=== PATIENT | male | born 1970 | race Caucasian/White ===

== ENCOUNTER → 2016-12-02 | Outpatient (CLI) | payer MEDICARE, OTHER ==
--- NOTE | 2016-12-02 07:51 | MR ---
EXAMINATION TYPE: MR hip RT wo con DATE OF EXAM: 12/02/2016 COMPARISON: Outside Pelvic x-ray November 03, 2016. MRI left hip May 03, 2015 HISTORY: Right hip pain Standard multiplanar, multisequence MRI departmental protocol Multiplanar, multisequence images of the pelvis focusing on the right hip were acquired. FINDINGS: Since prior MRI there is interval total hip replacement surgery, artifact from metallic paz dware is now present. There is small right hip joint effusion. Bone marrow signal intensity is maintained without suspiciou s edema. There is mild axial joint space loss and right hip. No significant spurring is seen. Femoral head shape is maintained. No suspicious edema at level of greater or lesser trochanters is identified. Labrum appears grossly i ntact given limitation of nonarthrogram study. Pubic symphysis is maintained. Sacroiliac joints are symmetric and felt within normal limits. No peyton l or fat-containing right inguinal hernia is seen. No suspicious groin adenopathy is present. Muscle bulk right thigh is felt within normal limits. There is no suspicious bowel dilatation. Prostate gland is felt within normal limits. Visualized port ion of bladder is unremarkable. No concerning pelvic fluid collection is seen. IMPRESSION: Some mild degenerative changes in right hip, no significant finding is seen to account for patient's symptoms. No significant new findings in right hip versus prior MRI.
== END | disposition home or self-care (01) ==
LOC: RADMRIMAIN 06:45
PROVIDERS: ATTEND Orthopaedic Surgery
DX: M25.851 Other specified joint disorders, right hip (principal); M25.551 Pain in right hip

== ENCOUNTER → 2017-01-08 | Outpatient (CLI) | payer MEDICARE, OTHER ==
--- NOTE | 2017-01-08 10:27 | XR ---
EXAMINATION TYPE: XR chest 2V DATE OF EXAM: 01/08/2017 COMPARISON: NONE HISTORY: Shortness of breath TECHNIQUE: Frontal and lateral views of the chest are obtained. FINDINGS: There is no focal air space opacity, pleural effusion, or pneumothorax seen. The cardiac silhouette size is within normal limits. The osseous structures are intact. Mild degenerative felton es are appreciated of the thoracic spine. Flattening of the diaphragms on the lateral image may relat e to degree of inspiration or pulmonary emphysema. No radiographic sequela of pulmonary emphysema on the frontal image. IMPRESSION: 1. No acute cardiopulmonary process. 2. Pulmonary hyperinflation which may relate to degree of inspiration or underlying emphysematous qian nges.
== END | disposition home or self-care (01) ==
LOC: RADXRMAIN 10:06
PROVIDERS: ATTEND Internal Medicine
DX: R91.8 Other nonspecific abnormal finding of lung field (principal); R06.02 Shortness of breath
CPT/HCPCS: 71020

== ENCOUNTER 2017-04-22 01:06 | Emergency (ER) | payer MEDICARE, OTHER ==
[2017-04-22 01:14] VITALS: RESP 18
[2017-04-22] MEDS ORDERED: KETOROLAC 60 MG/2 ML VIAL IM STA (01:26)
--- NOTE | 2017-04-22 01:29 | ED ---
General Adult HPI - General Chief complaint: Extremity Injury, Lower Stated complaint: R Ankle Pain Time Seen by Provider: 04/22/17 01:19 Source: patient, family, RN notes reviewed Mode of arrival: wheelchair Limitations: physical limitation - History of Present Illness Initial comments: Patient 46-year-old male who presents emergency room today with multiple complaints. Patient does admit that he is had some cough congestion for the last 3 days. Does admit some sputum production at times. Patient also admits to some swelling to the right ankle. He states had this in the past was proximal ureter ago that he last had. States there is no known injury. He states it is swollen is tender. He states worse with ambulation. Patient denies any history of gout. He denies any other complaints or symptoms currently. Patient denies any recent fever, chills, shortness of breath, chest pain, back pain, abdominal pain, nausea or vomiting, numbness or tingling, dysuria or hematuria, constipation or diarrhea, headaches or visual changes, or any other complaints. - Related Data Home Medications Medication Instructions Recorded Confirmed ALPRAZolam [Xanax] 1 mg PO BID 06/14/15 04/22/17 Methylphenidate HCl [Ritalin] 20 mg PO TID 06/14/15 04/22/17 Previous Rx's Medication Instructions Recorded Hydrocodone/Acetaminophen [[place] 1 each PO Q6HR PRN #20 tab 04/22/17 5-325] Allergies Allergy/AdvReac Type Severity Reaction Status Date / Time benztropine mesylate Allergy muscle Verified 04/22/17 01:14 [From Vipul] spasms Review of Systems ROS Statement: Those systems with pertinent positive or pertinent negative responses have been documented in the HPI. ROS Other: All systems not noted in ROS Statement are negative. Past Medical History Past Medical History: GERD/Reflux, Osteoarthritis (OA) Additional Past Medical History / Comment(s): hx. diverticulitis, recent cold sx. now resolved, hyperlipidemia diet controlled, ADHD, anxiety and depression, chronic back pain with known herniated disks History of Any Multi-Drug Resistant Organisms: None Reported Past Surgical History: Bowel Resection, Hernia Repair, Orthopedic Surgery Additional Past Surgical History / Comment(s): temp. colostomy then reversal, knee surg., thumb surg. Past Anesthesia/Blood Transfusion Reactions: No Reported Reaction Past Psychological History: ADD/ADHD, Anxiety Smoking Status: Former smoker Past Alcohol Use History: Rare Past Drug Use History: Marijuana - Past Family History Mother Family Medical History: Cancer General Exam - General Exam Comments Initial Comments: General: The patient is awake and alert, in no distress, and does not appear acutely ill. Neck: The neck is supple, there is no tenderness or JVD. Cardiovascular: There is a regular rate and rhythm. No murmur, rub or gallop is appreciated. Respiratory: Lungs are clear to auscultation, respirations are non-labored, breath sounds are equal. No wheezes, stridor, rales, or rhonchi. Musculoskeletal: patient does have some swelling to the right ankle. He is tender in the ATFL. Mild tenderness over both the medial and lateral malleolus. Sensations are intact pulses equal bilaterally 2+. Strength is 5/5. Neurological: A&O x 3. CN II-XII intact, There are no obvious motor or sensory deficits. Coordination appears grossly intact. Speech is normal. Skin: Skin is warm and dry and no rashes or lesions are noted. Psychiatric: Normal mood and affect. Limitations: physical limitation Course Vital Signs 04/22/17 01:09 Temperature 99.2 F Pulse Rate 90 Respiratory 18 Rate Blood Pressure 142/70 O2 Sat by Pulse 98 Oximetry Medical Decision Making - Medical Decision Making Case discussed in detail with attending physician Dr. Johnson. patient reexamined at this time shows no signs of distress. He is resting comfortably. Patient given pain medication here in the emergency room. His x-rays reviewed of his chest is negative for any sign of pneumonia. Advised that this is most likely a viral illness. Patient's x-ray of the ankle reviewed does show some evidence of osteochondritis. Results were discussed with the patient. He is advised follow-up his orthopedic doctor. He'll be given pain medication to go home with. Advised to return if any symptoms increase worsen or for any other concerns. - Lab Data Lab Results 04/22/17 Range/Units 01:55 Uric Acid 7.4 (3.5-8.5) mg/dL Disposition Clinical Impression: Costochondritis, Upper respiratory infection Disposition: HOME SELF-CARE Condition: Good Instructions: Arthralgia (ED) Additional Instructions: Please use medication as discussed. Please follow-up with orthopedic/family doctor in the next 2 days. Please return to emergency room if the symptoms increase or worsen or for any other concerns. Prescriptions: Hydrocodone/Acetaminophen [[place] 5-325] 1 each PO Q6HR PRN #20 tab PRN Reason: Pain Referrals: None,Stated [Primary Care Provider] - 1-2 days Beka Maynard MD [STAFF PHYSICIAN] - 1-2 days Time of Disposition: 02:58
--- NOTE | 2017-04-22 01:57 | XR ---
EXAMINATION TYPE: XR chest 2V DATE OF EXAM: 04/22/2017 COMPARISON: 01/08/2017 HISTORY: Cough TECHNIQUE: Frontal and lateral views of the chest are obtained. FINDINGS: Heart and mediastinum are normal. Lungs are clear of consolidation. Costophrenic angles ar e clear. Bony thorax is intact. IMPRESSION: No active cardiopulmonary disease. Normal heart. No change.
--- NOTE | 2017-04-22 01:59 | XR ---
EXAMINATION TYPE: XR ankle complete RT DATE OF EXAM: 04/22/2017 COMPARISON: NONE HISTORY: Ankle swelling TECHNIQUE: 3 views FINDINGS: Ankle mortise is anatomic. I see no fracture nor dislocation. There is some sclerosis and l ucency in the medial dome of the talus. IMPRESSION: No fracture seen. 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
[2017-04-22] MEDS ORDERED: HYDROcodone/APAP 5-325MG 1 EACH TAB PO STA (02:35)
[2017-04-22 03:17] VITALS: BP 114/63; PULSE 88; TEMP 99
== END 2017-04-22 03:16 | disposition home or self-care (01) ==
LOC: EC 01:06
DX: J06.9 Acute upper respiratory infection, unspecified (principal); M94.0 Chondrocostal junction syndrome [Tietze]; M93.971 Osteochondropathy, unspecified, right ankle and foot; F41.9 Anxiety disorder, unspecified; F90.9 Attention-deficit hyperactivity disorder, unspecified type; Z87.891 Personal history of nicotine dependence; Z79.899 Other long term (current) drug therapy; Z88.8 Allergy status to other drugs, medicaments and biological substances
CPT/HCPCS: 36415; 71020; 84550; 96372; 99284

== ENCOUNTER 2017-12-02 16:11 | Emergency (ER) | payer MEDICARE, OTHER ==
[2017-12-02 16:33] VITALS: TEMP 98.4
[2017-12-02 16:48] LABS: Glucose,Whole Blood 116 mg/dL (75-99)
--- NOTE | 2017-12-02 17:06 | ED ---
General Adult HPI - General Chief complaint: Neuro Symptoms/Deficit Stated complaint: Slurred Speech Time Seen by Provider: 12/02/17 16:49 Source: patient, RN notes reviewed Mode of arrival: wheelchair Limitations: no limitations - History of Present Illness Initial comments: Patient is a pleasant 47-year-old male presenting to the emergency department with speech problems. Onset of symptoms was 3 days ago. Symptoms were intermittent 3 days ago. Symptoms were persistent more yesterday however somewhat intermittent. Symptoms have been persistent throughout the day. Patient has difficulty speaking words. Patient states he is able to think of them normally. Patient also has some slurred speech. No history of similar symptoms previously. No headache. Patient does not feel confused. No arm or leg weakness. No paresthesias. Patient has noticed some redness and swelling and discomfort of his right first MCP. Patient has had this several times previously however is unclear why. - Related Data Home Medications Medication Instructions Recorded Confirmed Albuterol Inhaler [Ventolin Hfa 2 puff INHALATION RT-Q6H PRN 12/02/17 12/02/17 Inhaler] Naproxen Sodium [Aleve] 220 mg PO BID PRN 12/02/17 12/02/17 Allergies Allergy/AdvReac Type Severity Reaction Status Date / Time benztropine mesylate AdvReac muscle Verified 12/02/17 16:49 [From Vipul] spasms Review of Systems ROS Statement: Those systems with pertinent positive or pertinent negative responses have been documented in the HPI. ROS Other: All systems not noted in ROS Statement are negative. Constitutional: Denies: fever, chills Eyes: Denies: eye pain ENT: Denies: ear pain Respiratory: Denies: cough Cardiovascular: Denies: chest pain Endocrine: Denies: fatigue Gastrointestinal: Denies: abdominal pain Genitourinary: Denies: dysuria Musculoskeletal: Reports: arthralgia. Denies: back pain Skin: Reports: rash (Red swollen painful right first MCP region) Neurological: Denies: headache, weakness, numbness, paresthesias, confusion Past Medical History Past Medical History: GERD/Reflux, Osteoarthritis (OA) Additional Past Medical History / Comment(s): hx. diverticulitis, recent cold sx. now resolved, hyperlipidemia diet controlled, ADHD, anxiety and depression, chronic back pain with known herniated disks History of Any Multi-Drug Resistant Organisms: None Reported Past Surgical History: Bowel Resection, Hernia Repair, Orthopedic Surgery Additional Past Surgical History / Comment(s): temp. colostomy then reversal, knee surg., thumb surg. Past Anesthesia/Blood Transfusion Reactions: No Reported Reaction Past Psychological History: ADD/ADHD, Anxiety Smoking Status: Former smoker Past Alcohol Use History: Rare Past Drug Use History: Marijuana - Past Family History Mother Family Medical History: Cancer General Exam Limitations: no limitations General appearance: alert, in no apparent distress Head exam: Present: atraumatic Eye exam: Present: normal appearance, PERRL, EOMI. Absent: nystagmus ENT exam: Present: normal oropharynx Neck exam: Present: normal inspection Respiratory exam: Present: normal lung sounds bilaterally Cardiovascular Exam: Present: regular rate, normal rhythm GI/Abdominal exam: Present: soft. Absent: tenderness Extremities exam: Present: other (Right first MCP with erythema and mild swelling and mild tenderness. Pain with range of motion. Distally cap refill less than 2 seconds.) Neurological exam: Present: alert, CN II-XII intact. Absent: motor sensory deficit Expanded Neurological exam: Present: protecting the airway, other (And slurred speech) Speech: Present: expressive aphasia Cranial nerves: EOM's Intact: Normal, Facial Sensation: Normal Cerebellar function: Finger to Nose: Normal Sensory exam: Upper Extremity Light Touch: Normal, Lower Extremity Light Touch: Normal Motor strength exam: RUE: 5, LUE: 5, RLE: 5, LLE: 5 Eye Response: (4) open spontaneously Motor Response: (6) obeys commands Verbal Response: (4) confused conversation Psychiatric exam: Present: normal mood Skin exam: Present: erythema (Right first MCP) Course Vital Signs 12/02/17 12/02/17 16:31 18:00 Temperature 98.4 F Pulse Rate 91 74 Respiratory 18 16 Rate Blood Pressure 126/78 153/72 O2 Sat by Pulse 98 100 Oximetry EKG Findings - EKG Comments: EKG Findings:: Normal sinus rhythm 81. MO 146. QRS 76. QT 380. QTC 441. Normal axis. Normal QRS. No acute ST change. Medical Decision Making - Medical Decision Making reevaluated and unchanged. Patient and family updated on results and plan. Case was discussed in detail with Dr. Schilling, who will admit for hospital call. - Lab Data Result diagrams: 12/02/17 16:44 12/02/17 16:44 Lab Results 12/02/17 12/02/17 12/02/17 Range/Units 16:42 16:44 16:44 WBC 9.2 (3.8-10.6) k/uL RBC 5.29 (4.30-5.90) m/uL Hgb 17.6 H (13.0-17.5) gm/dL Hct 52.0 (39.0-53.0) % MCV 98.4 (80.0-100.0) fL MCH 33.3 (25.0-35.0) pg MCHC 33.8 (31.0-37.0) g/dL RDW 13.3 (11.5-15.5) % Plt Count 280 (150-450) k/uL Neutrophils % 64 % Lymphocytes % 21 % Monocytes % 10 % Eosinophils % 3 % Basophils % 0 % Neutrophils # 5.9 (1.3-7.7) k/uL Lymphocytes # 2.0 (1.0-4.8) k/uL Monocytes # 1.0 (0-1.0) k/uL Eosinophils # 0.2 (0-0.7) k/uL Basophils # 0.0 (0-0.2) k/uL PT (9.0-12.0) sec INR (<1.2) APTT (22.0-30.0) sec Sodium (137-145) mmol/L Potassium (3.5-5.1) mmol/L Chloride (98-107) mmol/L Carbon Dioxide (22-30) mmol/L Anion Gap mmol/L BUN (9-20) mg/dL Creatinine (0.66-1.25) mg/dL Est GFR (CKD-EPI)AfAm (>60 ml/min/1.73 sqM) Est GFR (CKD-EPI)NonAf (>60 ml/min/1.73 sqM) Glucose (74-99) mg/dL POC Glucose (mg/dL) 116 H (75-99) mg/dL POC Glu Folding Machine Feeder ID Kirt Mena Calcium (8.4-10.2) mg/dL Total Bilirubin (0.2-1.3) mg/dL AST (17-59) U/L ALT (21-72) U/L Alkaline Phosphatase (38-126) U/L Total Creatine Kinase 46 L (55-170) U/L CK-MB (CK-2) 1.1 (0.0-2.4) ng/mL CK-MB (CK-2) Rel Index 2.4 Troponin I <0.012 (0.000-0.034) ng/mL Total Protein (6.3-8.2) g/dL Albumin (3.5-5.0) g/dL 12/02/17 12/02/17 Range/Units 16:44 16:44 WBC (3.8-10.6) k/uL RBC (4.30-5.90) m/uL Hgb (13.0-17.5) gm/dL Hct (39.0-53.0) % MCV (80.0-100.0) fL MCH (25.0-35.0) pg MCHC (31.0-37.0) g/dL RDW (11.5-15.5) % Plt Count (150-450) k/uL Neutrophils % % Lymphocytes % % Monocytes % % Eosinophils % % Basophils % % Neutrophils # (1.3-7.7) k/uL Lymphocytes # (1.0-4.8) k/uL Monocytes # (0-1.0) k/uL Eosinophils # (0-0.7) k/uL Basophils # (0-0.2) k/uL PT 10.2 (9.0-12.0) sec INR 1.0 (<1.2) APTT 24.9 (22.0-30.0) sec Sodium 139 (137-145) mmol/L Potassium 4.4 (3.5-5.1) mmol/L Chloride 103 (98-107) mmol/L Carbon Dioxide 26 (22-30) mmol/L Anion Gap 10 mmol/L BUN 8 L (9-20) mg/dL Creatinine 0.80 (0.66-1.25) mg/dL Est GFR (CKD-EPI)AfAm >90 (>60 ml/min/1.73 sqM) Est GFR (CKD-EPI)NonAf >90 (>60 ml/min/1.73 sqM) Glucose 121 H (74-99) mg/dL POC Glucose (mg/dL) (75-99) mg/dL POC Glu Folding Machine Feeder ID Calcium 9.5 (8.4-10.2) mg/dL Total Bilirubin 0.7 (0.2-1.3) mg/dL AST 31 (17-59) U/L ALT 49 (21-72) U/L Alkaline Phosphatase 112 (38-126) U/L Total Creatine Kinase (55-170) U/L CK-MB (CK-2) (0.0-2.4) ng/mL CK-MB (CK-2) Rel Index Troponin I (0.000-0.034) ng/mL Total Protein 7.4 (6.3-8.2) g/dL Albumin 4.2 (3.5-5.0) g/dL - Radiology Data Radiology results: report reviewed (Computed tomography scan of the brain reported as no acute process), image reviewed (Chest x-ray shows no acute process) Disposition Clinical Impression: Cerebrovascular accident Disposition: ADMITTED IP TO THIS [facility] Referrals: None,Stated [Primary Care Provider] - 1-2 days Decision Time: 18:30
[2017-12-02 17:08] LABS: Basophils % (A) 0 %; Eosinophils # (A) 0.2 k/uL (0-0.7); Eosinophils % (A) 3 %; HGB 17.6 gm/dL (13.0-17.5); Lymphocytes % (A) 21 %; MCH 33.3 pg (25.0-35.0); MCHC 33.8 g/dL (31.0-37.0); MCV 98.4 fL (80.0-100.0); Mean Platelet Volume 6.6; Monocytes % (A) 10 %; Neutrophils # (A) 5.9 k/uL (1.3-7.7); Neutrophils % (A) 64 %; Platelet Count 280 k/uL (150-450); RBC 5.29 m/uL (4.30-5.90); RDW 13.3 % (11.5-15.5); WBC 9.2 k/uL (3.8-10.6)
[2017-12-02 17:12] LABS: Partial Thromboplastin Time 24.9 sec (22.0-30.0); Prothrombin Time 10.2 sec (9.0-12.0)
[2017-12-02 17:14] LABS: ALT 49 U/L (21-72); AST 31 U/L (17-59); Albumin 4.2 g/dL (3.5-5.0); Alkaline Phosphatase 112 U/L (38-126); Anion Gap 10 mmol/L; Blood Urea Nitrogen 8 mg/dL (9-20); Calcium 9.5 mg/dL (8.4-10.2); Carbon Dioxide 26 mmol/L (22-30); Chloride 103 mmol/L (98-107); Glucose 121 mg/dL (74-99); Potassium 4.4 mmol/L (3.5-5.1); Sodium 139 mmol/L (137-145); Total Bilirubin 0.7 mg/dL (0.2-1.3); Total Protein 7.4 g/dL (6.3-8.2)
[2017-12-02 17:23] LABS: Creatine Kinase 46 U/L (55-170)
[2017-12-02 17:36] LABS: Creatine Kinase MB 1.1 ng/mL (0.0-2.4); Troponin I <0.012 ng/mL (0.000-0.034)
--- NOTE | 2017-12-02 17:38 | XR ---
EXAMINATION: XR chest 2V DATE AND TIME: 12/02/2017 5:23 PM ORDERING PROVIDER: Gomez Morocho DO CLINICAL INDICATION: altered mental status TECHNIQUE: AP and lateral COMPARISON: 04/22/2017 DESCRIPTION: The lungs are clear. The pleural spaces are negative. The cardiac silhouette is not enlarged. The skeletal structures are intact without acute findings. The soft tissues are prominent but unremarkable for acute findings. IMPRESSION: NO ACUTE PROCESS.
--- NOTE | 2017-12-02 17:44 | CT ---
EXAMINATION: CT brain wo con for TPA DATE AND TIME: 12/02/2017 5:21 PM ORDERING PROVIDER: Gomez Morocho DO CLINICAL INDICATION: Neuro Deficits TECHNIQUE: Standard departmental protocol. COMPARISON: None. DESCRIPTION: The calvarium is intact. There is no intracranial hemorrhage. There is no mass or mass e ffect. There is no definite new attenuation defect. Remainder of the intra-axial and extra-axial comp artment examination is unremarkable. The paranasal sinuses, middle ear cavities, and mastoid sinus ai r cells are clear. The orbits are intact. IMPRESSION: NO ACUTE PROCESS.
[2017-12-02 18:01] VITALS: RESP 16
[2017-12-02] MEDS ORDERED: ASPIRIN 325 MG TAB PO STA (18:31)
[2017-12-02] MEDS ORDERED: SODIUM CHLORIDE 0.9% 1,000 ML IV SCH (18:45)
--- NOTE | 2017-12-02 19:10 | P.PN ---
Subjective Progress Note Date: 12/02/17 just notified by ED RN, that patient decided to leave against medical advice from the ED and refusing admission Objective - Vital Signs Vital signs: Vital Signs Temp 98.4 F 12/02/17 16:31 Pulse 74 12/02/17 18:00 Resp 16 12/02/17 18:00 BP 153/72 12/02/17 18:00 Pulse Ox 100 12/02/17 18:00 Intake & Output 12/02/17 12/02/17 12/03/17 06:59 18:59 06:59 Weight 83.915 kg - Labs CBC & Chem 7: 12/02/17 16:44 12/02/17 16:44 Labs: Abnormal Lab Results - Last 24 Hours (Table) 12/02/17 12/02/17 12/02/17 Range/Units 16:42 16:44 16:44 Hgb 17.6 H (13.0-17.5) gm/dL BUN (9-20) mg/dL Glucose (74-99) mg/dL POC Glucose (mg/dL) 116 H (75-99) mg/dL Total Creatine Kinase 46 L (55-170) U/L 12/02/17 Range/Units 16:44 Hgb (13.0-17.5) gm/dL BUN 8 L (9-20) mg/dL Glucose 121 H (74-99) mg/dL POC Glucose (mg/dL) (75-99) mg/dL Total Creatine Kinase (55-170) U/L
[2017-12-02 19:19] VITALS: BP 148/79; PULSE 78
[2017-12-03] MEDS ORDERED: ASPIRIN 325 MG TAB PO SCH (12:00)
== END 2017-12-02 19:16 | disposition left against medical advice (07) ==
LOC: EC 16:11 → 6SEL 18:31 → UNDOADMIN 18:31 → EC 19:16
DX: I63.9 Cerebral infarction, unspecified (principal); R40.2142 Coma scale, eyes open, spontaneous, at arrival to emergency department; R40.2252 Coma scale, best verbal response, oriented, at arrival to emergency department; R40.2362 Coma scale, best motor response, obeys commands, at arrival to emergency department; Z53.20 Procedure and treatment not carried out because of patient's decision for unspecified reasons; Z87.891 Personal history of nicotine dependence; Z88.8 Allergy status to other drugs, medicaments and biological substances
CPT/HCPCS: 36415; 70450; 71046; 80053; 82550; 82553; 84484; 85025; 85610; 85730; 93005; 99285

== ENCOUNTER 2019-01-22 18:48 | Emergency (ER) | payer MEDICARE, OTHER ==
[2019-01-22 19:07] VITALS: BP 143/86; PULSE 98; RESP 18; TEMP 98.2
[2019-01-22] MEDS ORDERED: predniSONE 50 MG TAB PO STA (19:41)
[2019-01-22] MEDS ORDERED: CEPHALEXIN 500 MG CAP PO STA (19:41)
[2019-01-22] MEDS ORDERED: CEPHALEXIN 500MG STARTER PACK 4 CAP BTL PO STA (19:41)
--- NOTE | 2019-01-22 19:42 | ED ---
General Adult HPI - General Chief complaint: Skin/Abscess/Foreign Body Stated complaint: Bug Bites Time Seen by Provider: 01/22/19 19:29 Source: patient, RN notes reviewed, old records reviewed Mode of arrival: ambulatory Limitations: no limitations - History of Present Illness Initial comments: 48-year-old male patient presents ED chief complaint of bug bites on his upper extremities and lower extremities bilaterally. Patient reports has been ongoing for a month. Patient reports that he has mites in his house that has been biting him. Patient states that they're not bedbugs. Patient has been seen at other emergency centimeters, dermatology states that nobody knows they are. Patient chief complaint is back treatment of burning on excoriations upper or lower extremities. Denies any other complaints at this time. Systemic: Pt denies fatigue, fever/chills, rash. Pt denies weakness, night sweats, weight loss. Neuro: Pt denies headache, visual disturbances, syncope or pre-syncope. HEENT: Pt denies ocular discharge or irritation, otalgia, rhinorrhea, pharyngitis or notable lymphadenopathy. Cardiopulmonary: Pt denies chest pain, SOB, heart palpitations, dyspnea on exertion. Abdominal/GI: Pt denies abdominal pain, n/v/d. : Pt denies dysuria, burning w/ urination, frequency/urgency. Denies new onset urinary or bowel incontinence. MSK: Pt denies myalgia, loss of strength or function in extremities. Neuro: Pt denies new onset weakness, paresthesias. - Related Data Home Medications Medication Instructions Recorded Confirmed Albuterol Inhaler [Ventolin Hfa 2 puff INHALATION RT-Q6H PRN 12/02/17 12/02/17 Inhaler] Naproxen Sodium [Aleve] 220 mg PO BID PRN 12/02/17 12/02/17 Previous Rx's Medication Instructions Recorded Cephalexin [Keflex] 500 mg PO Q6HR 7 Days #28 cap 01/22/19 predniSONE 50 mg PO DAILY #4 tab 01/22/19 Allergies Allergy/AdvReac Type Severity Reaction Status Date / Time benztropine mesylate AdvReac muscle Verified 01/22/19 19:07 [From Vipul] spasms Review of Systems ROS Statement: Those systems with pertinent positive or pertinent negative responses have been documented in the HPI. ROS Other: All systems not noted in ROS Statement are negative. Past Medical History Past Medical History: GERD/Reflux, Osteoarthritis (OA) Additional Past Medical History / Comment(s): hx. diverticulitis, recent cold sx. now resolved, hyperlipidemia diet controlled, ADHD, anxiety and depression, chronic back pain with known herniated disks History of Any Multi-Drug Resistant Organisms: None Reported Past Surgical History: Bowel Resection, Hernia Repair, Orthopedic Surgery Additional Past Surgical History / Comment(s): temp. colostomy then reversal, knee surg., thumb surg. Past Anesthesia/Blood Transfusion Reactions: No Reported Reaction Past Psychological History: ADD/ADHD, Anxiety Smoking Status: Current some day smoker Past Alcohol Use History: Rare Past Drug Use History: Marijuana - Past Family History Mother Family Medical History: Cancer General Exam - General Exam Comments Initial Comments: Constitutional: NAD, AOX3, Pt has pleasant affect. HEENT: NC/AT, trachea midline, neck supple, no lymphadenopathy. Posterior pharynx non erythematous, without exudates. External ears appear normal, without discharge. Mucous membranes moist. Eyes PERRLA, EOM intact. There is no scleral icterus. No pallor noted. Cardiopulmonary: RRR, no murmurs, rubs or gallops, no JVD noted. Lungs CTAB in anterior and posterior freire. No peripheral edema. Abdominal exam: Abdomen soft and non-distended. Abdomen non-tender to palpation in all 4 quadrants. Bowel sounds active in LLQ. No hepatosplenomegaly. No ecchymosis Neuro: CN II-XII grossly intact. No nuchal rigidity. No raccon eyes, no rosario sign, no hemotympanum. No cervical spinal tenderness. MSK: No posterior calf tenderness bilaterally, homans sign negative bilaterally. Posterior tibialis and radial pulse +2 bilaterally. Sensation intact in upper an d lower extremities. Full active ROM in upper and lower extremities, 5/5 stregnth. Derm: Skin excoriations noted on upper and lower extremities. Spares abdomen and back. No involvement palms or soles, no mucosal involvement. Spares interwebbing of fingers. No streaking, fluctuance, discharge. Limitations: no limitations Course Vital Signs 01/22/19 19:05 Temperature 98.2 F Pulse Rate 98 Respiratory 18 Rate Blood Pressure 143/86 O2 Sat by Pulse 100 Oximetry Medical Decision Making - Medical Decision Making 48-year-old male patient presents ED chief complaint of bug bites on his upper extremities and lower extremities bilaterally. Patient reports has been ongoing for a month. Patient reports that he has mites in his house that has been biting him. Patient states that they're not bedbugs. Patient has been seen at other emergency centimeters, dermatology states that nobody knows they are. Patient chief complaint is back treatment of burning on excoriations upper or lower extremities. Denies any other complaints at this time. Pt VSS, afebrile. Physical exam displayed: Skin excoriations noted on upper and lower extremities. Spares abdomen and back. No involvement palms or soles, no mucosal inv olvement. Spares interwebbing of fingers. No streaking, fluctuance, discharge. Patient will be placed on first third treatment, prophylactic Keflex. Patient has appointment with dermatology on Wednesday, will keep scheduled appointment. Patient will return to ER if condition worsens. Case discussed with Dr. Lomas. Disposition Clinical Impression: Skin excoriation Disposition: HOME SELF-CARE Condition: Stable Instructions (If sedation given, give patient instructions): Acute Rash (ED), Insect Bite or Sting (ED) Additional Instructions: Patient to adhere to previously discussed treatment plan and will take medication(s) as directed. Patient to follow up with PCP in 1-2 days. Patient to return to ED if symptoms do not improve. Take medication as directed. Follow-up with associate vice president as scheduled. Return to ER if condition worsens. Prescriptions: Cephalexin [Keflex] 500 mg PO Q6HR 7 Days #28 cap predniSONE 50 mg PO DAILY #4 tab Is patient prescribed a controlled substance at d/c from ED?: No Referrals: None,Stated [Primary Care Provider] - 1-2 days
== END 2019-01-22 20:12 | disposition home or self-care (01) ==
LOC: EC 18:48
DX: S40.812A Abrasion of left upper arm, initial encounter (principal); S40.811A Abrasion of right upper arm, initial encounter; S80.812A Abrasion, left lower leg, initial encounter; S80.811A Abrasion, right lower leg, initial encounter; E78.5 Hyperlipidemia, unspecified; F17.200 Nicotine dependence, unspecified, uncomplicated; Z88.8 Allergy status to other drugs, medicaments and biological substances; W57.XXXA Bitten or stung by nonvenomous insect and other nonvenomous arthropods, initial encounter
CPT/HCPCS: 99283; J7512

== ENCOUNTER 2019-11-22 15:24 | Inpatient (IN) | payer MEDICARE, OTHER ==
[2019-11-22] MEDS ORDERED: ASPIRIN 81 MG PO STA (16:04)
[2019-11-22 16:14] LABS: Basophils # (A) 0.1 k/uL (0-0.2); Basophils % (A) 1 %; Eosinophils # (A) 0.2 k/uL (0-0.7); Eosinophils % (A) 2 %; HGB 15.8 gm/dL (13.0-17.5); Lymphocytes # (A) 2.2 k/uL (1.0-4.8); Lymphocytes % (A) 23 %; MCH 31.6 pg (25.0-35.0); MCHC 32.3 g/dL (31.0-37.0); MCV 98.1 fL (80.0-100.0); Mean Platelet Volume 7.2; Monocytes # (A) 0.8 k/uL (0-1.0); Monocytes % (A) 8 %; Neutrophils # (A) 6.1 k/uL (1.3-7.7); Neutrophils % (A) 63 %; Platelet Count 248 k/uL (150-450); WBC 9.6 k/uL (3.8-10.6)
[2019-11-22 16:22] LABS: INR 0.9 (<1.2); Partial Thromboplastin Time 25.5 sec (22.0-30.0); Prothrombin Time 9.6 sec (9.0-12.0)
[2019-11-22 16:24] LABS: ALT 26 U/L (4-49); AST 21 U/L (17-59); African American GFR (CKD) >90 (>60 ml/min/1.73 sqM); Albumin 4.4 g/dL (3.5-5.0); Alkaline Phosphatase 105 U/L (38-126); Anion Gap 11 mmol/L; Blood Urea Nitrogen 11 mg/dL (9-20); Calcium 9.2 mg/dL (8.4-10.2); Carbon Dioxide 24 mmol/L (22-30); Chloride 96 mmol/L (98-107); Glucose 143 mg/dL (74-99); Magnesium 1.6 mg/dL (1.6-2.3); Non-African American GFR(CKD) >90 (>60 ml/min/1.73 sqM); Potassium 3.7 mmol/L (3.5-5.1); Sodium 131 mmol/L (137-145); Total Bilirubin 0.5 mg/dL (0.2-1.3); Total Protein 7.9 g/dL (6.3-8.2)
[2019-11-22] MEDS ORDERED: HEPARIN SODIUM,PORCINE 5,000 UNIT/ML 1 ML VIAL IV ONE (16:31)
[2019-11-22] MEDS ORDERED: HEPARIN SOD,PORK IN 0.45% NACL 25,000 UNIT in 0.45% NACL 1 250ML.BAG IV SCH (16:45)
--- NOTE | 2019-11-22 16:57 | XR ---
EXAMINATION TYPE: XR chest 2V DATE OF EXAM: 11/22/2019 COMPARISON: 12/02/2017 HISTORY: Chest pain TECHNIQUE: FINDINGS: Heart and mediastinum are normal. Lungs are clear. Diaphragm is normal. Bony thorax appears normal. There are chest leads. IMPRESSION: Normal chest. No change.
--- NOTE | 2019-11-22 17:01 | ED ---
General Adult HPI - General Chief complaint: Extremity Problem,Nontraumatic Stated complaint: lightheaded/feet swelling/toe numbness Time Seen by Provider: 11/22/19 15:36 Source: patient, family, RN notes reviewed, old records reviewed Mode of arrival: wheelchair Limitations: no limitations - History of Present Illness Initial comments: 49-year-old male patient received for evaluation of primarily left foot pain and numbness and tingling. Patient reports that he has a history of arterial claudication lower extremity is bilaterally. He reports that for the last 2 days has been having numbness and tingling in the foot and as well as pain in the foot. He also reports that yesterday and today he had a short duration of left parasternal chest pain. He reports that the pain was in the morning lasted a short duration is since resolved. Denies any pain this time. Denies any shortness of breath this time. Denies any other complaints. Systemic: Pt denies fatigue, fever/chills, rash. Pt denies weakness, night sweats, weight loss. Neuro: Pt denies headache, visual disturbances, syncope or pre-syncope. HEENT: Pt denies ocular discharge or irritation, otalgia, rhinorrhea, pharyngitis or notable lymphadenopathy. Cardiopulmonary: Pt denies SOB, heart palpitations, dyspnea on exertion. Abdominal/GI: Pt denies abdominal pain, n/v/d. : Pt denies dysuria, burning w/ urination, frequency/urgency. Denies new onset urinary or bowel incontinence. MSK: Pt denies myalgia, loss of strength or function in extremities. Neuro: Pt denies new onset weakness. - Related Data Home Medications Medication Instructions Recorded Confirmed ALPRAZolam [Xanax] 1 mg PO BID PRN 11/22/19 11/22/19 Aspirin EC [Ecotrin Low Dose] 81 mg PO DAILY 11/22/19 11/22/19 Loratadine 10 mg PO DAILY 11/22/19 11/22/19 Methylphenidate HCl 20 mg PO BID@0900,1300 11/22/19 11/22/19 Simvastatin 40 mg PO DAILY 11/22/19 11/22/19 Allergies Allergy/AdvReac Type Severity Reaction Status Date / Time benztropine mesylate AdvReac muscle Verified 11/22/19 16:07 [From [facility]] spasms Review of Systems ROS Statement: Those systems with pertinent positive or pertinent negative responses have been documented in the HPI. ROS Other: All systems not noted in ROS Statement are negative. Past Medical History Past Medical History: GERD/Reflux, Osteoarthritis (OA) Additional Past Medical History / Comment(s): hx. diverticulitis, recent cold sx. now resolved, hyperlipidemia diet controlled, ADHD, anxiety and depression, chronic back pain with known herniated disks History of Any Multi-Drug Resistant Organisms: None Reported Past Surgical History: Bowel Resection, Hernia Repair, Orthopedic Surgery Additional Past Surgical History / Comment(s): temp. colostomy then reversal, knee surg., thumb surg. Past Anesthesia/Blood Transfusion Reactions: No Reported Reaction Past Psychological History: ADD/ADHD, Anxiety Smoking Status: Former smoker Past Alcohol Use History: None Reported, Rare Past Drug Use History: None Reported, Marijuana - Past Family History Mother Family Medical History: Cancer General Exam - General Exam Comments Initial Comments: Constitutional: NAD, AOX3, Pt has pleasant affect. HEENT: NC/AT, trachea midline, neck supple, no lymphadenopathy. Posterior pharynx non erythematous, without exudates. External ears appear normal, without discharge. Mucous membranes moist. Eyes PERRLA, EOM intact. There is no scleral icterus. No pallor noted. Cardiopulmonary: RRR, no murmurs, rubs or gallops, no JVD noted. Lungs CTAB in anterior and posterior freire. No peripheral edema. Abdominal exam: Abdomen soft and non-distended. Abdomen non-tender to palpation in all 4 quadrants. Bowel sounds active in LLQ. No hepatosplenomegaly. No ecchymosis Neuro: CN II-XII grossly intact. No nuchal rigidity. No raccon eyes, no rosario sign, no hemotympanum. No cervical spinal tenderness. MSK: No posterior calf tenderness bilaterally, homans sign negative bilaterally. Distal pulses are nonpalpable bilaterally. Right posterior tibialis and dorsalis pedis pulse are present with Doppler. Left posterior tibialis dorsalis pedis pulse are not identified with Doppler. Capillary refill is less than 2 s econds bilaterally. Extremities are pink and warm. No posterior calf tenderness. Limitations: no limitations Course Vital Signs 11/22/19 11/22/19 15:29 17:01 Temperature 98.2 F Pulse Rate 95 80 Respiratory 18 18 Rate Blood Pressure 159/87 144/83 O2 Sat by Pulse 98 99 Oximetry Medical Decision Making - Medical Decision Making 49-year-old male patient received for evaluation of primarily left foot pain and numbness and tingling. Patient reports that he has a history of arterial claudication lower extremity is bilaterally. He reports that for the last 2 days has been having numbness and tingling in the foot and as well as pain in the foot. He also reports that yesterday and today he had a short duration of left parasternal chest pain. He reports that the pain was in the morning lasted a short duration is since resolved. Denies any pain this time. Denies any shortness of breath this time. Denies any other complaints. Patient vital signs are stable, afebrile. Physical exam displayed: No posterior calf tenderness bilaterally, homans sign negative bilaterally. Distal pulses are nonpalpable bilaterally. Right posterior tibialis and dorsalis pedis pulse are present with Doppler. Left posterior tibialis dorsalis pedis pulse are not identified with Doppler. Capillary refill is less than 2 seconds bilaterally. Extremities are pink and warm. No posterior calf tenderness. Sensation is intact bilaterally. Lymph investigations are obtained and are non-impressive. EKG is nonischemic. Patient was evaluated by Dr. Dasilva patient's previously established vascular surgeon. This is a long-standing issue and sensory previously recommended. Patient seen not have any chest pain only has a short amount earlier in the day. Patient was heparinized and low intensity heparin. Patient will be admitted [id number] troponins, and further evaluation by vascular surgery. Case discussed with Dr. Nicholson. - Lab Data Result diagrams: 11/22/19 16:08 11/22/19 16:08 Lab Results 11/22/19 11/22/19 11/22/19 Range/Units 16:08 16:08 16:08 WBC 9.6 (3.8-10.6) k/uL RBC 5.00 (4.30-5.90) m/uL Hgb 15.8 (13.0-17.5) gm/dL Hct 49.0 (39.0-53.0) % MCV 98.1 (80.0-100.0) fL MCH 31.6 (25.0-35.0) pg MCHC 32.3 (31.0-37.0) g/dL RDW 13.0 (11.5-15.5) % Plt Count 248 (150-450) k/uL Neutrophils % 63 % Lymphocytes % 23 % Monocytes % 8 % Eosinophils % 2 % Basophils % 1 % Neutrophils # 6.1 (1.3-7.7) k/uL Lymphocytes # 2.2 (1.0-4.8) k/uL Monocytes # 0.8 (0-1.0) k/uL Eosinophils # 0.2 (0-0.7) k/uL Basophils # 0.1 (0-0.2) k/uL PT 9.6 (9.0-12.0) sec INR 0.9 (<1.2) APTT 25.5 (22.0-30.0) sec Sodium 131 L (137-145) mmol/L Potassium 3.7 (3.5-5.1) mmol/L Chloride 96 L (98-107) mmol/L Carbon Dioxide 24 (22-30) mmol/L Anion Gap 11 mmol/L BUN 11 (9-20) mg/dL Creatinine 0.64 L (0.66-1.25) mg/dL Est GFR (CKD-EPI)AfAm >90 (>60 ml/min/1.73 sqM) Est GFR (CKD-EPI)NonAf >90 (>60 ml/min/1.73 sqM) Glucose 143 H (74-99) mg/dL Calcium 9.2 (8.4-10.2) mg/dL Magnesium 1.6 (1.6-2.3) mg/dL Total Bilirubin 0.5 (0.2-1.3) mg/dL AST 21 (17-59) U/L ALT 26 (4-49) U/L Alkaline Phosphatase 105 (38-126) U/L Troponin I (0.000-0.034) ng/mL NT-Pro-B Natriuret Pep pg/mL Total Protein 7.9 (6.3-8.2) g/dL Albumin 4.4 (3.5-5.0) g/dL 11/22/19 11/22/19 Range/Units 16:08 16:08 WBC (3.8-10.6) k/uL RBC (4.30-5.90) m/uL Hgb (13.0-17.5) gm/dL Hct (39.0-53.0) % MCV (80.0-100.0) fL MCH (25.0-35.0) pg MCHC (31.0-37.0) g/dL RDW (11.5-15.5) % Plt Count (150-450) k/uL Neutrophils % % Lymphocytes % % Monocytes % % Eosinophils % % Basophils % % Neutrophils # (1.3-7.7) k/uL Lymphocytes # (1.0-4.8) k/uL Monocytes # (0-1.0) k/uL Eosinophils # (0-0.7) k/uL Basophils # (0-0.2) k/uL PT (9.0-12.0) sec INR (<1.2) APTT (22.0-30.0) sec Sodium (137-145) mmol/L Potassium (3.5-5.1) mmol/L Chloride (98-107) mmol/L Carbon Dioxide (22-30) mmol/L Anion Gap mmol/L BUN (9-20) mg/dL Creatinine (0.66-1.25) mg/dL Est GFR (CKD-EPI)AfAm (>60 ml/min/1.73 sqM) Est GFR (CKD-EPI)NonAf (>60 ml/min/1.73 sqM) Glucose (74-99) mg/dL Calcium (8.4-10.2) mg/dL Magnesium (1.6-2.3) mg/dL Total Bilirubin (0.2-1.3) mg/dL AST (17-59) U/L ALT (4-49) U/L Alkaline Phosphatase (38-126) U/L Troponin I <0.012 (0.000-0.034) ng/mL NT-Pro-B Natriuret Pep 74 pg/mL Total Protein (6.3-8.2) g/dL Albumin (3.5-5.0) g/dL - EKG Data -: EKG Interpreted by Me (and Dr. Nicholson ) EKG Comments: Ventricular rate 92,. Full 146, QRS 80, QT/QTC 366/452. normal sinus rhytm, normal EKG, no concern for acute ischemia at this time. Disposition Clinical Impression: Left leg claudication, Chest pain Disposition: ADMITTED IP TO THIS HOSP Condition: Serious Is patient prescribed a controlled substance at d/c from ED?: No Referrals: [facility] [Primary Care Provider] - 1-2 days
[2019-11-22] MEDS ORDERED: NITROGLYCERIN SL TABS 0.4 MG TAB SUBLINGUAL PRN (18:40)
[2019-11-22] MEDS: HEPARIN SODIUM,PORCINE 5,000 UNIT/ML 1 ML VIAL IV PRN (23:53)
[2019-11-23 07:39] LABS: Basophils # (A) 0.1 k/uL (0-0.2); Basophils % (A) 1 %; Eosinophils # (A) 0.3 k/uL (0-0.7); Eosinophils % (A) 3 %; HCT 50.7 % (39.0-53.0); HGB 17.1 gm/dL (13.0-17.5); Lymphocytes # (A) 2.6 k/uL (1.0-4.8); Lymphocytes % (A) 23 %; MCH 33.4 pg (25.0-35.0); MCHC 33.7 g/dL (31.0-37.0); MCV 99.2 fL (80.0-100.0); Mean Platelet Volume 7.1; Monocytes # (A) 0.9 k/uL (0-1.0); Monocytes % (A) 8 %; Neutrophils # (A) 6.9 k/uL (1.3-7.7); Neutrophils % (A) 63 %; Platelet Count 262 k/uL (150-450); RBC 5.11 m/uL (4.30-5.90); RDW 13.1 % (11.5-15.5)
[2019-11-23] MEDS ORDERED: REGADENOSON 0.4 MG/5 ML SYRINGE IV ONE (07:56)
[2019-11-23] MEDS ORDERED: AMINOPHYLLINE 500 MG/20 ML VIAL IV PRN (07:56)
[2019-11-23] MEDS ORDERED: CAFFEINE CITRATE 60 MG/3 ML VIAL IV PRN (07:56)
[2019-11-23 08:05] LABS: Cholesterol 265 mg/dL (<200); HDL Cholesterol 57 mg/dL (40-60); LDL Cholesterol,Calculated 137 mg/dL (0-99); Triglycerides 357 mg/dL (<150)
[2019-11-23] MEDS: HEPARIN SODIUM,PORCINE 5,000 UNIT/ML 1 ML VIAL IV PRN (08:07)
[2019-11-23] MEDS ORDERED: ASPIRIN 325 MG TAB PO SCH (09:00)
[2019-11-23 09:19] VITALS: RESP 16
--- NOTE | 2019-11-23 10:32 | P.GSCN ---
History of Present Illness Consult date: 11/23/19 History of present illness: The patient is a 49-year-old male who presented the hospital yesterday with substernal chest pain. He has a long-standing history of bilateral lower extremity claudication and left foot pain. He states that with any amount of ambulation he has bilateral lower extremity thigh and calf pain with muscle cramping. It seems to be worse on the left than the right. This has been going on for many months. He has been worked up at another hospital and told he has multiple areas of blockages. He denies any fevers, chills, nausea or vomiting. He denies any chest pains or shortness of breath at this time. He denies any illicit drug use. He quit smoking approximately 1 year ago. He also states he is noncompliant with his recommended medications. That he is supposed to be taking a aspirin a day and a cholesterol pill that he is not taking among other things. He also has a significant history of multiple abdominal surgeries with a perforated diverticulitis and Suazo's procedure as well as multiple abdominal wall hernias with repair Review of Systems 14 point review of systems performed. Pertinent positives and negatives per the HPI All systems: negative Past Medical History Past Medical History: GERD/Reflux, Hyperlipidemia, Osteoarthritis (OA) Additional Past Medical History / Comment(s): hx. diverticulitis, recent cold sx. now resolved, hyperlipidemia diet controlled, ADHD, anxiety and depression, chronic back pain with known herniated disks History of Any Multi-Drug Resistant Organisms: None Reported Past Surgical History: Bowel Resection, Hernia Repair, Orthopedic Surgery Additional Past Surgical History / Comment(s): temp. colostomy then reversal, knee surg., thumb surg. Past Anesthesia/Blood Transfusion Reactions: No Reported Reaction Past Psychological History: ADD/ADHD, Anxiety, Depression Smoking Status: Former smoker Past Alcohol Use History: None Reported, Rare Additional Past Alcohol Use History / Comment(s): has smoked for 20 yrs., down to half a pack ppd, used to be 1-2 ppd Past Drug Use History: None Reported, Marijuana Additional Drug Use History / Comment(s): occasional use - Past Family History Mother Family Medical History: Cancer Father Family Medical History: Osteoarthritis (OA), Respiratory Disorder Medications and Allergies Home Medications Medication Instructions Recorded Confirmed Type ALPRAZolam [Xanax] 1 mg PO BID PRN 11/22/19 11/22/19 History Aspirin EC [Ecotrin Low Dose] 81 mg PO DAILY 11/22/19 11/22/19 History Loratadine 10 mg PO DAILY 11/22/19 11/22/19 History Methylphenidate HCl 20 mg PO BID@0900,1300 11/22/19 11/22/19 History Simvastatin 40 mg PO DAILY 11/22/19 11/22/19 History Allergies Allergy/AdvReac Type Severity Reaction Status Date / Time benztropine mesylate AdvReac muscle Verified 11/22/19 16:07 [From [facility]] spasms Surgical - Exam Vital Signs Temp Pulse Resp BP Pulse Ox 98.2 F 95 18 159/87 98 11/22/19 15:29 11/22/19 15:29 11/22/19 15:29 11/22/19 15:29 11/22/19 15:29 Gen. is a pleasant cooperative male in no acute distress. HEENT is normocephalic atraumatic, extraocular motion intact. Multiple areas of skin scarring likely acne. Poor dentition. Wearing glasses. Neck is supple, trachea is midline. No bruits. Heart is regular at this time. Lungs are clear bilaterally. No respiratory distress. Abdomen soft, nontender nondistended. Multiple surgical scars from appropriate surgical history. Bilateral lower ex tremities are warm and dry. He has palpable radial pulses bilaterally. Nonpalpable femoral pulses. Left foot slightly cooler than the right, delayed capillary refill. Multiple areas of varicosities. No significant edema. Normal mood and affect. Cranial nerves II through XII grossly intact Results - Labs 11/23/19 07:11 11/22/19 16:08 Abnormal Lab Results - Last 24 Hours (Table) 11/22/19 11/22/19 11/23/19 Range/Units 16:08 23:11 07:11 WBC 11.0 H (3.8-10.6) k/uL APTT 31.7 H (22.0-30.0) sec Sodium 131 L (137-145) mmol/L Chloride 96 L (98-107) mmol/L Creatinine 0.64 L (0.66-1.25) mg/dL Glucose 143 H (74-99) mg/dL Triglycerides (<150) mg/dL Cholesterol (<200) mg/dL LDL Cholesterol, Calc (0-99) mg/dL 11/23/19 11/23/19 Range/Units 07:11 07:11 WBC (3.8-10.6) k/uL APTT 35.7 H (22.0-30.0) sec Sodium (137-145) mmol/L Chloride (98-107) mmol/L Creatinine (0.66-1.25) mg/dL Glucose (74-99) mg/dL Triglycerides 357 H (<150) mg/dL Cholesterol 265 H (<200) mg/dL LDL Cholesterol, Calc 137 H (0-99) mg/dL Diabetes panel 11/22/19 11/23/19 Range/Units 16:08 07:11 Sodium 131 L (137-145) mmol/L Potassium 3.7 (3.5-5.1) mmol/L Chloride 96 L (98-107) mmol/L Carbon Dioxide 24 (22-30) mmol/L BUN 11 (9-20) mg/dL Creatinine 0.64 L (0.66-1.25) mg/dL Glucose 143 H (74-99) mg/dL Calcium 9.2 (8.4-10.2) mg/dL AST 21 (17-59) U/L ALT 26 (4-49) U/L Alkaline Phosphatase 105 (38-126) U/L Total Protein 7.9 (6.3-8.2) g/dL Albumin 4.4 (3.5-5.0) g/dL Triglycerides 357 H (<150) mg/dL HDL Cholesterol 57 (40-60) mg/dL Calcium panel 11/22/19 Range/Units 16:08 Calcium 9.2 (8.4-10.2) mg/dL Albumin 4.4 (3.5-5.0) g/dL Pituitary panel 11/22/19 Range/Units 16:08 Sodium 131 L (137-145) mmol/L Potassium 3.7 (3.5-5.1) mmol/L Chloride 96 L (98-107) mmol/L Carbon Dioxide 24 (22-30) mmol/L BUN 11 (9-20) mg/dL Creatinine 0.64 L (0.66-1.25) mg/dL Glucose 143 H (74-99) mg/dL Calcium 9.2 (8.4-10.2) mg/dL Adrenal panel 11/22/19 Range/Units 16:08 Sodium 131 L (137-145) mmol/L Potassium 3.7 (3.5-5.1) mmol/L Chloride 96 L (98-107) mmol/L Carbon Dioxide 24 (22-30) mmol/L BUN 11 (9-20) mg/dL Creatinine 0.64 L (0.66-1.25) mg/dL Glucose 143 H (74-99) mg/dL Calcium 9.2 (8.4-10.2) mg/dL Total Bilirubin 0.5 (0.2-1.3) mg/dL AST 21 (17-59) U/L ALT 26 (4-49) U/L Alkaline Phosphatase 105 (38-126) U/L Total Protein 7.9 (6.3-8.2) g/dL Albumin 4.4 (3.5-5.0) g/dL Assessment and Plan Assessment: #1 Lucho 3 peripheral arterial disease with severe claudication #2 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 Continue cardiac workup, likely patient will need an extensive vascular surgery for revascularization. At this point no further vascular intervention is planned well inpatient, this workup and finalization may be performed as outpatient. If there are no further cardiac issues keeping him in the hospital, from our standpoint he may be discharged for follow-up with Dr. Metz in the office. He needs to maintain his aspirin and statin medications. Would consider peripheral arterial dose of Xarelto, 2.5 mg twice a day if no other contraindications for anticoagulation meds per cardiology Thank you for allowing us to participate in the care of your patient
[2019-11-23] MEDS ORDERED: SODIUM CHLORIDE 0.9% 1,000 ML IV ONE (10:40)
--- NOTE | 2019-11-23 11:59 | NM ---
EXAMINATION TYPE: NM stress lexiscan cardiolite DATE OF EXAM: 11/23/2019 COMPARISON: NONE HISTORY: Chest pain TECHNIQUE: After the intravenous administration of 9.5 mCi Tc 99m Sestamibi - Cardiolite resting SPE CT images acquired 75 minutes post injection. The patient received 0.4mg Lexiscan, 25.5 mCi Tc 99m Sestamibi - Stress images obtained [address] injection FINDINGS: Review of stress and rest SPECT images demonstrates some suitable mild decreased uptake along the lef t lateral wall on stress as compared to rest images. Gated analysis shows normal wall motion with an estimated left ventricular ejection fraction of 58 %. 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
[2019-11-23] MEDS ORDERED: ALPRAZolam 1 MG TAB PO PRN (12:03)
--- NOTE | 2019-11-23 12:13 | P.HPIM ---
History of Present Illness patient is a pleasant 49-year-old male came in with compensative chest pressure like sensation which started yesterday lasted for few hours radiating to the left arm, moderate severity. Patient had on and off for chest pains. Patient is a smoker quit smoking about a year ago, patient chest pain is not associated diaphoresis or lightheadedness chest pain not associated with food nonpleuriticgrade EKG normal sinus rhythm without any acute ST-T wave changes. Troponins were negative.. Patient underwent Lexiscan stress test which came as equivocal may undergo cardiac catheterization patient is on IV heparin which she will remain on. Patient was also company of claudication painalong with tingling numbness in the left foot. Patient was evaluated by vascular surgery the recommending anticoagulation if there is no contraindication on antiplatelet therapy from cardiology perspective and will follow him as an outpatient. P atient although wanted to go home today Review of Systems REVIEW OF SYSTEMS: CONSTITUTIONAL: No fever, no malaise, no fatigue. HEENT: No recent visual problems or hearing problems. Denied any sore throat. CARDIOVASCULAR: No orthopnea, PND, no palpitations, no syncope. PULMONARY: No shortness of breath, no cough, no hemoptysis. GASTROINTESTINAL: No diarrhea, no nausea, no vomiting, no abdominal pain. NEUROLOGICAL: No headaches, no weakness, no numbness. HEMATOLOGICAL: Denies any bleeding or petechiae. GENITOURINARY: Denies any burning micturition, frequency, or urgency. MUSCULOSKELETAL/RHEUMATOLOGICAL: Denies any joint pain, swelling, or any muscle pain. ENDOCRINE: Denies any polyuria or polydipsia. The rest of the 14-point review of systems is negative. Past Medical History Past Medical History: GERD/Reflux, Hyperlipidemia, Osteoarthritis (OA) Additional Past Medical History / Comment(s): hx. diverticulitis, recent cold sx. now resolved, hyperlipidemia diet controlled, ADHD, anxiety and depression, chronic back pain with known herniated disks History of Any Multi-Drug Resistant Organisms: None Reported Past Surgical History: Bowel Resection, Hernia Repair, Orthopedic Surgery Additional Past Surgical History / Comment(s): temp. colostomy then reversal, knee surg., thumb surg. Past Anesthesia/Blood Transfusion Reactions: No Reported Reaction Past Psychological History: ADD/ADHD, Anxiety, Depression Smoking Status: Former smoker Past Alcohol Use History: None Reported, Rare Additional Past Alcohol Use History / Comment(s): has smoked for 20 yrs., down to half a pack ppd, used to be 1-2 ppd Past Drug Use History: None Reported, Marijuana Additional Drug Use History / Comment(s): occasional use - Past Family History Mother Family Medical History: Cancer Father Family Medical History: Osteoarthritis (OA), Respiratory Disorder Medications and Allergies Home Medications Medication Instructions Recorded Confirmed Type ALPRAZolam [Xanax] 1 mg PO BID PRN 11/22/19 11/22/19 History Aspirin EC [Ecotrin Low Dose] 81 mg PO DAILY 11/22/19 11/22/19 History Loratadine 10 mg PO DAILY 11/22/19 11/22/19 History Methylphenidate HCl 20 mg PO BID@0900,1300 11/22/19 11/22/19 History Simvastatin 40 mg PO DAILY 11/22/19 11/22/19 History Allergies Allergy/AdvReac Type Severity Reaction Status Date / Time benztropine mesylate AdvReac muscle Verified 11/22/19 16:07 [From Vipul] spasms Physical Exam Vitals: Vital Signs Temp Pulse Pulse Resp BP BP Pulse Ox 11/23/19 08:00 98.1 F 71 16 136/79 96 11/23/19 04:18 97.8 F 77 18 138/82 95 11/23/19 00:33 98.1 F 81 16 138/75 98 11/22/19 21:43 97.7 F 79 16 133/86 96 11/22/19 17:01 80 18 144/83 99 11/22/19 15:29 98.2 F 95 18 159/87 98 Intake and Output 11/22/19 11/23/19 11/23/19 22:59 06:59 14:59 Intake Total 217.833 105.714 Output Total 0 Balance 0 217.833 105.714 Intake: Intake, IV Titration 67.833 105.714 Amount Heparin Sod,Pork in 0.45% 67.833 105.714 NaCl 25,000 unit In 0.45 % NaCl 1 250ml.bag @ 11. 603 UNITS/KG/HR 10 mls/hr IV .Q24H [place] Rx#: [id number] Oral 150 Output: Urine 0 Other: Voiding Method Toilet Toilet Toilet # Voids 1 Weight 85.9 kg 85.3 kg 85.3 kg PHYSICAL EXAMINATION: GENERAL: The patient is alert and oriented x3, not in any acute distress. Well developed, well nourished. HEENT: Pupils are round and equally reacting to light. EOMI. No scleral icterus. No conjunctival pallor. Normocephalic, atraumatic. No pharyngeal erythema. No thyromegaly. CARDIOVASCULAR: S1 and S2 present. No murmurs, rubs, or gallops. PULMONARY: Chest is clear to auscultation, no wheezing or crackles. ABDOMEN: Soft, nontender, nondistended, normoactive bowel sounds. No palpable organomegaly. MUSCULOSKELETAL: No joint swelling or deformity. EXTREMITIES: No cyanosis, clubbing, or pedal edema. NEUROLOGICAL: Gross neurological examination did not reveal any focal deficits. SKIN: No rashes. Results CBC & Chem 7: 11/23/19 07:11 11/22/19 16:08 Labs: Abnormal Lab Results - Last 24 Hours (Table) 11/22/19 11/22/19 11/23/19 Range/Units 16:08 23:11 07:11 WBC 11.0 H (3.8-10.6) k/uL APTT 31.7 H (22.0-30.0) sec Sodium 131 L (137-145) mmol/L Chloride 96 L (98-107) mmol/L Creatinine 0.64 L (0.66-1.25) mg/dL Glucose 143 H (74-99) mg/dL Triglycerides (<150) mg/dL Cholesterol (<200) mg/dL LDL Cholesterol, Calc (0-99) mg/dL 11/23/19 11/23/19 Range/Units 07:11 07:11 WBC (3.8-10.6) k/uL APTT 35.7 H (22.0-30.0) sec Sodium (137-145) mmol/L Chloride (98-107) mmol/L Creatinine (0.66-1.25) mg/dL Glucose (74-99) mg/dL Triglycerides 357 H (<150) mg/dL Cholesterol 265 H (<200) mg/dL LDL Cholesterol, Calc 137 H (0-99) mg/dL Thrombosis Risk Factor Assmnt - Choose All That Apply Any of the Below Risk Factors Present?: Yes Each Factor Represents 1 point: Age 41-60 years, Obesity (BMI >25), Varicose veins Other Risk Factors: No Other congenital or acquired thrombophilia - If yes, enter type in comment: No Thrombosis Risk Factor Assessment Total Risk Factor Score: 3 Thrombosis Risk Factor Assessment Level: Moderate Risk Assessment and Plan Plan: -chest pain: Ruled out acute coronary syndromes, although unstable angina cannot be completely ruled out stress test as you can vocal patient probably will need cardiac catheterization discussed with cardiology patient will be continued on IV heparin. -Hyperlipidemia: Continue with statin humidity increases statin upon his discharge -Severe peripheral vascular disease with the claudication pain: Patient was evaluated byvascular surgery and they will follow him as an outpatient. Patient quit smoking about any ago -gastroesophageal reflux disease -ADHD, depression and anxiety disorder
--- NOTE | 2019-11-23 12:14 | ECHOF ---
Referral Reason:chest pain MEASUREMENTS -------- HEIGHT: 170.2 cm WEIGHT: 85.3 kg BP: 138/82 IVSd: 1.1 cm (0.6 - 1.1) LVIDd: 3.1 cm (3.9 - 5.3) LVPWd: 1.2 cm (0.6 - 1.1) IVSs: 1.4 cm LVIDs: 1.5 cm LVPWs: 1.5 cm LAESV Index (A-L): 9.53 ml/m Ao Diam: 3.5 cm (2.0 - 3.7) AV Cusp: 1.7 cm (1.5 - 2.6) LA Diam: 3.0 cm (2.7 - 3.8) MV EXCURSION: 21.866 mm (> 18.000) MV EF SLOPE: 240 mm/s (70 - 150) EPSS: 1.4 cm MV E Isaac: 0.73 m/s MV DecT: 171 ms MV A Isaac: 0.70 m/s MV E/A Ratio: 1.05 RAP: 5.00 mmHg RVSP: 11.59 mmHg FINDINGS -------- Sinus rhythm. This was a technically good study. The left ventricular size is normal. Left ventricular wall thickness is normal. Overall left vent ricular systolic function is normal with, an EF between 55 - 60 %. The diastolic filling pattern is normal for the age of the patient 8.76. The right ventricle is normal in size. The left atrial size is normal. The right atrial size is normal. The aortic valve was not well visualized. The mitral valve is normal. There is trace mitral regurgitation. The tricuspid valve appears structurally normal. Trace tricuspid regurgitation present. Right palmer tricular systolic pressure is normal at < 35 mmHg. There is no pulmonic regurgitation present. The aortic root size is normal. Normal inferior vena cava with normal inspiratory collapse consistent with estimated right atrial pre ssure of 5 mmHg. There is no pericardial effusion. CONCLUSIONS -------- 1. Sinus rhythm. 2. This was a technically good study. 3. The left ventricular size is normal. 4. Left ventricular wall thickness is normal. 5. Overall left ventricular systolic function is normal with, an EF between 55 - 60 %. 6. The diastolic filling pattern is normal for the age of the patient 8.76 7. The right ventricle is normal in size. 8. The left atrial size is normal. 9. The right atrial size is normal. 10. The aortic valve was not well visualized. 11. The mitral valve is normal. 12. There is trace mitral regurgitation. 13. The tricuspid valve appears structurally normal. 14. Trace tricuspid regurgitation present. 15. Right ventricular systolic pressure is normal at < 35 mmHg. 16. There is no pulmonic regurgitation present. 17. The aortic root size is normal. 18. Normal inferior vena cava with normal inspiratory collapse consistent with estimated right atrial pressure of 5 mmHg. 19. There is no pericardial effusion. WEIGH MACHINE OPERATOR: Precious Marquis RDCS
--- NOTE | 2019-11-23 12:31 | CONS ---
CONSULTATION CHIEF COMPLAINT: Chest pain and leg discomfort. Jamey is a 49-year-old gentleman with history of the dyslipidemia and history of peripheral vascular disease, who states that he had seen Dr. Dasilva in the past, primarily complaining of discomfort involving both his lower extremities and he also complained of vague chest pain. His chest discomfort is sharp, precordial, does not sound anginal. He also complains of bilateral intermittent claudication and states that he has seen Dr. Dasilva before. EKG does not reveal acute ischemic changes. His cardiac enzymes have been negative so far. The patient's coronary risk factors include dyslipidemia and smoking. I advised the patient to undergo a stress test for further evaluation and if necessary we will perform cardiac catheterization. We are also going to consult Dr. Dasilva for further evaluation of the possible PAT. Past medical history significant for dyslipidemia. Current medications include aspirin, Xanax, simvastatin, and loratadine. ALLERGIES: COGENTIN. Family history negative for premature coronary artery disease. Social history significant for smoking. There is no history of EtOH abuse or drug abuse. REVIEW OF SYSTEMS: HEENT is unremarkable. Cardiac as described above. Respiratory negative. GI negative. negative. ALLERGY: Negative. VASCULAR: Significant for claudications. Rest of the system review is not relevant. On exam patient is comfortable at rest. Vital signs are stable. There is no jugular venous distention. Carotid upstroke is normal. There is no bruit. Chest exam reveals good air entry bilaterally. Heart exam reveals first and second heart sounds. No gallop. No murmur. No rub. Abdomen is soft, nontender. Exam of extremities did not reveal any edema. Peripheral pulses are not palpable. EKG does not reveal ischemic changes. Cardiac enzymes have been negative. ASSESSMENT: 1. Precordial chest pain, sharp, atypical. 2. Lower extremity discomfort, probably related to peripheral arterial disease. PLAN: I will schedule him for an echocardiogram and stress test. If necessary, we will perform cardiac catheterization on him. MMODL / IJN: [id number] /
[2019-11-23 12:32] VITALS: BP 132/76; PULSE 67; TEMP 98
--- NOTE | 2019-11-23 20:38 | EST ---
EXERCISE STRESS AGE: 49 SEX: Male HT: 67 WT: 188 PROTOCOL: Lexiscan Cardiolite STAGE: DURATION OF EXERCISE: HEART RATE REST: 60 BLOOD PRESSURE REST: 150/79 MAXIMUM HEART RATE ACHIEVED: 95 MAXIMUM BLOOD PRESSURE: 150/79 85% MPHR: 146 100% MPHR: 172 METS: INDICATIONS: Chest pain. CLINICAL INFORMATION: STRESS DATA: Heart rate 60, pressure 150/79 mmHg. Baseline EKG showed sinus mechanism. 0.4 mg of Lexiscan was given over 15 seconds per protocol. Max heart rate was 95 beats per minute and maximum pressure was 133/71 mmHg. Clinically the patient did not have any symptoms. The EKG did not show any significant ST or T-wave abnormalities concerning for ischemia. CONCLUSION: 1. Nondiagnostic electrocardiogram stress testing in response to Lexiscan. 2. Please follow up on the Cardiolite portion on separate report from Radiology Department. MMODL / IJN: [id number] /
[2019-11-24] MEDS ORDERED: ATORVASTATIN 20 MG TAB PO SCH (09:00)
--- NOTE | 2019-11-29 15:22 | P.DS ---
Providers Date of admission: 11/22/19 19:12 Expected date of discharge: 11/23/19 Attending physician: Chase Ziegler Consults: 11/22/19 18:40 Consult Physician Stat Consulting Provider: Gerald Gusman Consult Reason/Comments: chest pain Do you want consulting provider notified?: Yes 11/23/19 09:17 Consult Physician Routine Consulting Provider: Hunter Metz Reason/Comments: Leg Claudication Do you want consulting provider notified?: Already Contacted Primary care physician: [facility] Hospital Course: patient left AMA Patient Condition at Discharge: Serious Plan - Discharge Summary Discharge Rx Participant: Yes New Discharge Prescriptions: No Action ALPRAZolam [Xanax] 1 mg PO BID PRN PRN Reason: Anxiety Simvastatin 40 mg PO DAILY Methylphenidate HCl 20 mg PO BID@0900,1300 Loratadine 10 mg PO DAILY Aspirin EC [Ecotrin Low Dose] 81 mg PO DAILY Discharge Medication List ALPRAZolam [Xanax] 1 mg PO BID PRN 11/22/19 [History] Aspirin EC [Ecotrin Low Dose] 81 mg PO DAILY 11/22/19 [History] Loratadine 10 mg PO DAILY 11/22/19 [History] Methylphenidate HCl 20 mg PO BID@0900,1300 11/22/19 [History] Simvastatin 40 mg PO DAILY 11/22/19 [History] Follow up Appointment(s)/Referral(s): [facility] [Primary Care Provider] - 1-2 days Discharge Disposition: Left Against Medical Advice
== END 2019-11-23 15:46 | disposition left against medical advice (07) | DRG 313 ==
LOC: EC 15:24 → 3SCARD 19:12
PROVIDERS: ADMIT Internal Medicine; ATTEND Internal Medicine
DX: R07.89 Other chest pain (principal); I74.09 Other arterial embolism and thrombosis of abdominal aorta; Z11.59 Encounter for screening for other viral diseases; I70.213 Atherosclerosis of native arteries of extremities with intermittent claudication, bilateral legs; K21.9 Gastro-esophageal reflux disease without esophagitis; M19.90 Unspecified osteoarthritis, unspecified site; F90.9 Attention-deficit hyperactivity disorder, unspecified type; F32.9 Major depressive disorder, single episode, unspecified; F41.9 Anxiety disorder, unspecified; E78.5 Hyperlipidemia, unspecified; G89.29 Other chronic pain; M54.9 Dorsalgia, unspecified; E66.9 Obesity, unspecified; I83.90 Asymptomatic varicose veins of unspecified lower extremity; F17.210 Nicotine dependence, cigarettes, uncomplicated; R07.2 Precordial pain; Z68.29 Body mass index [BMI] 29.0-29.9, adult; Z79.82 Long term (current) use of aspirin; Z79.899 Other long term (current) drug therapy; Z87.19 Personal history of other diseases of the digestive system; Z90.49 Acquired absence of other specified parts of digestive tract; Z98.890 Other specified postprocedural states; Z91.14 Patient's other noncompliance with medication regimen; Z88.8 Allergy status to other drugs, medicaments and biological substances; Z80.9 Family history of malignant neoplasm, unspecified; Z82.61 Family history of arthritis; Z83.6 Family history of other diseases of the respiratory system
CPT/HCPCS: 36415; 71046; 78452; 80053; 80061; 83735; 83880; 84484; 85025; 85610; 85730; 93005; 93017; 93306; 96365; 96366; 96376; 99285

== ENCOUNTER 2020-01-03 15:58 | Observation (INO) | payer MEDICARE, OTHER ==
[2020-01-03] MEDS ORDERED: ASPIRIN 81 MG PO STA (16:29)
[2020-01-03] MEDS ORDERED: NITROGLYCERIN OINT 1 INCH/GM PACKET TOPICAL STA (16:29)
[2020-01-03 16:41] LABS: Basophils # (A) 0.1 k/uL (0-0.2); Basophils % (A) 1 %; Eosinophils # (A) 0.2 k/uL (0-0.7); Eosinophils % (A) 2 %; HCT 50.9 % (39.0-53.0); HGB 16.6 gm/dL (13.0-17.5); Lymphocytes # (A) 2.4 k/uL (1.0-4.8); Lymphocytes % (A) 23 %; MCH 32.1 pg (25.0-35.0); MCHC 32.7 g/dL (31.0-37.0); MCV 98.2 fL (80.0-100.0); Mean Platelet Volume 7.2; Monocytes # (A) 0.7 k/uL (0-1.0); Monocytes % (A) 6 %; Neutrophils # (A) 7.1 k/uL (1.3-7.7); Neutrophils % (A) 66 %; Platelet Count 304 k/uL (150-450); RBC 5.18 m/uL (4.30-5.90); RDW 13.6 % (11.5-15.5); WBC 10.8 k/uL (3.8-10.6)
[2020-01-03 16:50] LABS: ALT 30 U/L (4-49); AST 36 U/L (17-59); African American GFR (CKD) >90 (>60 ml/min/1.73 sqM); Albumin 4.5 g/dL (3.5-5.0); Alkaline Phosphatase 106 U/L (38-126); Anion Gap 10 mmol/L; Blood Urea Nitrogen 8 mg/dL (9-20); Calcium 9.5 mg/dL (8.4-10.2); Carbon Dioxide 22 mmol/L (22-30); Chloride 105 mmol/L (98-107); Glucose 123 mg/dL (74-99); Magnesium 1.9 mg/dL (1.6-2.3); Non-African American GFR(CKD) >90 (>60 ml/min/1.73 sqM); Potassium 4.2 mmol/L (3.5-5.1); Sodium 137 mmol/L (137-145); Total Bilirubin 0.8 mg/dL (0.2-1.3); Total Protein 8.1 g/dL (6.3-8.2)
--- NOTE | 2020-01-03 16:50 | XR ---
EXAMINATION TYPE: XR chest 2V DATE OF EXAM: 01/03/2020 COMPARISON: Chest x-ray November 22, 2019. HISTORY: Chest pain. TECHNIQUE: Frontal and lateral views of the chest are obtained. FINDINGS: There is some chronic parenchymal change without suspicious focal air space opacity, pleur al effusion, or pneumothorax seen. Overlying EKG leads are redemonstrated. The cardiac silhouette si ze remains upper limits of normal. The osseous structures are intact. IMPRESSION: Chronic changes without acute pulmonary process.
[2020-01-03] MEDS ORDERED: HEPARIN SODIUM,PORCINE 5,000 UNIT/ML 1 ML VIAL IV PRN ×2 (16:58→23:23)
[2020-01-03] MEDS ORDERED: HEPARIN SODIUM,PORCINE 5,000 UNIT/ML 1 ML VIAL IV ONE (16:58)
[2020-01-03] MEDS ORDERED: NITROGLYCERIN SL TABS 0.4 MG TAB SUBLINGUAL PRN (16:58)
--- NOTE | 2020-01-03 16:58 | ED ---
Chest Pain HPI - General Chief Complaint: Chest Pain Stated Complaint: chest pain Time Seen by Provider: 01/03/20 16:19 Source: patient, RN notes reviewed Mode of arrival: wheelchair Limitations: no limitations - History of Present Illness Initial Comments: 49-year-old male presents emergency from chief complaint of chest pain. Patient states then progressing symptoms. Patient states he was seen here month ago and was totally an abnormal stress test was scheduled for a cath but had to leave the hospital because his family member was very ill. Patient states that he's been having worsening chest pain especially with any sort of exertion. He has no complaints of shortness of breath that he's been heavy smoker. Patient does have a history of hyperlipidemia. Patient denies any leg swelling or leg pain. - Related Data Home Medications Medication Instructions Recorded Confirmed ALPRAZolam [Xanax] 1 mg PO BID PRN 11/22/19 11/22/19 Aspirin EC [Ecotrin Low Dose] 81 mg PO DAILY 11/22/19 11/22/19 Loratadine 10 mg PO DAILY 11/22/19 11/22/19 Methylphenidate HCl 20 mg PO BID@0900,1300 11/22/19 11/22/19 Simvastatin 40 mg PO DAILY 11/22/19 11/22/19 Allergies Allergy/AdvReac Type Severity Reaction Status Date / Time benztropine mesylate AdvReac muscle Verified 11/22/19 16:07 [From Vipul] spasms Review of Systems ROS Statement: Those systems with pertinent positive or pertinent negative responses have been documented in the HPI. ROS Other: All systems not noted in ROS Statement are negative. EKG Findings - EKG Comments: EKG Findings:: EKG 2016:14 normal sinus rhythm rate of 84 CT 152 QRS 80 QT/QTC 378/446 Past Medical History Past Medical History: GERD/Reflux, Hyperlipidemia, Osteoarthritis (OA) Additional Past Medical History / Comment(s): hx. diverticulitis, recent cold sx. now resolved, hyperlipidemia diet controlled, ADHD, anxiety and depression, chronic back pain with known herniated disks History of Any Multi-Drug Resistant Organisms: None Reported Past Surgical History: Bowel Resection, Hernia Repair, Orthopedic Surgery Additional Past Surgical History / Comment(s): temp. colostomy then reversal, knee surg., thumb surg. Past Anesthesia/Blood Transfusion Reactions: No Reported Reaction Past Psychological History: ADD/ADHD, Anxiety, Depression Smoking Status: Former smoker Past Alcohol Use History: None Reported Past Drug Use History: None Reported - Past Family History Mother Family Medical History: Cancer Father Family Medical History: Osteoarthritis (OA), Respiratory Disorder General Exam Limitations: no limitations General appearance: alert, in no apparent distress Head exam: Present: atraumatic, normocephalic, normal inspection Eye exam: Present: normal appearance, PERRL, EOMI. Absent: scleral icterus, conjunctival injection, periorbital swelling ENT exam: Present: normal exam, mucous membranes moist Neck exam: Present: normal inspection, full ROM. Absent: tenderness, meningismus, lymphadenopathy Respiratory exam: Present: normal lung sounds bilaterally. Absent: respiratory distress, wheezes, rales, rhonchi, stridor Cardiovascular Exam: Present: regular rate, normal rhythm, normal heart sounds. Absent: systolic murmur, diastolic murmur, rubs, gallop, clicks Neurological exam: Present: alert, oriented X3, CN II-XII intact Course Vital Signs 01/03/20 16:05 Temperature 98.6 F Pulse Rate 90 Respiratory 18 Rate Blood Pressure 138/80 O2 Sat by Pulse 98 Oximetry Chest Pain MDM - MDM Patient's EKG, labs were reviewed. Patient's prior stress test was reviewed shows evidence of ischemia patient will be admitted for cardiac workup and evaluation by cardiology. Disposition Clinical Impression: Chest pain, Abnormal stress test Disposition: ADMITTED IP TO THIS HOSP Condition: Fair Referrals: [facility] [Primary Care Provider] - 1-2 days
[2020-01-03] MEDS ORDERED: HEPARIN SOD,PORK IN 0.45% NACL 25,000 UNIT in 0.45% NACL 1 250ML.BAG IV SCH (17:00)
[2020-01-03 17:02] LABS: Partial Thromboplastin Time 24.4 sec (22.0-30.0); Prothrombin Time 9.9 sec (9.0-12.0)
[2020-01-03] MEDS ORDERED: ALPRAZolam 1 MG TAB PO PRN (22:25)
[2020-01-04 07:25] LABS: Mean Platelet Volume 7.3; Platelet Count 296 k/uL (150-450)
[2020-01-04 07:45] VITALS: RESP 16; TEMP 97.4
[2020-01-04 07:47] LABS: Cholesterol 219 mg/dL (<200); HDL Cholesterol 42 mg/dL (40-60); Triglycerides 403 mg/dL (<150)
[2020-01-04] MEDS ORDERED: SODIUM CHLORIDE 0.9% 1,000 ML in EMPTY BAG 1 BAG IV ONE (08:25)
[2020-01-04] MEDS ORDERED: ASPIRIN 325 MG TAB PO SCH (09:00)
[2020-01-04] MEDS ORDERED: ATORVASTATIN 20 MG TAB PO SCH (09:00)
[2020-01-04] MEDS ORDERED: METHYLPHENIDATE HCL 10 MG TAB PO SCH (09:00)
--- NOTE | 2020-01-04 10:23 | P.CRDCN ---
History of Present Illness History of present illness: HISTORY OF PRESENTING ILLNESS This is a pleasant 49-year-old male past medical history significant for dyslipidemia, chronic nicotine dependence and peripheral vascular disease. The patient states he follows with Dr. Dasilva and has several blockages in his legs that need attention. Exact details unavailable. This is his second admission for chest discomfort in the previous 2 months. He initially presented in early November with symptoms of chest discomfort and underwent a nuclear Lexiscan stress test. The stress test was essentially equivocal with a possibility of pharmacologically-induced LV myocardial ischemia noted with a mild decreased uptake along the left lateral wall on stress compared to rest with an ejection fraction of 68%. At that time the patient left AGAINST MEDICAL ADVICE and had no further cardiac testing performed. An echocardiogram done at that time revealed preserved LV systolic function with normal ejection fraction. He states for the previous 2 months he continues to feel discomfort in the left precordial region and occurs at rest as well as with exertion. He describes the pain as a stabbing with no radiation to the arm, back, neck or jaw. It is not associated with shortness of breath, dizziness, palpitations, nausea, vomiting or diaphoresis. DIAGNOSTICS EKG reveals sinus mechanism. Chest xray negative for an acute cardiopulmonary process. Laboratory reviewed, WBC 10.8, hemoglobin 16.6, platelets 296, sodium 137, potassium 4.2, creatinine 0.63, magnesium 1.9, cardiac enzymes negative 3, triglycerides 403 and total cholesterol 219. Current cardiac medications include aspirin 81 mg daily and simvastatin 40 mg daily. REVIEW OF SYSTEMS At the time of my exam: CONSTITUTIONAL: Denies fever or chills. CARDIOVASCULAR: Denies chest pain, shortness of breath, orthopnea, PND or palpitations. RESPIRATORY: Denies cough. GASTROINTESTINAL: Denies abdominal pain, diarrhea, constipation, nausea or vomiting. MUSCULOSKELETAL: Denies myalgias. NEUROLOGIC: Denies numbness, tingling or weakness. ENDOCRINE: Denies fatigue, weight change, polydipsia or polyurina. GENITOURINARY: Denies burning, hematuria or urgency with micturation. HEMATOLOGIC: Denies history of anemia or bleeding. PHYSICAL EXAMINATION Blood pressure 146/87 heart rate 71 afebrile and maintaining oxygen saturation on room air. CONSTITUTIONAL: No apparent distress. HEENT: Head is normocephalic. Pupils are equal, round. Sclerae anicteric. Mucous membranes of the mouth are moist. No JVD. No carotid bruit. CHEST EXAMINATION: Lungs are clear to auscultation. No chest wall tenderness is noted on palpation or with deep breathing. HEART EXAMINATION: Regular rate and rhythm. S1, S2 heard. No murmurs, gallops or rub. ABDOMEN: Soft, nontender. Positive bowel sounds. EXTREMITIES: 1+ peripheral pulses, no lower extremity edema and no calf tenderness. NEUROLOGIC EXAMINATION: Patient is awake, alert and oriented x3. ASSESSMENT Chest pain, atypical. An equivocal stress test in November. Dyslipidemia Chronic nicotine dependence Peripheral vascular disease PLAN Proceed with cardiac catheterization to assess for underlying coronary artery disease. I have discussed the risks, benefits and alternative therapies for the above-mentioned procedure and for both sedation/analgesia as well as necessary blood product administration, if indicated, as they pertain to this patient. The patient has indicated understanding and acceptance of the risks and procedures discussed. Questions have been answered appropriately and he is agreeable to move forward with the above stated procedure. He is agreeable to move forward with the above stated procedure. Discontinue heparin. Initiate fenofibrate for lowering of LDL cholesterol. Further recommendations to follow based on clinical course. Smoking cessation discussed. Thank you kindly for this consultation. Nurse Practitioner note has been reviewed, I agree with a documented findings and plan of care. Patient was seen and examined. Past Medical History Past Medical History: GERD/Reflux, Hyperlipidemia, Osteoarthritis (OA) Additional Past Medical History / Comment(s): hx. diverticulitis, recent cold sx. now resolved, hyperlipidemia diet controlled, ADHD, anxiety and depression, chronic back pain with known herniated disks History of Any Multi-Drug Resistant Organisms: None Reported Past Surgical History: Bowel Resection, Hernia Repair, Orthopedic Surgery Additional Past Surgical History / Comment(s): temp. colostomy then reversal, knee surg., thumb surg. Past Anesthesia/Blood Transfusion Reactions: No Reported Reaction Past Psychological History: ADD/ADHD, Anxiety, Depression Smoking Status: Former smoker Past Alcohol Use History: None Reported Additional Past Alcohol Use History / Comment(s): has smoked for 20 yrs., down to half a pack ppd, used to be 1-2 ppd Past Drug Use History: None Reported Additional Drug Use History / Comment(s): occasional use - Past Family History Mother Family Medical History: Cancer Father Family Medical History: Osteoarthritis (OA), Respiratory Disorder Medications and Allergies Home Medications Medication Instructions Recorded Confirmed Type ALPRAZolam [Xanax] 1 mg PO BID PRN 11/22/19 01/03/20 History Aspirin EC [Ecotrin Low Dose] 81 mg PO DAILY 11/22/19 01/03/20 History Loratadine 10 mg PO DAILY 11/22/19 01/03/20 History Methylphenidate HCl 20 mg PO BID@0900,1300 11/22/19 01/03/20 History Simvastatin 40 mg PO DAILY 11/22/19 01/03/20 History Albuterol Inhaler [Ventolin Hfa 2 puff INHALATION RT-Q4H PRN 01/03/20 01/03/20 History Inhaler] Allergies Allergy/AdvReac Type Severity Reaction Status Date / Time benztropine mesylate AdvReac muscle Verified 01/03/20 17:40 [From Cogentin] spasms Physical Exam Vitals: Vital Signs Temp Pulse Pulse Resp BP BP Pulse Ox 01/04/20 07:43 97.4 F L 71 16 146/87 96 01/04/20 03:00 98 F 75 18 120/71 96 01/03/20 21:00 98.3 F 70 18 149/84 96 01/03/20 20:07 91 17 112/71 97 01/03/20 18:22 98.8 F 75 17 112/71 98 01/03/20 16:05 98.6 F 90 18 138/80 98 Intake and Output 01/03/20 01/04/20 01/04/20 22:59 06:59 14:59 Intake Total 450 52.167 Balance 450 52.167 Intake: Intake, IV Titration 52.167 Amount Heparin Sod,Pork in 0.45% 52.167 NaCl 25,000 unit In 0.45 % NaCl 1 250ml.bag @ 11. 306 UNITS/KG/HR 10 mls/hr IV .Q24H [facility] Rx#: [id number] Oral 450 Other: Voiding Method Toilet Toilet # Voids 2 Weight 88.451 kg Results 01/04/20 07:05 01/03/20 16:31 Cardiac Enzymes 01/03/20 01/03/20 01/03/20 Range/Units 16:31 16:31 19:45 AST 36 (17-59) U/L Troponin I <0.012 <0.012 (0.000-0.034) ng/mL 01/03/20 Range/Units 22:40 AST (17-59) U/L Troponin I <0.012 (0.000-0.034) ng/mL Coagulation 01/03/20 01/03/20 01/04/20 Range/Units 16:31 22:40 07:05 PT 9.9 (9.0-12.0) sec APTT 24.4 30.7 H 44.0 H (22.0-30.0) sec Lipids 01/04/20 Range/Units 07:05 Triglycerides 403 H (<150) mg/dL Cholesterol 219 H (<200) mg/dL HDL Cholesterol 42 (40-60) mg/dL CBC 01/03/20 01/04/20 Range/Units 16:31 07:05 WBC 10.8 H (3.8-10.6) k/uL RBC 5.18 (4.30-5.90) m/uL Hgb 16.6 (13.0-17.5) gm/dL Hct 50.9 (39.0-53.0) % Plt Count 304 296 (150-450) k/uL Comprehensive Metabolic Panel 01/03/20 Range/Units 16:31 Sodium 137 (137-145) mmol/L Potassium 4.2 (3.5-5.1) mmol/L Chloride 105 (98-107) mmol/L Carbon Dioxide 22 (22-30) mmol/L BUN 8 L (9-20) mg/dL Creatinine 0.63 L (0.66-1.25) mg/dL Glucose 123 H (74-99) mg/dL Calcium 9.5 (8.4-10.2) mg/dL AST 36 (17-59) U/L ALT 30 (4-49) U/L Alkaline Phosphatase 106 (38-126) U/L Total Protein 8.1 (6.3-8.2) g/dL Albumin 4.5 (3.5-5.0) g/dL Current Medications Generic Name Dose Route Start Last Admin Trade Name Freq PRN Reason Stop Dose Admin Alprazolam 1 mg 01/03/20 22:25 Xanax PO BID PRN Anxiety Aspirin 325 mg 01/04/20 09:00 01/04/20 09:19 Aspirin PO 325 mg DAILY [place] Administration Atorvastatin Calcium 20 mg 01/04/20 09:00 01/04/20 09:19 Lipitor PO 20 mg DAILY [place] Administration Heparin Sodium (Porcine) 0 unit 01/03/20 16:58 Heparin IV Q6HR PRN Low PTT Protocol Heparin Sodium (Porcine) 0 unit 01/03/20 23:23 01/03/20 23:32 Heparin IV 4,000 unit PER PROTOCOL PRN Administration Low PTT Protocol Sodium Chloride 1,000 ml/ IV 1,000 mls @ 88.451 mls/hr 01/04/20 08:25 Solution IV 01/04/20 19:43 .[id number] ONE 1 ML/KG/HR Methylphenidate HCl 20 mg 01/04/20 09:00 Ritalin PO BID@0900,1300 [facility] Nitroglycerin 0.4 mg 01/03/20 16:58 Nitrostat SUBLINGUAL Q5M PRN Chest Pain Intake and Output 01/03/20 01/04/20 01/04/20 22:59 06:59 14:59 Intake Total 450 52.167 Balance 450 52.167 Intake: Intake, IV Titration 52.167 Amount Heparin Sod,Pork in 0.45% 52.167 NaCl 25,000 unit In 0.45 % NaCl 1 250ml.bag @ 11. 306 UNITS/KG/HR 10 mls/hr IV .Q24H [facility] Rx#: [id number] Oral 450 Other: Voiding Method Toilet Toilet # Voids 2 Weight 88.451 kg 01/04/20 07:05 01/03/20 16:31
[2020-01-04] MEDS ORDERED: LIDOCAINE 1% INJ 10MG/ML (20 ML MDV) ONE ×2 (12:07→12:33)
[2020-01-04] MEDS ORDERED: fentaNYL (PF) 50 MCG/ML 2 ML AMP ONE (12:08)
[2020-01-04] MEDS ORDERED: IV FLUID CONTINUATION 600 ML IV ONE (12:21)
[2020-01-04] MEDS: MIDAZOLAM 2 MG/2 ML VIAL IV ONE ×2 (12:21→12:27)
[2020-01-04] MEDS: fentaNYL (PF) 50 MCG/ML 2 ML AMP IV ONE ×2 (12:21→12:27)
[2020-01-04] MEDS ORDERED: fentaNYL (PF) 50 MCG/ML 2 ML AMP IV ONE (12:21)
[2020-01-04] MEDS ORDERED: LIDOCAINE 1% INJ 10MG/ML (20 ML MDV) SQ ONE ×2 (12:26→12:48)
[2020-01-04] MEDS ORDERED: VERAPAMIL 2.5 MG/ML 2 ML AMP ONE (12:33)
[2020-01-04] MEDS ORDERED: ALBUTEROL NEBULIZED 2.5 MG/3 ML INHALATION PRN (12:45)
--- NOTE | 2020-01-04 12:47 | P.HPIM ---
History of Present Illness H&P Date: 01/04/20 Chief Complaint: Chest pain HISTORY OF PRESENT ILLNESS This is a 49-year-old male who [facility] with past medical history of hyperlipidemia, gastric suction reflux disease, generalized osteoarthritis, ADHD, generalized anxiety disorder and recurrent depression, peripheral vascular disease, diverticulitis, remote history of tobacco use. He denies having any history of TIA CVA, COPD, COPD, no history of sleep apnea. Rashi jj was last seen here in November which time he was placed in the observation unit underwent a Lexiscan stress test that was essentially equivocal with a possibility of pharmacologically-induced LV myocardial ischemia noted with a mild decreased uptake along the left lateral wall on stress compared to rest with an ejection fraction of 68%. Patient signed out AMA because he states he had a family emergency that he needed to attend to. Patient states he has had continued chest pain that is quick and stabbing-type increased frequency lately as well as nausea no vomiting. He feels tired all the time. He states he can walk when he has the pain. It does occur with activity or at rest. It usually lasts less than one hour. Patient also has a draining abscess on his right cheek which he stated occurred about one week ago while he was on his riding lawnmower and debris from a tree punctured the area while he was mowing. Patient presented to [facility] emergency center for evaluation. EKG reveals sinus rhythm. Chest xray negative for an acute cardiopulmonary process. WBC 10.8, hemoglobin 16.6, platelets 296, sodium 137, potassium 4.2, creatinine 0.63, magnesium 1.9, troponins negative 3, triglycerides 403 and total cholesterol 219. Patient was placed on the observ ation unit, seen by cardiology with plan for heart catheterization. REVIEW OF SYSTEMS Constitutional: No fever, no chills, no night sweats. No weight change. No weakness, fatigue or lethargy. No daytime sleepiness. EENT: No headache. No blurred vision or double vision, no loss of vision. No loss of Hearing, no ringing in the ears, no dizziness. No nasal drainage or congestion. No epistaxis. No sore throat. Lungs: No shortness of breath, cough, no sputum production. No wheezing. Cardiovascular: Reports chest pain, no lower extremity edema. No palpitations. No paroxysmal nocturnal dyspnea. No orthopnea. No lightheadedness or dizziness. No syncopal episodes. Abdominal: No abdominal pain. Reports nausea, denies vomiting. No diarrhea. No constipation. No bloody or tarry stools.. No loss of appetite. Genitourinary: No dysuria, increased frequency, urgency. No urinary retention. Musculoskeletal: No myalgias. No muscle weakness, no gait dysfunction, no frequent falls. No back pain. No neck pain. Integumentary: Reports wounds, no lesions. No rash or pruritus. No unusual bruising. No change in hair or nails. Neurologic: No aphasia. No facial droop. No change in mentation. No head injury. No headache. No paralysis. No paresthesia. Psychiatric: No depression. No anxiety. No mood swings. Endocrine: No abnormal blood sugars. No weight change. No excessive sweating or thirst. No cold intolerance. SOCIAL HISTORY Patient was a smoker up to 2 packs per day for at least 20 years and quit 6 months ago. He denies any marijuana, illicit drug use or alcohol use. He uses oxygen at home as needed but unable to provide reason why he is on oxygen. He is and lives at home with his . FAMILY HISTORY Patient has 2 children with no major medical problems. Patient has a total 13 brothers and sisters and 2 sisters have passed. One from some type of liver disease and the other from some type of cancer which she does not know type. Father at age 73 from COPD, occasions. Mother at age 70 from breast cancer. PHYSICAL EXAMINATION Gen: This is a 49-year-old male. He is resting in bed and appears to be comfortable and in no acute distress. HEENT: Head is atraumatic, normocephalic. Pupils equal, round. Sclerae is anicteric. NECK: Supple. No JVD. No lymphadenopathy. No thyromegaly. LUNGS: Clear to auscultation. No wheezes or rhonchi. No intercostal retractions. HEART: Regular rate and rhythm. No murmur. ABDOMEN: Soft. Bowel sounds are present. No masses. No tenderness. EXTREMITIES: No pedal edema. No calf tenderness. NEUROLOGICAL: Patient is awake, alert and oriented x3. Cranial nerves 2 through 12 are grossly intact. ASSESSMENT AND PLAN 1. Chest pain. Patient placed in the observation unit, seen by cardiology with plan for heart catheterization. Continue aspirin, Lipitor 20 mg daily. 2. Hyperlipidemia. Continue statin. 3. Gaseous after reflux disease. Patient will be placed on Protonix. 4. Possible COPD. Continue albuterol inhaler as needed. 5. Generalized anxiety disorder and recurrent depression. Continue Xanax. 6. ADHD. Hold Ritalin. 7. DVT prophylaxis. Early ambulation. Patient placed as an observation status. Discharge plan: Home Impression and plan of care have been directed as dictated by the signing physician. Macie Nj nurse practitioner acting as scribe for signing physician. Past Medical History Past Medical History: GERD/Reflux, Hyperlipidemia, Osteoarthritis (OA) Additional Past Medical History / Comment(s): hx. diverticulitis, recent cold sx. now resolved, hyperlipidemia diet controlled, ADHD, anxiety and depression, chronic back pain with known herniated disks History of Any Multi-Drug Resistant Organisms: None Reported Past Surgical History: Bowel Resection, Hernia Repair, Orthopedic Surgery Additional Past Surgical History / Comment(s): temp. colostomy then reversal, knee surg., thumb surg. Past Anesthesia/Blood Transfusion Reactions: No Reported Reaction Past Psychological History: ADD/ADHD, Anxiety, Depression Smoking Status: Former smoker Past Alcohol Use History: None Reported Additional Past Alcohol Use History / Comment(s): has smoked for 20 yrs., down to half a pack ppd, used to be 1-2 ppd Past Drug Use History: None Reported Additional Drug Use History / Comment(s): occasional use - Past Family History Mother Family Medical History: Cancer Father Family Medical History: Osteoarthritis (OA), Respiratory Disorder Medications and Allergies Home Medications Medication Instructions Recorded Confirmed Type ALPRAZolam [Xanax] 1 mg PO BID PRN 11/22/19 01/03/20 History Aspirin EC [Ecotrin Low Dose] 81 mg PO DAILY 11/22/19 01/03/20 History Loratadine 10 mg PO DAILY 11/22/19 01/03/20 History Methylphenidate HCl 20 mg PO BID@0900,1300 11/22/19 01/03/20 History Simvastatin 40 mg PO DAILY 11/22/19 01/03/20 History Albuterol Inhaler [Ventolin Hfa 2 puff INHALATION RT-Q4H PRN 08/12/20 08/12/20 History Inhaler] Allergies Allergy/AdvReac Type Severity Reaction Status Date / Time benztropine mesylate AdvReac muscle Verified 01/03/20 17:40 [From Cogentin] spasms Physical Exam Vitals: Vital Signs Temp Pulse Pulse Resp BP BP Pulse Ox 01/04/20 07:43 97.4 F L 71 16 146/87 96 01/04/20 03:00 98 F 75 18 120/71 96 01/03/20 21:00 98.3 F 70 18 149/84 96 01/03/20 20:07 91 17 112/71 97 01/03/20 18:22 98.8 F 75 17 112/71 98 01/03/20 16:05 98.6 F 90 18 138/80 98 Intake and Output 01/03/20 01/04/20 01/04/20 22:59 06:59 14:59 Intake Total 450 52.167 Balance 450 52.167 Intake: Intake, IV Titration 52.167 Amount Heparin Sod,Pork in 0.45% 52.167 NaCl 25,000 unit In 0.45 % NaCl 1 250ml.bag @ 11. 306 UNITS/KG/HR 10 mls/hr IV .Q24H [facility] Rx#: [id number] Oral 450 Other: Voiding Method Toilet Toilet # Voids 2 Weight 88.451 kg Results CBC & Chem 7: 01/04/20 07:05 01/03/20 16:31 Labs: Abnormal Lab Results - Last 24 Hours (Table) 01/03/20 01/03/20 01/03/20 Range/Units 16:31 16:31 22:40 WBC 10.8 H (3.8-10.6) k/uL APTT 30.7 H (22.0-30.0) sec BUN 8 L (9-20) mg/dL Creatinine 0.63 L (0.66-1.25) mg/dL Glucose 123 H (74-99) mg/dL Triglycerides (<150) mg/dL Cholesterol (<200) mg/dL 01/04/20 01/04/20 Range/Units 07:05 07:05 WBC (3.8-10.6) k/uL APTT 44.0 H (22.0-30.0) sec BUN (9-20) mg/dL Creatinine (0.66-1.25) mg/dL Glucose (74-99) mg/dL Triglycerides 403 H (<150) mg/dL Cholesterol 219 H (<200) mg/dL
[2020-01-04] MEDS ORDERED: MIDAZOLAM 2 MG/2 ML VIAL IVP ONE (12:48)
[2020-01-04] MEDS ORDERED: VERAPAMIL 2.5 MG/ML 2 ML AMP INTRACORON ONE (12:49)
[2020-01-04] MEDS ORDERED: HEPARIN SODIUM 1,000 UN/ML (10ML VL) ONE (12:57)
[2020-01-04] MEDS ORDERED: HEPARIN SODIUM 1,000 UN/ML (10ML VL) IV ONE (12:58)
[2020-01-04] MEDS ORDERED: IOPAMIDOL-370 100ML BTL INJ ONE (12:59)
[2020-01-04] MEDS ORDERED: RX INFO: IV CONTRAST WAS GIVEN 1 EACH MISC MISCELLANE PRN (13:09)
[2020-01-04] MEDS ORDERED: SODIUM CHLORIDE 0.9% 1,000 ML IV SCH (13:15)
--- NOTE | 2020-01-04 14:05 | P.DS ---
Providers Date of admission: 01/03/20 16:27 Expected date of discharge: 01/04/20 Attending physician: Mariano Barrera Consults: 01/03/20 16:58 Consult Physician Urgent Consulting Provider: Kurt Garcia Consult Reason/Comments: chest pain, abnormal stress Do you want consulting provider notified?: Yes Primary care physician: [facility] Course: HISTORY OF PRESENT ILLNESS This is a 49-year-old male who [facility] with past medical history of hyperlipidemia, gastric suction reflux disease, generalized osteoarthritis, ADHD, generalized anxiety disorder and recurrent depression, peripheral vascular disease, diverticulitis, remote history of tobacco use. He denies having any history of TIA CVA, COPD, COPD, no history of sleep apnea. Patient was last seen here in November which time he was placed in the observation unit underwent a Lexiscan stress test that was essentially equivocal with a possibility of pharmacologically-induced LV myocardial ischemia noted with a mild decreased uptake along the left lateral wall on stress compared to rest with an ejection fraction of 68%. Patient signed out AMA because he states he had a family emergency that he needed to attend to. Patient states he has had continued chest pain that is quick and stabbing-type increased frequency lately as well as nausea no vomiting. He feels tired all the time. He states he can walk when he has the pain. It does occur with activity or at rest. It usually lasts less than one hour. Patient also has a draining abscess on his right c heek which he stated occurred about one week ago while he was on his riding lawnmower and debris from a tree punctured the area while he was mowing. Patient presented to [facility] emergency center for evaluation. EKG reveals sinus rhythm. Chest xray negative for an acute cardiopulmonary process. WBC 10.8, hemoglobin 16.6, platelets 296, sodium 137, potassium 4.2, creatinine 0.63, magnesium 1.9, troponins negative 3, triglycerides 403 and total cholesterol 219. Patient was placed on the observation unit, seen by cardiology with plan for heart catheterization. Heart catheterization revealed calcification of the proximal LAD and mild plaque in the mid LAD. Patient was cleared for discharge by cardiology and patient was discharged home in stable condition. ASSESSMENT AND PLAN 1. Chest pain. 2. Hyperlipidemia. 3. Gastroesophageal reflux disease. 4. Possible COPD. 5. Generalized anxiety disorder and recurrent depression. 6. ADHD. Discharge plan: Home Impression and plan of care have been directed as dictated by the signing physician. Macie Nj nurse practitioner acting as scribe for signing physician. Patient Condition at Discharge: Good Plan - Discharge Summary Discharge Rx Participant: Yes New Discharge Prescriptions: Continue ALPRAZolam [Xanax] 1 mg PO BID PRN PRN Reason: Anxiety Simvastatin 40 mg PO DAILY Methylphenidate HCl 20 mg PO BID@0900,1300 Loratadine 10 mg PO DAILY Aspirin EC [Ecotrin Low Dose] 81 mg PO DAILY Albuterol Inhaler [Ventolin Hfa Inhaler] 2 puff INHALATION RT-Q4H PRN PRN Reason: Shortness Of Breath Discharge Medication List ALPRAZolam [Xanax] 1 mg PO BID PRN 11/22/19 [History] Aspirin EC [Ecotrin Low Dose] 81 mg PO DAILY 11/22/19 [History] Loratadine 10 mg PO DAILY 11/22/19 [History] Methylphenidate HCl 20 mg PO BID@0900,1300 11/22/19 [History] Simvastatin 40 mg PO DAILY 11/22/19 [History] Albuterol Inhaler [Ventolin Hfa Inhaler] 2 puff INHALATION RT-Q4H PRN 01/03/20 [History] Follow up Appointment(s)/Referral(s): [facility] [NON-STAFF] - 1-2 days Gerald Gusman MD [STAFF PHYSICIAN] - 01/11/20 3:00 pm (Follow up with Dr. Gusman for a Site Check as scheduled for you) Patient Instructions/Handouts: *Surgery [facility] - After Heart Catheterization - Chip Mucker Instructions Activity/Diet/Wound Care/Special Instructions: See Activity Restriction Instructions Discharge Disposition: HOME SELF-CARE
--- NOTE | 2020-01-04 14:46 | CC ---
CARDIAC CATHETERIZATION REPORT Mr. Johnston is a 49-year-old male with a history of hyperlipidemia, who had multiple admissions to the hospital with symptoms of chest pain, had an abnormal myocardial perfusion imaging, was evaluated by Dr. Gusman and recommendation made regarding cardiac catheterization. He was brought into the technical laboratory asst. PROCEDURE: Patient was brought to technical laboratory asst in a fasting semi-sedated state after receiving fentanyl and Benadryl. Attempts to cannulate the right femoral artery by Dr. Gusman were unsuccessful. At that time, I was asked to access the right radial artery. The procedures, risks, and complication were discussed with the patient who is in full understanding and agreement. PROCEDURE NOTE: Using Xylocaine anesthesia and Seldinger technique, a 6-Kyrgyz sheath was introduced in the right radial artery. Selective right and left coronary angiography performed using 5-Kyrgyz 3.5 bend right and left Lauren catheters. Most views of the coronary artery including hemiaxial views were obtained. Following that, 5-Kyrgyz tight pigtail catheter was introduced in the left ventricle and pressures were calculated. Following that, catheter and sheath were removed. Hemostasis was obtained with deployment of a TR band. There was no immediate complication. Patient is returned to his room in stable condition. Of note, the patient received 5000 units of intravenous heparin as well as intra-arterial verapamil. FINDINGS: FLUOROSCOPY: There was mild calcification involving the proximal left anterior descending artery. LEFT MAIN: This is a large-sized vessel, bifurcating into left circumflex, left anterior descending artery. Left main coronary artery has no evidence of high- grade stenosis. LEFT ANTERIOR DESCENDING ARTERY: This is a large-sized vessel, reaching toward the apex, giving rise to a large diagonal branch in mid segment the left anterior descending coronary artery after takeoff of the first septal operations forester, has a 10% to 20% plaque. The rest of the vessel has no high-grade stenosis. LEFT CIRCUMFLEX: This is a nondominant vessel, giving rise to one obtuse marginal branch. The left circumflex as well as branches have no evidence of obstructive coronary disease. RIGHT CORONARY ARTERY: This is a dominant vessel, large in caliber, bifurcating into PDA and posterolateral segment and branches. The right coronary artery as well as branches have no evidence of obstructive coronary artery disease. LEFT VENTRICULOGRAM: Left ventriculogram is not performed. HEMODYNAMICS: There was no gradient across the aortic valve. The left ventricle end- diastolic pressure was 10-12 mmHg. CONCLUSION: 1. calcification of the proximal LAD. 2. mild plaque in the mid LAD. RECOMMENDATION: In view of findings and anatomy, recommend continue medical therapy with aggressive risk modifications being initiated. Those findings and recommendation were discussed with the patient who is in full understanding and agreement. Duration of sedation 19 minutes. MMODL / IJN: [id number] / MTDD
[2020-01-04 16:40] VITALS: BP 133/88; PULSE 65
[2020-01-05] MEDS ORDERED: ASPIRIN 81 MG PO SCH (09:00)
== END 2020-01-04 18:13 | disposition home or self-care (01) ==
LOC: EC 15:58 → 3NCARDOBS 16:27
PROVIDERS: ADMIT Internal Medicine Geriatric Medicine; ATTEND Internal Medicine Geriatric Medicine
DX: I25.10 Atherosclerotic heart disease of native coronary artery without angina pectoris (principal); R07.89 Other chest pain; R94.39 Abnormal result of other cardiovascular function study; E78.5 Hyperlipidemia, unspecified; K21.9 Gastro-esophageal reflux disease without esophagitis; F41.1 Generalized anxiety disorder; F33.9 Major depressive disorder, recurrent, unspecified; F90.9 Attention-deficit hyperactivity disorder, unspecified type; K57.90 Diverticulosis of intestine, part unspecified, without perforation or abscess without bleeding; M51.9 Unspecified thoracic, thoracolumbar and lumbosacral intervertebral disc disorder; M15.9 Polyosteoarthritis, unspecified; I73.9 Peripheral vascular disease, unspecified; F17.210 Nicotine dependence, cigarettes, uncomplicated; S01.83XA Puncture wound without foreign body of other part of head, initial encounter; L02.01 Cutaneous abscess of face; B96.89 Other specified bacterial agents as the cause of diseases classified elsewhere; Z79.899 Other long term (current) drug therapy; Z79.82 Long term (current) use of aspirin; Z88.8 Allergy status to other drugs, medicaments and biological substances; Z90.49 Acquired absence of other specified parts of digestive tract; Z98.890 Other specified postprocedural states; Z80.9 Family history of malignant neoplasm, unspecified; Z82.61 Family history of arthritis; Z83.79 Family history of other diseases of the digestive system; Z82.5 Family history of asthma and other chronic lower respiratory diseases; Z80.3 Family history of malignant neoplasm of breast; W22.8XXA Striking against or struck by other objects, initial encounter; Y93.H2 Activity, gardening and landscaping
CPT/HCPCS: 93005 ×2; 96366 ×2; 96376 ×2; 96365; 99285; 36415; 93458; 80061; 80053; 83735; 84484; 85025; 85049; 85610; 85730 ×2; 71046; G0378 ×2; C1769 ×5; C1894 ×2; J2250; J1644 ×3; J2001; J3010; Q9967

== ENCOUNTER 2020-02-18 10:59 | Emergency (ER) | payer MEDICARE, OTHER ==
[2020-02-18] MEDS ORDERED: KETOROLAC 15 MG/ML 1 ML VIAL IVP STA (11:33)
[2020-02-18] MEDS ORDERED: ONDANSETRON 4 MG/2 ML VIAL IVP STA (11:33)
[2020-02-18] MEDS ORDERED: methylPREDNISolone SOD SUCCI 125 MG/2 ML VIAL IV STA (11:33)
[2020-02-18] MEDS ORDERED: HYDROmorphone 1 MG/ML 1 ML SYRINGE IVP STA (11:33)
--- NOTE | 2020-02-18 11:49 | ED ---
Extremity Problem HPI - General Chief complaint: Extremity Problem,Nontraumatic Stated complaint: R ankle pain Time Seen by Provider: 02/18/20 11:23 Source: patient, RN notes reviewed Mode of arrival: ambulatory Limitations: no limitations - History of Present Illness Initial comments: 49-year-old male presents emergency Department chief complaint right ankle pain. Patient states started 2 days ago. Patient states that the pain is unbearable states that it is causing him to have difficulty walking because of painful. Patient denies any trauma. Patient states he notices swollen. Patient does admit that he has severe peripheral vascular disease and which she has some discoloration of his toes on his left foot. This has been ongoing. Patient has seen Dr. hugo in the past and was told that he may need surgery. Denies any discoloration of his right leg from usual states his right leg is usually slightly swollen. Patient denies any chest pain or shortness breath. He shouldn't states that he has no history of gout denies fevers or chills. - Related Data Home Medications Medication Instructions Recorded Confirmed ALPRAZolam [Xanax] 1 mg PO BID PRN 11/22/19 01/03/20 Aspirin EC [Ecotrin Low Dose] 81 mg PO DAILY 11/22/19 01/03/20 Loratadine 10 mg PO DAILY 11/22/19 01/03/20 Methylphenidate HCl 20 mg PO BID@0900,1300 11/22/19 01/03/20 Simvastatin 40 mg PO DAILY 11/22/19 01/03/20 Albuterol Inhaler [Ventolin Hfa 2 puff INHALATION RT-Q4H PRN 01/03/20 01/03/20 Inhaler] Previous Rx's Medication Instructions Recorded Ibuprofen [Motrin] 600 mg PO Q8HR PRN #20 tab 02/18/20 predniSONE 50 mg PO DAILY #5 tab 02/18/20 Allergies Allergy/AdvReac Type Severity Reaction Status Date / Time benztropine mesylate AdvReac muscle Verified 02/18/20 11:21 [From Vipul] spasms Review of Systems ROS Statement: Those systems with pertinent positive or pertinent negative responses have been documented in the HPI. ROS Other: All systems not noted in ROS Statement are negative. Past Medical History Past Medical History: GERD/Reflux, Hyperlipidemia, Osteoarthritis (OA) Additional Past Medical History / Comment(s): hx. diverticulitis, recent cold sx. now resolved, hyperlipidemia diet controlled, ADHD, anxiety and depression, chronic back pain with known herniated disks History of Any Multi-Drug Resistant Organisms: None Reported Past Surgical History: Bowel Resection, Hernia Repair, Orthopedic Surgery Additional Past Surgical History / Comment(s): temp. colostomy then reversal, knee surg., thumb surg. Past Anesthesia/Blood Transfusion Reactions: No Reported Reaction Past Psychological History: ADD/ADHD, Anxiety, Depression Smoking Status: Former smoker Past Alcohol Use History: None Reported Past Drug Use History: None Reported - Past Family History Mother Family Medical History: Cancer Father Family Medical History: Osteoarthritis (OA), Respiratory Disorder General Exam Limitations: no limitations General appearance: alert, in no apparent distress Head exam: Present: atraumatic, normocephalic, normal inspection Eye exam: Present: normal appearance, PERRL, EOMI. Absent: scleral icterus, conjunctival injection, periorbital swelling Neck exam: Present: normal inspection, full ROM. Absent: tenderness, meningismus, lymphadenopathy Respiratory exam: Present: normal lung sounds bilaterally. Absent: respiratory distress, wheezes, rales, rhonchi, stridor Cardiovascular Exam: Present: regular rate, normal rhythm, normal heart sounds. Absent: systolic murmur, diastolic murmur, rubs, gallop, clicks Extremities exam: Present: other (Right ankle there is mild swelling, times palpation no erythema pulses are faintly palpable on the right and left. There are multiple varicosities of lower extremity there is mild swelling. There is some discoloration of the digits 1 and 2 on the left foot) Neurological exam: Present: alert, oriented X3 Course Vital Signs 02/18/20 11:19 Temperature 98.2 F Pulse Rate 86 Respiratory 16 Rate Blood Pressure 111/76 O2 Sat by Pulse 98 Oximetry Medical Decision Making - Medical Decision Making X-ray shows possibility of a fall and fracture. Patient had no traumatic injury correlate for this. Patient does have mild elevation CRP. Patient may have inflammatory arthritis. Patient will follow-up with ECP tomorrow to schedule plain a follow-up with orthopedics and return for any worsening symptoms. - Lab Data Result diagrams: 02/18/20 11:57 02/18/20 11:57 Lab Results 02/18/20 02/18/20 02/18/20 Range/Units 11:57 11:57 11:57 WBC 13.3 H (3.8-10.6) k/uL RBC 5.12 (4.30-5.90) m/uL Hgb 16.4 (13.0-17.5) gm/dL Hct 49.4 (39.0-53.0) % MCV 96.5 (80.0-100.0) fL MCH 32.1 (25.0-35.0) pg MCHC 33.2 (31.0-37.0) g/dL RDW 12.7 (11.5-15.5) % Plt Count 296 (150-450) k/uL Neutrophils % 75 % Lymphocytes % 14 % Monocytes % 7 % Eosinophils % 2 % Basophils % 1 % Neutrophils # 10.1 H (1.3-7.7) k/uL Lymphocytes # 1.8 (1.0-4.8) k/uL Monocytes # 0.9 (0-1.0) k/uL Eosinophils # 0.3 (0-0.7) k/uL Basophils # 0.1 (0-0.2) k/uL Sodium 134 L (137-145) mmol/L Potassium 4.4 (3.5-5.1) mmol/L Chloride 101 (98-107) mmol/L Carbon Dioxide 27 (22-30) mmol/L Anion Gap 6 mmol/L BUN 7 L (9-20) mg/dL Creatinine 0.67 (0.66-1.25) mg/dL Est GFR (CKD-EPI)AfAm >90 (>60 ml/min/1.73 sqM) Est GFR (CKD-EPI)NonAf >90 (>60 ml/min/1.73 sqM) Glucose 154 H (74-99) mg/dL Plasma Lactic Acid Yoni 1.6 (0.7-2.0) mmol/L Uric Acid 8.0 (3.5-8.5) mg/dL Calcium 9.5 (8.4-10.2) mg/dL Total Bilirubin 0.6 (0.2-1.3) mg/dL AST 25 (17-59) U/L ALT 27 (4-49) U/L Alkaline Phosphatase 129 H (38-126) U/L C-Reactive Protein 52.8 H (<10.0) mg/L Total Protein 8.1 (6.3-8.2) g/dL Albumin 4.4 (3.5-5.0) g/dL Disposition Clinical Impression: Right ankle pain, Arthralgia of ankle, right Disposition: HOME SELF-CARE Condition: Stable Instructions (If sedation given, give patient instructions): Arthralgia (ED), Swollen Joint (ED) Additional Instructions: Please return to the Emergency Department if symptoms worsen or any other concerns. Prescriptions: Ibuprofen [Motrin] 600 mg PO Q8HR PRN #20 tab PRN Reason: Pain predniSONE 50 mg PO DAILY #5 tab Is patient prescribed a controlled substance at d/c from ED?: No Referrals: Mariano Barrera MD [Medical Doctor] - 1-2 days Sulaiman Pappas MD [STAFF PHYSICIAN] - 1-2 days Time of Disposition: 13:53
[2020-02-18 12:09] LABS: Basophils # (A) 0.1 k/uL (0-0.2); Basophils % (A) 1 %; Eosinophils # (A) 0.3 k/uL (0-0.7); Eosinophils % (A) 2 %; HCT 49.4 % (39.0-53.0); HGB 16.4 gm/dL (13.0-17.5); Lymphocytes # (A) 1.8 k/uL (1.0-4.8); Lymphocytes % (A) 14 %; MCH 32.1 pg (25.0-35.0); MCHC 33.2 g/dL (31.0-37.0); MCV 96.5 fL (80.0-100.0); Mean Platelet Volume 6.8; Monocytes # (A) 0.9 k/uL (0-1.0); Monocytes % (A) 7 %; Neutrophils # (A) 10.1 k/uL (1.3-7.7); Neutrophils % (A) 75 %; Platelet Count 296 k/uL (150-450); RBC 5.12 m/uL (4.30-5.90); RDW 12.7 % (11.5-15.5); WBC 13.3 k/uL (3.8-10.6)
[2020-02-18 12:23] LABS: ALT 27 U/L (4-49); AST 25 U/L (17-59); African American GFR (CKD) >90 (>60 ml/min/1.73 sqM); Albumin 4.4 g/dL (3.5-5.0); Alkaline Phosphatase 129 U/L (38-126); Anion Gap 6 mmol/L; Blood Urea Nitrogen 7 mg/dL (9-20); C Reactive Protein 52.8 mg/L (<10.0); Calcium 9.5 mg/dL (8.4-10.2); Carbon Dioxide 27 mmol/L (22-30); Chloride 101 mmol/L (98-107); Glucose 154 mg/dL (74-99); Non-African American GFR(CKD) >90 (>60 ml/min/1.73 sqM); Potassium 4.4 mmol/L (3.5-5.1); Sodium 134 mmol/L (137-145); Total Bilirubin 0.6 mg/dL (0.2-1.3); Total Protein 8.1 g/dL (6.3-8.2)
[2020-02-18] MEDS ORDERED: HYDROmorphone 0.5 MG/0.5 ML SYRINGE IVP STA (12:47)
--- NOTE | 2020-02-18 13:16 | XR ---
EXAMINATION TYPE: XR ankle complete RT DATE OF EXAM: 02/18/2020 COMPARISON: 04/22/2017 HISTORY: Pain TECHNIQUE: Three-view right ankle FINDINGS: Diffuse soft tissue swelling is not excluded. No focal significant soft tissue swelling i s present. Ankle mortise is intact. There is a tiny ossification inferior to the distal fibula. Small avulsion is not excluded at this lo cation. This is not identified on additional images. However, this appears to been present previously suggesting secondary osseous center may be present. IMPRESSION: 1. Clinical consideration for small avulsion inferior to the dural malleolus. Secondary ossification center present previously is favored. 2. Minimal diffuse soft tissue swelling.
[2020-02-18] MEDS ORDERED: ALPRAZolam 1 MG TAB PO STA (13:51)
[2020-02-18] MEDS ORDERED: ACET/COD 300 MG/30 MG STARTER PACK 6 TAB BTL PO STA (13:51)
[2020-02-18] MEDS ORDERED: IBUPROFEN 600 MG STARTER PACK 4 TAB BTL PO STA (13:52)
[2020-02-18 14:24] LABS: Erythrocyte Sedimentation Rate 19 mm/hr (0-15)
[2020-02-18 14:46] VITALS: BP 134/66; PULSE 80; RESP 18; TEMP 97.6
== END 2020-02-18 14:46 | disposition home or self-care (01) ==
LOC: EC 10:59
DX: I83.811 Varicose veins of right lower extremity with pain (principal); I83.891 Varicose veins of right lower extremity with other complications; R79.89 Other specified abnormal findings of blood chemistry; R23.8 Other skin changes; F41.9 Anxiety disorder, unspecified; F32.9 Major depressive disorder, single episode, unspecified; F90.9 Attention-deficit hyperactivity disorder, unspecified type; E78.5 Hyperlipidemia, unspecified; M19.90 Unspecified osteoarthritis, unspecified site; Z79.82 Long term (current) use of aspirin; Z79.899 Other long term (current) drug therapy; Z87.891 Personal history of nicotine dependence; Z88.8 Allergy status to other drugs, medicaments and biological substances
CPT/HCPCS: 36415; 80053; 85652; 83605; 84550; 85025; 86140; 73610; 96374; 96375 ×3; 96376; 99284; J2930; J2405; J1170 ×2; J1885

== ENCOUNTER 2020-03-13 10:27 | Inpatient (IN) | payer MEDICARE, OTHER ==
[2020-03-13] MEDS ORDERED: SODIUM CHLORIDE 0.9% 1,000 ML IV ONE (11:38)
[2020-03-13] MEDS ORDERED: MORPHINE SULFATE 4 MG/ML SYRINGE IV STA (11:38)
[2020-03-13 12:01] LABS: Basophils # (A) 0.1 k/uL (0-0.2); Basophils % (A) 1 %; Eosinophils # (A) 0.1 k/uL (0-0.7); Eosinophils % (A) 1 %; HCT 52.4 % (39.0-53.0); HGB 17.4 gm/dL (13.0-17.5); Lymphocytes # (A) 1.4 k/uL (1.0-4.8); Lymphocytes % (A) 9 %; MCH 33.2 pg (25.0-35.0); MCHC 33.2 g/dL (31.0-37.0); Mean Platelet Volume 7.2; Monocytes # (A) 0.8 k/uL (0-1.0); Monocytes % (A) 5 %; Neutrophils # (A) 12.9 k/uL (1.3-7.7); Neutrophils % (A) 84 %; Platelet Count 341 k/uL (150-450); RBC 5.24 m/uL (4.30-5.90); RDW 12.5 % (11.5-15.5); WBC 15.4 k/uL (3.8-10.6)
[2020-03-13] MEDS ORDERED: ASPIRIN 325 MG TAB PO STA (12:07)
[2020-03-13] MEDS ORDERED: HYDROmorphone 0.5 MG/0.5 ML SYRINGE IVP STA (12:08)
[2020-03-13 12:11] LABS: ALT 26 U/L (4-49); AST 21 U/L (17-59); African American GFR (CKD) >90 (>60 ml/min/1.73 sqM); Albumin 4.5 g/dL (3.5-5.0); Alkaline Phosphatase 126 U/L (38-126); Anion Gap 10 mmol/L; Blood Urea Nitrogen 16 mg/dL (9-20); Calcium 10.1 mg/dL (8.4-10.2); Carbon Dioxide 23 mmol/L (22-30); Chloride 101 mmol/L (98-107); Glucose 212 mg/dL (74-99); Non-African American GFR(CKD) >90 (>60 ml/min/1.73 sqM); Potassium 4.9 mmol/L (3.5-5.1); Sodium 134 mmol/L (137-145); Total Bilirubin 0.8 mg/dL (0.2-1.3); Total Protein 8.2 g/dL (6.3-8.2)
--- NOTE | 2020-03-13 13:21 | CT ---
EXAMINATION TYPE: CT angio lower extremity BILAT DATE OF EXAM: 03/13/2020 12:57 PM COMPARISON: CTA of the mid to lower abdomen with bilateral lower extremity runoff HISTORY: Known PVD with discoloration of left toes, claudication. CT DLP: 957.1 mGycm Automated exposure control for dose reduction was used. TECHNIQUE: Performed with IV Contrast, patient injected with 125 mL of Isovue 300. 3D reconstructed images are created on an independent workstation and reviewed.. FINDINGS: Vascular: The abdominal aorta is small caliber with moderate to severe mixed probably noncalcified pl aque causing stenosis likely greater than 50% right before bifurcation. There is complete occlusion o f the right common iliac artery at its origin. There is complete occlusion of the left common iliac a rteries axial image 21. Near complete occlusion of a short area of right external iliac artery. Signi ficant stenosis at several levels in the left external iliac artery. Some significant stenosis in the right internal iliac artery. There is reconstitution likely from collateral flow within the common femoral arteries, there are pat ent and inferior epigastric arteries deep to the rectus muscles likely causing this. There is no sign ificant focal plaque or stenosis in right common femoral extending to superficial femoral artery and popliteal artery. There is good bifurcation trifurcation. There is good three-vessel flow mid leg lev el and two-vessel flow distal leg level. Left lower extremity shows good flow in the common femoral a rtery and deep femoral artery with subsequent complete occlusion in the superficial femoral artery sh ortly after its origin, there is absent flow noted entire superficial femoral artery with reconstitut ion distally near proximal popliteal artery origin seen best near axial image 108 for reference and c oronal image 28. There is subsequent good two-vessel flow with three-vessel flow in the proximal leg with subsequent satisfactory two-vessel flow in the distal leg. Other: There is prior ventral wall hernia repair with overlying curvilinear density or mesh. No recu rrent hernia defect. Eventration of mesenteric fat and portion of colonic loop noted. Surgical change s sigmoid colon in the pelvis are present. Metallic artifact from total left hip arthroplasty seen, causes streak artifact limiting evaluation o f pelvic structures. Moderate to severe disc space narrowing L5-S1 level. IMPRESSION: 1. Small caliber abdominal aorta. Complete occlusion right common iliac artery and right external lenny ac artery with reconstitution at the groin level. Complete occlusion of the left mid to distal common iliac artery and significant narrowing in the left external iliac artery. There is also long segment complete occlusion involving nearly entire left superficial femoral artery. Some reconstitution just above left knee noted.
--- NOTE | 2020-03-13 13:37 | ED ---
General Adult HPI - General Chief complaint: Extremity Problem,Nontraumatic Stated complaint: bilat foot swelling Time Seen by Provider: 03/13/20 11:20 Source: patient, RN notes reviewed, old records reviewed Mode of arrival: wheelchair Limitations: physical limitation - History of Present Illness Initial comments: 49-year-old male patient past medical history of leg claudication presents to ED for evaluation of bilateral leg pain. Patient reports that he has had pain in his left E for years. Reports that is worse when he walks. Patient reports that he has all over the vascular surgeon however there were no procedures done. Reports that he's been having pain in the feet and in his left ankle. Reports some discoloration of left great toe. Denies any other complaints. Systemic: Pt denies fatigue, fever/chills, rash. Pt denies weakness, night sweats, weight loss. Neuro: Pt denies headache, visual disturbances, syncope or pre-syncope. HEENT: Pt denies ocular discharge or irritation, otalgia, rhinorrhea, pharyngitis or notable lymphadenopathy. Cardiopulmonary: Pt denies chest pain, SOB, heart palpitations, dyspnea on exertion. Abdominal/GI: Pt denies abdominal pain, n/v/d. : Pt denies dysuria, burning w/ urination, frequency/urgency. Denies new onset urinary or bowel incontinence. MSK: Pt denies myalgia, loss of strength or function in extremities. Neuro: Pt denies new onset weakness, paresthesias. - Related Data Home Medications Medication Instructions Recorded Confirmed Aspirin EC [Ecotrin Low Dose] 81 mg PO DAILY 11/22/19 03/13/20 Loratadine 10 mg PO DAILY 11/22/19 03/13/20 Methylphenidate HCl 20 mg PO BID@0900,1300 11/22/19 03/13/20 Albuterol Inhaler [Ventolin Hfa 2 puff INHALATION RT-Q4H PRN 01/03/20 03/13/20 Inhaler] Atorvastatin Calcium [Lipitor] 40 mg PO HS 03/13/20 03/13/20 Cholecalciferol [Vitamin D3 (25 5,000 unit PO DAILY 03/13/20 03/13/20 Mcg = 1000 Iu)] Clopidogrel Bisulfate [Plavix] 75 mg PO DAILY 03/13/20 03/13/20 Gabapentin 300 mg PO BID 03/13/20 03/13/20 Loratadine [Claritin] 10 mg PO DAILY 03/13/20 03/13/20 Ziprasidone [Geodon] 20 mg PO HS 03/13/20 03/13/20 metFORMIN HCL 500 mg PO DAILY 03/13/20 03/13/20 Allergies Allergy/AdvReac Type Severity Reaction Status Date / Time benztropine mesylate AdvReac muscle Verified 03/13/20 13:38 [From Vipul] spasms Review of Systems ROS Statement: Those systems with pertinent positive or pertinent negative responses have been documented in the HPI. ROS Other: All systems not noted in ROS Statement are negative. Past Medical History Past Medical History: GERD/Reflux, Hyperlipidemia, Osteoarthritis (OA) Additional Past Medical History / Comment(s): hx. diverticulitis,bad circulation to legs, chronic back pain with known herniated disks History of Any Multi-Drug Resistant Organisms: None Reported Past Surgical History: Bowel Resection, Hernia Repair, Orthopedic Surgery Additional Past Surgical History / Comment(s): temp. colostomy then reversal, knee surg., thumb surg. Past Anesthesia/Blood Transfusion Reactions: No Reported Reaction Past Psychological History: ADD/ADHD, Anxiety, Depression Smoking Status: Former smoker Past Alcohol Use History: None Reported Past Drug Use History: None Reported - Past Family History Mother Family Medical History: Cancer Father Family Medical History: Osteoarthritis (OA), Respiratory Disorder General Exam - General Exam Comments Initial Comments: Constitutional: NAD, AOX3, Pt has pleasant affect. HEENT: NC/AT, trachea midline, neck supple, no lymphadenopathy. Posterior ph arynx non erythematous, without exudates. External ears appear normal, without discharge. Mucous membranes moist. Eyes PERRLA, EOM intact. There is no scleral icterus. No pallor noted. Cardiopulmonary: RRR, no murmurs, rubs or gallops, no JVD noted. Lungs CTAB in anterior and posterior freire. No peripheral edema. Abdominal exam: Abdomen soft and non-distended. Abdomen non-tender to palpation in all 4 quadrants. Bowel sounds active in LLQ. No hepatosplenomegaly. No ecchymosis Neuro: CN II-XII grossly intact. No nuchal rigidity. No raccon eyes, no rosario sign, no hemotympanum. No cervical spinal tenderness. MSK: No posterior calf tenderness bilaterally, homans sign negative bilaterally. Posterior tibialis and radial pulse +2 bilaterally. Sensation intact in upper and lower extremities. posterior tibialis dorsalis pedis pulses are nonpalpable bilaterally. There is intact pulses by Doppler and right lower extremity. There is no intact dorsalis pedis or posterior tibialis and left lower extremity however there is intact popliteal pulse. Capillary refill is intact but delayed. Extremities are warm. There is some chronic appearing cyanotic discoloration of the left great toe. Limitations: physical limitation Course Vital Signs 03/13/20 10:46 Temperature 98.0 F Pulse Rate 85 Respiratory 18 Rate Blood Pressure 111/71 O2 Sat by Pulse 97 Oximetry Medical Decision Making - Medical Decision Making 49-year-old male patient this ED for evaluation of worsening pain claudication symptoms pain at rest. Patient does have a long history of leg claudication. Normally has pain with exertion however has been having some pain with rest the last 5 days. Also pain with exertion of the lower extremities. patient vital signs are stable, afebrile. Physical exam displayed no palpable pulses, chronic appearing cyanotic discoloration left great toe, pulses by Doppler right lower extremity. Laboratory Investigations revealed mild leukocytosis CT angiography displayed significant bilateral arterial occlusions. Patient initially adm inistered aspirin based on heparin and will be admitted for vascular evaluation. Case discussed with Dr. Nicholson. Dr. العلي vascular surgeon consulted on case. - Lab Data Result diagrams: 03/13/20 11:50 03/13/20 11:50 Lab Results 03/13/20 03/13/20 03/13/20 Range/Units 11:50 11:50 11:50 WBC 15.4 H (3.8-10.6) k/uL RBC 5.24 (4.30-5.90) m/uL Hgb 17.4 (13.0-17.5) gm/dL Hct 52.4 (39.0-53.0) % MCV 100.0 (80.0-100.0) fL MCH 33.2 (25.0-35.0) pg MCHC 33.2 (31.0-37.0) g/dL RDW 12.5 (11.5-15.5) % Plt Count 341 (150-450) k/uL Neutrophils % 84 % Lymphocytes % 9 % Monocytes % 5 % Eosinophils % 1 % Basophils % 1 % Neutrophils # 12.9 H (1.3-7.7) k/uL Lymphocytes # 1.4 (1.0-4.8) k/uL Monocytes # 0.8 (0-1.0) k/uL Eosinophils # 0.1 (0-0.7) k/uL Basophils # 0.1 (0-0.2) k/uL Sodium 134 L (137-145) mmol/L Potassium 4.9 (3.5-5.1) mmol/L Chloride 101 (98-107) mmol/L Carbon Dioxide 23 (22-30) mmol/L Anion Gap 10 mmol/L BUN 16 (9-20) mg/dL Creatinine 0.94 (0.66-1.25) mg/dL Est GFR (CKD-EPI)AfAm >90 (>60 ml/min/1.73 sqM) Est GFR (CKD-EPI)NonAf >90 (>60 ml/min/1.73 sqM) Glucose 212 H (74-99) mg/dL Plasma Lactic Acid Yoni 1.8 (0.7-2.0) mmol/L Calcium 10.1 (8.4-10.2) mg/dL Total Bilirubin 0.8 (0.2-1.3) mg/dL AST 21 (17-59) U/L ALT 26 (4-49) U/L Alkaline Phosphatase 126 (38-126) U/L Total Protein 8.2 (6.3-8.2) g/dL Albumin 4.5 (3.5-5.0) g/dL - EKG Data -: EKG Interpreted by Me (and Dr. Nicholson ) EKG Comments: Ventricular rate 89, IN interval 148, QRS 74, QT/QTC 3. 6 is 433. Normal sinus rhythm, normal EKG, no concern for acute ischemia. Disposition Clinical Impression: Left leg claudication, Right leg claudication Disposition: ADMITTED IP TO THIS HOSP Condition: Serious Is patient prescribed a controlled substance at d/c from ED?: No Referrals: Benji Hand MD [Primary Care Provider] - 1-2 days
[2020-03-13] MEDS ORDERED: HEPARIN SODIUM,PORCINE 5,000 UNIT/ML 1 ML VIAL IV ONE (14:04)
[2020-03-13] MEDS ORDERED: NALOXONE 0.4 MG/ML 1 ML VIAL IV PRN (14:12)
[2020-03-13] MEDS: HEPARIN SOD,PORK IN 0.45% NACL 25,000 UNIT in 0.45% NACL 1 250ML.BAG IV SCH (14:49)
--- NOTE | 2020-03-13 15:10 | P.GSCN ---
History of Present Illness Consult date: 03/13/20 History of present illness: The patient is a 49-year-old male who has a long-standing history of bilateral lower extremity claudication and left foot pain which has been worsening over time. He continues to have pain now at all times. He presented to the ER today because of this continued pain. He has been worked up as an outpatient at another hospital and was told he had multiple areas of blockages and repair a big surgery. He failed to have outpatient follow-up as previously recommended when he was last seen by us in the hospital in November. Since that time he has undergone a heart catheterization with no stenting. He denies any fevers, chills, cough or shortness of breath. He is nauseated due to the pain and hasn't vomited. He maintains that he has quit smoking, does not drink or utilize any other illicit drugs currently. He has not been taking the medications that were recommended previously in the form of aspirin and cholesterol pills. He does have a significant history of multiple abdominal surgeries for perforated diverticulitis and multiple abdominal wall hernia repairs Review of Systems 14 point review of systems performed, pertinent positives and negatives per the HPI Past Medical History Past Medical History: GERD/Reflux, Hyperlipidemia, Osteoarthritis (OA) Additional Past Medical History / Comment(s): hx. diverticulitis,bad circulation to legs, chronic back pain with known herniated disks History of Any Multi-Drug Resistant Organisms: None Reported Past Surgical History: Bowel Resection, Hernia Repair, Orthopedic Surgery Additional Past Surgical History / Comment(s): temp. colostomy then reversal, knee surg., thumb surg. Past Anesthesia/Blood Transfusion Reactions: No Reported Reaction Past Psychological History: ADD/ADHD, Anxiety, Depression Smoking Status: Former smoker Past Alcohol Use History: None Reported Past Drug Use History: None Reported - Past Family History Mother Family Medical History: Cancer Father Family Medical History: Osteoarthritis (OA), Respiratory Disorder Medications and Allergies Home Medications Medication Instructions Recorded Confirmed Type Aspirin EC [Ecotrin Low Dose] 81 mg PO DAILY 11/22/19 03/13/20 History Loratadine 10 mg PO DAILY 11/22/19 03/13/20 History Methylphenidate HCl 20 mg PO BID@0900,1300 11/22/19 03/13/20 History Albuterol Inhaler [Ventolin Hfa 2 puff INHALATION RT-Q4H PRN 01/03/20 03/13/20 History Inhaler] Atorvastatin Calcium [Lipitor] 40 mg PO HS 03/13/20 03/13/20 History Cholecalciferol [Vitamin D3 (25 5,000 unit PO DAILY 03/13/20 03/13/20 History Mcg = 1000 Iu)] Clopidogrel Bisulfate [Plavix] 75 mg PO DAILY 03/13/20 03/13/20 History Gabapentin 300 mg PO BID 03/13/20 03/13/20 History Loratadine [Claritin] 10 mg PO DAILY 03/13/20 03/13/20 History Ziprasidone [Geodon] 20 mg PO HS 03/13/20 03/13/20 History metFORMIN HCL 500 mg PO DAILY 03/13/20 03/13/20 History Allergies Allergy/AdvReac Type Severity Reaction Status Date / Time benztropine mesylate AdvReac muscle Verified 03/13/20 13:38 [From Cogentin] spasms Surgical - Exam Vital Signs Temp Pulse Resp BP Pulse Ox 98.0 F 85 18 111/71 97 03/13/20 10:46 03/13/20 10:46 03/13/20 10:46 03/13/20 10:46 03/13/20 10:46 Genitals a pleasant cooperative male in no acute distress. HEENT is normocephalic, atraumatic, etc. he motion intact. Where stroke prescription glasses. Poor dentition. Neck is supple, trachea is midline. Heart is regular at this time. Lungs are clear bilaterally. Abdomen is soft, multiple surgical scars noted. Nondistended nontender. Exam show no clubbing, cyanosis or edema. He has strongly palpable radial pulses bilaterally. No palpable femoral pulses. He has multiphasic right dorsalis pedis and posterior tibial signals. There is a multiphasic left posterior tibial signal, weak monophasic dorsalis pedis signal. There is some ischemic changes to the distal tissues of the left toes. He remains motor sensory intact at all levels. Normal mood and affect. Cranial nerves II through XII grossly intact Results CT angiogram of the extremities is reviewed. There is multiple areas of chronic total occlusion with recanalization - Labs 03/13/20 11:50 03/13/20 11:50 Abnormal Lab Results - Last 24 Hours (Table) 03/13/20 03/13/20 Range/Units 11:50 11:50 WBC 15.4 H (3.8-10.6) k/uL Neutrophils # 12.9 H (1.3-7.7) k/uL Sodium 134 L (137-145) mmol/L Glucose 212 H (74-99) mg/dL Diabetes panel 03/13/20 Range/Units 11:50 Sodium 134 L (137-145) mmol/L Potassium 4.9 (3.5-5.1) mmol/L Chloride 101 (98-107) mmol/L Carbon Dioxide 23 (22-30) mmol/L BUN 16 (9-20) mg/dL Creatinine 0.94 (0.66-1.25) mg/dL Glucose 212 H (74-99) mg/dL Calcium 10.1 (8.4-10.2) mg/dL AST 21 (17-59) U/L ALT 26 (4-49) U/L Alkaline Phosphatase 126 (38-126) U/L Total Protein 8.2 (6.3-8.2) g/dL Albumin 4.5 (3.5-5.0) g/dL Calcium panel 03/13/20 Range/Units 11:50 Calcium 10.1 (8.4-10.2) mg/dL Albumin 4.5 (3.5-5.0) g/dL Pituitary panel 03/13/20 Range/Units 11:50 Sodium 134 L (137-145) mmol/L Potassium 4.9 (3.5-5.1) mmol/L Chloride 101 (98-107) mmol/L Carbon Dioxide 23 (22-30) mmol/L BUN 16 (9-20) mg/dL Creatinine 0.94 (0.66-1.25) mg/dL Glucose 212 H (74-99) mg/dL Calcium 10.1 (8.4-10.2) mg/dL Adrenal panel 03/13/20 Range/Units 11:50 Sodium 134 L (137-145) mmol/L Potassium 4.9 (3.5-5.1) mmol/L Chloride 101 (98-107) mmol/L Carbon Dioxide 23 (22-30) mmol/L BUN 16 (9-20) mg/dL Creatinine 0.94 (0.66-1.25) mg/dL Glucose 212 H (74-99) mg/dL Calcium 10.1 (8.4-10.2) mg/dL Total Bilirubin 0.8 (0.2-1.3) mg/dL AST 21 (17-59) U/L ALT 26 (4-49) U/L Alkaline Phosphatase 126 (38-126) U/L Total Protein 8.2 (6.3-8.2) g/dL Albumin 4.5 (3.5-5.0) g/dL Assessment and Plan Assessment: #1 severe peripheral arterial disease #2 bilateral iliac artery occlusive disease #3 previous Christo procedure for perforated diverticulum with multiple abdomin al hernia repairs #4 history of tobacco abuse #5 medical noncompliance Plan: All findings at this point appeared to be chronic in nature with worsening disease area do not believe there is any acute event at this point that would require emergent intervention. He will be initiated on a heparin drip to allow improve collateral flow. We will plan to better image the aorta with a CT abdomen as well as obtaining ankle-brachial indices. Likely he will need a significant revascularization procedure with open and endovascular components. Daily medical cardiac clearance prior to this. Given his ischemic changes, I do believe it is prudent to initiate evaluation and possible treatment as an inpatient for further planning. This was discussed with the patient and his fa hilda at the bedside who seemingly understand and are willing to proceed as such
[2020-03-13] MEDS ORDERED: MORPHINE SULFATE 4 MG/ML SYRINGE IVP PRN (15:19)
[2020-03-13] MEDS: HYDROcodone/APAP 7.5-325MG 1 EACH TAB PO PRN (18:51)
[2020-03-13] MEDS: HYDROmorphone 0.5 MG/0.5 ML SYRINGE IVP PRN (18:52)
[2020-03-13] MEDS: GABAPENTIN 300 MG CAP PO SCH (20:40)
[2020-03-13] MEDS: ATORVASTATIN 40 MG TAB PO SCH (20:40)
[2020-03-13] MEDS: ZIPRASIDONE 20 MG CAP PO SCH (20:40)
[2020-03-14] MEDS: HYDROmorphone 0.5 MG/0.5 ML SYRINGE IVP PRN ×4 (01:12→22:52)
[2020-03-14 02:47] LABS: Basophils % (A) 0 %; Eosinophils # (A) 0.3 k/uL (0-0.7); Eosinophils % (A) 2 %; HCT 46.3 % (39.0-53.0); Lymphocytes # (A) 3.5 k/uL (1.0-4.8); Lymphocytes % (A) 30 %; MCH 32.6 pg (25.0-35.0); MCHC 32.5 g/dL (31.0-37.0); MCV 100.5 fL (80.0-100.0); Monocytes # (A) 0.9 k/uL (0-1.0); Monocytes % (A) 8 %; Neutrophils # (A) 6.8 k/uL (1.3-7.7); Neutrophils % (A) 58 %; Platelet Count 328 k/uL (150-450); RBC 4.61 m/uL (4.30-5.90); RDW 13.1 % (11.5-15.5); WBC 11.7 k/uL (3.8-10.6)
[2020-03-14] MEDS: HEPARIN SODIUM,PORCINE 5,000 UNIT/ML 1 ML VIAL IV PRN (04:03)
[2020-03-14] MEDS: HYDROcodone/APAP 7.5-325MG 1 EACH TAB PO PRN ×2 (06:42→20:13)
[2020-03-14] MEDS: LORATADINE 10 MG TAB PO SCH (08:54)
[2020-03-14] MEDS: ASPIRIN 81 MG PO SCH (08:54)
[2020-03-14] MEDS: GABAPENTIN 300 MG CAP PO SCH ×2 (08:55→21:30)
[2020-03-14] MEDS: CLOPIDOGREL 75 MG TAB PO SCH (08:55)
[2020-03-14 11:49] LABS: African American GFR (CKD) >90 (>60 ml/min/1.73 sqM); Anion Gap 6 mmol/L; Blood Urea Nitrogen 19 mg/dL (9-20); Calcium 9.4 mg/dL (8.4-10.2); Carbon Dioxide 24 mmol/L (22-30); Chloride 105 mmol/L (98-107); Glucose 158 mg/dL (74-99); Non-African American GFR(CKD) >90 (>60 ml/min/1.73 sqM); Potassium 4.5 mmol/L (3.5-5.1); Sodium 135 mmol/L (137-145)
[2020-03-14 11:59] LABS: Glucose,Whole Blood 148 mg/dL (75-99)
[2020-03-14] MEDS: HEPARIN SOD,PORK IN 0.45% NACL 25,000 UNIT in 0.45% NACL 1 250ML.BAG IV SCH (12:06)
--- NOTE | 2020-03-14 13:36 | P.PN ---
Subjective Progress Note Date: 03/14/20 Principal diagnosis: Bilateral leg pain, chronic peripheral arterial disease Patient was seen and examined at the bedside with Dr. Sims. The patient states he has chronic pain down her lateral extremities, states left greater than right. States pain does wake him at night, he does also state that he has met able walk more than a block without significant pain and need for rest. He states even getting up to the bathroom and caused him pain and need to rest. He has a former smoker, he quit several years ago. He is able to move bilateral lower extremities, however able to move right toes greater than left. CT angiogram of bilateral lower extremities reviewed by Dr. Sims. [place] states small caliber abdominal aorta, complete occlusion of the right common i liac artery and right external iliac artery with reconstitution at the groin level. Complete occlusion of the left mid to distal common iliac artery has significant narrowing in the left external iliac artery. There is also a long segment complete occlusion involving nearly entire left superficial femoral artery. Some reconstitution just above the left knee noted. Arterial ultrasound reviewed by Dr. Sims, YASMEEN right 0.46 and left YASMEEN 0.48. Objective - Vital Signs Vital signs: Vital Signs Temp 97.7 F 03/14/20 12:00 Pulse 72 03/14/20 12:00 Resp 16 03/14/20 12:00 BP 100/66 03/14/20 12:00 Pulse Ox 95 03/14/20 12:00 Intake & Output 03/13/20 03/14/20 03/14/20 18:59 06:59 18:59 Intake Total 240 150.511 339.489 Output Total 200 Balance 40 150.511 339.489 Weight 87.09 kg 85.1 kg Intake: Intake, IV Titration 150.511 99.489 Amount Heparin Sod,Pork in 0.45% 150.511 99.489 NaCl 25,000 unit In 0.45 % NaCl 1 250ml.bag @ 11.5 UNITS/KG/HR 10.015 mls/ hr IV .Q24H [facility] Rx#: [id number] Oral 240 240 Output: Urine 200 Other: Voiding Method Toilet Urinal # Voids 1 # Bowel Movements 1 - Exam General appearance: The patient is alert, oriented, in no acute distress. HET: Head is normocephalic and atraumatic. Pupils are equal and reactive. Oropharynx is clear without lesions. Neck: Supple without lymphadenopathy. Trachea midline. Heart: S1 S2. Regular rate and rhythm. Lungs: Fair bilaterally Abdomen: Soft, nontender, nondistended with bowel sounds. Scarring down midline abdomen. Extremities: No clubbing, cyanosis or edema. Bilateral palpable radial pulses. No palpable femoral pulses. Nonpalpable DP or PT pulses bilaterally. Ischemic changes to the distal tissue of the left great and fourth toe. Sensorimotor intact bilaterally. Neurological: No focal deficits. Strength and sensation are grossly intact. - Labs CBC & Chem 7: 03/14/20 02:28 03/14/20 09:45 Labs: Abnormal Lab Results - Last 24 Hours (Table) 03/13/20 03/14/20 03/14/20 Range/Units 20:21 02:28 02:28 WBC 11.7 H (3.8-10.6) k/uL MCV 100.5 H (80.0-100.0) fL APTT 30.8 H 35.6 H (22.0-30.0) sec Sodium (137-145) mmol/L Creatinine (0.66-1.25) mg/dL Glucose (74-99) mg/dL POC Glucose (mg/dL) (75-99) mg/dL 03/14/20 03/14/20 03/14/20 Range/Units 09:45 09:45 11:57 WBC (3.8-10.6) k/uL MCV (80.0-100.0) fL APTT 46.2 H (22.0-30.0) sec Sodium 135 L (137-145) mmol/L Creatinine 0.62 L (0.66-1.25) mg/dL Glucose 158 H (74-99) mg/dL POC Glucose (mg/dL) 148 H (75-99) mg/dL Assessment and Plan Assessment: #1 severe peripheral arterial disease #2 bilateral iliac artery occlusive disease #3 previous Christo procedure for perforated diverticulum with multiple abdominal hernia repairs #4 history of tobacco abuse #5 medical noncompliance Plan: All findings at this point appeared to be chronic in nature with worsening di sease. Continue on a heparin drip to allow improved collateral flow. A CT angiogram of abdomen and pelvis is ordered. Results are pending. Further recommendations to follow. She will need a cardiac clearance prior to any surgical intervention. The impression and plan of care has been dictated as directed. Dr. Ramsey I performed a history and examination of this patient, discussed the same with the dictator. I agree with the dictator's note ,documented as a scribe. Any additional findings or plans will be noted.
--- NOTE | 2020-03-14 15:01 | CT ---
EXAMINATION TYPE: CT angio abdomen pelvis DATE OF EXAM: 03/14/2020 COMPARISON: 03/13/2020 HISTORY: 49-year-old male Leg claudication acute on chronic ischemia TECHNIQUE: Contiguous axial scanning of the abdomen and pelvis following administration of 100 ml Iso elza 370 IV contrast. Coronal/sagittal MIP reconstructions. 3-D reconstructions generated on a [employer] workstation. CT DLP: 1510.4 mGycm Automated exposure control for dose reduction was used. FINDINGS: Heart normal size without pericardial effusion. Strandy atelectasis lower lungs without pleural effus ion. Liver measures 18.1 cm and shows low-attenuation suggesting fatty infiltration. Prior ventral abdominal wall mesh repair. There is an umbilical hernia pushing the mesh anteriorly wi th a Han hernia involving the mid transverse colon. No inflammatory changes. Additional omental c ontaining fatty ventral abdominal wall hernias are present along the superior margin of the mesh with multiple small abdominal wall defects. Gallbladder, adrenal glands, kidneys, spleen, and pancreas are within normal limits. No dilated small bowel, free fluid, or free air. Moderate stool burden. Sigmoid sinus. Staple line from prior resection and re-anastomosis at the rect osigmoid junction. Bladder partially distended. Streak and beam hardening artifact from the patient's left hip total art hroplasty limits visualization of portions of the pelvis. No abnormal fluid collection in the pelvis or pelvic lymphadenopathy. Minimal atherosclerotic change at the origin of the celiac axis and SMA. Bilateral renal arteries are patent. Distal abdominal aorta begins to narrow from circumferential plaque with the patent lumen of 5 mm. Redemonstrated occlusion of the right common iliac artery. There is reconstitution noted at the level of the right common femoral artery from collateral flow from the inferior epigastric artery. On the left, moderate segmental stenoses along the proximal common iliac artery but then with occlusi on to subtotal occlusion along the mid to distal left common iliac artery for a span of 1.5 cm. There is re-opacification noted in the distal left common iliac artery. However, there are multiple segments of moderate to severe stenoses involving the left external iliac artery. The left SFA remains occluded at its origin. Bones: Left hip total arthroplasty. Moderate to advanced degenerative disc disease L5-S1. IMPRESSION: 1. THE LUMEN OF THE DISTAL ABDOMINAL AORTA BEGINS TO NARROW SECONDARY TO CIRCUMFERENTIAL PLAQUE DOWN TO 5 MM. 2. REDEMONSTRATED OCCLUSION OF THE RIGHT COMMON ILIAC ARTERY AT ITS ORIGIN WITH RECONSTITUTION AT THE LEVEL OF THE RADIO FREQUENCY DESIGN ENGINEER FROM COLLATERAL FLOW FROM THE INFERIOR EPIGASTRIC ARTERY. 3. REDEMONSTRATED MODERATE SEGMENTAL STENOSES WITHIN THE PROXIMAL LEFT COMMON ILIAC ARTERY BUT THEN W ITH OCCLUSION OR SUBTOTAL OCCLUSION ALONG THE MID TO DISTAL PORTION FOR A SPAN OF 1.5 CM. 4. REOPACIFICATION OF THE DISTAL LEFT COMMON ILIAC ARTERY FOLLOWED BY MULTIPLE SEGMENTS OF MODERATE T O SEVERE STENOSES THROUGHOUT THE LEFT EXTERNAL ILIAC ARTERY. 5. REDEMONSTRATED LEFT SFA OCCLUSION AT ITS ORIGIN. 6. PREVIOUS VENTRAL ABDOMINAL WALL MESH REPAIR. THERE IS A HAN HERNIA INVOLVING THE MID TRANSVERS E COLON PUSHING THE MESH ANTERIORLY. ADDITIONAL OMENTAL FAT-CONTAINING VENTRAL HERNIAS MEASURING UP T O 10.8 CM WIDE ALONG THE SUPERIOR MARGIN OF THE MESH THROUGH A COUPLE SMALL ABDOMINAL WALL DEFECTS.
[2020-03-14] MEDS: ATORVASTATIN 40 MG TAB PO SCH (21:30)
[2020-03-14] MEDS: ZIPRASIDONE 20 MG CAP PO SCH (21:31)
--- NOTE | 2020-03-14 22:39 | P.HPIM ---
History of Present Illness H&P Date: 03/14/20 Chief Complaint: leg pain Jamey Johnston is a 49 yo M with PMH of peripheral vascular disease, HLD, hx tobacco use who presented to the ED with worsening leg pain. He complains of cool and dusky toes that hurt to bear weight as well as claudication in his calves. He notes he had been worked up previously and told he had extensive blockages in his legs and has been on medical therapy. He has been trying to see a vascular surgeon but hte pain became severe so he presented to the ED. CT angiogram on presentation showed complete iliac artery occlusion bilateral. Review of Systems All systems: negative Constitutional: Reports malaise, Denies chills, Denies fever Eyes: denies blurred vision, denies pain Ears, nose, mouth and throat: Denies headache, Denies sore throat Cardiovascular: Denies chest pain, Denies shortness of breath Respiratory: Denies cough Gastrointestinal: Denies abdominal pain, Denies diarrhea, Denies nausea, Denies vomiting Musculoskeletal: Reports leg numbness/tingling, Denies myalgias Integumentary: Denies pruritus, Denies rash Neurological: Reports paresthesias, Denies numbness, Denies weakness Psychiatric: Denies anxiety, Denies depression Endocrine: Denies fatigue, Denies weight change Past Medical History Past Medical History: GERD/Reflux, Hyperlipidemia, Osteoarthritis (OA) Additional Past Medical History / Comment(s): hx. diverticulitis,bad circulation to legs, chronic back pain with known herniated disks History of Any Multi-Drug Resistant Organisms: None Reported Past Surgical History: Bowel Resection, Hernia Repair, Orthopedic Surgery Additional Past Surgical History / Comment(s): temp. colostomy then reversal, knee surg., thumb surg. Past Anesthesia/Blood Transfusion Reactions: No Reported Reaction Past Psychological History: ADD/ADHD, Anxiety, Depression Smoking Status: Former smoker Past Alcohol Use History: None Reported Additional Past Alcohol Use History / Comment(s): has smoked for 20 yrs., down to half a pack ppd, used to be 1-2 ppd Past Drug Use History: None Reported Additional Drug Use History / Comment(s): occasional use - Past Family History Mother Family Medical History: Cancer Father Family Medical History: Osteoarthritis (OA), Respiratory Disorder Medications and Allergies Home Medications Medication Instructions Recorded Confirmed Type Aspirin EC [Ecotrin Low Dose] 81 mg PO DAILY 11/22/19 03/13/20 History Loratadine 10 mg PO DAILY 11/22/19 03/13/20 History Methylphenidate HCl 20 mg PO BID@0900,1300 11/22/19 03/13/20 History Albuterol Inhaler [Ventolin Hfa 2 puff INHALATION RT-Q4H PRN 01/03/20 03/13/20 History Inhaler] Atorvastatin Calcium [Lipitor] 40 mg PO HS 03/13/20 03/13/20 History Cholecalciferol [Vitamin D3 (25 5,000 unit PO DAILY 03/13/20 03/13/20 History Mcg = 1000 Iu)] Clopidogrel Bisulfate [Plavix] 75 mg PO DAILY 03/13/20 03/13/20 History Gabapentin 300 mg PO BID 03/13/20 03/13/20 History Loratadine [Claritin] 10 mg PO DAILY 03/13/20 03/13/20 History Ziprasidone [Geodon] 20 mg PO HS 03/13/20 03/13/20 History metFORMIN HCL 500 mg PO DAILY 03/13/20 03/13/20 History Allergies Allergy/AdvReac Type Severity Reaction Status Date / Time benztropine mesylate AdvReac muscle Verified 03/13/20 13:38 [From Cogentin] spasms Physical Exam Vitals: Vital Signs Temp Pulse Resp BP Pulse Ox 03/14/20 20:00 97.9 F 80 18 115/70 96 03/14/20 19:35 97.1 F L 76 17 125/69 96 03/14/20 16:25 98 F 70 18 125/79 96 03/14/20 12:00 97.7 F 72 16 100/66 95 03/14/20 08:00 97.8 F 65 18 116/61 95 03/14/20 04:00 62 14 03/14/20 03:59 97.5 F L 62 14 112/67 97 03/13/20 23:15 74 16 03/13/20 23:13 98.0 F 74 16 114/62 95 Intake and Output 03/14/20 03/14/20 03/14/20 06:59 14:59 22:59 Intake Total 86.081 779.489 240 Balance 86.081 779.489 240 Intake: Intake, IV Titration 86.081 99.489 Amount Heparin Sod,Pork in 0.45% 86.081 99.489 NaCl 25,000 unit In 0.45 % NaCl 1 250ml.bag @ 11.5 UNITS/KG/HR 10.015 mls/ hr IV .Q24H [facility] Rx#: [id number] Oral 680 240 Other: Voiding Method Toilet Toilet Urinal Urinal # Voids 1 1 # Bowel Movements 1 Weight 85.1 kg General: well nourished, well developed, NAD. Vitals reviewed Eyes: PERRL, EOMI, conjunctiva normal HENT: normocephalic, mucus membranes moist Neck: supple, no JVD Lungs: normal respiratory effort, no wheezes or rales CV: Regular rate and rhythm, no murmur. Peripheral pulses 1+ bilateral LE. Bilateral toes cool and dusky Abdomen: soft, nondistended, no organomegaly Lymph: no cervical or axillary LAD Skin: warm and dry. Neuro: A&Ox3, normal mood and affect Results CBC & Chem 7: 03/14/20 02:28 03/14/20 09:45 Labs: Abnormal Lab Results - Last 24 Hours (Table) 03/14/20 03/14/20 03/14/20 Range/Units 02:28 02:28 09:45 WBC 11.7 H (3.8-10.6) k/uL MCV 100.5 H (80.0-100.0) fL APTT 35.6 H 46.2 H (22.0-30.0) sec Sodium (137-145) mmol/L Creatinine (0.66-1.25) mg/dL Glucose (74-99) mg/dL POC Glucose (mg/dL) (75-99) mg/dL 03/14/20 03/14/20 Range/Units 09:45 11:57 WBC (3.8-10.6) k/uL MCV (80.0-100.0) fL APTT (22.0-30.0) sec Sodium 135 L (137-145) mmol/L Creatinine 0.62 L (0.66-1.25) mg/dL Glucose 158 H (74-99) mg/dL POC Glucose (mg/dL) 148 H (75-99) mg/dL Thrombosis Risk Factor Assmnt - Choose All That Apply Each Factor Represents 1 point: Age 41-60 years Thrombosis Risk Factor Assessment Total Risk Factor Score: 1 Thrombosis Risk Factor Assessment Level: Low Risk Assessment and Plan (1) Atherosclerosis of both iliac arteries Current Visit: Yes Status: Acute Code(s): I70.8 - ATHEROSCLEROSIS OF OTHER ARTERIES SNOMED Code(s): 48575553169538668 (2) Type 2 diabetes mellitus Current Visit: Yes Status: Acute Code(s): E11.9 - TYPE 2 DIABETES MELLITUS WITHOUT COMPLICATIONS SNOMED Code(s): 16479093 (3) Left leg claudication Current Visit: Yes Status: Acute Code(s): I73.9 - PERIPHERAL VASCULAR DISEAS E, UNSPECIFIED SNOMED Code(s): 35234432 (4) Right leg claudication Current Visit: Yes Status: Acute Code(s): I73.9 - PERIPHERAL VASCULAR DISEASE, UNSPECIFIED SNOMED Code(s): 57264215 Plan: 1. Bilateral iliac artery occlusion, peripheral vascular disease. Vascular surgery following. Heparin drip. Continue lipitor, ASA, plavix. Pain control 2. T2DM. Hold metformin. Accucheck, sliding scale 3. Major depression. Continue ricardo
[2020-03-15] MEDS: HEPARIN SOD,PORK IN 0.45% NACL 25,000 UNIT in 0.45% NACL 1 250ML.BAG IV SCH (05:09)
[2020-03-15] MEDS: HYDROcodone/APAP 7.5-325MG 1 EACH TAB PO PRN ×2 (05:09→13:32)
[2020-03-15 08:53] LABS: Basophils % (A) 1 %; Eosinophils # (A) 0.2 k/uL (0-0.7); Eosinophils % (A) 3 %; HCT 44.8 % (39.0-53.0); HGB 14.8 gm/dL (13.0-17.5); Lymphocytes # (A) 2.1 k/uL (1.0-4.8); Lymphocytes % (A) 26 %; MCH 32.9 pg (25.0-35.0); MCV 99.7 fL (80.0-100.0); Mean Platelet Volume 6.9; Monocytes # (A) 0.6 k/uL (0-1.0); Monocytes % (A) 8 %; Neutrophils # (A) 5.1 k/uL (1.3-7.7); Neutrophils % (A) 62 %; Platelet Count 296 k/uL (150-450); RBC 4.49 m/uL (4.30-5.90); RDW 12.5 % (11.5-15.5); WBC 8.3 k/uL (3.8-10.6)
[2020-03-15] MEDS: HEPARIN SODIUM,PORCINE 5,000 UNIT/ML 1 ML VIAL IV PRN (09:13)
[2020-03-15] MEDS: HYDROmorphone 0.5 MG/0.5 ML SYRINGE IVP PRN (09:15)
[2020-03-15] MEDS: ASPIRIN 81 MG PO SCH (09:15)
[2020-03-15] MEDS: CLOPIDOGREL 75 MG TAB PO SCH (09:16)
[2020-03-15] MEDS: LORATADINE 10 MG TAB PO SCH (09:16)
[2020-03-15] MEDS: GABAPENTIN 300 MG CAP PO SCH (09:17)
[2020-03-15] MEDS: METHYLPHENIDATE HCL 10 MG TAB PO SCH ×2 (09:38→13:31)
[2020-03-15] MEDS ORDERED: METOPROLOL TARTRATE 12.5 MG TAB PO SCH (10:30)
--- NOTE | 2020-03-15 11:49 | XR ---
EXAMINATION TYPE: XR chest 1V DATE OF EXAM: 03/15/2020 CLINICAL HISTORY: preop prep. TECHNIQUE: Portable frontal view of the chest. COMPARISON: 01/03/2020 chest radiograph FINDINGS: Cardiac silhouette upper limits of normal. Mediastinal silhouette is within normal limits f or size. Pulmonary vasculature is normal. There is no focal air space opacity, pleural effusion, or p neumothorax seen. No displaced osseous fracture. IMPRESSION: No acute cardiopulmonary process.
--- NOTE | 2020-03-15 11:52 | P.PN ---
Subjective Progress Note Date: 03/15/20 Jamey Johnston is a 49 yo M with PMH of peripheral vascular disease, HLD, hx tobacco use who presented to the ED with worsening leg pain. He complains of cool and dusky toes that hurt to bear weight as well as claudication in his calves. He notes he had been worked up previously and told he had extensive bl ockages in his legs and has been on medical therapy. He has been trying to see a vascular surgeon but hte pain became severe so he presented to the ED. CT angiogram on presentation showed complete iliac artery occlusion bilateral. 03/15/2020 evaluated by vascular surgery. CT of abdomen and pelvis completed, reporting distal abdominal aorta lumen narrowing , redemonstrated right and left common iliac artery occlusion , reopacification of the distal left common iliac artery followed by multiple segments of moderate to severe stenosis throughout the left external iliac artery, redemonstrated left SFA occlusion, abdominal wall hernia involving the transverse colon pushing mesh anteriorly additional omental fat containing ventral hernia measuring up to 10.8 cm wide along the superior margin of the mesh through a couple small abdominal wall defects. Chest x-ray pending. Afebrile, normal WBC. Denies chest pain, palpitations or shortness of breath. Maintaining O2 sats in the 90s on room air. Objective - Vital Signs Vital signs: Vital Signs Temp 97.8 F 03/15/20 08:00 Pulse 74 03/15/20 08:00 Resp 18 03/15/20 08:00 BP 124/68 03/15/20 08:00 Pulse Ox 95 03/15/20 08:00 Intake & Output 03/14/20 03/15/20 03/15/20 18:59 06:59 18:59 Intake Total 1019.489 899.009 58.677 Balance 1019.489 899.009 58.677 Weight 87 kg Intake: IV 10 Invasive Line 1 10 Intake, IV Titration 99.489 245.009 58.677 Amount Heparin Sod,Pork in 0.45% 99.489 245.009 58.677 NaCl 25,000 unit In 0.45 % NaCl 1 250ml.bag @ 11.5 UNITS/KG/HR 10.015 mls/ hr IV .Q24H [facility] Rx#: [id number] Oral 920 644 Other: Voiding Method Toilet Urinal # Voids 1 1 # Bowel Movements 2 - Exam General: Sitting up in bed, NAD. Vitals reviewed Eyes: PERRL, EOMI, conjunctiva normal HENT: normocephalic, mucus membranes moist Neck: supple, no JVD Lungs: normal respiratory effort, essentially clear, no wheezes or rales, bilateral bases diminished CV: Regular rate and rhythm, no murmur. Peripheral pulses 1+ bilateral LE. Bilateral toes cool and dusky Abdomen: soft, nondistended, nontender, midline abdominal scar, no organomegaly, positive bowel sounds Skin: warm and dry. Neuro: A&Ox3, normal mood and affect - Labs CBC & Chem 7: 03/15/20 08:04 03/14/20 09:45 Labs: Abnormal Lab Results - Last 24 Hours (Table) 03/14/20 03/14/20 03/15/20 Range/Units 09:45 11:57 08:04 APTT 40.3 H (22.0-30.0) sec Sodium 135 L (137-145) mmol/L Creatinine 0.62 L (0.66-1.25) mg/dL Glucose 158 H (74-99) mg/dL POC Glucose (mg/dL) 148 H (75-99) mg/dL Assessment and Plan Assessment: Bilateral iliac artery occlusion, peripheral vascular disease, vascular surgery following History of perforated diverticulum status post Christo procedure and multiple abdominal hernia repairs Diabetes mellitus type 2 Depression Gastroesophageal reflux disease Hyperlipidemia Depression Fatty liver Atelectasis Ongoing nicotine dependence Plan: Continue on current medication regime ,monitoring and symptomatic treatment. Abnormal CTA of the abdomen and pelvis, Gen. surgery Dr. Obregon consulted. Further recommendations from vascular surgery pending. Aggressive pulmonary toileting with incentive spirometer ordered. Smoking cessation reinforced. Prognosis guarded given multiple complex medical issues. The impression and plan of care has been dictated as directed. : I performed a history and examination of this patient, discussed the same with the dictator. I agree with the dictator's note ,documented as a scribe. Any additional findings or plans will be noted.
--- NOTE | 2020-03-15 12:44 | P.CRDCN ---
History of Present Illness History of present illness: HISTORY OF PRESENTING ILLNESS This is a pleasant 49-year-old male past medical history significant for dyslipidemia, diabetes mellitus, nonobstructive coronary artery disease and former nicotine dependence. He follows in the office with Dr. Gusman. We have been asked to see in consultation for preoperative evaluation. Lower extremity DVT revealed complete occlusion of the right common iliac artery and right external iliac artery with reconstitution at the groin level, complete occlusion of the left mid to distal common iliac artery and significant narrowing of the left external iliac artery. He has been seen and evaluated by vascular surgery and they're planning for some sort of intervention this weekend. CT of the abdomen and pelvis reveals the lumen of the distal abdominal aorta begins to narrow secondary to circumferential plaque, redemonstrated occlusion of the right common iliac artery at its origin with constitution of the level of CF a from collateral flow from the inferior epigastric artery, 3 demonstrated moderate segmental stenosis within the proximal left common iliac artery and the pacing indication of distal left common iliac artery followed by multiple segments of moderate to severe stenosis throughout the left external iliac artery. He also has a previous ventral abdominal wall mesh repair with a hernia involving the mid transverse colon pushing the mesh anteriorly. He is seen and examined sitting up in bed in no acute distress. He has no symptoms of chest pain, shortness of breath, dizziness or palpitations. In November 2019 underwent a stress test that revealed evidence of reversibility prompting a cardiac catheterization. Cardiac catheterization performed December 2019 revealed calcifications of the proximal LAD and a mild nonobstructive plaque in the mid LAD approximately 10-20%, circumflex artery and RCA were normal with no evidence of obstructive disease. Echocardiogram obtained at that time revealed preserved LV systolic function with ejection fraction 55-60%. DIAGNOSTICS EKG reveals sinus mechanism with no acute ST or T wave abnormalities noted.. Chest xray negative for an acute cardiopulmonary process. Laboratory reviewed, CBC unremarkable, sodium 135, potassium 4.5, creatinine 0.62,. Current cardiac medications include aspirin 81 mg daily, atorvastatin 40 mg daily and Plavix 75 mg daily. REVIEW OF SYSTEMS At the time of my exam: CONSTITUTIONAL: Denies fever or chills. CARDIOVASCULAR: Denies chest pain, shortness of breath, orthopnea, PND or palpitations. RESPIRATORY: Denies cough. GASTROINTESTINAL: Denies abdominal pain, diarrhea, constipation, nausea or vomiting. MUSCULOSKELETAL: Denies myalgias. NEUROLOGIC: Denies numbness, tingling or weakness. ENDOCRINE: Denies fatigue, weight change, polydipsia or polyurina. GENITOURINARY: Denies burning, hematuria or urgency with micturation. HEMATOLOGIC: Denies history of anemia or bleeding. PHYSICAL EXAMINATION Blood pressure 124/68 heart rate 74 afebrile and maintaining oxygen saturation on room air. CONSTITUTIONAL: No apparent distress. HEENT: Head is normocephalic. Pupils are equal, round. Sclerae anicteric. Mucous membranes of the mouth are moist. No JVD. No carotid bruit. CHEST EXAMINATION: Lungs are clear to auscultation. No chest wall tenderness is noted on palpation or with deep breathing. HEART EXAMINATION: Regular rate and rhythm. S1, S2 heard. No murmurs, gallops or rub. ABDOMEN: Soft, nontender. Positive bowel sounds. EXTREMITIES: Faint peripheral pulses, no lower extremity edema and no calf tenderness. NEUROLOGIC EXAMINATION: Patient is awake, alert and oriented x3. ASSESSMENT Pre-operative evaluation Peripheral vascular disease Dyslipidemia Non-obstructive coronary artery disease Former nicotine dependence PLAN Unsure why he is taking plavix at home. The patient is unable to verbalize the reason. He has no symptoms of angina or evidence of heart failure. He is clinically euvolemic. He is moderate risk to undergo surgical intervention given his co-morbid conditions and poor compliance. There are no absolute con traindications to undergo surgical intervention. Recent catheterization performed revealed no significant obstructive disease. Thank you kindly for this consultation. Nurse Practitioner note has been reviewed, I agree with a documented findings and plan of care. Patient was seen and examined. Past Medical History Past Medical History: GERD/Reflux, Hyperlipidemia, Osteoarthritis (OA) Additional Past Medical History / Comment(s): hx. diverticulitis,bad circulation to legs, chronic back pain with known herniated disks History of Any Multi-Drug Resistant Organisms: None Reported Past Surgical History: Bowel Resection, Hernia Repair, Orthopedic Surgery Additional Past Surgical History / Comment(s): temp. colostomy then reversal, knee surg., thumb surg. Past Anesthesia/Blood Transfusion Reactions: No Reported Reaction Past Psychological History: ADD/ADHD, Anxiety, Depression Smoking Status: Former smoker Past Alcohol Use History: None Reported Additional Past Alcohol Use History / Comment(s): has smoked for 20 yrs., down to half a pack ppd, used to be 1-2 ppd Past Drug Use History: None Reported Additional Drug Use History / Comment(s): occasional use - Past Family History Mother Family Medical History: Cancer Father Family Medical History: Osteoarthritis (OA), Respiratory Disorder Medications and Allergies Home Medications Medication Instructions Recorded Confirmed Type Aspirin EC [Ecotrin Low Dose] 81 mg PO DAILY 11/22/19 03/13/20 History Loratadine 10 mg PO DAILY 11/22/19 03/13/20 History Methylphenidate HCl 20 mg PO BID@0900,1300 11/22/19 03/13/20 History Albuterol Inhaler [Ventolin Hfa 2 puff INHALATION RT-Q4H PRN 01/03/20 03/13/20 History Inhaler] Atorvastatin Calcium [Lipitor] 40 mg PO HS 03/13/20 03/13/20 History Cholecalciferol [Vitamin D3 (25 5,000 unit PO DAILY 03/13/20 03/13/20 History Mcg = 1000 Iu)] Clopidogrel Bisulfate [Plavix] 75 mg PO DAILY 03/13/20 03/13/20 History Gabapentin 300 mg PO BID 03/13/20 03/13/20 History Loratadine [Claritin] 10 mg PO DAILY 03/13/20 03/13/20 History Ziprasidone [Geodon] 20 mg PO HS 03/13/20 03/13/20 History metFORMIN HCL 500 mg PO DAILY 03/13/20 03/13/20 History Allergies Allergy/AdvReac Type Severity Reaction Status Date / Time benztropine mesylate AdvReac muscle Verified 03/13/20 13:38 [From Cogentin] spasms Physical Exam Vitals: Vital Signs Temp Pulse Resp BP Pulse Ox 03/15/20 08:00 97.8 F 74 18 124/68 95 03/15/20 04:00 97.7 F 80 16 114/79 97 03/14/20 23:23 73 16 03/14/20 23:21 97.9 F 73 16 102/59 97 03/14/20 20:00 97.9 F 80 18 115/70 96 03/14/20 19:35 97.1 F L 76 17 125/69 96 03/14/20 16:25 98 F 70 18 125/79 96 Intake and Output 03/14/20 03/15/20 03/15/20 22:59 06:59 14:59 Intake Total 440 699.009 298.677 Balance 440 699.009 298.677 Intake: IV 10 Invasive Line 1 10 Intake, IV Titration 245.009 58.677 Amount Heparin Sod,Pork in 0.45% 245.009 58.677 NaCl 25,000 unit In 0.45 % NaCl 1 250ml.bag @ 11.5 UNITS/KG/HR 10.015 mls/ hr IV .Q24H [facility] Rx#: [id number] Oral 440 444 240 Other: Voiding Method Toilet Toilet Urinal Urinal # Voids 2 1 1 # Bowel Movements 2 Weight 87 kg Results 03/15/20 08:04 03/14/20 09:45 Coagulation 03/15/20 Range/Units 08:04 APTT 40.3 H (22.0-30.0) sec CBC 03/15/20 Range/Units 08:04 WBC 8.3 (3.8-10.6) k/uL RBC 4.49 (4.30-5.90) m/uL Hgb 14.8 (13.0-17.5) gm/dL Hct 44.8 (39.0-53.0) % Plt Count 296 (150-450) k/uL Current Medications Generic Name Dose Route Start Last Admin Trade Name Freq PRN Reason Stop Dose Admin Hydrocodone Bitart/Acetaminophen 1 each 03/13/20 18:28 03/15/20 05:09 Hydrocodone/Apap 7.5-325mg 1 Each Tab PO 1 each Q6H PRN Administration Pain Aspirin 81 mg 03/14/20 09:00 03/15/20 09:15 Aspirin 81 Mg PO 81 mg DAILY [place] Administration Atorvastatin Calcium 40 mg 03/13/20 21:00 03/14/20 21:30 Atorvastatin 40 Mg Tab PO 40 mg HS [facility] Administration Clopidogrel Bisulfate 75 mg 03/14/20 09:00 03/15/20 09:16 Clopidogrel 75 Mg Tab PO 75 mg DAILY [facility] Administration Gabapentin 300 mg 03/13/20 21:00 03/15/20 09:17 Gabapentin 300 Mg Cap PO 300 mg BID [place] Administration Heparin Sodium (Porcine) 0 unit 03/13/20 14:04 03/15/20 09:13 Heparin Sodium,Porcine 5,000 Unit/Ml 1 Ml Vial IV 2,175 unit PER PROTOCOL PRN Administration Low PTT Protocol Hydromorphone HCl 0.5 mg 03/13/20 18:27 03/15/20 09:15 Hydromorphone 0.5 Mg/0.5 Ml Syringe IVP 0.5 mg Q6HR PRN Administration Pain Heparin Sodium/Sodium Chloride 250 mls @ 10.015 mls/hr 03/13/20 14:15 03/15/20 09:14 25,000 unit/ Sodium Chloride IV 18.5 units/kg/hr .Q24H [facility] 16.112 mls/hr Titration Protocol 11.5 UNITS/KG/HR Loratadine 10 mg 03/14/20 09:00 03/15/20 09:16 Loratadine 10 Mg Tab PO 10 mg DAILY [facility] Administration Methylphenidate HCl 20 mg 03/15/20 09:00 03/15/20 09:38 Methylphenidate Hcl 10 Mg Tab PO 20 mg BID@0900,1300 [facility] Administration Metoprolol Tartrate 12.5 mg 03/15/20 10:30 Metoprolol Tartrate 12.5 Mg Tab PO DAILY [facility] Naloxone HCl 0.2 mg 03/13/20 14:12 Naloxone 0.4 Mg/Ml 1 Ml Vial IV Q2M PRN Opioid Reversal Ziprasidone 20 mg 03/13/20 21:00 03/14/20 21:31 Ziprasidone 20 Mg Cap PO 20 mg HS [place] Administration Intake and Output 03/14/20 03/15/20 03/15/20 22:59 06:59 14:59 Intake Total 440 699.009 298.677 Balance 440 699.009 298.677 Intake: IV 10 Invasive Line 1 10 Intake, IV Titration 245.009 58.677 Amount Heparin Sod,Pork in 0.45% 245.009 58.677 NaCl 25,000 unit In 0.45 % NaCl 1 250ml.bag @ 11.5 UNITS/KG/HR 10.015 mls/ hr IV .Q24H [facility] Rx#: [id number] Oral 440 444 240 Other: Voiding Method Toilet Toilet Urinal Urinal # Voids 2 1 1 # Bowel Movements 2 Weight 87 kg 03/15/20 08:04 03/14/20 09:45
--- NOTE | 2020-03-15 12:53 | P.PN ---
Subjective Progress Note Date: 03/15/20 Principal diagnosis: Bilateral leg pain, chronic peripheral arterial disease The patient was seen and examined at the bedside. He continues on a heparin drip at this time. He denies any worsening with pain. Denies shortness of breath or chest pain. No acute changes through the night. He underwent a CT angiogram of the abdomen and pelvis yesterday which shows the lumen of the distal abdominal aorta begins to narrow secondary to circumferential plaque down to 5 mm. Redemonstrated occlusion of the right common iliac artery at its origin with reconstitution at the level of the MRI TECHNOLOGIST from collateral flow from the inferior epigastric artery. Redemonstrated moderate segmental stenosis within the proximal left common iliac artery but then with occlusion or subtotal occlusion along the mid to distal portion for a span of 1.5 cm. Reopification of the distal left common iliac artery followed by multiple segments of moderate to severe stenosis throughout the left external iliac artery. Objective - Vital Signs Vital signs: Vital Signs Temp 97.8 F 03/15/20 08:00 Pulse 74 03/15/20 08:00 Resp 18 03/15/20 08:00 BP 124/68 03/15/20 08:00 Pulse Ox 95 03/15/20 08:00 Intake & Output 03/14/20 03/15/20 03/15/20 18:59 06:59 18:59 Intake Total 1019.489 899.009 298.677 Balance 1019.489 899.009 298.677 Weight 87 kg Intake: IV 10 Invasive Line 1 10 Intake, IV Titration 99.489 245.009 58.677 Amount Heparin Sod,Pork in 0.45% 99.489 245.009 58.677 NaCl 25,000 unit In 0.45 % NaCl 1 250ml.bag @ 11.5 UNITS/KG/HR 10.015 mls/ hr IV .Q24H [facility] Rx#: [id number] Oral [phone] Other: Voiding Method Toilet Urinal # Voids 1 1 1 # Bowel Movements 2 - Exam General appearance: The patient is alert, oriented, in no acute distress. HET: Head is normocephalic and atraumatic. Neck: Supple without lymphadenopathy. Trachea midline. Heart: S1 S2. Regular rate and rhythm. Lungs: Clear bilaterally Abdomen: Soft, nontender, nondistended with bowel sounds. Scarring down midline abdomen. Extremities: No clubbing, cyanosis or edema. Bilateral palpable radial pulses. No palpable femoral pulses. Nonpalpable DP or PT pulses bilaterally. Bilateral monophasic posterior tibialis and dorsalis pedis Doppler signals. Ischemic changes to the distal tissue of the left great, second and fourth toe. Sensorimotor intact bilaterally. Neurological: No focal deficits. Strength and sensation are grossly intact. - Labs CBC & Chem 7: 03/15/20 08:04 03/14/20 09:45 Labs: Abnormal Lab Results - Last 24 Hours (Table) 03/14/20 03/14/20 03/15/20 Range/Units 09:45 11:57 08:04 APTT 40.3 H (22.0-30.0) sec Sodium 135 L (137-145) mmol/L Creatinine 0.62 L (0.66-1.25) mg/dL Glucose 158 H (74-99) mg/dL POC Glucose (mg/dL) 148 H (75-99) mg/dL Assessment and Plan Assessment: #1 severe peripheral arterial disease #2 bilateral iliac artery occlusive disease #3 previous Christo procedure for perforated diverticulum with multiple abdominal hernia repairs #4 history of tobacco abuse #5 medical noncompliance Plan: All findings at this point appeared to be chronic in nature with worsening disease. Dr. Metz/Levi reviewed CT angiogram of abdomen and pelvis. There is no indication for immediate surgical intervention. We'll discontinue heparin drip, patient can be discharged home on aspirin and statin. The patient had cardiac clearance for surgery. The patient may be discharged home, and will be scheduled next week for surgical intervention. Patient is agreeable and vascular surgical office will contact patient with date and time. The impression and plan of care has been dictated as directed. I performed a history and examination of this patient, discussed the same with the dictator. I agree with the dictator's note ,documented as a scribe. Any additional findings or plans will be noted.
[2020-03-15 13:37] VITALS: BP 120/77; PULSE 88; RESP 16; TEMP 97.7
--- NOTE | 2020-03-15 15:31 | P.GSCN ---
History of Present Illness Consult date: 03/15/20 Reason for Consult: Hernia History of present illness: The patient's a 49-year-old man admitted to the hospital for severe claudication. As part of his workup he had a computed tomography scan of the abdomen done which showed a hernia. He had a hernia repair by Dr. Villarreal in 2013. The patient notices some swelling in his mid abdomen but no pain or lumps. Past Medical History Past Medical History: GERD/Reflux, Hyperlipidemia, Osteoarthritis (OA) Additional Past Medical History / Comment(s): hx. diverticulitis,bad circulation to legs, chronic back pain with known herniated disks History of Any Multi-Drug Resistant Organisms: None Reported Past Surgical History: Bowel Resection, Hernia Repair, Orthopedic Surgery Additional Past Surgical History / Comment(s): temp. colostomy then reversal, knee surg., thumb surg. Past Anesthesia/Blood Transfusion Reactions: No Reported Reaction Past Psychological History: ADD/ADHD, Anxiety, Depression Smoking Status: Former smoker Past Alcohol Use History: None Reported Additional Past Alcohol Use History / Comment(s): has smoked for 20 yrs., down to half a pack ppd, used to be 1-2 ppd Past Drug Use History: None Reported Additional Drug Use History / Comment(s): occasional use - Past Family History Mother Family Medical History: Cancer Father Family Medical History: Osteoarthritis (OA), Respiratory Disorder Medications and Allergies Home Medications Medication Instructions Recorded Confirmed Type Aspirin EC [Ecotrin Low Dose] 81 mg PO DAILY 11/22/19 03/13/20 History Loratadine 10 mg PO DAILY 11/22/19 03/13/20 History Methylphenidate HCl 20 mg PO BID@0900,1300 11/22/19 03/13/20 History Albuterol Inhaler [Ventolin Hfa 2 puff INHALATION RT-Q4H PRN 01/03/20 03/13/20 History Inhaler] Atorvastatin Calcium [Lipitor] 40 mg PO HS 03/13/20 03/13/20 History Cholecalciferol [Vitamin D3 (25 5,000 unit PO DAILY 03/13/20 03/13/20 History Mcg = 1000 Iu)] Clopidogrel Bisulfate [Plavix] 75 mg PO DAILY 03/13/20 03/13/20 History Gabapentin 300 mg PO BID 03/13/20 03/13/20 History Loratadine [Claritin] 10 mg PO DAILY 03/13/20 03/13/20 History Ziprasidone [Geodon] 20 mg PO HS 03/13/20 03/13/20 History metFORMIN HCL 500 mg PO DAILY 03/13/20 03/13/20 History Allergies Allergy/AdvReac Type Severity Reaction Status Date / Time benztropine mesylate AdvReac muscle Verified 03/13/20 13:38 [From Cogentin] spasms Surgical - Exam Osteopathic Statement: *. No significant issues noted on an osteopathic structural exam other than those noted in the History and Physical/Consult. Vital Signs Temp Pulse Resp BP Pulse Ox 98.0 F 85 18 111/71 97 03/13/20 10:46 03/13/20 10:46 03/13/20 10:46 03/13/20 10:46 03/13/20 10:46 - General well developed, well nourished, no distress - Abdomen There is a vague fullness in the mid abdomen. Abdomen: soft, non tender, bowel sounds, surgical scars Results - Labs 03/15/20 08:04 03/14/20 09:45 Abnormal Lab Results - Last 24 Hours (Table) 03/15/20 Range/Units 08:04 APTT 40.3 H (22.0-30.0) sec - Imaging CT scan - abdomen: report reviewed, image reviewed (CT was reviewed. There is wide gaping of the fascia with some bowel and omentum which are contained within the probable hernia mesh.) Assessment and Plan (1) Ventral incisional hernia without obstruction or gangrene Current Visit: Yes Status: Acute Code(s): K43.2 - INCISIONAL HERNIA WITHOUT OBSTRUCTION OR GANGRENE SNOMED Code(s): 384992680 (2) Atherosclerosis of both iliac arteries Current Visit: Yes Status: Acute Code(s): I70.8 - ATHEROSCLEROSIS OF OTHER ARTERIES SNOMED Code(s): 18381907474625404 (3) Left leg claudication Current Visit: Yes Status: Acute Code(s): I73.9 - PERIPHERAL VASCULAR DISEASE, UNSPECIFIED SNOMED Code(s): 45794413 (4) Right leg claudication Current Visit: Yes Status: Acute Code(s): I73.9 - PERIPHERAL VASCULAR DISEASE, UNSPECIFIED SNOMED Code(s): 72505090 (5) Type 2 diabetes mellitus Current Visit: Yes Status: Acute Code(s): E11.9 - TYPE 2 DIABETES MELLITUS WITHOUT COMPLICATIONS SNOMED Code(s): 49052911 Plan: The hernia is an incidental finding. The patient should have treatment of his severe peripheral vascular disease. The patient and his were instructed as far as symptoms of hernia. At this point I would recommend watchful waiting. I would not recommend repair as he is at high risk for surgical complications and recurrence.
[2020-03-15] MEDS ORDERED: RIVAROXABAN 2.5 MG TABLET PO SCH (21:00)
== END 2020-03-15 17:39 | disposition home or self-care (01) | DRG 300 ==
LOC: EC 10:27 → 3SCARD 14:14
PROVIDERS: ADMIT Family Medicine; ATTEND Family Medicine
DX: E11.51 Type 2 diabetes mellitus with diabetic peripheral angiopathy without gangrene (principal); J98.11 Atelectasis; K76.0 Fatty (change of) liver, not elsewhere classified; I70.223 Atherosclerosis of native arteries of extremities with rest pain, bilateral legs; I74.5 Embolism and thrombosis of iliac artery; E78.5 Hyperlipidemia, unspecified; K21.9 Gastro-esophageal reflux disease without esophagitis; M19.90 Unspecified osteoarthritis, unspecified site; G89.29 Other chronic pain; M51.26 Other intervertebral disc displacement, lumbar region; F32.9 Major depressive disorder, single episode, unspecified; F41.9 Anxiety disorder, unspecified; F90.9 Attention-deficit hyperactivity disorder, unspecified type; I25.10 Atherosclerotic heart disease of native coronary artery without angina pectoris; I70.8 Atherosclerosis of other arteries; K43.2 Incisional hernia without obstruction or gangrene; F17.210 Nicotine dependence, cigarettes, uncomplicated; K57.90 Diverticulosis of intestine, part unspecified, without perforation or abscess without bleeding; D72.829 Elevated white blood cell count, unspecified; Z71.6 Tobacco abuse counseling; Z79.899 Other long term (current) drug therapy; Z79.82 Long term (current) use of aspirin; Z79.02 Long term (current) use of antithrombotics/antiplatelets; Z79.84 Long term (current) use of oral hypoglycemic drugs; Z98.890 Other specified postprocedural states; Z90.49 Acquired absence of other specified parts of digestive tract; Z91.19 Patient's noncompliance with other medical treatment and regimen; Z88.8 Allergy status to other drugs, medicaments and biological substances; Z82.61 Family history of arthritis; Z80.9 Family history of malignant neoplasm, unspecified
CPT/HCPCS: 36415; 71045; 74174; 80048; 80053; 83605; 85025; 85730; 93005; 93923; 96361; 96374; 99285

== ENCOUNTER → 2020-04-24 | Day surgery (SDC) | payer MEDICARE, OTHER ==
[2020-04-23 09:03] VITALS: BMI 29.7
[~2020-04-24] MED LIST: ALBUTEROL HFA INHALER INHALATION PRN; ALPRAZolam 0.25 MG TAB PO PRN; ASPIRIN 325 MG TAB PO STA; ATORVASTATIN 40 MG TAB PO SCH; CHOLECALCIFEROL 1,000 UNIT TAB PO SCH; CLOPIDOGREL 75 MG TAB ONE; CLOPIDOGREL 75 MG TAB PO SCH; CYCLOBENZAPRINE 10 MG TAB PO PRN; GABAPENTIN 300 MG CAP PO SCH; HYDROcodone/APAP 7.5-325MG 1 EACH TAB PO PRN; IOPAMIDOL-250 100ML BTL INTRAARTER ONE; LIDOCAINE 1% INJ 10MG/ML (20 ML MDV) SQ ONE; LORATADINE 10 MG TAB PO SCH; METHYLPHENIDATE HCL 20 MG PO SCH; METOPROLOL TARTRATE 12.5 MG TAB PO SCH; MIDAZOLAM 2 MG/2 ML VIAL IV ONE; MORPHINE SULFATE 4 MG/ML SYRINGE IV ONE; NON FORMULARY DRUG (Aspirin Ec 81 MG Tablet.Dr) PO SCH; SODIUM CHLORIDE 0.9% 1,000 ML in EMPTY BAG 1 BAG IV ONE; ZIPRASIDONE 20 MG CAP PO SCH
[2020-04-24 10:44] LABS: Glucose,Whole Blood 151 mg/dL (75-99)
[2020-04-24 10:48] LABS: Basophils # (A) 0.1 k/uL (0-0.2); Basophils % (A) 1 %; Eosinophils # (A) 0.5 k/uL (0-0.7); Eosinophils % (A) 5 %; HCT 46.5 % (39.0-53.0); Lymphocytes # (A) 2.4 k/uL (1.0-4.8); Lymphocytes % (A) 21 %; MCH 33.4 pg (25.0-35.0); MCHC 34.4 g/dL (31.0-37.0); MCV 97.2 fL (80.0-100.0); Monocytes # (A) 0.8 k/uL (0-1.0); Monocytes % (A) 7 %; Neutrophils # (A) 7.4 k/uL (1.3-7.7); Neutrophils % (A) 65 %; Platelet Count 359 k/uL (150-450); RBC 4.79 m/uL (4.30-5.90); RDW 12.6 % (11.5-15.5); WBC 11.4 k/uL (3.8-10.6)
[2020-04-24 10:54] VITALS: TEMP 97.9
[2020-04-24 11:08] LABS: African American GFR (CKD) >90 (>60 ml/min/1.73 sqM); Anion Gap 9 mmol/L; Blood Urea Nitrogen 14 mg/dL (9-20); Calcium 9.3 mg/dL (8.4-10.2); Carbon Dioxide 25 mmol/L (22-30); Chloride 104 mmol/L (98-107); Glucose 164 mg/dL (74-99); Non-African American GFR(CKD) >90 (>60 ml/min/1.73 sqM); Sodium 138 mmol/L (137-145)
--- NOTE | 2020-04-24 14:33 | P.OP ---
Date of Procedure: 04/24/20 Preoperative Diagnosis: #1: Severe stenosis distal abdominal aorta. #2: Total occlusion left common iliac artery. #3: Left femoral occlusion. #4: Ischemic rest pain left lower extremity. #5: Occlusion proximal segment right external iliac artery. Postoperative Diagnosis: Same. Procedure(s) Performed: #1: Ultrasound-guided cannulation left common femoral artery. #2: Catheter placement abdominal aorta. #3: Abdominal aortogram with pelvic runoffs. #4: Covered stent placement left common iliac artery. #5: Balloon dilation left external iliac artery. Implants: 8 mm x 79 mm the BX stent left iliac artery. Anesthesia: MAC (With), regional, local (With moderate conscious sedation 47 minutes.) Surgeon: Jose C Ramsey Estimated Blood Loss (ml): 10 Urine output (ml): 0 Pathology: none sent Condition: stable Disposition: no change Indications for Procedure: Patient is a 49-year-old male who presents with a history of ischemic rest pain of his lower extremities. Physical examination revealed absent femoral, popliteal and pedal pulses bilaterally. Arterial Doppler study demonstrated severe arterial insufficiency bilaterally. CT angiogram demonstrated severe distal aortic stenosis with total occlusion of the common iliac arteries bilaterally and severe stenosis of the external iliac arteries bilaterally. The patient has what is considered a hostile abdomen having undergone multiple abdominal surgeries. Additionally the patient has a history of stage IV renal cancer with metastatic disease to the lung. He is offered attempt at percutaneous intervention. The patient understood that should this not be succe ssful he would require surgical intervention such as axillobifemoral bypass graft versus aorto bifemoral bypass grafting. The procedure, risk and benefits were discussed with the patient in the patient wished to proceed. Description of Procedure: Patient brought to the special procedure suite. Both groins were sterilely prepped and draped in usual manner. Patient received 2 mg of Versed and 2 mg of morphine sulfate for moderate conscious sedation purposes. Utilizing ultrasound the left common femoral artery was identified. 1% Xylocaine was utilized for local anesthesia of the tissues overlying the femoral artery. Through this anesthetized area and with the aid of ultrasound a multipurpose needle was utilized to cannulate the artery. Once cannulated soft-tip guidewire was advanced into the artery. The needle was withdrawn and a 5-Malian sheath was placed. Left iliac artery angiogram was performed through the side port of the sheath. This confirmed the common iliac artery occlusion. Multiple guidewire and catheter combinations were utilized in attempt to cross this lesion. Eventually a Crosser catheter and a 0.018 inch guidewire was utilized to successfully cross this lesion. Confirmation of her luminal position was made. The Crosser was exchanged for a 5-Malian pigtail catheter which was positioned at the L1-L2 interspace. Abdominal aorta gram was then performed utilizing the power injector. Findings the patient has single renal arteries bilaterally without evidence of hemodynamically significant renal artery stenosis. The proximal and midportion of the aorta are normally patent. The distally the aorta is occluded. Large collaterals are identified coming off of the inferior mesenteric artery as well as lower lumbar arteries. Both common iliac arteries are occluded. Both external iliac arteries are patent although heavily diseased. Intervention: Is decided to his a covered stent in the left common iliac artery to serve as inflow for a future femoral to femoral bypass. The 5-Malian sheath was exchanged for an 8-Malian sheath. A 79 x 8 mm VBX stent graft was selected and advanced over the guidewire and deployed and in the distal aorta down through the length of the left common iliac artery. Once this was performed the pigtail catheter was then readvanced over the guidewire and angiogram was performed. This demonstrated the stent graft being good condition with good in-line flow extending from the aorta down through the stent graft and into the external iliac artery. A small dissection was identified in the very distal external iliac artery. It was decided not to intervene on this as it did not appear to be flow limiting and this would limit femoral femoral bypass surgery. As such the procedure was considered completed. The guidewire and sheath were withdrawn and pressure was held at the puncture site until all evidence of bleeding ceased. Patient tolerated the procedure well. At completion of the case the patient indicates that his left foot feels more movable and overall better as compared to prior to the beginning of the procedure. Fluoroscopy time 7.4 minutes. Total contrast volume 75 ML's of Isovue 250.
--- NOTE | 2020-04-24 14:44 | IR ---
EXAMINATION TYPE: IR stent intravas non coronary DATE OF EXAM: 04/24/2020 COMPARISON: NONE HISTORY: Fluoroscopy time. Fluoroscopy was provided to the referring clinician.
[2020-04-24 16:25] VITALS: RESP 18
[2020-04-24 17:21] VITALS: BP 117/64; PULSE 74
== END ==
LOC: CATHCVL 10:15
PROVIDERS: ATTEND Surgery
DX: I70.223 Atherosclerosis of native arteries of extremities with rest pain, bilateral legs (principal); I70.0 Atherosclerosis of aorta; I70.92 Chronic total occlusion of artery of the extremities; R91.8 Other nonspecific abnormal finding of lung field; K57.92 Diverticulitis of intestine, part unspecified, without perforation or abscess without bleeding; K21.9 Gastro-esophageal reflux disease without esophagitis; E78.5 Hyperlipidemia, unspecified; Z98.890 Other specified postprocedural states; F32.9 Major depressive disorder, single episode, unspecified; F41.9 Anxiety disorder, unspecified; Z80.3 Family history of malignant neoplasm of breast; Z87.891 Personal history of nicotine dependence; Z85.528 Personal history of other malignant neoplasm of kidney; Z79.899 Other long term (current) drug therapy
CPT/HCPCS: 37221; 37222; 80048; 85025; C1894 ×2; C1769 ×4; C1887; C1874; J2250; J2270; J2001; Q9966

== ENCOUNTER 2020-04-29 11:51 | Emergency (ER) | payer MEDICARE, OTHER ==
[2020-04-29 12:00] VITALS: RESP 18; TEMP 97.5
[2020-04-29] MEDS ORDERED: SODIUM CHLORIDE 0.9% 1,000 ML IV ONE (12:32)
[2020-04-29] MEDS ORDERED: HYDROmorphone 0.5 MG/0.5 ML SYRINGE IVP STA ×2 (12:38→14:47)
[2020-04-29 13:09] LABS: Basophils # (A) 0.1 k/uL (0-0.2); Basophils % (A) 1 %; Eosinophils # (A) 0.4 k/uL (0-0.7); Eosinophils % (A) 4 %; HCT 43.4 % (39.0-53.0); HGB 14.9 gm/dL (13.0-17.5); Lymphocytes # (A) 1.5 k/uL (1.0-4.8); Lymphocytes % (A) 14 %; MCHC 34.3 g/dL (31.0-37.0); Mean Platelet Volume 6.7; Monocytes # (A) 0.9 k/uL (0-1.0); Monocytes % (A) 8 %; Neutrophils # (A) 8.3 k/uL (1.3-7.7); Neutrophils % (A) 73 %; Platelet Count 372 k/uL (150-450); RBC 4.52 m/uL (4.30-5.90); RDW 12.7 % (11.5-15.5); WBC 11.5 k/uL (3.8-10.6)
[2020-04-29 13:29] LABS: Partial Thromboplastin Time 27.1 sec (22.0-30.0); Prothrombin Time 10.1 sec (9.0-12.0)
[2020-04-29 13:31] LABS: ALT 14 U/L (4-49); AST 18 U/L (17-59); African American GFR (CKD) >90 (>60 ml/min/1.73 sqM); Albumin 3.8 g/dL (3.5-5.0); Alkaline Phosphatase 103 U/L (38-126); Anion Gap 5 mmol/L; Blood Urea Nitrogen 5 mg/dL (9-20); Calcium 9.6 mg/dL (8.4-10.2); Carbon Dioxide 29 mmol/L (22-30); Chloride 105 mmol/L (98-107); Glucose 128 mg/dL (74-99); Non-African American GFR(CKD) >90 (>60 ml/min/1.73 sqM); Potassium 4.2 mmol/L (3.5-5.1); Sodium 139 mmol/L (137-145); Total Bilirubin 0.6 mg/dL (0.2-1.3); Total Protein 7.3 g/dL (6.3-8.2)
--- NOTE | 2020-04-29 15:10 | CT ---
EXAMINATION TYPE: CT angio abd aorta w/Runoff DATE OF EXAM: 04/29/2020 COMPARISON: 03/14/2020 HISTORY: 49-year-old male Left foot swelling, recent stenting in left leg TECHNIQUE: Contiguous axial scanning of the abdomen and pelvis performed without and with IV Contrast , patient injected with 120 mL of Isovue 370. Postcontrast bilateral thoracotomy runoff was performed . 92nd delayed scan as well through the left-sided stent located at the level of the pelvis. Coronal/ sagittal MIP reconstructions performed. 3-D reconstructions generated on a dedicated workstation. CT DLP: 2416.3 mGycm Automated exposure control for dose reduction was used. FINDINGS: The upper most abdomen is not entirely imaged. Within the visualized abdomen, no dilated small bowel, free fluid, or free air. The visualized portions of the liver, gallbladder, adrenal glands, kidneys, spleen, and pancreas show no gross abnormality. Redemonstrated ventral abdominal wall hernia with prior measure. But a Han hernia involving the m id transverse colon pushing the mesh anteriorly and omental fat-containing hernias along the superior margin of the mesh measuring up to 13.3 cm wide now. This can be followed by the patient's surgeon. Bladder prominent urine distended. Staple line at the rectosigmoid junction from prior bowel surgery and reanastomosis. Diverticular change in the sigmoid colon without acute diverticulitis. Mild circumferential bladder wall thickening. Prostate gland measures 3.8 cm wide. Some borderline-sized to mildly enlarged external iliac chain lymph nodes measure up to 1.2 cm on the right, unchanged. Left external iliac chain lymph node is larger at 8 mm. VASCULATURE: Mild atherosclerotic change at celiac axis origin. SMA is patent. Weber renal arteries are patent. Atherosclerotic change within the infrarenal abdominal aorta. RIGHT: Redemonstrated occlusion of the right iliac system with reconstitution at the level of the common fem oral artery via the inferior epigastric artery. Moderate atherosclerotic change proximal right SFA origin of the profunda femoral artery, both of whi ch remain patent. The remainder of the SFA, popliteal artery, and trifurcation remains patent. Posterior tibial artery becomes diminutive distally below the ankle. Peroneal artery is seen to the distal lead level. There is runoff via the anterior tibial artery. LEFT: There is been interval stenting now with patency along the distal abdominal aorta and continuing lupe g the left common iliac artery to just above its bifurcation. Overall improved patency to the left external iliac artery probably following balloon angioplasty. Mo derate segmental atherosclerotic narrowing remains throughout as well as findings suspected to repres ent a short 1 cm long segment of nonocclusive dissection in the distal left external iliac artery, ax ial image 101. Possible small saccular aneurysm versus pseudoaneurysm measuring 5 mm at the DAYTIME BABYSITTER bifurcation. Refer t o axial image 121. In retrospect, this may have measured very small at 2 mm, previously. Continued SFA occlusion at its origin with patent profunda femoral arteries. Reconstitution of the SFA beyond the adductor hiatus. Popliteal artery and trifurcation are patent wi th scattered atelectatic change. Peroneal artery is seen to the distal lead level. There is runoff via the anterior tibial and posteri or tibial arteries. Small Donohue's cyst on the right. Bones: Advanced degenerative disc disease L5-S1. IMPRESSION: LEFT: 1. INTERVAL STENTING OF THE DISTAL ABDOMINAL AORTA EXTENDING THROUGH THE LEFT COMMON ILIAC ARTERY. TH E STENT IS PATENT. 2. IMPROVED PATENCY OF THE LEFT EXTERNAL ILIAC ARTERY PROBABLY FOLLOWING BALLOON ANGIOPLASTY. MODERAT E SEGMENTAL ATHEROSCLEROTIC NARROWING REMAINS THROUGHOUT WELL A SUSPECTED 1 CM LONG SEGMENT OF NONOCCLUSIVE DISSECTION. 3. POSSIBLE SMALL SACCULAR ANEURYSM VERSUS CHRONIC PSEUDOANEURYSM MEASURING 5 MM AT THE DAYTIME BABYSITTER BIFURCATI ON. IN RETROSPECT, THIS MAY HAVE MEASURED VERY SMALL AT 2 MM, PREVIOUSLY. 4. CONTINUED SFA OCCLUSION AT ITS ORIGIN WITH PATENT PROFUNDA FEMORAL ARTERY. SFA RECONSTITUTION BEYO ND THE ADDUCTOR HIATUS. 5. SATISFACTORY RUNOFF TO THE LEFT LOWER EXTREMITY. RIGHT: 6. CONTINUED OCCLUSION OF THE RIGHT ILIAC SYSTEM WITH RECONSTITUTION AT THE DAYTIME BABYSITTER VIA THE INFERIOR EPIG ASTRIC ARTERY. 7. MODERATE ATHEROSCLEROTIC NARROWING AT THE PROXIMAL SFA AND PROXIMAL ASPECT OF THE PROFUNDA FEMORAL ARTERIES. 8. POSTERIOR TIBIAL ARTERY BECOMES DIMINUTIVE JUST BELOW THE ANKLE. PERONEAL ARTERY TO THE DISTAL LEG . ANTERIOR TIBIAL ARTERY IS SEEN TO THE FOREFOOT. MISCELLANEOUS: 9. VENTRAL ABDOMINAL WALL HERNIA (INCLUDING A HAN HERNIA OF THE MID TRANSVERSE COLON) WITH DISPLA JOSELUIS MESH MATERIAL DESCRIBED ABOVE AND ALSO ON THE PRIOR 03/14/2020 EXAM. THIS CAN BE FOLLOWED BY T HE PATIENT'S SURGEON.
[2020-04-29] MEDS ORDERED: ACET/COD 300 MG/30 MG STARTER PACK 6 TAB BTL PO STA (16:23)
--- NOTE | 2020-04-29 16:23 | ED ---
General Adult HPI - General Chief complaint: Extremity Problem,Nontraumatic Stated complaint: revisit - lt foot swelling Time Seen by Provider: 04/29/20 12:09 Source: patient, RN notes reviewed, old records reviewed Mode of arrival: wheelchair Limitations: no limitations - History of Present Illness Initial comments: 49-year-old male patient to ED for evaluation of left lower extremity pain. Patient reportedly had a vascular stent placed on 04/24. Has been having worsening pain in the plantar aspect of the foot for the last 2 days. Denies any other acute complaints. Systemic: Pt denies fatigue, fever/chills, rash. Pt denies weakness, night sweats, weight loss. Neuro: Pt denies headache, visual disturbances, syncope or pre-syncope. HEENT: Pt denies ocular discharge or irritation, otalgia, rhinorrhea, pharyngitis or notable lymphadenopathy. Cardiopulmonary: Pt denies chest pain, SOB, heart palpitations, dyspnea on exertion. Abdominal/GI: Pt denies abdominal pain, n/v/d. : Pt denies dysuria, burning w/ urination, frequency/urgency. Denies new onset urinary or bowel incontinence. Neuro: Pt denies new onset weakness, paresthesias. - Related Data Home Medications Medication Instructions Recorded Confirmed Methylphenidate HCl 20 mg PO BID@0900,1300 11/22/19 04/29/20 Albuterol Inhaler [Ventolin Hfa 2 puff INHALATION RT-Q4H PRN 01/03/20 04/29/20 Inhaler] Atorvastatin Calcium [Lipitor] 40 mg PO HS 03/13/20 04/29/20 Cholecalciferol [Vitamin D3 (25 5,000 unit PO DAILY 03/13/20 04/29/20 Mcg = 1000 Iu)] Clopidogrel Bisulfate [Plavix] 75 mg PO DAILY 03/13/20 04/29/20 Gabapentin 300 mg PO BID 03/13/20 04/29/20 Loratadine [Claritin] 10 mg PO DAILY 03/13/20 04/29/20 Ziprasidone [Geodon] 20 mg PO HS 03/13/20 04/29/20 metFORMIN HCL 500 mg PO DAILY 03/13/20 04/29/20 HYDROcodone/APAP 7.5-325MG [[place] 1 tab PO BID 12/02/20 12/07/20 7.5-325] Aspirin 81 mg PO DAILY 04/29/20 04/29/20 Lisinopril [Zestril] 10 mg PO DAILY 04/29/20 04/29/20 Metoprolol Tartrate [Lopressor] 12.5 mg PO DAILY 04/29/20 04/29/20 Simvastatin [Zocor] 40 mg PO HS 04/29/20 04/29/20 rOPINIRole HCL [Requip] 0.5 mg PO HS 04/29/20 04/29/20 Previous Rx's Medication Instructions Recorded Cyclobenzaprine [Flexeril] 10 mg PO BID PRN #30 tab 03/15/20 Allergies Allergy/AdvReac Type Severity Reaction Status Date / Time benztropine mesylate AdvReac muscle Verified 04/29/20 15:36 [From Vipul] spasms Review of Systems ROS Statement: Those systems with pertinent positive or pertinent negative responses have been documented in the HPI. ROS Other: All systems not noted in ROS Statement are negative. Past Medical History Past Medical History: Diabetes Mellitus, GERD/Reflux, Hyperlipidemia, Osteoarthritis (OA), Vascular Disorder Additional Past Medical History / Comment(s): hx. diverticulitis,bad circulation to legs, chronic back pain with known herniated disks, uses oxygen at 2.3l, seasonal allergies. History of Any Multi-Drug Resistant Organisms: None Reported Past Surgical History: Bowel Resection, Heart Catheterization With Stent, Hernia Repair, Orthopedic Surgery Additional Past Surgical History / Comment(s): temp. colostomy then reversal, knee surg., thumb surg. Past Anesthesia/Blood Transfusion Reactions: No Reported Reaction Past Psychological History: ADD/ADHD, Anxiety, Depression Smoking Status: Former smoker Past Alcohol Use History: None Reported Past Drug Use History: None Reported - Past Family History Mother Family Medical History: Cancer Father Family Medical History: Osteoarthritis (OA), Respiratory Disorder General Exam - General Exam Comments Initial Comments: Constitutional: NAD, AOX3, Pt has pleasant affect. HEENT: NC/AT, trachea midline, neck supple, no lymphadenopathy. External ears appear normal, without discharge. Mucous membranes moist. Eyes PERRLA, EOM intact. There is no scleral icterus. No pallor noted. Cardiopulmonary: RRR, no murmurs, rubs or gallops, no JVD noted. Lungs CTAB in anterior and posterior freire. No peripheral edema. Abdominal exam: Abdomen soft and non-distended. Abdomen non-tender to palpation in all 4 quadrants. Bowel sounds active in LLQ. No hepatosplenomegaly. No ecchymosis Neuro: CN II-XII grossly intact. No nuchal rigidity. No raccon eyes, no rosario sign, no hemotympanum. No cervical spinal tenderness. MSK: Mild tenderness to the plantar aspect of the distal foot. No skin changes. She able to wiggle toes. Pulses intact by Doppler. Capillary refill less than 2 seconds. No posterior calf tenderness bilaterally, homans sign negative bilaterally. Posterior tibialis and radial pulse +2 bilaterally. Sensation intact in upper and lower extremities. Full active ROM in upper and lower extremities, 5/5 stregnth. Limitations: no limitations Course Vital Signs 04/29/20 04/29/20 04/29/20 11:57 13:00 15:00 Temperature 97.5 F L 97.5 F L Pulse Rate 85 69 Respiratory 18 18 18 Rate Blood Pressure 122/88 137/73 O2 Sat by Pulse 100 99 Oximetry Medical Decision Making - Medical Decision Making 49-year-old male patient to ED for evaluation of left foot pain status post stenting on 04/24. Repeat imaging displayed interval stenting of distal abdominal aorta appeared improve patency of the last external iliac artery, suspected 1cm long segment of nonocclusive dissection, satisfactory runoff to the left lower extremity. Patient also had a miscellaneous the mesh from his ventral wall hernia. I did discuss case with Dr. 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 He recommended putting patient on Neurontin. I discussed this with patient and patient does not wish to be on that medication or similar medications as they have caused some adverse effects. Patient has a appointment with his primary care provider on Wednesday and will follow up with his vascular surgeon as scheduled an outpatient basis. We'll return here if any worsening symptoms. Case discussed with Dr. Thayer. - Lab Data Result diagrams: 04/29/20 12:57 04/29/20 12:57 Lab Results 04/29/20 04/29/20 04/29/20 Range/Units 12:57 12:57 12:57 WBC 11.5 H (3.8-10.6) k/uL RBC 4.52 (4.30-5.90) m/uL Hgb 14.9 (13.0-17.5) gm/dL Hct 43.4 (39.0-53.0) % MCV 96.0 (80.0-100.0) fL MCH 33.0 (25.0-35.0) pg MCHC 34.3 (31.0-37.0) g/dL RDW 12.7 (11.5-15.5) % Plt Count 372 (150-450) k/uL MPV 6.7 Neutrophils % 73 % Lymphocytes % 14 % Monocytes % 8 % Eosinophils % 4 % Basophils % 1 % Neutrophils # 8.3 H (1.3-7.7) k/uL Lymphocytes # 1.5 (1.0-4.8) k/uL Monocytes # 0.9 (0-1.0) k/uL Eosinophils # 0.4 (0-0.7) k/uL Basophils # 0.1 (0-0.2) k/uL PT 10.1 (9.0-12.0) sec INR 1.0 (<1.2) APTT 27.1 (22.0-30.0) sec Sodium 139 (137-145) mmol/L Potassium 4.2 (3.5-5.1) mmol/L Chloride 105 (98-107) mmol/L Carbon Dioxide 29 (22-30) mmol/L Anion Gap 5 mmol/L BUN 5 L (9-20) mg/dL Creatinine 0.69 (0.66-1.25) mg/dL Est GFR (CKD-EPI)AfAm >90 (>60 ml/min/1.73 sqM) Est GFR (CKD-EPI)NonAf >90 (>60 ml/min/1.73 sqM) Glucose 128 H (74-99) mg/dL Calcium 9.6 (8.4-10.2) mg/dL Total Bilirubin 0.6 (0.2-1.3) mg/dL AST 18 (17-59) U/L ALT 14 (4-49) U/L Alkaline Phosphatase 103 (38-126) U/L Total Protein 7.3 (6.3-8.2) g/dL Albumin 3.8 (3.5-5.0) g/dL Disposition Clinical Impression: Foot pain Disposition: HOME SELF-CARE Condition: Stable Instructions (If sedation given, give patient instructions): Arthralgia (ED) Additional Instructions: Follow up with PCP and vascular surgeon as scheduled. Follow up with your general surgeon for evaluation of your hernia mesh. Return to ED with any worsening symptoms. Is patient prescribed a controlled substance at d/c from ED?: No Referrals: Benji Hand MD [Primary Care Provider] - 1-2 days
[2020-04-29 16:36] VITALS: BP 127/77; PULSE 67
== END 2020-04-29 16:32 | disposition home or self-care (01) ==
LOC: EC 11:51
DX: M79.672 Pain in left foot (principal); E11.9 Type 2 diabetes mellitus without complications; E78.5 Hyperlipidemia, unspecified; G89.29 Other chronic pain; M54.9 Dorsalgia, unspecified; M19.90 Unspecified osteoarthritis, unspecified site; F41.9 Anxiety disorder, unspecified; F90.9 Attention-deficit hyperactivity disorder, unspecified type; F32.9 Major depressive disorder, single episode, unspecified; Z79.899 Other long term (current) drug therapy; Z79.02 Long term (current) use of antithrombotics/antiplatelets; Z79.82 Long term (current) use of aspirin; Z79.84 Long term (current) use of oral hypoglycemic drugs; Z79.891 Long term (current) use of opiate analgesic; Z88.8 Allergy status to other drugs, medicaments and biological substances; Z87.891 Personal history of nicotine dependence; Z95.5 Presence of coronary angioplasty implant and graft
CPT/HCPCS: 36415; 80053; 85025; 85610; 85730; 75635; 99284; 96374; 96375; 96361; J1170; Q9967

== ENCOUNTER → 2020-05-28 | Outpatient (CLI) | payer MEDICARE, OTHER ==
[2020-05-28 13:52] LABS: Basophils % (A) 0 %; Eosinophils # (A) 0.3 k/uL (0-0.7); Eosinophils % (A) 3 %; HCT 43.8 % (39.0-53.0); HGB 14.6 gm/dL (13.0-17.5); Lymphocytes # (A) 1.8 k/uL (1.0-4.8); Lymphocytes % (A) 16 %; MCH 32.5 pg (25.0-35.0); MCHC 33.4 g/dL (31.0-37.0); MCV 97.3 fL (80.0-100.0); Monocytes # (A) 0.7 k/uL (0-1.0); Monocytes % (A) 6 %; Neutrophils % (A) 73 %; Platelet Count 324 k/uL (150-450); WBC 10.8 k/uL (3.8-10.6)
[2020-05-28 14:25] LABS: African American GFR (CKD) >90 (>60 ml/min/1.73 sqM); Anion Gap 7 mmol/L; Blood Urea Nitrogen 10 mg/dL (9-20); Carbon Dioxide 31 mmol/L (22-30); Chloride 101 mmol/L (98-107); Non-African American GFR(CKD) >90 (>60 ml/min/1.73 sqM); Potassium 3.7 mmol/L (3.5-5.1); Sodium 139 mmol/L (137-145)
== END | disposition home or self-care (01) ==
LOC: LABPAT 12:45
PROVIDERS: ATTEND Surgery
DX: Z01.818 Encounter for other preprocedural examination (principal); I74.5 Embolism and thrombosis of iliac artery
CPT/HCPCS: 36415; 80051; 82565; 84520; 85025

== ENCOUNTER 2020-08-17 12:09 | Emergency (ER) | payer MEDICARE, OTHER ==
[2020-08-17] MEDS ORDERED: ONDANSETRON 4 MG/2 ML VIAL IVP STA (12:40)
[2020-08-17] MEDS ORDERED: SODIUM CHLORIDE 0.9% 1,000 ML IV STA ×2 (12:40)
--- NOTE | 2020-08-17 12:52 | ED ---
Weakness HPI - General Chief complaint: Weakness Stated complaint: weakness, SOB Time Seen by Provider: 08/17/20 12:25 Source: patient, RN notes reviewed, old records reviewed Mode of arrival: ambulatory Limitations: no limitations - History of Present Illness Initial comments: 50-year-old male presents emergency department today with complaints of weak ness, fatigue and episodes of chest pain with exertion. Patient has a significant history of vascular disease with coronary multiple stents lower extremity's. He reports that his vascular surgeon is Dr. Sims. Patient states for the past 2 days he's had generalized weakness. She also complains of rash, and "bites" over his face groin and legs. His has similar rash. - Related Data Home Medications Medication Instructions Recorded Confirmed Methylphenidate HCl 20 mg PO BID@0900,1300 11/22/19 04/29/20 Albuterol Inhaler [Ventolin Hfa 2 puff INHALATION RT-Q4H PRN 01/03/20 04/29/20 Inhaler] Atorvastatin Calcium [Lipitor] 40 mg PO HS 03/13/20 04/29/20 Cholecalciferol [Vitamin D3 (25 5,000 unit PO DAILY 03/13/20 04/29/20 Mcg = 1000 Iu)] Clopidogrel Bisulfate [Plavix] 75 mg PO DAILY 03/13/20 04/29/20 Gabapentin 300 mg PO BID 03/13/20 04/29/20 Loratadine [Claritin] 10 mg PO DAILY 03/13/20 04/29/20 Ziprasidone [Geodon] 20 mg PO HS 03/13/20 04/29/20 metFORMIN HCL 500 mg PO DAILY 03/13/20 04/29/20 HYDROcodone/APAP 7.5-325MG [[place] 1 tab PO BID 04/24/20 04/29/20 7.5-325] Aspirin 81 mg PO DAILY 04/29/20 04/29/20 Lisinopril [Zestril] 10 mg PO DAILY 04/29/20 04/29/20 Metoprolol Tartrate [Lopressor] 12.5 mg PO DAILY 04/29/20 04/29/20 Simvastatin [Zocor] 40 mg PO HS 04/29/20 04/29/20 rOPINIRole HCL [Requip] 0.5 mg PO HS 04/29/20 04/29/20 Previous Rx's Medication Instructions Recorded Cyclobenzaprine [Flexeril] 10 mg PO BID PRN #30 tab 03/15/20 Permethrin 5% Cream [Elimite] 1 applic TOPICAL ONCE #1 tube 08/17/20 Permethrin 5% Cream [Elimite] 1 applic TOPICAL WEEKLY #1 tube 08/17/20 Allergies Allergy/AdvReac Type Severity Reaction Status Date / Time benztropine mesylate AdvReac muscle Verified 08/17/20 12:15 [From Vipul] spasms Review of Systems ROS Statement: Those systems with pertinent positive or pertinent negative responses have been documented in the HPI. ROS Other: All systems not noted in ROS Statement are negative. Past Medical History Past Medical History: Diabetes Mellitus, GERD/Reflux, Hyperlipidemia, Osteoarthritis (OA), Vascular Disorder Additional Past Medical History / Comment(s): hx. diverticulitis,bad circulation to legs, chronic back pain with known herniated disks, uses oxygen at 2.3l, seasonal allergies. History of Any Multi-Drug Resistant Organisms: None Reported Past Surgical History: Bowel Resection, Heart Catheterization With Stent, Hernia Repair, Orthopedic Surgery Additional Past Surgical History / Comment(s): temp. colostomy then reversal, knee surg., thumb surg., femoral bypass Past Anesthesia/Blood Transfusion Reactions: No Reported Reaction Past Psychological History: ADD/ADHD, Anxiety, Depression Smoking Status: Former smoker Past Alcohol Use History: None Reported Past Drug Use History: None Reported - Past Family History Mother Family Medical History: Cancer Father Family Medical History: Osteoarthritis (OA), Respiratory Disorder General Exam - General Exam Comments Initial Comments: 50-year-old male. Alert and oriented Limitations: no limitations General appearance: alert, in no apparent distress Head exam: Present: atraumatic, normocephalic, normal inspection Eye exam: Present: normal appearance, PERRL, EOMI. Absent: scleral icterus, conjunctival injection, periorbital swelling ENT exam: Present: normal exam, mucous membranes moist Neck exam: Present: normal inspection. Absent: tenderness, meningismus, lymph adenopathy Respiratory exam: Present: normal lung sounds bilaterally. Absent: respiratory distress, wheezes, rales, rhonchi, stridor Cardiovascular Exam: Present: regular rate, normal rhythm, normal heart sounds. Absent: systolic murmur, diastolic murmur, rubs, gallop, clicks GI/Abdominal exam: Present: soft, normal bowel sounds. Absent: distended, tenderness, guarding, rebound, rigid Neurological exam: Present: alert, oriented X3, CN II-XII intact Psychiatric exam: Present: normal affect, normal mood Skin exam: Present: warm, dry, intact, normal color. Absent: rash Course Vital Signs 08/17/20 08/17/20 12:16 14:49 Temperature 98 F 97.9 F Pulse Rate 84 78 Respiratory 18 16 Rate Blood Pressure 143/77 148/78 O2 Sat by Pulse 97 97 Oximetry - Reevaluation(s) Reevaluation #1: 08/17/20 13:36 Patient had audible doppler dorsalis pedis and posterior tibial pulses bilaterally Medical Decision Making - Medical Decision Making 50-year-old male presents returns today with multiple complaints claim lower extremity pain and weakness. He reports that he had neuoropathy, with normal pulses on doppler bilaerally. Patient's labs were normal, EKG and troponin are negative for acute process. Chest x-ray shows no acute changes. Patient was advised to get a medication for cardiac observation for the history of syncope the Patient states he preferred to go home. He also has a significant rash over his feet arms and chest consistent with scabies. We'll prescribe permethrin cr eam. Patient plans to follow-up with PCP. - Lab Data Result diagrams: 08/17/20 13:13 08/17/20 13:13 Lab Results 08/17/20 08/17/20 08/17/20 Range/Units 13:13 13:13 13:13 WBC 9.3 (3.8-10.6) k/uL RBC 4.56 (4.30-5.90) m/uL Hgb 14.5 (13.0-17.5) gm/dL Hct 43.6 (39.0-53.0) % MCV 95.6 (80.0-100.0) fL MCH 31.7 (25.0-35.0) pg MCHC 33.2 (31.0-37.0) g/dL RDW 13.4 (11.5-15.5) % Plt Count 315 (150-450) k/uL MPV 7.0 Neutrophils % 71 % Lymphocytes % 17 % Monocytes % 9 % Eosinophils % 2 % Basophils % 0 % Neutrophils # 6.6 (1.3-7.7) k/uL Lymphocytes # 1.5 (1.0-4.8) k/uL Monocytes # 0.8 (0-1.0) k/uL Eosinophils # 0.1 (0-0.7) k/uL Basophils # 0.0 (0-0.2) k/uL PT 9.7 (9.0-12.0) sec INR 0.9 (<1.2) APTT 23.6 (22.0-30.0) sec Sodium 138 (137-145) mmol/L Potassium 3.9 (3.5-5.1) mmol/L Chloride 102 (98-107) mmol/L Carbon Dioxide 30 (22-30) mmol/L Anion Gap 6 mmol/L BUN 19 (9-20) mg/dL Creatinine 0.71 (0.66-1.25) mg/dL Est GFR (CKD-EPI)AfAm >90 (>60 ml/min/1.73 sqM) Est GFR (CKD-EPI)NonAf >90 (>60 ml/min/1.73 sqM) Glucose 110 H (74-99) mg/dL Plasma Lactic Acid Yoni (0.7-2.0) mmol/L Calcium 9.6 (8.4-10.2) mg/dL Magnesium 2.2 (1.6-2.3) mg/dL Total Bilirubin 0.4 (0.2-1.3) mg/dL AST 26 (17-59) U/L ALT 24 (4-49) U/L Alkaline Phosphatase 123 (38-126) U/L Troponin I (0.000-0.034) ng/mL NT-Pro-B Natriuret Pep pg/mL Total Protein 7.8 (6.3-8.2) g/dL Albumin 4.5 (3.5-5.0) g/dL 08/17/20 08/17/20 08/17/20 Range/Units 13:13 13:13 13:13 WBC (3.8-10.6) k/uL RBC (4.30-5.90) m/uL Hgb (13.0-17.5) gm/dL Hct (39.0-53.0) % MCV (80.0-100.0) fL MCH (25.0-35.0) pg MCHC (31.0-37.0) g/dL RDW (11.5-15.5) % Plt Count (150-450) k/uL MPV Neutrophils % % Lymphocytes % % Monocytes % % Eosinophils % % Basophils % % Neutrophils # (1.3-7.7) k/uL Lymphocytes # (1.0-4.8) k/uL Monocytes # (0-1.0) k/uL Eosinophils # (0-0.7) k/uL Basophils # (0-0.2) k/uL PT (9.0-12.0) sec INR (<1.2) APTT (22.0-30.0) sec Sodium (137-145) mmol/L Potassium (3.5-5.1) mmol/L Chloride (98-107) mmol/L Carbon Dioxide (22-30) mmol/L Anion Gap mmol/L BUN (9-20) mg/dL Creatinine (0.66-1.25) mg/dL Est GFR (CKD-EPI)AfAm (>60 ml/min/1.73 sqM) Est GFR (CKD-EPI)NonAf (>60 ml/min/1.73 sqM) Glucose (74-99) mg/dL Plasma Lactic Acid Yoni 1.1 (0.7-2.0) mmol/L Calcium (8.4-10.2) mg/dL Magnesium (1.6-2.3) mg/dL Total Bilirubin (0.2-1.3) mg/dL AST (17-59) U/L ALT (4-49) U/L Alkaline Phosphatase (38-126) U/L Troponin I <0.012 (0.000-0.034) ng/mL NT-Pro-B Natriuret Pep 45 pg/mL Total Protein (6.3-8.2) g/dL Albumin (3.5-5.0) g/dL Disposition Clinical Impression: Skin rash, Syncope Disposition: HOME SELF-CARE Condition: Good Instructions (If sedation given, give patient instructions): Scabies (ED) Additional Instructions: Follow up with primary care doctor and cardiology. Return to the emergency department if any alarming signs or symptoms occur. Use permethrin cream as Rx. Prescriptions: Permethrin 5% Cream [Elimite] 1 applic TOPICAL WEEKLY #1 tube Permethrin 5% Cream [Elimite] 1 applic TOPICAL ONCE #1 tube Is patient prescribed a controlled substance at d/c from ED?: No Referrals: Benji Hand MD [Primary Care Provider] - 1-2 days
[2020-08-17 13:20] LABS: Basophils % (A) 0 %; Eosinophils # (A) 0.1 k/uL (0-0.7); Eosinophils % (A) 2 %; HCT 43.6 % (39.0-53.0); HGB 14.5 gm/dL (13.0-17.5); Lymphocytes # (A) 1.5 k/uL (1.0-4.8); Lymphocytes % (A) 17 %; MCH 31.7 pg (25.0-35.0); MCHC 33.2 g/dL (31.0-37.0); MCV 95.6 fL (80.0-100.0); Monocytes # (A) 0.8 k/uL (0-1.0); Monocytes % (A) 9 %; Neutrophils # (A) 6.6 k/uL (1.3-7.7); Neutrophils % (A) 71 %; Platelet Count 315 k/uL (150-450); RBC 4.56 m/uL (4.30-5.90); RDW 13.4 % (11.5-15.5); WBC 9.3 k/uL (3.8-10.6)
[2020-08-17 13:29] LABS: ALT 24 U/L (4-49); AST 26 U/L (17-59); African American GFR (CKD) >90 (>60 ml/min/1.73 sqM); Albumin 4.5 g/dL (3.5-5.0); Alkaline Phosphatase 123 U/L (38-126); Anion Gap 6 mmol/L; Blood Urea Nitrogen 19 mg/dL (9-20); Calcium 9.6 mg/dL (8.4-10.2); Carbon Dioxide 30 mmol/L (22-30); Chloride 102 mmol/L (98-107); Glucose 110 mg/dL (74-99); Magnesium 2.2 mg/dL (1.6-2.3); Non-African American GFR(CKD) >90 (>60 ml/min/1.73 sqM); Potassium 3.9 mmol/L (3.5-5.1); Sodium 138 mmol/L (137-145); Total Bilirubin 0.4 mg/dL (0.2-1.3); Total Protein 7.8 g/dL (6.3-8.2)
--- NOTE | 2020-08-17 13:33 | XR ---
EXAMINATION TYPE: XR chest 2V DATE OF EXAM: 08/17/2020 COMPARISON: 03/15/2020 HISTORY: Chest pain TECHNIQUE: Frontal and lateral views of the chest are obtained. FINDINGS: There is no focal air space opacity. No evidence for pneumothorax. No pleural effusion. The cardiac silhouette size is within normal limits. The osseous structures are grossly intact. IMPRESSION: 1. No acute cardiopulmonary process.
[2020-08-17 13:36] LABS: INR 0.9 (<1.2); Partial Thromboplastin Time 23.6 sec (22.0-30.0); Prothrombin Time 9.7 sec (9.0-12.0)
[2020-08-17] MEDS ORDERED: MORPHINE SULFATE 2 MG/ML SYRINGE IVP ONE (13:36)
[2020-08-17 14:50] VITALS: BP 148/78; PULSE 78; RESP 16; TEMP 97.9
== END 2020-08-17 14:49 | disposition home or self-care (01) ==
LOC: EC 12:09
DX: R55 Syncope and collapse (principal); R21 Rash and other nonspecific skin eruption; E11.9 Type 2 diabetes mellitus without complications; K21.9 Gastro-esophageal reflux disease without esophagitis; E78.5 Hyperlipidemia, unspecified; M19.90 Unspecified osteoarthritis, unspecified site; F41.9 Anxiety disorder, unspecified; F32.9 Major depressive disorder, single episode, unspecified; Z87.891 Personal history of nicotine dependence
CPT/HCPCS: 93005; 83880; 80053; 83605; 83735; 84484; 85025; 85610; 85730; 71046; 99285; 96374; 96361; J2405

== ENCOUNTER 2020-10-18 08:21 | Inpatient (IN) | payer MEDICARE, OTHER ==
[~2020-10-18 08:21] MED LIST changes: -ALBUTEROL HFA INHALER INHALATION PRN; -ALPRAZolam 0.25 MG TAB PO PRN; -ASPIRIN 325 MG TAB PO STA; -ATORVASTATIN 40 MG TAB PO SCH; -CHOLECALCIFEROL 1,000 UNIT TAB PO SCH; -CLOPIDOGREL 75 MG TAB ONE; -CLOPIDOGREL 75 MG TAB PO SCH; -CYCLOBENZAPRINE 10 MG TAB PO PRN; +DEXAMETHASONE SOD PHOSPHATE 4 MG/ML 1 ML VIAL IV ONE; -GABAPENTIN 300 MG CAP PO SCH; -HYDROcodone/APAP 7.5-325MG 1 EACH TAB PO PRN; +HYDROmorphone 0.5 MG/0.5 ML SYRINGE IVP PRN; -IOPAMIDOL-250 100ML BTL INTRAARTER ONE; +LIDOCAINE 1% (10MG/ML) FOR IV START INTRADERMA PRN; -LIDOCAINE 1% INJ 10MG/ML (20 ML MDV) SQ ONE; -LORATADINE 10 MG TAB PO SCH; -METHYLPHENIDATE HCL 20 MG PO SCH; -METOPROLOL TARTRATE 12.5 MG TAB PO SCH; -MIDAZOLAM 2 MG/2 ML VIAL IV ONE; +MIDAZOLAM 2 MG/2 ML VIAL IV PRN; -MORPHINE SULFATE 4 MG/ML SYRINGE IV ONE; -NON FORMULARY DRUG (Aspirin Ec 81 MG Tablet.Dr) PO SCH; +ONDANSETRON 4 MG/2 ML VIAL IVP ONE; -SODIUM CHLORIDE 0.9% 1,000 ML in EMPTY BAG 1 BAG IV ONE; -ZIPRASIDONE 20 MG CAP PO SCH
[2020-10-18] MEDS: LACTATED RINGERS 1,000 ML IV SCH (08:43)
[2020-10-18 09:14] LABS: Glucose,Whole Blood 135 mg/dL (75-99)
[2020-10-18 09:22] LABS: Basophils # (A) 0.1 k/uL (0-0.2); Basophils % (A) 1 %; Eosinophils # (A) 0.3 k/uL (0-0.7); Eosinophils % (A) 3 %; Lymphocytes # (A) 2.4 k/uL (1.0-4.8); Lymphocytes % (A) 21 %; MCV 94.5 fL (80.0-100.0); Mean Platelet Volume 6.7; Monocytes # (A) 0.9 k/uL (0-1.0); Monocytes % (A) 8 %; Neutrophils # (A) 7.4 k/uL (1.3-7.7); Neutrophils % (A) 67 %; Platelet Count 355 k/uL (150-450); RBC 4.55 m/uL (4.30-5.90); RDW 12.9 % (11.5-15.5); WBC 11.2 k/uL (3.8-10.6)
[2020-10-18 09:33] LABS: INR 0.9 (<1.2); Prothrombin Time 9.7 sec (9.0-12.0)
[2020-10-18] MEDS ORDERED: PROPOFOL 10 MG/ML 20 ML VIAL IV ONE (10:19)
[2020-10-18] MEDS ORDERED: LIDOCAINE 1% INJ 10MG/ML (20 ML MDV) ONE (10:19)
[2020-10-18] MEDS ORDERED: fentaNYL (PF) 50 MCG/ML 2 ML AMP ONE (10:19)
[2020-10-18] MEDS ORDERED: PROTAMINE SULFATE 10 MG/ML 5 ML VIAL IV ONE (10:19)
[2020-10-18] MEDS ORDERED: ROCURONIUM 10 MG/ML (5 ML VIAL) IV ONE (10:19)
[2020-10-18] MEDS ORDERED: HEPARIN SODIUM,PORCINE 10,000 UNIT/ML 1 ML VIAL ONE (10:19)
[2020-10-18] MEDS ORDERED: MIDAZOLAM 2 MG/2 ML VIAL ONE (10:19)
[2020-10-18] MEDS ORDERED: PHENYLEPHRINE-0.9% NACL SYG 1,000 MCG/10 ML SYRINGE ONE (10:19)
[2020-10-18] MEDS ORDERED: SUCCINYLCHOLINE CHLORIDE 100 MG/5 ML SYR IV ONE (10:19)
[2020-10-18] MEDS ORDERED: ceFAZolin 4,000 MG in SODIUM CHLORIDE 0.9% 1,000 ML IRRIGATION ONE (10:56)
[2020-10-18] MEDS ORDERED: HEPARIN SODIUM,PORCINE 10,000 UNIT in SODIUM CHLORIDE 0.9% 1,000 ML IRRIGATION ONE (10:56)
[2020-10-18] MEDS ORDERED: LACTATED RINGERS 1,000 ML IV ONE (11:47)
[2020-10-18] MEDS ORDERED: MAG HYDROX/AL HYDROX/SIMETH 30 ML CUP PO PRN (13:22)
[2020-10-18] MEDS ORDERED: HYDROcodone/APAP 5-325MG 1 EACH TAB PO PRN (13:22)
[2020-10-18] MEDS ORDERED: MORPHINE SULFATE 2 MG/ML SYRINGE IVP PRN (13:22)
[2020-10-18] MEDS ORDERED: ONDANSETRON 4 MG/2 ML VIAL IVP PRN (13:22)
[2020-10-18] MEDS ORDERED: LORATADINE 10 MG TAB PO PRN (13:29)
[2020-10-18] MEDS ORDERED: CYCLOBENZAPRINE 10 MG TAB PO PRN (13:29)
[2020-10-18] MEDS ORDERED: ALBUTEROL NEBULIZED 2.5 MG/3 ML INHALATION PRN (13:29)
--- NOTE | 2020-10-18 14:01 | P.OP ---
Date of Procedure: 10/18/20 Preoperative Diagnosis: Right iliac artery occlusion. Postoperative Diagnosis: Same. Procedure(s) Performed: Femoral to femoral bypass utilizing 8 mm diameter PTFE. Anesthesia: ANN Surgeon: Jose C [employer] Technician #1: Ara العلي Estimated Blood Loss (ml): 100 Pathology: other (Bilateral inguinal lymph node) Condition: stable Disposition: floor Indications for Procedure: Patient is a 50-year-old male with a history of severe aortoiliac occlusive disease who presented with lifestyle limiting claudication. Physical examination had revealed absence of femoral pulses bilaterally. Arterial Doppler study was consistent with aortoiliac occlusive disease. He did undergo CT angiography which demonstrated bilateral iliac artery occlusions. The left iliac artery occlusion was successfully treated from a percutaneous approach. Unfortunately the right carotid not be opened and patient is now offered a femoral-femoral bypass. Description of Procedure: Patient brought the upper and placed in supine position Mr. general endotracheal anesthesia delivered by the department anesthesiology. العلي catheter is placed to gravity drainage. Patient received 2 g of Ancef intravenously in the perioperative phase. Patient's bilateral inguinal areas lower abdomen and upper thigh areas bilaterally were sterilely prepped and draped in usual manner. Skin incision was made overlying the femoral artery on the left in carried down through the subcu change tissues. Lymphatic layer was divided laterally and mobilized medially. The femoral sheath was identified and opened. The common femoral artery as well as the origins of the superficial femoral and profundus femoris arteries were encircled Vesseloops. Pulse was identified and left common femoral artery. A similar procedure was performed on the contralateral side with no pulse being identified. An 8 mm PTFE graft was tunneled between the 2 incisions in a gentle arcing pattern. The patient received intravenously administered heparin and after adequate circu lation time the Vesseloops were drawn closed on the femoral vessels bilaterally. Arteriotomy was made on the left and extended with Pott Melvin scissors. Inflow was felt to be appropriate. Good backflow through the profundus was noted however there is no flow through the SFA patch angioplasty closure of the arteriotomy was performed with the lie pericardial patch secured with 6-0 Prolene suture placed in running fashion. Just prior to completion of the patch angioplasty active bleeding through the profundus was assured as well as with inflow and no thrombus was retrieved. An incision was made in the patch and extended with Pott Melvin scissors. The graft was spatulated to match arteriotomy end-to-side anastomosis with 6-0 Prolene suture was completed area just prior to completion of the anastomotic line the artery was back and fore bled and no thrombus was retrieved. The anastomotic line was completed and flow restored into the bypass graft. The graft was occluded and the Vesseloops surrounding the artery on the right were drawn closed. Arteriotomy was made and extended with Pott Melvin scissors. Minimal inflow was identified however there was adequate bleeding through the p rofundus. The graft was cut the appropriate length and spatulated match the arteriotomy and an end-to-side anastomosis between the graft and the artery was performed with 6-0 Prolene suture. Just prior to completion anastomotic line the artery was backbled and the graft was flushed and no thrombus was retrieved. The anastomotic line was completed and flow restored through the graft into the right femoral system. Pulse in the graft and in the lower brule vessels were identified. Both wounds were irrigated with antibiotic taking solution. Hemostasis was judged be adequate. Deep tissues were closed in multiple layers with 3-0 Vicryl. 4-0 Vicryl was utilized to close the dermis and intradermal fashion. Provine was placed on both wounds. Patient tolerated procedure well and was taken to the recovery area in satisfactory and stable condition.
[2020-10-18 14:09] LABS: Glucose,Whole Blood 178 mg/dL (75-99)
--- NOTE | 2020-10-18 15:52 | P.ANPRN ---
Procedure Note - Anesthesia - Invasive Line Left Arterial Line Time Out Performed: Yes Date of Procedure: 10/18/20 Location of Patient: PreOp Preparation: Sterile Prep, Sterile Dressing Arterial Line Location: Radial Ultrasound Used: No Purpose - Visualization and Identification of Vasculature: No Narrative: Central line placement per sterile protocol utilized. Informed consent obtained from the patient. Procedure was performed under complete aseptic precautions. The right wrist is slightly extended and placed on a roll of cloth. Radial artery palpated and appeared to have a intact collateral circulation. Front of the wrist was cleaned with ChloraPrep. It was draped and 2 mL of 1% lidocaine was infiltrated and ability into the front of the wrist. A 20-gauge two and half inch Arrow arterial catheter was inserted and a bright red blood/back was noticed. It was connected to the pressure monit oring line and the flashback was confirmed. The line was sutured into the skin. Tegaderm dressing was applied. Patient tolerated the procedure very well with no apparent complications.
[2020-10-18] MEDS: CLOPIDOGREL 75 MG TAB PO SCH (16:20)
[2020-10-18] MEDS: SODIUM CHLORIDE 0.9% 1,000 ML IV SCH ×2 (16:20→23:24)
[2020-10-18] MEDS: ASPIRIN 325 MG TAB PO SCH (16:20)
[2020-10-18] MEDS: HYDROmorphone 0.5 MG/0.5 ML SYRINGE IVP PRN ×2 (16:20→20:34)
[2020-10-18 16:36] LABS: Glucose,Whole Blood 156 mg/dL (75-99)
[2020-10-18] MEDS: HYDROcodone/APAP 5-325MG 1 EACH TAB PO PRN (17:43)
[2020-10-18 19:44] LABS: Glucose,Whole Blood 339 mg/dL (75-99)
[2020-10-18] MEDS: INSULIN ASPART (NovoLOG) 100 UNIT/ML VIAL SQ SCH (20:27)
[2020-10-18] MEDS: TRIAMCINOLONE 0.1% CREAM 80 GM TUBE TOPICAL SCH (20:27)
[2020-10-18] MEDS: GABAPENTIN 300 MG CAP PO SCH (20:27)
[2020-10-18] MEDS: CLOBETASOL PROP 0.05% CR 15GM TOPICAL SCH (20:27)
[2020-10-18] MEDS ORDERED: ATORVASTATIN 20 MG TAB PO SCH (21:00)
[2020-10-18] MEDS ORDERED: ZIPRASIDONE 20 MG CAP PO SCH (21:00)
[2020-10-18] MEDS ORDERED: ATORVASTATIN 40 MG TAB PO SCH (21:00)
--- NOTE | 2020-10-18 22:13 | CONS ---
CONSULTATION I am covering for Dr. Hand. DATE OF SERVICE: 10/18/2020 REASON FOR CONSULTATION: Advice regarding COPD and diabetes mellitus and other medical issues. HISTORY OF PRESENT ILLNESS: This 50-year-old gentleman with a past medical history of COPD, diabetes mellitus, GERD, hypertension, hyperlipidemia, being followed by Dr. Hand in the outpatient setting, underwent a femorofemoral bypass for right iliac artery occlusion by Dr. Sims. The patient tolerated the procedure well. There is no history of any chest pain, no history of palpitations, no history of headache, seizures. No history of any diarrhea, fever, rigor or chills at this time. PAST MEDICAL HISTORY: COPD, diabetes mellitus, GERD, hypertension, hyperlipidemia, history of DJD. HOME MEDICATIONS: Requip, metformin, Geodon, Kenalog, Zocor, Lopressor, methylphenidate, Claritin. Zestril, [place], gabapentin, Flexeril, Plavix, vitamin D3, Lipitor, aspirin, Ventolin. Doses are reviewed. ALLERGIES: COGENTIN AND MORPHINE. FAMILY HISTORY: History of cancer in the family. SOCIAL HISTORY: Previous history of smoking. No current smoking or alcohol intake. REVIEW OF SYSTEMS: ENT: No diminished hearing. No diminished vision. CARDIOVASCULAR SYSTEM: No angina, palpitations. RESPIRATORY SYSTEM: No cough, hemoptysis. GI: No nausea, vomiting. : No dysuria or retention. NERVOUS SYSTEM: No numbness, weakness. ALLERGY/IMMUNOLOGY: No asthma, hayfever. MUSCULOSKELETAL: As mentioned earlier. HEMATOLOGY/ONCOLOGY: No history of anemia. ENDOCRINE: History of diabetes. CONSTITUTIONAL: As mentioned earlier. DERMATOLOGY: Negative. RHEUMATOLOGY: Negative. PSYCHIATRY: As mentioned earlier. PHYSICAL EXAMINATION: Patient is alert, oriented x3. Pulse 89, blood pressure 100/56, respirations 16, temperature 98 degrees, pulse ox 94% on room air. HEENT: Conjunctivae normal. NECK: No jugular venous distention. CARDIOVASCULAR SYSTEM: S1, S2 muffled. RESPIRATORY SYSTEM: Breath sounds diminished at the bases. No rhonchi. No crackles. ABDOMEN: Soft, non-tender. No mass palpable. LEGS: Status post surgery. NERVOUS SYSTEM: Higher functions as mentioned earlier. Moves all 4 limbs. No focal motor or sensory deficit. LYMPHATICS: No lymph node palpable in neck, axillae or groin. SKIN: No ulcer, rash, bleeding. JOINTS: No active deforming arthropathy. LABS: WBC 11. Accu-Cheks 135, 178, 156. ASSESSMENT: 1. Status post femorofemoral bypass surgery for right iliac artery occlusion. 2. Diabetes mellitus, type 2. 3. Chronic obstructive pulmonary disease. 4. Gastroesophageal reflux disease. 5. Hypertension. 6. Hyperlipidemia. 7. History of degenerative joint disease. 8. History of skin mites recently. 9. History of diverticulitis. 10.Chronic hypoxic respiratory failure, on home oxygen. 11.History of bowel resection. 12.History of attention deficit disorder, attention deficit hyperactivity disorder, anxiety, depression. 13.History of continued ongoing nicotine dependence. 14.FULL CODE WITH INSTRUCTIONS. RECOMMENDATIONS AND DISCUSSION: In this 50-year-old gentleman who presented with multiple complex medical issues, we will monitor the patient closely, continue the current medications, continue symptomatic treatment. I recommend resuming the home medications. Monitor Accu- Cheks before meals and at bedtime and DVT prophylaxis. Incentive spirometry. We will follow the patient closely with you. The patient may be asked to follow with Dr. Hand closely after discharge. Thank you for letting us participate in the care of this patient. MMODL / IJN: [id number] / MTDJayme
[2020-10-19] MEDS: HYDROmorphone 0.5 MG/0.5 ML SYRINGE IVP PRN (02:46)
[2020-10-19] MEDS: LACTATED RINGERS 1,000 ML IV SCH (06:13)
[2020-10-19 06:16] LABS: Glucose,Whole Blood 203 mg/dL (75-99)
[2020-10-19] MEDS: INSULIN ASPART (NovoLOG) 100 UNIT/ML VIAL SQ SCH ×2 (06:34→12:13)
[2020-10-19] MEDS ORDERED: metFORMIN 500 MG TAB PO SCH (07:30)
[2020-10-19 08:42] VITALS: RESP 16; TEMP 98
[2020-10-19] MEDS: ASPIRIN 325 MG TAB PO SCH (08:43)
[2020-10-19] MEDS: METHYLPHENIDATE HCL 10 MG TAB PO SCH ×2 (08:44→12:13)
[2020-10-19] MEDS: CLOPIDOGREL 75 MG TAB PO SCH (08:44)
[2020-10-19] MEDS: TRIAMCINOLONE 0.1% CREAM 80 GM TUBE TOPICAL SCH (08:44)
[2020-10-19] MEDS: GABAPENTIN 300 MG CAP PO SCH (08:44)
[2020-10-19] MEDS: CLOBETASOL PROP 0.05% CR 15GM TOPICAL SCH (08:44)
[2020-10-19] MEDS: SODIUM CHLORIDE 0.9% 1,000 ML IV SCH (08:45)
[2020-10-19] MEDS ORDERED: CHOLECALCIFEROL 25 MCG (1000 IU) TABLET PO SCH (09:00)
[2020-10-19] MEDS ORDERED: METOPROLOL TARTRATE 12.5 MG TAB PO SCH (09:00)
[2020-10-19] MEDS ORDERED: lisinopriL 10 MG TAB PO SCH (09:00)
[2020-10-19] MEDS ORDERED: DOCUSATE 100 MG CAP PO SCH (09:00)
[2020-10-19 11:52] LABS: Glucose,Whole Blood 218 mg/dL (75-99)
[2020-10-19 12:12] VITALS: BP 120/64; PULSE 74
[2020-10-19] MEDS: HYDROcodone/APAP 5-325MG 1 EACH TAB PO PRN (12:17)
--- NOTE | 2020-10-19 14:59 | P.PN ---
Subjective Progress Note Date: 10/19/20 Principal diagnosis: post op fem-fem bypass patient seen and examined. States he feels good and wants to go home. Earlier per nursing patient was willing to leave AMA. He has since stayed for evaluation by a doctor but wants to go home today. He states pain is controlled well. His legs feel good. He denies any numbness or tingling in his legs or feet. He denies any fevers, chills, nausea, chest pain or shortness of breath. Objective - Vital Signs Vital signs: Vital Signs Temp 98.0 F 10/19/20 08:00 Pulse 74 10/19/20 12:00 Resp 16 10/19/20 12:00 BP 120/64 10/19/20 12:00 Pulse Ox 99 10/19/20 12:00 Intake & Output 10/18/20 10/19/20 10/19/20 18:59 06:59 18:59 Intake Total 1692 340 Output Total 1000 200 475 Balance 692 -200 -135 Weight 80.7 kg 80.5 kg Intake: IV 1452 Intake, IV Titration 100 Amount Sodium Chloride 0.9% 1, 100 000 ml @ 100 mls/hr IV . Q10H [place] Rx#:[id number] Oral 240 240 Output: Urine 900 200 475 Estimated Blood Loss 100 Other: Voiding Method Urinal Urinal # Voids 1 - Exam Multi-phasic dp and pt signals bilaterally. Bilateral femoral dressings intact without any signs of infection or bleeding. - Labs CBC & Chem 7: 10/18/20 09:10 Labs: Abnormal Lab Results - Last 24 Hours (Table) 10/18/20 10/18/20 10/19/20 Range/Units 16:34 19:40 06:13 POC Glucose (mg/dL) 156 H 339 H 203 H (75-99) mg/dL 10/19/20 Range/Units 11:35 POC Glucose (mg/dL) 218 H (75-99) mg/dL Assessment and Plan Assessment: 1. POD 1 fem-fem bypass 2. Claudication 3. DM Type 2 4. HTN 5. Tobacco abuse Plan: Ok for discharge home. Patient instructed to maintain dressings x 5 days and make an appointment with Dr. Ramsey in 1-2 weeks. Continue aspirin, statin and plavix.
== END 2020-10-19 16:45 | disposition home or self-care (01) | DRG 253 ==
LOC: 2ORMAIN 08:21 → 3SCARD 15:07
PROVIDERS: ADMIT Surgery; ATTEND Surgery
PROC: 041 Lower Arteries, Bypass (ICD-10-PCS; principal; 2020-10-18 10:00)
DX: I74.5 Embolism and thrombosis of iliac artery (principal); I74.09 Other arterial embolism and thrombosis of abdominal aorta; J96.11 Chronic respiratory failure with hypoxia; E11.51 Type 2 diabetes mellitus with diabetic peripheral angiopathy without gangrene; E78.5 Hyperlipidemia, unspecified; I10 Essential (primary) hypertension; J44.9 Chronic obstructive pulmonary disease, unspecified; K21.9 Gastro-esophageal reflux disease without esophagitis; F32.9 Major depressive disorder, single episode, unspecified; F41.9 Anxiety disorder, unspecified; F90.9 Attention-deficit hyperactivity disorder, unspecified type; M19.90 Unspecified osteoarthritis, unspecified site; Z72.0 Tobacco use; Z90.49 Acquired absence of other specified parts of digestive tract; I73.9 Peripheral vascular disease, unspecified; Z20.822 Contact with and (suspected) exposure to COVID-19
CPT/HCPCS: 85025; 85610; 86850; 86900; 86901; 87635; 88305

== ENCOUNTER → 2021-03-14 | Outpatient (CLI) | payer MEDICARE, OTHER ==
--- NOTE | 2021-03-15 03:57 | MR ---
EXAMINATION TYPE: MR lumbar spine wo con DATE OF EXAM: 03/14/2021 COMPARISON: 12/17/2014 HISTORY: Chronic LBP, LLE radiculopathy. Multiplanar multiecho imaging of the lumbar spine without contrast. Lumbar vertebra have normal alignment. There is degenerative disc space narrowing at L5-S1. There is developmentally adequate spinal canal. There is no lumbar spinal stenosis. Lumbar nerve roots appear fairly normal. Neural foramina appear widely patent. There is a small posterior disc bulge at L5-S1 w ithout impingement on the neural elements. There is posterior mild disc bulging at T11-12 and T12-L1 without spinal stenosis. The sacroiliac joints appear intact. IMPRESSION: There is some posterior disc bulging at T12-L1 and T11-12 which are essentially new compared to old e xam. No spinal stenosis. There is developmentally adequate spinal canal. No fracture.
== END | disposition home or self-care (01) ==
LOC: RADMRIMAIN 21:18
PROVIDERS: ATTEND Family Medicine
DX: M51.15 Intervertebral disc disorders with radiculopathy, thoracolumbar region (principal)
CPT/HCPCS: 72148

== ENCOUNTER → 2021-08-06 | Outpatient (CLI) | payer MEDICARE, OTHER ==
--- NOTE | 2021-08-06 08:56 | CT ---
EXAMINATION TYPE: CT abdomen pelvis wo con DATE OF EXAM: 08/06/2021 COMPARISON: 04/29/2020 HISTORY: generalized pain CT DLP: 911 mGycm Automated exposure control for dose reduction was used. TECHNIQUE: Helical acquisition of images was performed from the lung bases through the pelvis. FINDINGS: LUNG BASES: Mild emphysematous changes.. LIVER/GB: No significant abnormality is appreciated. PANCREAS: No significant abnormality is seen. SPLEEN: No significant abnormality is seen. ADRENALS: No significant abnormality is seen. KIDNEYS: No significant abnormality is seen. ADENOPATHY: None visualized. OSSEOUS STRUCTURES: Artifact from the patient's surgical change involving the left hip noted and the re is arthropathy of the right hip. Severe degenerative disc disease L5-S1. Osteonecrosis of the righ t femoral head suspected. BOWEL: No bowel gas pattern nonspecific. Anterior abdominal wall containing portions of the colon. T here is diverticulosis. Correlate for previous surgery involving the rectosigmoid junction.. OTHER: There is anterior abdominal wall hernia containing bowel. No definite obstruction. There is postsurgical changes suggestive of femoral to femoral bypass. No contrast was administered. Atherosclerotic changes are seen with evidence of a aortic and left common iliac stents similar posit ion to the prior exam. IMPRESSION: 1. Anterior abdominal wall hernia is similar to the prior exam containing portions of the transverse colon no diagnostic evidence of obstruction. 2. Extensive postsurgical changes. 3. Correlate for osteonecrosis in the right femoral head
== END | disposition home or self-care (01) ==
LOC: RADCTMAIN 06:47
PROVIDERS: ATTEND Family Medicine
DX: K43.9 Ventral hernia without obstruction or gangrene (principal)
CPT/HCPCS: 74176

== ENCOUNTER → 2021-10-11 | Outpatient (CLI) | payer MEDICARE, OTHER ==
--- NOTE | 2021-10-11 13:56 | MR ---
MRI CERVICAL SPINE: CLINICAL HISTORY: Neck pain TECHNIQUE: Multiplanar, multisequence imaging of the cervical spine is performed without IV contrast. COMPARISON: None. FINDINGS: Sagittal images of the cervical spine show the craniocervical junction to appear within nor mal limits. The cervical and upper thoracic spinal cord is normal in course, caliber, and signal. Al ignment is straightened. The vertebral body heights are normal. Mild to moderate disc space narrowi ng and anterior spurring C5-C6 and C6-C7 levels The bone marrow signal intensity is within normal hernandez its. Axial images at C2-C3 level shows left-sided uncovertebral facet degenerative change causing asymmetr ic mild left-sided neural foraminal narrowing. Axial images at C3-C4 level from uncovertebral facet degenerative changes causing mild to moderate le ft greater than right bilateral neural foraminal narrowing. Axial images at C4-C5 levels show focal broad-based right paracentral disc protrusion effacing anteri or thecal sac with some uncovertebral facet degenerative changes causing mild bilateral neural forami nal narrowing. This extends to the ventral surface of spinal cord on the right which is flattened. Axial images at C5-C6 levels with posterior spur disc complex effacing the anterior thecal sac and ca using mild right greater than left bilateral neural foraminal narrowing. Axial images at C6-C7 level show less prominent broad-based posterior disc protrusion mildly effacing the anterior thecal sac, there is mild to minimal asymmetric left-sided neural foraminal narrowing. Axial images at C7-T1 level appear within normal limits. IMPRESSION: Straightening of cervical spine with multilevel degenerative changes greatest at C4-C5 th rough C6-C7 levels as detailed above.
== END | disposition home or self-care (01) ==
LOC: RADMRIMAIN 13:02
PROVIDERS: ATTEND Family Medicine
DX: M47.812 Spondylosis without myelopathy or radiculopathy, cervical region (principal); M50.223 Other cervical disc displacement at C6-C7 level
CPT/HCPCS: 72141

== ENCOUNTER → 2022-04-30 | Outpatient (CLI) | payer MEDICARE, OTHER | END | disposition home or self-care (01) | LOC: LABPAT 12:26 | PROVIDERS: ATTEND Orthopaedic Surgery | DX: Z01.812 Encounter for preprocedural laboratory examination (principal); Z22.322 Carrier or suspected carrier of Methicillin resistant Staphylococcus aureus; M16.11 Unilateral primary osteoarthritis, right hip | CPT/HCPCS: 87070 ==

== ENCOUNTER 2022-05-05 06:15 | Observation (INO) | payer MEDICARE, OTHER ==
[2022-04-30 16:05] VITALS: BMI 31.4
--- NOTE | 2022-05-04 08:42 | P.HPOR ---
History of Present Illness H&P Date: 05/04/22 Chief Complaint: Right hip pain The patient is a 51-year-old male who presents with progressive right hip pain for the past year worsening recently. He has pain with any weightbearing activities. He also has night symptoms. He uses a walker. He feels like his hip does want to give out. Review of Systems As per HPI Past Medical History Past Medical History: COPD, Diabetes Mellitus, GERD/Reflux, Hyperlipidemia, Hypertension, Osteoarthritis (OA), Vascular Disorder Additional Past Medical History / Comment(s): hx. diverticulitis, bad circulation to legs, chronic back pain with known herniated disks, uses oxygen at 2-3L [place] as needed, seasonal allergies. History of Any Multi-Drug Resistant Organisms: None Reported Past Surgical History: Bowel Resection, Hernia Repair, Orthopedic Surgery Additional Past Surgical History / Comment(s): temp. colostomy then reversal, knee surg., thumb surg., femoral bypass Past Anesthesia/Blood Transfusion Reactions: No Reported Reaction Past Psychological History: ADD/ADHD, Anxiety, Depression Smoking Status: Former smoker Past Alcohol Use History: None Reported Past Drug Use History: None Reported - Past Family History Mother Family Medical History: Cancer Father Family Medical History: Osteoarthritis (OA), Respiratory Disorder Medications and Allergies Home Medications Medication Instructions Recorded Confirmed Type Methylphenidate HCl 20 mg PO BID@0900,1300 11/22/19 10/18/20 History Albuterol Inhaler [Ventolin Hfa 2 puff INHALATION RT-Q4H PRN 01/03/20 10/18/20 History Inhaler] Atorvastatin Calcium [Lipitor] 40 mg PO HS 03/13/20 10/18/20 History Cholecalciferol [Vitamin D3 (25 5,000 unit PO DAILY 03/13/20 10/18/20 History Mcg = 1000 Iu)] Clopidogrel Bisulfate [Plavix] 75 mg PO DAILY 03/13/20 10/18/20 History Gabapentin 300 mg PO BID 03/13/20 10/18/20 History Loratadine [Claritin] 10 mg PO DAILY PRN 03/13/20 10/18/20 History Ziprasidone [Geodon] 20 mg PO HS 03/13/20 10/18/20 History metFORMIN HCL 500 mg PO DAILY 03/13/20 10/18/20 History Cyclobenzaprine [Flexeril] 10 mg PO BID PRN #30 tab 03/15/20 10/18/20 Rx HYDROcodone/APAP 7.5-325MG [[place] 1 tab PO BID PRN 04/24/20 10/18/20 History 7.5-325] Aspirin 81 mg PO DAILY 04/29/20 10/18/20 History Metoprolol Tartrate [Lopressor] 12.5 mg PO QAM 04/29/20 10/18/20 History Simvastatin [Zocor] 40 mg PO HS 04/29/20 10/18/20 History lisinopriL [Zestril] 10 mg PO QAM 04/29/20 10/18/20 History rOPINIRole HCL [Requip] 0.5 mg PO HS 04/29/20 10/18/20 History Triamcinolone 0.1% Lotion [Kenalog 1 applic TOPICAL BID 10/07/20 10/18/20 History 0.1% Lotion] Clobetasol Propionate [Temovate 1 applic TOPICAL BID 10/16/20 10/18/20 History 0.05% Cream] Allergies Allergy/AdvReac Type Severity Reaction Status Date / Time benztropine mesylate AdvReac muscle Verified 04/30/22 15:38 [From Cogentin] spasms morphine AdvReac Nausea & Verified 04/30/22 15:38 Vomiting Physical Examination - Hip right Gait: antalgic Tenderness with palpation: anterior Pain with motion: internal rotation and hip flexion ROM: flexion: 80 degrees ROM: internal rotation: 0 degrees (With pain) ROM: external rotation: 50 degrees Crepitus with motion: Yes Strength: extension: 5/5 Strength: abduction: 5/5 Results The patient is a well-developed well-nourished male proximally 5 foot 6, 185 pounds of mesomorphic habitus. HEENT exam is nonfocal, neck supple. He is nontender but the lumbar spine. He has minimal shortening of the right lower extremity. His distal neurovascular appears intact in the right lower extremity. - Diagnostic results Hip x-ray: image reviewed (2 views of the right hip obtained in the office show stage IV avascular necrosis of right femoral head with collapse.) Assessment and Plan Assessment: Right hip stage IV avascular necrosis Peripheral vascular disease Plan: I talked with the patient with regarding his condition along with treatment options. At this point is quite symptomatic and limited because of pain related to his right hip. After thorough discussion of proceed with surgical procedure right total hip arthroplasty utilizing a lateral approach. Risks and benefits were discussed at length in layman's terms.
[~2022-05-05 06:15] MED LIST changes: +ACETAMINOPHEN TAB 500 MG TAB PO PRN; -DEXAMETHASONE SOD PHOSPHATE 4 MG/ML 1 ML VIAL IV ONE; -HYDROmorphone 0.5 MG/0.5 ML SYRINGE IVP PRN; -LIDOCAINE 1% (10MG/ML) FOR IV START INTRADERMA PRN; +MELOXICAM 7.5 MG TAB PO PRN; -MIDAZOLAM 2 MG/2 ML VIAL IV PRN; -ONDANSETRON 4 MG/2 ML VIAL IVP ONE; +TRANEXAMIC ACID IN NACL,ISO-OS 1,000 MG in SALINE 1 100ML.BAG IVPB PRN
[2022-05-05] MEDS ORDERED: fentaNYL (PF) 50 MCG/ML 2 ML AMP IV PRN (06:17)
[2022-05-05] MEDS ORDERED: DEXAMETHASONE SOD PHOSPHATE 4 MG/ML 1 ML VIAL IV ONE (06:17)
[2022-05-05] MEDS ORDERED: ONDANSETRON 4 MG/2 ML VIAL IVP ONE (06:17)
[2022-05-05 07:10] LABS: Glucose,Whole Blood 119 mg/dL (70-110)
[2022-05-05] MEDS ORDERED: LACTATED RINGERS 1,000 ML IV ONE ×2 (07:20→09:20)
[2022-05-05] MEDS ORDERED: fentaNYL (PF) 50 MCG/1 ML VIAL IVP ONE (07:25)
[2022-05-05] MEDS ORDERED: MIDAZOLAM 2 MG/2 ML VIAL IVP ONE (07:25)
[2022-05-05] MEDS ORDERED: PROPOFOL 10 MG/ML 20 ML VIAL IV ONE (07:41)
[2022-05-05] MEDS ORDERED: ePHEDrine 50 MG/ML 1 ML VIAL ONE (07:41)
[2022-05-05] MEDS ORDERED: TRANEXAMIC ACID IN NACL,ISO-OS 1,000 MG/100 ML BAG ONE (07:41)
[2022-05-05] MEDS ORDERED: MIDAZOLAM 2 MG/2 ML VIAL ONE (07:41)
[2022-05-05] MEDS ORDERED: fentaNYL (PF) 50 MCG/ML 2 ML AMP ONE (07:41)
[2022-05-05] MEDS ORDERED: ROPIVACAINE 5 MG/ML 30 ML VIAL ONE (07:41)
[2022-05-05] MEDS ORDERED: ceFAZolin 3,000 MG in SODIUM CHLORIDE 0.9% IRRIGATIO 3,000 ML IRRIGATION ONE (08:30)
[2022-05-05] MEDS ORDERED: NALOXONE 0.4 MG/ML 1 ML VIAL IV PRN (09:25)
[2022-05-05] MEDS ORDERED: HYDROcodone/APAP 5-325MG 1 EACH TAB PO PRN (09:25)
--- NOTE | 2022-05-05 09:42 | P.OP ---
Date of Procedure: 05/05/22 Preoperative Diagnosis: Stage IV avascular necrosis right hip Postoperative Diagnosis: Same Procedure(s) Performed: Right total hip arthroplastylateral approachpress-fit Implants: Depuy [place] size 15 standard collared press-fit femoral stem, 36+5 cobalt chrome femoral head, 56 mm [place] acetabular shell with neutral polyethylene liner. Anesthesia: regional, spinal Surgeon: Diogo Cleveland Box Order Person #1: Tuan Nickerson Estimated Blood Loss (ml): 200 Pathology: other (Femoral head) Condition: stable Disposition: PACU Indications for Procedure: The patient is a 51-year-old male presents with progressive right hip pain secondary to progressive avascular necrosis. A discussion of the risks and benefits of operative intervention was made with patient. He opted to proceed. Operative risks to include infection, neurovascular injury, fracture, development of blood clots, leg length discrepancy, instability, component loosening/failure and need for subsequent procedures was discussed. Informed consent was obtained. Operative Findings: As below. Description of Procedure: The patient was brought to the operating room, and after induction of spinal anesthesia was placed in a lateral decubitus position. The bony prominences were appropriately padded. The pelvis was stable perpendicular to the floor with a pegboard. The right lower extremity was prepped and draped in normal fashion. A 12 cm incision was then made centered over the greater trochanter extending superiorly to level the ASIS and distally in line with the femoral shaft. The skin and subcutaneous tissues were divided sharply. Electrocautery was used for hemostasis. The fascia jonny and gluteus balwinder fascia was split in line with the skin incision. The muscle fibers were bluntly dissected proximally. A self-retaining retractor was placed. The anterior and posterior margins of the gluteus medius muscles identified and the anterior two thirds was detached from the greater trochanter with electrocautery. The gluteus minimus tendon was identified and detached in a similar fashion. A wide capsulotomy was performed. The femoral neck fracture was identified in the lower neck cut was made approximately 1 cm above the level of the lesser trochanter with a sagittal saw at a 45 the shaft. The head was then extracted with a corkscrew. Attention was then paid towards preparing the acetabular. Anterior and posterior retractors were placed. The remaining capsular labral tissues debrided sharply clearly defining the acetabular margins. I began reaming with a 49 mm reamer taking care to initially medialize, then reaming at 45 of abduction and 20 of anteversion. Sequential reaming is performed up to 55 mm. This was down to bleeding bony surface. A trial 56 mm acetabular shell was inserted at 45 of abduction and 20 of anteversion. This was fully seated. There was good rim fit and stability. A neutral polyethylene liner was then impacted. Care taken to avoid any soft tissue interposition. Attention was then paid towards preparing the proximal femur. A box chisel was used to open the metaphyseal region. A canal finder was used to find the femoral canal. Sequential broaching was performed up to a size 15. This was placed in 15 of anteversion with the leg perpendicular floor judging off the trans-epicondylar axis. There is good rotational stability. A calcar mill was used to fashion the medial calcar. A trial standard neck along with a 36 mm +5 trial head was placed. The hip was gently reduced. It was taken through range of motion. It was felt to be stable in flexion and extension with internal and external rotation. I felt there was adequate jehovah's witness of soft tissue tension. The hip was gently dislocated. The trial components removed. Pulsatile lavage was utilized. The final size 15 standard collared femoral stem was inserted again with the leg perpendicular to the floor in 15 of anteversion. Again there was good rotational stability. A 36 mm + 5 cobalt chrome femoral head was gently impacted. The hip was gently reduced. Again it was taken through motion and felt to be stable in flexion and extension with internal and external rotation. Pulsatile lavage was again utilized. With the leg in abduction the gluteus minimus and medius tendons reattached to the greater trochanter with #2 Ethibond suture. There was minimal drainage therefore a deep drain was not placed. The fascia jonny and gluteus balwinder fascia was closed with #2 Ethibond suture. The subcutaneous tissues were reapproximated interrupted 2-0 Vicryl sutures. The skin was reapproximated with 3-0 subcuticular strata fix suture. Skin tape and adhesive was applied. A sterile dressing was applied. The patient was awoken from sedation and transferred to recovery room in good condition. Blood loss was estimated 200 mL. No complications were incurred. Sponge and needle counts were correct in the case. Tuan AGUILAR assisted during the major composes case to include exposure, implantation, and closure.
[2022-05-05 10:00] LABS: Glucose,Whole Blood 127 mg/dL (70-110)
--- NOTE | 2022-05-05 10:14 | XR ---
EXAMINATION TYPE: XR Hip Limited RT DATE OF EXAM: 05/05/2022 CLINICAL HISTORY: Postoperative evaluation TECHNIQUE: Single portable view of the right hip was submitted. FINDINGS: Noted are changes of total hip arthroplasty with femoral and acetabular components appearin g well seated. Alignment is anatomic. Postsurgical soft tissue changes are evident. IMPRESSION: Satisfactory postoperative alignment
--- NOTE | 2022-05-05 10:45 | P.ANPRN ---
Procedure Note - Anesthesia - Nerve Block Performed Right Erector Spinae Single Time Out Performed: Yes ([id number]) Date of Procedure: 05/05/22 Procedure Start Time: : Procedure Stop Time: : Location of Patient: PreOp Indication: Acute Post-Operative Pain, Requested by Surgeon Specifically requested for management of pain by : Diogo Cleveland Sedation Type: Sedate with meaningful contact maintained Preparation: Sterile Prep Position: Sitting Catheter: None Needle Types: Pajunk Needle Gauge: 21 Ultrasound used to visualize needle placement: Yes Ultrasound used to observe medication spread: Yes Injectate: 0.5% Ropivacaine (see comment for volume) (30cc) Blood Aspirated: No Pain Paresthesia on Injection Noted: No Resistance on Injection: Normal Image Stored and Saved: Yes Events: Uneventful and Well Tolerated
[2022-05-05] MEDS: HYDROmorphone 0.5 MG/0.5 ML SYRINGE IVP PRN ×2 (11:47→12:11)
[2022-05-05] MEDS: HYDROmorphone 1 MG/ML 1 ML SYRINGE IVP PRN ×3 (14:33→23:17)
[2022-05-05] MEDS: LACTATED RINGERS 1,000 ML IV SCH (14:57)
[2022-05-05] MEDS: HYDROcodone/APAP 7.5-325MG 1 EACH TAB PO PRN (16:14)
[2022-05-05 16:54] LABS: Glucose,Whole Blood 306 mg/dL (70-110)
[2022-05-05] MEDS ORDERED: DEXTROSE 50% SYRINGE 50 ML IVP PRN ×2 (17:04)
[2022-05-05] MEDS: INSULIN ASPART (NovoLOG) 100 UNIT/ML VIAL SQ SCH ×2 (17:20→21:18)
[2022-05-05 20:55] LABS: Glucose,Whole Blood 249 mg/dL (70-110)
[2022-05-05] MEDS ORDERED: SENNOSIDES-DOCUSATE SODIUM 1 EACH TAB PO SCH (21:00)
[2022-05-05] MEDS: GABAPENTIN 300 MG CAP PO SCH (21:18)
[2022-05-06] MEDS: HYDROmorphone 1 MG/ML 1 ML SYRINGE IVP PRN ×2 (02:24→05:02)
[2022-05-06 06:04] LABS: Glucose,Whole Blood 161 mg/dL (70-110)
[2022-05-06] MEDS: INSULIN ASPART (NovoLOG) 100 UNIT/ML VIAL SQ SCH ×2 (07:00→12:15)
[2022-05-06] MEDS: LACTATED RINGERS 1,000 ML IV SCH (07:00)
[2022-05-06] MEDS: HYDROcodone/APAP 7.5-325MG 1 EACH TAB PO PRN ×2 (08:28→13:56)
[2022-05-06] MEDS: METHYLPHENIDATE HCL 10 MG TAB PO SCH ×2 (08:28→13:56)
[2022-05-06] MEDS: GABAPENTIN 300 MG CAP PO SCH (08:28)
[2022-05-06 08:49] LABS: HCT 42.7 % (39.6-50.0); HGB 13.9 g/dL (13.0-17.0); MCH 31.8 pg (27.0-32.0); MCHC 32.6 g/dL (32.0-37.0); MCV 97.7 fL (80.0-97.0); Mean Platelet Volume 9.9 fL (9.5-12.2); NRBC Per 100 WBC 0 /100 WBCS (0.0-0.0); Platelet Count 319 X 10*3/uL (140-440); RBC 4.37 X 10*6/uL (4.40-5.60); RDW 13.1 % (11.5-14.5); WBC 17.87 X 10*3/uL (4.50-10.00)
[2022-05-06] MEDS ORDERED: ASPIRIN 81 MG PO SCH (09:00)
[2022-05-06] MEDS ORDERED: RIVAROXABAN 10 MG TAB PO SCH (09:00)
[2022-05-06] MEDS ORDERED: CLOPIDOGREL 75 MG TAB PO SCH (09:00)
[2022-05-06] MEDS ORDERED: PANTOPRAZOLE 40 MG/10 ML VIAL IVP SCH (10:15)
[2022-05-06] MEDS ORDERED: hydrOXYzine pamoate 25 MG CAP PO PRN (10:34)
--- NOTE | 2022-05-06 10:34 | P.PN ---
Subjective Progress Note Date: 05/06/22 Principal diagnosis: Right hip osteoarthritis Patient stable at bedside this morning. Patient says he has been up using walker since surgery yesterday. Patient says he does have a history of peripheral artery disease for which she says it is difficult to ambulate for long periods of time. Patient says he does have a walker for home. Patient says he does have a nephew and at home. Patient is wondering if he can have hospital bed and wheelchair for home. Patient says he is having some right hip pain at this time, however, medication does help control the pain a bit. Patient says he has urinated since surgery yesterday. Patient says he has not had a bowel movement yet, however, patient says he has been passing gas. Patient denies chest pain, fever, shortness breath, nausea, vomiting, change in vision, loss of bowel/bladder control. Objective - Vital Signs Vital signs: Vital Signs Temp 98.3 F 05/06/22 07:10 Pulse 75 05/06/22 07:10 Resp 17 05/06/22 07:10 BP 119/70 05/06/22 07:10 Pulse Ox 98 05/06/22 07:10 FiO2 Intake & Output 05/05/22 05/06/22 05/06/22 18:59 06:59 18:59 Intake Total 1259 Output Total 200 Balance 1059 Weight 81.4 kg Intake: IV 1259 Output: Estimated Blood Loss 200 Other: Voiding Method Toilet Urinal # Voids 3 3 - Exam Right hip: Incision is clean, dry, and intact. The exofin fusion tape is in good condition. There is minimal soft tissue swelling and ecchymosis surrounding the medial and lateral aspects of the incision. Calf is soft, no tenderness with palpation. Plantar flexion, dorsiflexion, EHL, FHL are intact. Sensory exam to light touch throughout the extremity is intact, dorsal pedis pulses 2+. - Labs CBC & Chem 7: 05/06/22 06:28 Labs: Abnormal Lab Results - Last 24 Hours (Table) 05/05/22 05/05/22 05/05/22 Range/Units 09:58 16:52 20:54 WBC (4.50-10.00) X 10*3/uL RBC (4.40-5.60) X 10*6/uL MCV (80.0-97.0) fL POC Glucose (mg/dL) 127 H 306 H 249 H (70-110) mg/dL 05/06/22 05/06/22 Range/Units 06:02 06:28 WBC 17.87 H (4.50-10.00) X 10*3/uL RBC 4.37 L (4.40-5.60) X 10*6/uL MCV 97.7 H (80.0-97.0) fL POC Glucose (mg/dL) 161 H (70-110) mg/dL Assessment and Plan Assessment: 1. Right hip osteoarthritis - Postop day 1 status post right total hip arthroplasty Plan: 1. Right hip osteoarthritis - right total hip arthroplasty performed yesterday, 05/05/2022. Patient was about to work with physical therapy this morning. Patient does have a walker for home. Patient is in moderate amount of pain. Medication will be adjusted. Plan for discharge home with health services tomorrow, , 05/07/2022 2. Appreciate medical management 3. Pain management - [place]; gabapentin; adding vistaril 4. DVT prophylaxis - Plavix; aspirin 5. GI prophylaxis - senna 6. PT/OT - weightbearing as tolerated with walker 7. Encourage incentive spirometer use 8. Discharge planning - plan for discharge home with health services tomorrow, , 05/07/2022 Time with Patient: Less than 30
[2022-05-06 11:37] LABS: Basophils # (A) 0.03 X 10*3/uL (0.00-0.10); Basophils % (A) 0.2 %; Eosinophils # (A) 0.03 X 10*3/uL (0.04-0.35); Eosinophils % (A) 0.2 %; Immature Grans, Automated 0.4 %; Lymphocytes # (A) 2.02 X 10*3/uL (0.90-5.00); Lymphocytes % (A) 11.3 %; Monocytes # (A) 2.48 X 10*3/uL (0.20-1.00); Monocytes % (A) 13.9 %; Neutrophils # (A) 13.23 X 10*3/uL (1.80-7.70)
[2022-05-06 11:38] LABS: RBC Morphology NORMAL
[2022-05-06 11:56] LABS: Glucose,Whole Blood 153 mg/dL (70-110)
[2022-05-06] MEDS ORDERED: ALBUTEROL NEBULIZED 2.5 MG/3 ML INHALATION PRN (14:09)
[2022-05-06 14:12] VITALS: BP 120/72; PULSE 81; RESP 16; TEMP 99.4
[2022-05-06] MEDS ORDERED: LORATADINE 10 MG TAB PO PRN (14:12)
--- NOTE | 2022-05-06 14:20 | P.CONS ---
History of Present Illness - Reason for Consult Consult date: 05/06/22 Medical management hypertension, diabetes mellitus Requesting physician: Diogo Cleveland - Chief Complaint Right hip osteoarthritis, status post right total hip arthroplasty - History of Present Illness This 51-year-old gentleman with past medical history of Peripheral vascular disease, bilateral iliac artery occlusion, fem-fem bypass, diabetes mellitus2 and multiple other medical issues admitted with Right hip osteoarthritis status post right total hip arthroplasty. Tolerated procedure well. Pain controlled. Tolerating diet intake with no nausea vomiting or diarrhea. Denies abdominal pain. Passing flatus. Denies chest pain, palpitations or shortness of breath. Review of Systems Constitutional: Denied any fatigue denied any fever. Cardio vascular: denied any chest pain, palpitations Gastrointestinal denied any nausea vomiting Pulmonary: Denied any shortness of breath cough Neurologic denied any new focal deficits ROS Statement: Those systems with pertinent positive or pertinent negative responses have been documented in the HPI. ROS Other: All systems not noted in ROS Statement are negative. Past Medical History Past Medical History: COPD, Diabetes Mellitus, GERD/Reflux, Hyperlipidemia, Hypertension, Osteoarthritis (OA), Vascular Disorder Additional Past Medical History / Comment(s): hx. diverticulitis, bad circulation to legs, chronic back pain with known herniated disks, uses oxygen at 2-3L NC as needed, seasonal allergies. History of Any Multi-Drug Resistant Organisms: None Reported Past Surgical History: Bowel Resection, Hernia Repair, Orthopedic Surgery Additional Past Surgical History / Comment(s): temp. colostomy then reversal, knee surg., thumb surg., femoral bypass Past Anesthesia/Blood Transfusion Reactions: No Reported Reaction Past Psychological History: ADD/ADHD, Anxiety, Depression Additional Psychological History / Comment(s): States is very worried about his circulation in his legs. States absolutely does not want any amputation ever. Smoking Status: Former smoker Past Alcohol Use History: None Reported Additional Past Alcohol Use History / Comment(s): hasn't smoked in 2 months, has smoked for 20 yrs., down to half a pack ppd, used to be 1-2 ppd, quit drinking 10 years ago. Past Drug Use History: None Reported Additional Drug Use History / Comment(s): occasional use - Past Family History Mother Family Medical History: Cancer Father Family Medical History: Osteoarthritis (OA), Respiratory Disorder Medications and Allergies Home Medications Medication Instructions Recorded Confirmed Type Methylphenidate HCl 20 mg PO BID@0900,1300 11/22/19 05/05/22 History Albuterol Inhaler [Ventolin Hfa 2 puff INHALATION RT-Q4H PRN 01/03/20 05/05/22 History Inhaler] Atorvastatin Calcium [Lipitor] 40 mg PO HS 03/13/20 05/05/22 History Cholecalciferol [Vitamin D3 (25 5,000 unit PO DAILY 03/13/20 05/05/22 History Mcg = 1000 Iu)] Clopidogrel Bisulfate [Plavix] 75 mg PO DAILY 03/13/20 05/05/22 History Gabapentin 300 mg PO BID 03/13/20 05/05/22 History Loratadine [Claritin] 10 mg PO DAILY PRN 03/13/20 05/05/22 History Ziprasidone [Geodon] 20 mg PO HS 03/13/20 05/05/22 History metFORMIN HCL 500 mg PO DAILY 03/13/20 05/05/22 History Cyclobenzaprine [Flexeril] 10 mg PO BID PRN #30 tab 03/15/20 05/05/22 Rx HYDROcodone/APAP 7.5-325MG [Onley 1 tab PO BID PRN 04/24/20 05/05/22 History 7.5-325] Aspirin 81 mg PO DAILY 04/29/20 05/05/22 History Metoprolol Tartrate [Lopressor] 12.5 mg PO QAM 04/29/20 05/05/22 History Simvastatin [Zocor] 40 mg PO HS 04/29/20 05/05/22 History lisinopriL [Zestril] 10 mg PO QAM 04/29/20 05/05/22 History rOPINIRole HCL [Requip] 0.5 mg PO HS 04/29/20 05/05/22 History Triamcinolone 0.1% Lotion [Kenalog 1 applic TOPICAL BID 10/07/20 05/05/22 History 0.1% Lotion] Clobetasol Propionate [Temovate 1 applic TOPICAL BID 10/16/20 05/05/22 History 0.05% Cream] Allergies Allergy/AdvReac Type Severity Reaction Status Date / Time benztropine mesylate AdvReac muscle Verified 05/05/22 06:41 [From Cogentin] spasms morphine AdvReac Nausea & Verified 05/05/22 06:41 Vomiting Physical Exam Vitals: Vital Signs Temp Pulse Resp BP Pulse Ox 05/06/22 07:10 98.3 F 75 17 119/70 98 05/06/22 02:00 98.6 F 92 16 111/61 97 05/05/22 20:00 97.6 F 90 16 111/63 99 05/05/22 14:00 97.5 F L 88 16 107/59 96 Intake and Output 05/05/22 05/06/22 05/06/22 22:59 06:59 14:59 Other: Voiding Method Toilet Urinal # Voids 3 3 General: well nourished, well developed, NAD. Vitals reviewed Eyes: PERRL, EOMI, conjunctiva normal HENT: normocephalic, mucus membranes moist Neck: supple, no JVD Lungs: normal respiratory effort, no wheezes or rales CV: Regular rate and rhythm, no murmur. No edema Abdomen: soft, nondistended, no organomegaly EXTR: Right lower extremity with mild ecchymosis, dressing clean dry and intact, no edema, no calf tenderness Skin: warm and dry, no rashes noted. Neuro: A&Ox3, normal mood and affect Results CBC & Chem 7: 05/06/22 06:28 Labs: Abnormal Lab Results - Last 24 Hours (Table) 05/05/22 05/05/22 05/06/22 Range/Units 16:52 20:54 06:02 WBC (4.50-10.00) X 10*3/uL RBC (4.40-5.60) X 10*6/uL MCV (80.0-97.0) fL Immature Gran # (0.00-0.04) X 10*3/uL Neutrophils # (1.80-7.70) X 10*3/uL Monocytes # (0.20-1.00) X 10*3/uL Eosinophils # (0.04-0.35) X 10*3/uL POC Glucose (mg/dL) 306 H 249 H 161 H (70-110) mg/dL 05/06/22 05/06/22 Range/Units 06:28 11:54 WBC 17.87 H (4.50-10.00) X 10*3/uL RBC 4.37 L (4.40-5.60) X 10*6/uL MCV 97.7 H (80.0-97.0) fL Immature Gran # 0.08 H (0.00-0.04) X 10*3/uL Neutrophils # 13.23 H (1.80-7.70) X 10*3/uL Monocytes # 2.48 H (0.20-1.00) X 10*3/uL Eosinophils # 0.03 L (0.04-0.35) X 10*3/uL POC Glucose (mg/dL) 153 H (70-110) mg/dL Assessment and Plan Assessment: Right hip osteoarthritis, status post right total hip arthroplasty History of Peripheral vascular disease, bilateral iliac artery occlusion, fem- fem bypass Diabetes mellitus type 2 Hypertension Hyperlipidemia Chronic back pain COPD, chronic hypoxic respiratory failure, uses 2-3 L O2 nasal cannula prn History of nicotine dependence, quit 2 months ago Anxiety, depression ADD Plan: Continue on current medication regime ,monitoring and symptomatic treatment. Pain management, DVT prophylaxis as per orthopedic surgery. Discharge planning in progress for tomorrow as per primary. Home meds have been reviewed and resumed accordingly. Thank you for the consult. Follow-up with PCP in one week. The impression and plan of care has been dictated as directed. : I performed a history and examination of this patient, discussed the same with the dictator. I agree with the dictator's note ,documented as a scribe. Any additional findings or plans will be noted.
[2022-05-06] MEDS ORDERED: METOPROLOL TARTRATE 12.5 MG TAB PO SCH (14:30)
--- NOTE | 2022-05-06 15:10 | P.DS ---
Providers Date of admission: 05/06/22 08:26 Expected date of discharge: 05/06/22 Attending physician: Diogo Cleveland Consults: 05/05/22 09:28 Consult Physician Routine Consulting Provider: Benji Hand Consult Reason/Comments: Medical Management s/p right total hip arthroplasty Do you want consulting provider notified?: Yes Primary care physician: Benji Hand MD Hospital Course: Date of admission: 05/05/2022 Date of discharge: 05/06/2022 Admission diagnosis: Right hip osteoarthritis Discharge diagnosis: Same Attending physician: Dr. Cleveland Surgical procedures: Right total hip arthroplasty Brief history: Patient is a 51-year-old male with a history of right hip osteoarthritis. At this point patient has failed conservative treatment measures and has opted to proceed with a elective right total hip arthroplasty. Hospital course: Details of patient's surgery can be found in operative report. Patient tolerated the procedure well and was subsequently transported to orthopedic floor. Patient's orthopeidc and medical care was provided daily. Patient had daily laboratory tests performed for evaluation of overall blood counts. Patient had daily physical therapy to include strengthening range of motion as well as education with walker ambulation. Patient was treated with Plavix and aspirin for their postoperative DVT prophylaxis during their inpati ent stay. Patient was noted to have a relatively uneventful postoperative course. Patient reported satisfactory pain control with oral pain medications by postoperative day 1. Patient showed satisfactory progress with physical therapy. Patient moved steadily through the program and had no difficulty meeting the goals by postoperative day 1. Given patient's otherwise satisfactory course and having met physical therapy goals, plan is to discharge patient home with health services on postoperative day 1. Discharge condition/disposition: Patient will be discharged home with health services in stable condition. Discharge medications: Instructions are given on resumption of patient's normal daily medications per primary care recommendation, in addition patient will be prescribed Magnolia; gabapentin; Colace. Resume aspirin and Plavix at home tomorrow for DVT prophylaxis. Discharge instructions: 1. Wound care and infection precautions, keep incision dry and covered while showering, no lotions, creams, moisturizers. No soaking, tubs, pools, hottubs. Do not scrub over the incision. 2. Weight-bear as tolerated with walker / cane until follow-up. 3. Ice and elevate when necessary. Do not exceed 20 minutes per hour with ice pack. 4. Utilize compression sleeve until seen at first follow up appointment. 5. Visiting nursing care. 6. Home physical therapy 7. Pain meds and anticoagulants per prescription. 8. Pain medication has potential to cause constipation. Increase oral fluid and fiber intake. Contact primary care provider if you have not had a bowel movement within 48 hours after discharge 9. No anti-inflammatory medication until discussed at first post operative visit, this including Motrin, Aleve, Mobic, Diclofenac. 10. Follow up in office at 2 weeks postop with Vargas Chung PA-C / Tuan Nickerson PA-C 11. Follow up with your primary care doctor 7-10 days after discharge. 12. Contact [facility] with any questions, . Assessment: Right hip osteoarthritis Procedures: Right total hip arthroplasty Patient Condition at Discharge: Good Plan - Discharge Summary Discharge Rx Participant: Yes New Discharge Prescriptions: New Docusate [Colace] 100 mg PO DAILY #30 capsule Gabapentin [Neurontin] 300 mg PO BID #24 cap HYDROcodone/APAP 7.5-325MG [Magnolia 7.5] 1 - 2 each PO Q6HR PRN #32 tab PRN Reason: Pain No Action Methylphenidate HCl 20 mg PO BID@0900,1300 Albuterol Inhaler [Ventolin Hfa Inhaler] 2 puff INHALATION RT-Q4H PRN PRN Reason: Shortness Of Breath metFORMIN HCL 500 mg PO DAILY Ziprasidone [Geodon] 20 mg PO HS Loratadine [Claritin] 10 mg PO DAILY PRN PRN Reason: allergies Gabapentin 300 mg PO BID Clopidogrel Bisulfate [Plavix] 75 mg PO DAILY Cholecalciferol [Vitamin D3 (25 Mcg = 1000 Iu)] 5,000 unit PO DAILY Atorvastatin Calcium [Lipitor] 40 mg PO HS Cyclobenzaprine [Flexeril] 10 mg PO BID PRN #30 tab PRN Reason: Pain HYDROcodone/APAP 7.5-325MG [Magnolia 7.5-325] 1 tab PO BID PRN PRN Reason: Pain Aspirin 81 mg PO DAILY lisinopriL [Zestril] 10 mg PO QAM Metoprolol Tartrate [Lopressor] 12.5 mg PO QAM rOPINIRole HCL [Requip] 0.5 mg PO HS Simvastatin [Zocor] 40 mg PO HS Triamcinolone 0.1% Lotion [Kenalog 0.1% Lotion] 1 applic TOPICAL BID Clobetasol Propionate [Temovate 0.05% Cream] 1 applic TOPICAL BID Discharge Medication List Methylphenidate HCl 20 mg PO BID@0900,1300 11/22/19 [History] Albuterol Inhaler [Ventolin Hfa Inhaler] 2 puff INHALATION RT-Q4H PRN 01/03/20 [History] Atorvastatin Calcium [Lipitor] 40 mg PO HS 03/13/20 [History] Cholecalciferol [Vitamin D3 (25 Mcg = 1000 Iu)] 5,000 unit PO DAILY 03/13/20 [History] Clopidogrel Bisulfate [Plavix] 75 mg PO DAILY 03/13/20 [History] Gabapentin 300 mg PO BID 03/13/20 [History] Loratadine [Claritin] 10 mg PO DAILY PRN 03/13/20 [History] Ziprasidone [Geodon] 20 mg PO HS 03/13/20 [History] metFORMIN HCL 500 mg PO DAILY 03/13/20 [History] Cyclobenzaprine [Flexeril] 10 mg PO BID PRN #30 tab 03/15/20 [Rx] HYDROcodone/APAP 7.5-325MG [Magnolia 7.5-325] 1 tab PO BID PRN 04/24/20 [History] Aspirin 81 mg PO DAILY 04/29/20 [History] Metoprolol Tartrate [Lopressor] 12.5 mg PO QAM 04/29/20 [History] Simvastatin [Zocor] 40 mg PO HS 04/29/20 [History] lisinopriL [Zestril] 10 mg PO QAM 04/29/20 [History] rOPINIRole HCL [Requip] 0.5 mg PO HS 04/29/20 [History] Triamcinolone 0.1% Lotion [Kenalog 0.1% Lotion] 1 applic TOPICAL BID 10/07/20 [History] Clobetasol Propionate [Temovate 0.05% Cream] 1 applic TOPICAL BID 10/16/20 [History] Docusate [Colace] 100 mg PO DAILY #30 capsule 05/06/22 [Rx] Gabapentin [Neurontin] 300 mg PO BID #24 cap 05/06/22 [Rx] HYDROcodone/APAP 7.5-325MG [Magnolia 7.5] 1 - 2 each PO Q6HR PRN #32 tab 05/06/22 [Rx] Follow up Appointment(s)/Referral(s): Tuan Nickerson PAC [PHYSICIAN [employer] APPLICATOR] - 05/21/22 10:00 am Benji Hand MD [Primary Care Provider] - 1 Week [facility] [NON-STAFF] - As Needed (hospital bed) [facility] Visiting Nurse, [NON-STAFF] - As Needed Patient Instructions/Handouts: Total Hip Replacement (DC) Activity/Diet/Wound Care/Special Instructions: Orthopedic Discharge Instructions: 1. Wound care and infection precautions, keep incision dry and covered while showering, no lotions, creams, moisturizers. No soaking, pools, hot tubs. Do not scrub over incision. 2. Weight-bear as tolerated with walker / cane until follow-up. 3. Ice and elevate when necessary. Do not exceed 20 minutes per hour with ice pack. 4. Utilize compression sleeve until seen at first follow up appointment. 5. Pain meds and anticoagulants per prescription. 6. Pain medication has potential to cause constipation. Increase oral fluid and fiber intake. Contact primary care provider if you have not had a bowel movement within 48 hours after discharge. 7. No anti-inflammatory medication until discussed at first post operative visit, this including Motrin, Aleve, Mobic, Diclofenac 8. Follow up in office at 2 weeks postop with Vargas Chung PA-C / Tuan Nickerson PA-C 9. Follow up with your primary care doctor 7-10 days after discharge. 10. Contact [facility] with any questions, . Keep incision clean, dry, intact. While showering, cover fusion tape with Saran wrap. Keep fusion tape on until follow-up appointment in office in 2 weeks. Discharge Disposition: HOME WITH HOME HEALTH SERVICES
== END 2022-05-06 16:24 | disposition home health service (06) ==
LOC: OR 06:15 → 4SSUR 09:30 → OR 05-06 08:26
PROVIDERS: ADMIT Orthopaedic Surgery; ATTEND Orthopaedic Surgery
DX: M87.851 Other osteonecrosis, right femur (principal); M16.11 Unilateral primary osteoarthritis, right hip; G89.18 Other acute postprocedural pain; J44.9 Chronic obstructive pulmonary disease, unspecified; E78.5 Hyperlipidemia, unspecified; K21.9 Gastro-esophageal reflux disease without esophagitis; M54.9 Dorsalgia, unspecified; G89.29 Other chronic pain; I10 Essential (primary) hypertension; F32.A Depression, unspecified; F41.9 Anxiety disorder, unspecified; F90.9 Attention-deficit hyperactivity disorder, unspecified type; J96.11 Chronic respiratory failure with hypoxia; Z99.81 Dependence on supplemental oxygen; Z87.891 Personal history of nicotine dependence; Z79.899 Other long term (current) drug therapy; Z79.02 Long term (current) use of antithrombotics/antiplatelets; Z79.84 Long term (current) use of oral hypoglycemic drugs; Z79.82 Long term (current) use of aspirin; Z88.5 Allergy status to narcotic agent; Z82.61 Family history of arthritis
CPT/HCPCS: 97161; 97166; 64461; 86900; 86901; 88305; 85025; 86850; 88311; 83036; 73501; 27130; G0378; C1776; J2250; J1100; J0690 ×2; J2405; J1170 ×3; J3010

== ENCOUNTER 2022-08-19 18:59 | Emergency (ER) | payer MEDICARE, OTHER ==
[2022-08-19 19:30] LABS: Glucose,Whole Blood 160 mg/dL (70-110)
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
[2022-08-19] MEDS ORDERED: KETOROLAC 15 MG/ML 1 ML VIAL IM STA (22:46)
--- NOTE | 2022-08-19 23:35 | US ---
EXAMINATION TYPE: US venous doppler duplex LE BI DATE OF EXAM: 08/19/2022 10:47 PM COMPARISON: NONE CLINICAL HISTORY: pain. Bilateral leg pain SIDE PERFORMED: Bilateral TECHNIQUE: The lower extremity deep venous system is examined utilizing real time linear array sonog darell with graded compression, doppler sonography and color-flow sonography. VESSELS IMAGED: Common Femoral Vein Deep Femoral Vein Greater Saphenous Vein * Femoral Vein Popliteal Vein Small Saphenous Vein * Proximal Calf Veins (* superficial vessels) Right Leg: Negative for DVT Left Leg: Negative for DVT IMPRESSION: No evidence of deep vein thrombosis in both legs.
[2022-08-20] MEDS ORDERED: ACET/COD 300 MG/30 MG STARTER PACK 6 TAB BTL PO STA
[2022-08-20 01:13] VITALS: BP 98/59; PULSE 79; RESP 15; TEMP 98.2
== END 2022-08-20 01:48 | disposition home or self-care (01) ==
LOC: EC 18:59
DX: G89.29 Other chronic pain (principal); M79.604 Pain in right leg; M79.605 Pain in left leg; E11.9 Type 2 diabetes mellitus without complications; I10 Essential (primary) hypertension; E78.5 Hyperlipidemia, unspecified; J44.9 Chronic obstructive pulmonary disease, unspecified; K21.9 Gastro-esophageal reflux disease without esophagitis; M19.90 Unspecified osteoarthritis, unspecified site; F32.A Depression, unspecified; F41.9 Anxiety disorder, unspecified; Z79.82 Long term (current) use of aspirin; Z79.84 Long term (current) use of oral hypoglycemic drugs; Z79.899 Other long term (current) drug therapy; Z87.891 Personal history of nicotine dependence; Z88.5 Allergy status to narcotic agent; Z88.8 Allergy status to other drugs, medicaments and biological substances
CPT/HCPCS: 36415; 93970; 99284; 96372; J1885

== ENCOUNTER 2022-12-10 19:17 | Emergency (ER) | payer MEDICARE, OTHER ==
[2022-12-10 19:34] VITALS: BP 139/90; PULSE 90; RESP 18; TEMP 98.6
[2022-12-10] MEDS ORDERED: TRIAMCINOLONE ACET 0.1% OINTMENT 15 GM TUBE TOPICAL STA (20:19)
[2022-12-10] MEDS ORDERED: predniSONE 50 MG TAB PO STA (20:19)
[2022-12-10] MEDS ORDERED: PERMETHRIN 5% CREAM 60 GM TUBE TOPICAL STA (20:21)
--- NOTE | 2022-12-10 20:24 | ED ---
General Adult HPI - General Chief complaint: Skin/Abscess/Foreign Body Stated complaint: Rash Time Seen by Provider: 12/10/22 19:43 Source: patient Mode of arrival: ambulatory Limitations: no limitations - History of Present Illness Initial comments: Patient is a 52-year-old male presents to emergency Department for rash. States he noticed it 3 days ago after working on someone's car and trailer. The rash on patient's hands, arms, neck, scalp. It is itchy, not painful. Denies fever, chills. No chest pain or shortness of breath. - Related Data Home Medications Medication Instructions Recorded Confirmed Methylphenidate HCl 20 mg PO BID@0900,1300 11/22/19 05/05/22 Albuterol Inhaler [Ventolin Hfa 2 puff INHALATION RT-Q4H PRN 01/03/20 05/05/22 Inhaler] Atorvastatin Calcium [Lipitor] 40 mg PO HS 03/13/20 05/05/22 Cholecalciferol [Vitamin D3 (25 5,000 unit PO DAILY 03/13/20 05/05/22 Mcg = 1000 Iu)] Clopidogrel Bisulfate [Plavix] 75 mg PO DAILY 03/13/20 05/05/22 Gabapentin 300 mg PO BID 03/13/20 05/05/22 Loratadine [Claritin] 10 mg PO DAILY PRN 03/13/20 05/05/22 Ziprasidone [Geodon] 20 mg PO HS 03/13/20 05/05/22 metFORMIN HCL 500 mg PO DAILY 03/13/20 05/05/22 HYDROcodone/APAP 7.5-325MG [[place] 1 tab PO BID PRN 04/24/20 05/05/22 7.5-325] Aspirin 81 mg PO DAILY 04/29/20 05/05/22 Metoprolol Tartrate [Lopressor] 12.5 mg PO QAM 04/29/20 05/05/22 Simvastatin [Zocor] 40 mg PO HS 04/29/20 05/05/22 lisinopriL [Zestril] 10 mg PO QAM 04/29/20 05/05/22 rOPINIRole HCL [Requip] 0.5 mg PO HS 04/29/20 05/05/22 Triamcinolone 0.1% Lotion [Kenalog 1 applic TOPICAL BID 10/07/20 05/05/22 0.1% Lotion] Clobetasol Propionate [Temovate 1 applic TOPICAL BID 10/16/20 05/05/22 0.05% Cream] Previous Rx's Medication Instructions Recorded Cyclobenzaprine [Flexeril] 10 mg PO BID PRN #30 tab 03/15/20 Docusate [Colace] 100 mg PO DAILY #30 capsule 05/06/22 Gabapentin [Neurontin] 300 mg PO BID #24 cap 05/06/22 HYDROcodone/APAP 7.5-325MG [[place] 1 - 2 each PO Q6HR PRN #32 tab 05/06/22 7.5] Ibuprofen [Motrin] 800 mg PO Q6HR #30 tab 08/20/22 Allergies Allergy/AdvReac Type Severity Reaction Status Date / Time benztropine mesylate AdvReac muscle Verified 12/10/22 19:34 [From Cogentin] spasms morphine AdvReac Nausea & Verified 12/10/22 19:34 Vomiting Review of Systems ROS Statement: Those systems with pertinent positive or pertinent negative responses have been documented in the HPI. ROS Other: All systems not noted in ROS Statement are negative. Past Medical History Past Medical History: COPD, Diabetes Mellitus, GERD/Reflux, Hyperlipidemia, Hypertension, Osteoarthritis (OA), Vascular Disorder Additional Past Medical History / Comment(s): hx. diverticulitis, bad circulation to legs, chronic back pain with known herniated disks, uses oxygen at 2-3L [place] as needed, seasonal allergies. History of Any Multi-Drug Resistant Organisms: None Reported Past Surgical History: Bowel Resection, Hernia Repair, Orthopedic Surgery Additional Past Surgical History / Comment(s): temp. colostomy then reversal, knee surg., thumb surg., femoral bypass Past Anesthesia/Blood Transfusion Reactions: No Reported Reaction Past Psychological History: ADD/ADHD, Anxiety, Depression Smoking Status: Former smoker Past Alcohol Use History: None Reported Past Drug Use History: Marijuana - Past Family History Mother Family Medical History: Cancer Father Family Medical History: Osteoarthritis (OA), Respiratory Disorder General Exam Limitations: no limitations General appearance: alert Respiratory exam: Present: normal lung sounds bilaterally. Absent: respiratory distress, wheezes, rales, rhonchi, stridor Cardiovascular Exam: Present: regular rate, normal rhythm, normal heart sounds. Absent: systolic murmur, diastolic murmur, rubs, gallop, clicks Neurological exam: Present: alert Skin exam: Present: warm, dry, intact, normal color, rash (scattered papules over finger webbing, dorsal hands/arms, posterior neck, scalp ) Course Vital Signs 12/10/22 19:32 Temperature 98.6 F Pulse Rate 90 Respiratory 18 Rate Blood Pressure 139/90 O2 Sat by Pulse 96 Oximetry Medical Decision Making - Medical Decision Making Was pt. sent in by a medical professional or institution (JEFF Javier, BATTERY INSTALLER, urgent care, hospital, or senior living...) When possible be specific @ -No Did you speak to anyone other than the patient for history (EMS, parent, family, police, friend...)? What history was obtained from this source @ -No Did you review nursing and triage notes (agree or disagree)? Why? @ -I reviewed and agree with nursing and triage notes Were old charts reviewed (outside hosp., previous admission, EMS record, old EKG, old radiological studies, urgent care reports/EKG's, senior living records)? Report findings @ -No old charts were reviewed Differential Diagnosis (chest pain, altered mental status, abdominal pain women, abdominal pain men, vaginal bleeding, weakness, fever, dyspnea, syncope, headache, dizziness, GI bleed, back pain, seizure, CVA, palpatations, mental health)? @ -Scabies, bug bite, allergic reaction, anaphylaxis. This list is not meant to be all-inclusive EKG interpreted by me (3pts min.). @ -As above X-rays interpreted by me (1pt min.). @ -None done CT interpreted by me (1pt min.). @ -None done U/S interpreted by me (1pt. min.). @ -None done What testing was considered but not performed or refused? (CT, X-rays, U/S, labs)? Why? @ -None What meds were considered but not given or refused? Why? @ -None Did you discuss the management of the patient with other professionals (professionals i.e. JEFF Javier, BATTERY INSTALLER, lab, RT, psych nurse, medical social consultant, wool supplier, teacher, chief diversity officer, case assembler)? Give summary @ -No Was smoking cessation discussed for >3mins.? @ -No Was critical care preformed (if so, how long)? @ -No Were there social determinants of health that impacted care today? How? (Homelessness, low income, unemployed, alcoholism, drug addiction, transportation, low edu. Level, literacy, decrease access to med. care, skilled nursing, rehab)? @ -No Was there de-escalation of care discussed even if they declined (Discuss DNR or withdrawal of care, Hospice)? DNR status @ -No What co-morbidities impacted this encounter? (DM, HTN, Smoking, COPD, CAD, Cancer, CVA, ARF, Chemo, Hep., AIDS, mental health diagnosis, sleep apnea, morbid obesity)? @ -None Was patient admitted / discharged? Hospital course, mention meds given and route, prescriptions, significant lab abnormalities, going to OR and other pertinent info. @ -Discharged patient has nonspecific dermatitis concerning for scabies he is discharged with permethrin and steroid cream we discussed scabies care in detail. Patient to follow up with PCP Undiagnosed new problem with uncertain prognosis? @ -No] Drug Therapy requiring intensive monitoring for toxicity (Heparin, Nitro, Insulin, Cardizem)? @ -[No] Were any procedures done? @ -[No] Diagnosis/symptom? @ -rash Acute, or Chronic, or Acute on Chronic? @ -acute Uncomplicated (without systemic symptoms) or Complicated (systemic symptoms)? @ -uncomplicated Side effects of treatment? @ -[No] Exacerbation, Progression, or Severe Exacerbation? @ -[No] Poses a threat to life or bodily function? How? (Chest pain, [place], [place], pneumonia, PE, COPD, DKA, ARF, appy, cholecystitis, CVA, Diverticulitis, Homicidal, Suicidal, threat to staff... and all critical care pts) @ -[No] Dr. Banegas is my attending Disposition Clinical Impression: Rash Disposition: HOME SELF-CARE Condition: Good Instructions (If sedation given, give patient instructions): Scabies (ED) Additional Instructions: Apply cream to affected areas. Leave on for 8-12 hours before washing it off. Wash all linen/close in hot water or bag bulky items and keep sealed for 2 weeks. Use topical steroid 3 times daily as needed for itching. Follow-up with primary care provider in 1to 2 days. Return to the emergency department if you experience new, concerning, or worsening symptoms. Is patient prescribed a controlled substance at d/c from ED?: No Referrals: Benji Hand MD [Primary Care Provider] - 1-2 days
== END 2022-12-10 21:00 | disposition home or self-care (01) ==
LOC: EC 19:17
DX: R21 Rash and other nonspecific skin eruption (principal); E11.9 Type 2 diabetes mellitus without complications; I10 Essential (primary) hypertension; J44.9 Chronic obstructive pulmonary disease, unspecified; E78.5 Hyperlipidemia, unspecified; F32.A Depression, unspecified; F41.9 Anxiety disorder, unspecified; K21.9 Gastro-esophageal reflux disease without esophagitis; F12.90 Cannabis use, unspecified, uncomplicated; Z79.84 Long term (current) use of oral hypoglycemic drugs; Z79.899 Other long term (current) drug therapy; Z79.02 Long term (current) use of antithrombotics/antiplatelets; Z79.82 Long term (current) use of aspirin; Z87.891 Personal history of nicotine dependence
CPT/HCPCS: 99282

== ENCOUNTER → 2023-02-03 | Outpatient (CLI) | payer MEDICARE, OTHER ==
[2023-02-03 14:00] LABS: African American GFR (CKD) >90 (>60 ml/min/1.73 sqM); Blood Urea Nitrogen 9 mg/dL (9-20); Non-African American GFR(CKD) >90 (>60 ml/min/1.73 sqM)
--- NOTE | 2023-02-04 12:20 | CT ---
EXAMINATION TYPE: CT angio abd aorta w/Runoff DATE OF EXAM: 02/03/2023 8:10 PM COMPARISON: 04/29/2020 HISTORY: Claudication. CT DLP: 1417.0 mGycm Automated exposure control for dose reduction was used. TECHNIQUE: Performed with IV Contrast, patient injected with 100 ml mL of Isovue 370. . FINDINGS: FINDINGS: There is peribronchial wall thickening and changes of chronic COPD. Correlate for chronic b ronchitis or interstitial lung disease. Coronary artery atherosclerotic disease. Heart size normal. There is a small hiatal hernia.. Within Bowel gas pattern nonspecific with no obstruction. The visualized portions of the liver, gallbladder, adrenal glands, kidneys, spleen, and pancreas show no gross abnormality. Correlate for hepatic steatosis. Redemonstrated ventral abdominal wall hernia with prior measure. But a Han hernia involving the m id transverse colon pushing the mesh anteriorly and omental fat-containing hernias along the superior margin of the mesh measuring up to 13.3 cm wide now. This can be followed by the patient's surgeon. Bladder prominent urine distended. Staple line at the rectosigmoid junction from prior bowel surgery and reanastomosis. Diverticular qian nge in the sigmoid colon without acute diverticulitis. Mild circumferential bladder wall thickening. Prostate gland measures 3.8 cm wide. Some borderline-si zed to mildly enlarged external iliac chain and inguinal lymph nodes measure up to 1.2 cm on the righ t, unchanged. Left external iliac chain lymph measures 8 mm. VASCULATURE: Mild atherosclerotic change at celiac axis origin. SMA is patent. Single renal arteries are patent. Atherosclerotic change within the infrarenal abdominal aorta. RIGHT: Redemonstrated occlusion of the right iliac system with reconstitution at the level of the com mon femoral artery via the inferior epigastric artery. A femoral to femoral bypass graft does not enhance and is presumed to be thrombosed. Moderate atherosclerotic change proximal right SFA origin of the profunda femoral artery, both of whi ch remain patent. There is a moderate area of atherosclerotic plaque mid to distal SFA measuring appr oximately 50% stenosis The popliteal artery demonstrates approximately 50% stenosis. Three-vessel runoff is seen to the level of the ankle with the anterior tibial and posterior tibial a rtery supplying the dorsalis pedis and posterior calcaneal branches respectively. LEFT: The left iliac stent is patent and extends along the distal abdominal aorta and continuing lupe g the left common iliac artery to just above its bifurcation. Long segmental occlusion of the left external iliac artery extending just beyond its origin to the le philippe of the deep femoral artery. Femoral-femoral bypass graft does not enhance and presumed to be thrombosed. Continued SFA occlusion at its origin with patent profunda femoral arteries. Reconstitution of the SFA beyond the adductor hiatus. Popliteal artery patent with scattered atherosc lerotic change. There is a significant stenosis of the distal tibial peroneal trunk measuring greater than 70%. Peroneal artery is seen to the distal calf level. There is runoff via the anterior tibial and posterior tibial arteries. Extensive atherosclerotic disease of the bilateral internal iliac arteries. Bones: Advanced degenerative disc disease L5-S1. Artifact limits evaluation of the pelvis from the bi lateral hip prostheses. IMPRESSION: 1. Distal abdominal aorta and left common iliac artery stent is patent however, there is occlusion of the external iliac artery at its origin with reconstitution at the level of the deep femoral artery 2. Occlusion of the left SFA with reconstitution at the level of the adductor canal. 3. Severe greater than 70% stenosis distal left tibial peroneal trunk 4. 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 5. Occluded femoral to femoral bypass graft.
== END | disposition home or self-care (01) ==
LOC: RADCTMAIN 13:13
PROVIDERS: ATTEND Surgery
DX: I70.213 Atherosclerosis of native arteries of extremities with intermittent claudication, bilateral legs (principal); I74.5 Embolism and thrombosis of iliac artery; Z95.5 Presence of coronary angioplasty implant and graft
CPT/HCPCS: 82565; 84520; 75635; 36415; Q9967

== ENCOUNTER 2023-08-19 19:14 | Observation (INO) | payer MEDICARE, OTHER ==
--- NOTE | 2023-08-19 20:11 | ED ---
Back Pain HPI - General Chief Complaint: Back Pain/Injury Stated Complaint: back pain Time Seen by Provider: 08/19/23 19:37 Source: patient Limitations: no limitations - History of Present Illness Initial Comments: 53-year-old male presenting with chief complaint of muscle cramping. Patient states that this was starting last night. Patient has been having diffuse muscle cramps in all 4 extremities as well as the lower back. No loss of bowel or bladder control or saddle paresthesia. States that he has been drinking water and taking Tylenol to help alleviate symptoms which has been minimally helpful. Patient does have history of vascular occlusion of the lower extremities, he has had surgery by Dr. Sims in the past. His last CTA from December 2022 showed occlusion of previous stent. Patient states that sometimes walking makes the pain worse but sometimes walking helps the pain. No injury or trauma. - Related Data Home Medications Medication Instructions Recorded Confirmed Methylphenidate HCl 20 mg PO BID@0900,1300 11/22/19 05/05/22 Albuterol Inhaler [Ventolin Hfa 2 puff INHALATION RT-Q4H PRN 01/03/20 05/05/22 Inhaler] Atorvastatin Calcium [Lipitor] 40 mg PO HS 03/13/20 05/05/22 Cholecalciferol [Vitamin D3 (25 5,000 unit PO DAILY 03/13/20 05/05/22 Mcg = 1000 Iu)] Clopidogrel Bisulfate [Plavix] 75 mg PO DAILY 03/13/20 05/05/22 Gabapentin 300 mg PO BID 03/13/20 05/05/22 Loratadine [Claritin] 10 mg PO DAILY PRN 03/13/20 05/05/22 Ziprasidone [Geodon] 20 mg PO HS 03/13/20 05/05/22 metFORMIN HCL 500 mg PO DAILY 03/13/20 05/05/22 HYDROcodone/APAP 7.5-325MG [[place] 1 tab PO BID PRN 04/24/20 05/05/22 7.5-325] Aspirin 81 mg PO DAILY 04/29/20 05/05/22 Metoprolol Tartrate [Lopressor] 12.5 mg PO QAM 04/29/20 05/05/22 Simvastatin [Zocor] 40 mg PO HS 04/29/20 05/05/22 lisinopriL [Zestril] 10 mg PO QAM 04/29/20 05/05/22 rOPINIRole HCL [Requip] 0.5 mg PO HS 04/29/20 05/05/22 Triamcinolone 0.1% Lotion [Kenalog 1 applic TOPICAL BID 10/07/20 05/05/22 0.1% Lotion] Clobetasol Propionate [Temovate 1 applic TOPICAL BID 10/16/20 05/05/22 0.05% Cream] Previous Rx's Medication Instructions Recorded Cyclobenzaprine [Flexeril] 10 mg PO BID PRN #30 tab 03/15/20 Docusate [Colace] 100 mg PO DAILY #30 capsule 05/06/22 Gabapentin [Neurontin] 300 mg PO BID #24 cap 05/06/22 HYDROcodone/APAP 7.5-325MG [[place] 1 - 2 each PO Q6HR PRN #32 tab 05/06/22 7.5] Ibuprofen [Motrin] 800 mg PO Q6HR #30 tab 08/20/22 Allergies Allergy/AdvReac Type Severity Reaction Status Date / Time benztropine mesylate AdvReac muscle Verified 08/19/23 19:36 [From Cogentin] spasms morphine AdvReac Nausea & Verified 08/19/23 19:36 Vomiting Review of Systems ROS Statement: Those systems with pertinent positive or pertinent negative responses have been documented in the HPI. ROS Other: All systems not noted in ROS Statement are negative. Past Medical History Past Medical History: COPD, Diabetes Mellitus, GERD/Reflux, Hyperlipidemia, Hypertension, Osteoarthritis (OA), Vascular Disorder Additional Past Medical History / Comment(s): hx. diverticulitis, bad circul ation to legs, chronic back pain with known herniated disks, uses oxygen at 2-3L [place] as needed, seasonal allergies. History of Any Multi-Drug Resistant Organisms: None Reported Past Surgical History: Bowel Resection, Hernia Repair, Orthopedic Surgery Additional Past Surgical History / Comment(s): temp. colostomy then reversal, knee surg., thumb surg., femoral bypass Past Anesthesia/Blood Transfusion Reactions: No Reported Reaction Past Psychological History: ADD/ADHD, Anxiety, Depression Smoking Status: Former smoker, Second hand smoke exposure Past Alcohol Use History: None Reported Past Drug Use History: Marijuana - Past Family History Mother Family Medical History: Cancer Father Family Medical History: Osteoarthritis (OA), Respiratory Disorder General Exam Limitations: no limitations General appearance: alert, in no apparent distress Head exam: Present: atraumatic, normocephalic Eye exam: Present: normal appearance Neck exam: Present: normal inspection. Absent: meningismus Respiratory exam: Present: normal lung sounds bilaterally. Absent: respiratory distress, wheezes, rales, rhonchi, stridor Cardiovascular Exam: Present: regular rate, normal rhythm, normal heart sounds. Absent: systolic murmur, diastolic murmur, rubs, gallop, clicks Extremities exam: Present: other (The bilateral lower extremities are warm to the touch. Unable to palpate distal pulses. There is rubor present in the toes of the left foot.) Back exam: Present: normal inspection, paraspinal tenderness Neurological exam: Present: alert, oriented X3 Psychiatric exam: Present: normal affect, normal mood Skin exam: Present: warm, dry Course Vital Signs 08/19/23 08/20/23 19:34 02:25 Temperature 98.2 F Pulse Rate 84 85 Respiratory 18 16 Rate Blood Pressure 122/78 123/73 O2 Sat by Pulse 99 95 Oximetry Medical Decision Making - Medical Decision Making Was pt. sent in by a medical professional or institution (, PA, PIG MACHINE CRANE OPERATOR, urgent care, hospital, or senior living...) When possible be specific @ -No Did you speak to anyone other than the patient for history (EMS, parent, family, police, friend...)? What history was obtained from this source @ -No Did you review nursing and triage notes (agree or disagree)? Why? @ -I reviewed and agree with nursing and triage notes Were old charts reviewed (outside hosp., previous admission, EMS record, old EKG, old radiological studies, urgent care reports/EKG's, senior living records)? Report findings @ -I reviewed previous CTA and visits for claudication related issues Differential Diagnosis (chest pain, altered mental status, abdominal pain women, abdominal pain men, vaginal bleeding, weakness, fever, dyspnea, syncope, headache, dizziness, GI bleed, back pain, seizure, CVA, palpatations, mental health, musculoskeletal)? @ -Differential Musculoskeletal Muscular strain, contusion, ligament sprain, fracture, arthritis, septic arthritis, bursitis, cellulitis, muscle spasm, nerve compression, DVT, arterial occlusion, herpes zoster, electrolyte abnormality, tumor.... This is not meant to be in all inclusive list EKG interpreted by me (3pts min.). @ -As above X-rays interpreted by me (1pt min.). @ -None done CT interpreted by me (1pt min.). @ -None done U/S interpreted by me (1pt. min.). @ -None done What testing was considered but not performed or refused? (CT, X-rays, U/S, labs)? Why? @ -None What meds were considered but not given or refused? Why? @ -None Did you discuss the management of the patient with other professionals (professionals i.e. DrJohnny, PA, PIG MACHINE CRANE OPERATOR, lab, RT, psych nurse, foster care social worker, cosmetics machine operator, teacher, medical officer, counter caser)? Give summary @ -I spoke with Dr. Hand who accepted admission Was smoking cessation discussed for >3mins.? @ -No Was critical care preformed (if so, how long)? @ -No Were there social determinants of health that impacted care today? How? (Homelessness, low income, unemployed, alcoholism, drug addiction, transportation, low edu. Level, literacy, decrease access to med. care, assisted, rehab)? @ -No Was there de-escalation of care discussed even if they declined (Discuss DNR or withdrawal of care, Hospice)? DNR status @ -No What co-morbidities impacted this encounter? (DM, HTN, Smoking, COPD, CAD, Cancer, CVA, ARF, Chemo, Hep., AIDS, mental health diagnosis, sleep apnea, morbid obesity)? @ -Peripheral vascular disease Was patient admitted / discharged? Hospital course, mention meds given and route, prescriptions, significant lab abnormalities, going to OR and other pertinent info. @ -53-year-old male presenting with chief complaint of muscle cramping. Started last night. Does not seem to have any alleviating or aggravating factors. Present in the legs, but at times it is also present in the back and arms. History and physical exam are conducted. The patient has warm lower extremities, however I am unable to palpate distal pulses. Lab work requires no action. The patient has known peripheral vascular disease, he has been seen by Dr. Sims and has had previous stenting and bypass performed, most recent CTA from December 2022 shows occlusion of multiple vessels. Given that the extremity is not cold and dusky I do not believe that this is an acute ischemic event, however patient states that his pain comes and goes. He will be started on heparin and admitted for vascular surgery consult. Patient is agreeable with this plan. I discussed this case with my attending Dr. Teixeira Undiagnosed new problem with uncertain prognosis? @ -No Drug Therapy requiring intensive monitoring for toxicity (Heparin, Nitro, Insulin, Cardizem)? @ -No Were any procedures done? @ -No Diagnosis/symptom? @ -Peripheral vascular disease Acute, or Chronic, or Acute on Chronic? @ -Acute on chronic Uncomplicated (without systemic symptoms) or Complicated (systemic symptoms)? @ -Complicated Side effects of treatment? @ -No Exacerbation, Progression, or Severe Exacerbation? @ -No Poses a threat to life or bodily function? How? (Chest pain, USA, CA, pneumonia, PE, COPD, DKA, ARF, appy, cholecystitis, CVA, Diverticulitis, Homicidal, Suicida l, threat to staff... and all critical care pts) @ -Yes - Lab Data Result diagrams: 08/20/23 00:17 08/19/23 20:05 Lab Results 08/19/23 Range/Units 20:05 Sodium 138 (137-145) mmol/L Potassium 4.4 (3.5-5.1) mmol/L Chloride 110 H (98-107) mmol/L Carbon Dioxide 23 (22-30) mmol/L Anion Gap 5 mmol/L BUN 13 (9-20) mg/dL Creatinine 0.66 (0.66-1.25) mg/dL Est GFR (CKD-EPI)AfAm >90 (>60 ml/min/1.73 sqM) Est GFR (CKD-EPI)NonAf >90 (>60 ml/min/1.73 sqM) Glucose 118 H (74-99) mg/dL Calcium 8.9 (8.4-10.2) mg/dL Magnesium 1.9 (1.6-2.3) mg/dL Disposition Clinical Impression: Peripheral vascular disease Disposition: ADMITTED IP TO THIS [facility] Condition: Fair Time of Disposition: 23:59
[2023-08-19] MEDS: KETOROLAC 15 MG/ML 1 ML VIAL IVP STA (20:13)
[2023-08-19] MEDS: ORPHENADRINE 30 MG/ML 2 ML VIAL IVP STA (20:13)
[2023-08-19] MEDS: SODIUM CHLORIDE 0.9% 1,000 ML IV ONE (20:13)
[2023-08-19 20:32] LABS: African American GFR (CKD) >90 (>60 ml/min/1.73 sqM); Anion Gap 5 mmol/L; Blood Urea Nitrogen 13 mg/dL (9-20); Calcium 8.9 mg/dL (8.4-10.2); Carbon Dioxide 23 mmol/L (22-30); Chloride 110 mmol/L (98-107); Glucose 118 mg/dL (74-99); Magnesium 1.9 mg/dL (1.6-2.3); Non-African American GFR(CKD) >90 (>60 ml/min/1.73 sqM); Potassium 4.4 mmol/L (3.5-5.1); Sodium 138 mmol/L (137-145)
[2023-08-19] MEDS: HYDROmorphone 1 MG/ML 1 ML SYRINGE IVP STA (21:28)
[2023-08-19] MEDS ORDERED: HEPARIN SODIUM 1,000 UN/ML (10ML VL) IV PRN (23:06)
[2023-08-19] MEDS: HEPARIN SOD,PORK IN 0.45% NACL 25,000 UNIT in 0.45% NACL 1 250ML.BAG IV SCH (23:35)
[2023-08-19] MEDS: HEPARIN SODIUM 1,000 UN/ML (10ML VL) IV ONE (23:37)
[2023-08-20] MEDS ORDERED: NALOXONE 0.4 MG/ML 1 ML VIAL IV PRN (00:09)
[2023-08-20] MEDS ORDERED: ACETAMINOPHEN TAB 325 MG TAB PO PRN (00:09)
[2023-08-20 01:16] LABS: Basophils # (A) 0.1 k/uL (0-0.2); Basophils % (A) 1 %; Eosinophils # (A) 0.3 k/uL (0-0.7); Eosinophils % (A) 3 %; HCT 45.5 % (39.0-53.0); HGB 14.8 gm/dL (13.0-17.5); Lymphocytes # (A) 2.2 k/uL (1.0-4.8); Lymphocytes % (A) 23 %; MCH 32.3 pg (25.0-35.0); MCHC 32.5 g/dL (31.0-37.0); MCV 99.4 fL (80.0-100.0); Mean Platelet Volume 7.4; Monocytes # (A) 0.6 k/uL (0-1.0); Monocytes % (A) 6 %; Neutrophils # (A) 6.4 k/uL (1.3-7.7); Neutrophils % (A) 66 %; Platelet Count 304 k/uL (150-450); RBC 4.58 m/uL (4.30-5.90); RDW 12.8 % (11.5-15.5); WBC 9.7 k/uL (3.8-10.6)
[2023-08-20 01:43] LABS: Prothrombin Time 10.7 sec (10.0-12.5)
[2023-08-20] MEDS: HYDROmorphone 1 MG/ML 1 ML SYRINGE IVP PRN (02:23)
[2023-08-20 07:16] LABS: Basophils # (A) 0.1 k/uL (0-0.2); Basophils % (A) 1 %; Eosinophils # (A) 0.3 k/uL (0-0.7); Eosinophils % (A) 3 %; HCT 46.9 % (39.0-53.0); HGB 15.3 gm/dL (13.0-17.5); Lymphocytes # (A) 2.4 k/uL (1.0-4.8); Lymphocytes % (A) 28 %; MCH 32.4 pg (25.0-35.0); MCHC 32.6 g/dL (31.0-37.0); MCV 99.3 fL (80.0-100.0); Mean Platelet Volume 7.2; Monocytes # (A) 0.7 k/uL (0-1.0); Monocytes % (A) 8 %; Neutrophils # (A) 4.9 k/uL (1.3-7.7); Neutrophils % (A) 58 %; Platelet Count 288 k/uL (150-450); RBC 4.72 m/uL (4.30-5.90); RDW 12.8 % (11.5-15.5); WBC 8.5 k/uL (3.8-10.6)
[2023-08-20] MEDS ORDERED: DEXTROSE 50% SYRINGE 50 ML IVP PRN ×2 (08:27)
[2023-08-20] MEDS: METOPROLOL SUCCINATE (ER) 25 MG TAB.ER.24H PO SCH (09:12)
[2023-08-20] MEDS: amLODIPine 5 MG TAB PO SCH (09:13)
--- NOTE | 2023-08-20 11:04 | P.GSCN ---
History of Present Illness Consult date: 08/20/23 Reason for Consult: PVD Requesting physician: Jacki Mike History of present illness: This is a pleasant 53-year-old male who presented to the emergency department yesterday evening with complaints of muscle cramping in his left leg, right leg, left shoulder right shoulder back and hands. He does have a history of peripheral arterial disease and is established with Dr. Ramsey. He is a former smoker, states he quit about a year ago. He does live with somebody who smokes and is exposed to secondhand smoke. He underwent left iliac artery stenting in 2019 and femoral to femoral bypass for right iliac artery occlusion in 2020. He states that he still has some discomfort in his left leg mostly up in the thigh area. Sensorimotor is intact. States he has back pain and he has been having spasms and muscle strain. He was started on a heparin drip yesterday evening in the emergency department. He states he has been taking his Plavix at home but he is not on any aspirin. He had a venous duplex that was negative for DVT bilaterally. CT angiogram done February 03, 2023 reported distal abdominal aorta and left common iliac artery stent patent however occlusion of the external iliac artery at its origin with reconstitution at the level of the deep femoral artery. Occlusion of the left SFA with reconstitution at the level of the adductor canal and severe greater than 70% stenosis of distal left tibial peroneal trunk. 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 Occluded femoral to femoral bypass graft He currently states he still has some discomfort in the upper thigh, still quite a bit of back pain. Denies any shortness of breath, chest pain, and states he has no difficulty moving his lower extremities. Denies any pain in his feet. Review of Systems A 14 point review systems was completed all pertinent positives and negatives as stated in the HPI. Past Medical History Past Medical History: COPD, Diabetes Mellitus, GERD/Reflux, Hyperlipidemia, Hyp ertension, Osteoarthritis (OA), Vascular Disorder Additional Past Medical History / Comment(s): hx. diverticulitis, bad circulation to legs, chronic back pain with known herniated disks, uses oxygen at 2-3L [place] as needed, seasonal allergies. History of Any Multi-Drug Resistant Organisms: None Reported Past Surgical History: Bowel Resection, Hernia Repair, Orthopedic Surgery Additional Past Surgical History / Comment(s): temp. colostomy then reversal, knee surg., thumb surg., femoral bypass Past Anesthesia/Blood Transfusion Reactions: No Reported Reaction Past Psychological History: ADD/ADHD, Anxiety, Depression Smoking Status: Former smoker, Second hand smoke exposure Past Alcohol Use History: None Reported Past Drug Use History: Marijuana - Past Family History Mother Family Medical History: Cancer Father Family Medical History: Osteoarthritis (OA), Respiratory Disorder Medications and Allergies Home Medications Medication Instructions Recorded Confirmed Type RX: Clopidogrel Bisulfate [Plavix] 75 mg PO DAILY 03/13/20 08/20/23 History RX: metFORMIN HCL 500 mg PO DAILY 03/13/20 08/20/23 History RX: lisinopriL [Zestril] 10 mg PO DAILY 04/29/20 08/20/23 History Atorvastatin [Lipitor] 80 mg PO DAILY #30 tab 08/20/23 Rx RX: Aspirin EC [Ecotrin Low Dose] 81 mg PO DAILY #90 tab 08/20/23 Rx RX: Meloxicam [Mobic] 15 mg PO DAILY 08/20/23 08/20/23 History RX: Metoprolol Succinate (ER) 25 mg PO DAILY 08/20/23 08/20/23 History [Toprol XL] RX: OLANZapine [ZyPREXA] 5 mg PO HS 08/20/23 08/20/23 History RX: Omeprazole 20 mg PO DAILY #30 cap 08/20/23 Rx RX: Semaglutide [Ozempic] 0.5 mg SQ FR 08/20/23 08/20/23 History RX: Sildenafil Citrate 100 mg PO DAILY PRN 08/20/23 08/20/23 History RX: amLODIPine [Norvasc] 5 mg PO DAILY 08/20/23 08/20/23 History RX: minoxidiL 2.5 mg PO DAILY 08/20/23 08/20/23 History Allergies Allergy/AdvReac Type Severity Reaction Status Date / Time benztropine mesylate AdvReac muscle Verified 08/20/23 08:11 [From Cogentin] spasms morphine AdvReac Nausea & Verified 08/20/23 08:11 Vomiting Surgical - Exam Vital Signs Temp Pulse Resp BP Pulse Ox 98.2 F 84 18 122/78 99 08/19/23 19:34 08/19/23 19:34 08/19/23 19:34 08/19/23 19:34 08/19/23 19:34 General appearance: The patient is alert, oriented, appears in no acute distress. HET: Head is normocephalic and atraumatic. Neck: Supple. Heart: Regular. Lungs: Equal expansion, normal respiratory effort. Abdomen: Soft, nontender, nondistended. Extremities: Normal skin color and turgor. Bilateral lower extremity varicosities. Bilateral lower extremities nonpalpable distal pulses. Warm to the touch, good capillary refill. Sensorimotor intact. Patient does have left leg tenderness with palpation and squeezing. Left toes red/pink. Neurological: No focal deficits. Strength and sensation are grossly intact. Results - Labs 08/20/23 06:53 08/19/23 20:05 Abnormal Lab Results - Last 24 Hours (Table) 08/19/23 08/20/23 08/20/23 Range/Units 20:05 00:17 06:53 APTT 32.0 H 58.1 H (22.0-30.0) sec Chloride 110 H (98-107) mmol/L Glucose 118 H (74-99) mg/dL Diabetes panel 08/19/23 Range/Units 20:05 Sodium 138 (137-145) mmol/L Potassium 4.4 (3.5-5.1) mmol/L Chloride 110 H (98-107) mmol/L Carbon Dioxide 23 (22-30) mmol/L BUN 13 (9-20) mg/dL Creatinine 0.66 (0.66-1.25) mg/dL Glucose 118 H (74-99) mg/dL Calcium 8.9 (8.4-10.2) mg/dL Calcium panel 08/19/23 Range/Units 20:05 Calcium 8.9 (8.4-10.2) mg/dL Pituitary panel 08/19/23 Range/Units 20:05 Sodium 138 (137-145) mmol/L Potassium 4.4 (3.5-5.1) mmol/L Chloride 110 H (98-107) mmol/L Carbon Dioxide 23 (22-30) mmol/L BUN 13 (9-20) mg/dL Creatinine 0.66 (0.66-1.25) mg/dL Glucose 118 H (74-99) mg/dL Calcium 8.9 (8.4-10.2) mg/dL Adrenal panel 08/19/23 Range/Units 20:05 Sodium 138 (137-145) mmol/L Potassium 4.4 (3.5-5.1) mmol/L Chloride 110 H (98-107) mmol/L Carbon Dioxide 23 (22-30) mmol/L BUN 13 (9-20) mg/dL Creatinine 0.66 (0.66-1.25) mg/dL Glucose 118 H (74-99) mg/dL Calcium 8.9 (8.4-10.2) mg/dL - Imaging Comments: Venous duplex negative for DVT bilaterally Arterial duplex pending Assessment and Plan Assessment: 1. Muscle pain, multiple areas including lower extremities and upper extremities 2. Lower back pain 3. History of peripheral arterial disease with known occluded femorofemoral bypass graft 4. History of femoral to femoral bypass 5. History of left iliac artery stent 6. Former smoker 7. COPD 8. Diabetes mellitus Plan: 1. Lower extremity arterial duplex ordered and reviewed. Some change since prior in 2019. 2. Continue heparin drip for now 3. Discussed with patient to continue Plavix, and resume aspirin 81 mg daily 4. Will order CT angiogram with runoff 5. Further recommendations forthcoming Thank you for this consultation, we will continue to follow. The impression and plan of care has been dictated as directed. I performed a history and examination of this patient, discussed the same with the dictator. I agree with the dictator's note ,documented as a scribe. Any additional findings or plans will be noted.
[2023-08-20 12:14] LABS: Glucose,Whole Blood 107 mg/dL (70-110)
[2023-08-20] MEDS: INSULIN ASPART (NovoLOG) 100 UNIT/ML VIAL SQ SCH (12:54)
--- NOTE | 2023-08-20 13:25 | US ---
EXAMINATION TYPE: US arterial LE multi level DATE OF EXAM: 08/20/2023 1:08 PM CLINICAL INDICATION: Male, 53 years old with history of PAD, left leg pain; Left leg pain History of: Smoker: Previous Hypertension: Yes Diabetic: Yes Hyperlipidemia: Yes TIA/CVA: No Previous Vascular Surgery: Yes, patient has left leg stenting above the knee/in groin. CAD: yes PR: No Vascular Ulcers: No Claudication: Both Gangrene: No Doppler Waveforms: Right: Monophasic Left: Monophasic Right Brachial Pressure: 151 Left Brachial Pressure: 146 Ankle-Brachial Indices: Right: 0.44 Left: 0.32 (Vessel hardening > 1.4; Normal 0.9 - 1.4, Moderate 0.7 - 0.9, Severe 0.5-0.7) Toe Brachial Indices: Right: 0.32 Left: 0.20 Faint signal heard at left dorsalis pedis artery, unable to produce clear waveform. Pressures above the knee deferred due to stenting. IMPRESSION: 1. Bilateral abnormal YASMEEN indices greater on the left consistent with severe atherosclerotic disease bilaterally.
--- NOTE | 2023-08-20 13:35 | P.HPIM ---
History of Present Illness H&P Date: 08/20/23 Chief Complaint: Left leg pain/cramping This is a 53-year-old gentleman with past medical history significant for Peripheral vascular disease, bilateral iliac artery occlusion, fem-fem bypass with Dr. Sims, diabetes mellitus2, chronic back pain and multiple other medical issues admitted with significant left lower extremity muscle cramping- reports "worst ever" over the last 2 days, at times radiating to left lower abdominal quadrant-nontender to palpation, to shoulders and back. Reports inner thigh/hamstring tender, travels down to his toes. patient does not smoke, quit 1 year ago but exposed daily to secondhand smoke as he lives with an active smoker. Patient reports he was compliant taking his Plavix but had run out of aspirin.Heparin drip initiated in the ER. Denies chest pain, palpitations or shortness of breath. Review of Systems Constitutional: Denied any fatigue denied any fever. Cardio vascular: denied any chest pain, palpitations Gastrointestinal denied any nausea vomiting Pulmonary: Denied any shortness of breath cough Neurologic denied any new focal deficits ROS Statement: Those systems with pertinent positive or pertinent negative responses have been documented in the HPI. ROS Other: All systems not noted in ROS Statement are negative. Past Medical History Past Medical History: COPD, Diabetes Mellitus, GERD/Reflux, Hyperlipidemia, Hypertension, Osteoarthritis (OA), Vascular Disorder Additional Past Medical History / Comment(s): hx. diverticulitis, bad circulation to legs, chronic back pain with known herniated disks, uses oxygen at 2-3L [place] as needed, seasonal allergies. History of Any Multi-Drug Resistant Organisms: None Reported Past Surgical History: Bowel Resection, Hernia Repair, Orthopedic Surgery Additional Past Surgical History / Comment(s): temp. colostomy then reversal, knee surg., thumb surg., femoral bypass Past Anesthesia/Blood Transfusion Reactions: No Reported Reaction Past Psychological History: ADD/ADHD, Anxiety, Depression Smoking Status: Former smoker, Second hand smoke exposure Past Alcohol Use History: None Reported Past Drug Use History: Marijuana - Past Family History Mother Family Medical History: Cancer Father Family Medical History: Osteoarthritis (OA), Respiratory Disorder Medications and Allergies Home Medications Medication Instructions Recorded Confirmed Type Clopidogrel Bisulfate [Plavix] 75 mg PO DAILY 03/13/20 08/20/23 History metFORMIN HCL 500 mg PO DAILY 03/13/20 08/20/23 History lisinopriL [Zestril] 10 mg PO DAILY 04/29/20 08/20/23 History Aspirin EC [Ecotrin Low Dose] 81 mg PO DAILY #90 tab 08/20/23 Rx Atorvastatin [Lipitor] 80 mg PO DAILY #30 tab 08/20/23 Rx Meloxicam [Mobic] 15 mg PO DAILY 08/20/23 08/20/23 History Metoprolol Succinate (ER) [Toprol 25 mg PO DAILY 08/20/23 08/20/23 History XL] OLANZapine [ZyPREXA] 5 mg PO HS 08/20/23 08/20/23 History Omeprazole 20 mg PO DAILY #30 cap 08/20/23 Rx Semaglutide [Ozempic] 0.5 mg SQ FR 08/20/23 08/20/23 History Sildenafil Citrate 100 mg PO DAILY PRN 08/20/23 08/20/23 History amLODIPine [Norvasc] 5 mg PO DAILY 08/20/23 08/20/23 History minoxidiL 2.5 mg PO DAILY 08/20/23 08/20/23 History Allergies Allergy/AdvReac Type Severity Reaction Status Date / Time benztropine mesylate AdvReac muscle Verified 08/20/23 08:11 [From Cogentin] spasms morphine AdvReac Nausea & Verified 08/20/23 08:11 Vomiting Physical Exam Vitals: Vital Signs Temp Pulse Resp BP Pulse Ox 08/20/23 09:14 77 08/20/23 08:02 61 18 135/76 98 08/20/23 02:25 85 16 123/73 95 08/19/23 19:34 98.2 F 84 18 122/78 99 Intake and Output 08/19/23 08/20/23 08/20/23 22:59 06:59 14:59 Other: Weight 81.193 kg General: well nourished, well developed, NAD. Vitals reviewed Eyes: PERRL, EOMI, conjunctiva normal HENT: normocephalic, mucus membranes moist Neck: supple, no JVD Lungs: normal respiratory effort, no wheezes or rales CV: Regular rate and rhythm, no murmur. No edema Abdomen: soft, nondistended, nontender , no guarding, no rigidity. No organomegaly+BS EXTR: left lower extremity tender, warm to touch,nonpalpable pulses +sensation, positive varicosities Skin: warm and dry, no rashes noted. Neuro: A&Ox3, normal mood and affect, strength and sensation grossly intact Results CBC & Chem 7: 08/20/23 06:53 08/19/23 20:05 Labs: Abnormal Lab Results - Last 24 Hours (Table) 08/19/23 08/20/23 08/20/23 Range/Units 20:05 00:17 06:53 APTT 32.0 H 58.1 H (22.0-30.0) sec Chloride 110 H (98-107) mmol/L Glucose 118 H (74-99) mg/dL Assessment and Plan Assessment: Left lower extremity muscle pain, "cramping radiating" to multiple areas of body, in a patient with severe bilateral PAD. History of Peripheral arterial disease, bilateral iliac artery occlusion, fem- fem bypass 09/28/2020, Hstory of iliac artery stent Diabetes mellitus type 2 Hypertension Hyperlipidemia Chronic back pain COPD Chronic hypoxic respiratory failure, wears 2 to 3 L nasal cannula as needed History of nicotine dependence, quit 1 year ago Anxiety, depression ADD Occasional marijuana use, possible mild gastroparesis Plan: Continue current medication regimen ,monitoring and symptomatic treatment. Maintain anticoagulation on heparin drip. Vascular surgery consult in place with arterial ultrasound ordered. Reinforced that patient is to continue on both Plavix and aspirin 81 mg daily, as he stated he had ran out of his aspirin and was only taking his Plavix. Lipitor dose increased. Prognosis guarded given multiple complex medical issues. The impression and plan of care has been dictated as directed. : I performed a history and examination of this patient, discussed the same with the dictator. I agree with the dictator's note ,documented as a scribe. Any additional findings or plans will be noted.
[2023-08-20 17:18] LABS: Glucose,Whole Blood 121 mg/dL (70-110)
[2023-08-20 20:50] LABS: Glucose,Whole Blood 149 mg/dL (70-110)
[2023-08-20 20:51] VITALS: RESP 15
[2023-08-20] MEDS ORDERED: ATORVASTATIN 40 MG TAB PO SCH (21:00)
[2023-08-20] MEDS: ATORVASTATIN 80 MG TAB PO SCH (22:03)
[2023-08-20] MEDS: OLANZapine 5 MG TAB PO SCH (22:09)
[2023-08-21 06:33] LABS: Glucose,Whole Blood 111 mg/dL (70-110)
[2023-08-21 12:13] LABS: Glucose,Whole Blood 144 mg/dL (70-110)
--- NOTE | 2023-08-21 12:45 | CT ---
EXAMINATION TYPE: CT angio abd aorta w/Runoff CT DLP: 2275.3 mGycm, Automated exposure control for dose reduction was used. DATE OF EXAM: 08/20/2023 2:22 PM COMPARISON: 02/03/2023. . CLINICAL INDICATION:Male, 53 years old with history of PAD, left lower extremity pain; PHH, LEG NUMBN ESS TECHNIQUE: Multiple thin slice sub-millimeter images were obtained after administration of contrast. 3-D reconstructed images and maximum intensity projection images were obtained. CT angio abd aorta w /Runoff CT Contrast: Contrast used:100 mL of Isovue 370 with IV Contrast, Oral contrast used: None FINDINGS: CTA Abdomen and pelvis: Atherosclerosis of the abdominal aorta. No evidence for intrarenal hematoma n oncontrast imaging. No evidence for aneurysmal dilation. The origins of the abdominal aorta are paten t. The distal aorta is occluded with left common iliac stent graft occlusion. Bilateral common iliac arteries and external iliac arteries do not demonstrate contrast. No contrast is seen within the femo rofemoral bypass graft. Findings on the right common iliac and right external iliac are similar prior . The left common iliac artery stent graft occlusion is new from prior.. CTA Lower extremities: Right: Reconstitution of the contrast in the superficial femoral artery which is patent. The poplitea l artery is patent. The anterior and posterior tibial arteries cross the ankle. Left: The superficial femoral artery is not visualized extending from its origin to the popliteal art michelle with reconstitution with scattered atherosclerotic disease. The popliteal artery is patent. The a nterior and posterior tibial arteries cross the ankle. There remains stenosis of the tibial peroneal trunk of at least 70% stenosis. LOWER CHEST: No evidence of focal consolidation, pneumothorax or pleural effusion. LIVER: Unremarkable GALLBLADDER AND BILE DUCTS: Unremarkable. PANCREAS: Unremarkable. SPLEEN: Unremarkable. ADRENAL GLANDS: Unremarkable. KIDNEYS AND URETERS: No evidence of hydronephrosis or renal calculus. The ureters are unremarkable. PELVIS BLADDER: Unremarkable REPRODUCTIVE: Unremarkable. ABDOMEN & PELVIS STOMACH AND BOWEL: No evidence of bowel obstruction. Post surgical changes with suture seen along the sigmoid colon. PERITONEUM: No evidence of pneumoperitoneum or free fluid. VASCULATURE: No evidence of aortic aneurysm. MUSCULOSKELETAL: No acute osseous abnormalities bilateral hip arthroplasty changes appear intact. Str eak artifact limits evaluation. LYMPH NODES: No gross evidence for lymphadenopathy. SOFT TISSUE/ABDOMINAL WALL: Post surgical changes anterior abdominal wall with an S-shaped present. T here remains hernia with loops of colon in the anterior abdominal wall. No evidence for obstruction. IMPRESSION: * New occlusion of the distal abdominal aorta with occlusion of the left iliac stent graft. Similar occlusion of the right common iliac and external iliac arteries. * Occluded femorofemoral bypass graft is occluded, similar to prior. Right lower extremity: * Reconstitution of flow with patent lower extremity vessels with both the posterior and anterior ti bial arteries crossing ankle. Left lower: * Occlusion from the common iliac artery extends down to the popliteal artery with reconstitution. B oth anterior and posterior tibial arteries cross the ankle. * Severe greater than 70% stenosis distal left tibial peroneal trunk
--- NOTE | 2023-08-21 13:05 | P.PN ---
Subjective Progress Note Date: 08/21/23 Patient seen and examined. No overnight events. patient states he is not having any significant pain in his legs. He denies any fevers, chills, chest pain or shortness of breath. He states he would like to go home if possible. Objective - Vital Signs Vital signs: Vital Signs Temp 97.9 F 08/21/23 07:40 Pulse 66 08/21/23 07:40 Resp 15 08/21/23 08:00 BP 156/85 08/21/23 07:40 Pulse Ox 100 08/21/23 07:40 FiO2 Intake & Output 08/20/23 08/21/23 08/21/23 18:59 06:59 18:59 Intake Total 249.917 204.123 163.877 Balance 249.917 204.123 163.877 Intake: Intake, IV Titration 249.917 204.123 45.877 Amount Heparin Sod,Pork in 0.45% 249.917 204.123 45.877 NaCl 25,000 unit In 0.45 % NaCl 1 250ml.bag @ 18 UNITS/KG/HR 14.615 mls/hr IV .[id number] [place] Rx#: [id number] Oral 118 Other: # Voids 2 - Exam General appearance: The patient is alert, oriented, appears in no acute distress. HET: Head is normocephalic and atraumatic. Neck: Supple. Heart: Regular. Lungs: Equal expansion, normal respiratory effort. Abdomen: Soft, nontender, nondistended. Extremities: Normal skin color and turgor. Bilateral lower extremity varicosities. Bilateral lower extremities nonpalpable femoral, popliteal or di stal pulses. Warm to the touch, good capillary refill. Sensorimotor intact. Patient does have left leg tenderness with palpation and squeezing. Left toes red/pink. Neurological: No focal deficits. Strength and sensation are grossly intact. - Labs CBC & Chem 7: 08/20/23 06:53 08/19/23 20:05 Labs: Abnormal Lab Results - Last 24 Hours (Table) 08/20/23 08/20/23 08/21/23 Range/Units 17:16 20:48 05:44 APTT (22.0-30.0) sec POC Glucose (mg/dL) 121 H 149 H (70-110) mg/dL Hemoglobin A1c 6.1 H (<=6.0) % 08/21/23 08/21/23 08/21/23 Range/Units 05:44 06:31 12:12 APTT 62.0 H (22.0-30.0) sec POC Glucose (mg/dL) 111 H 144 H (70-110) mg/dL Hemoglobin A1c (<=6.0) % Assessment and Plan Assessment: 1. Muscle pain, multiple areas including lower extremities and upper extremities- improved. 2. Aortic and bilateral iliac artery occlusion 3. Peripheral arterial disease with known occluded femorofemoral bypass graft 4. History of femoral to femoral bypass 5. History of left iliac artery stent 6. Former smoker 7. COPD 8. Diabetes mellitus Plan: Reviewed CTA with patient in full detail- occlusion noted at the aorta and bilateral iliac arteries with reconstitution at the femoral arteries. Discussed need for revascularization but symptoms and occlusion is chronic in nature and therefore patient is ok to be seen as outpatient. Ok for discharge and short term follow up next week with Dr. Ramsey or myself to schedule aortobifemoral bypass vs. axillobifemoral bypass.
--- NOTE | 2023-08-21 13:45 | P.DS ---
Providers Date of admission: 08/20/23 00:11 Expected date of discharge: 08/21/23 Attending physician: Benji Hand MD Consults: 08/20/23 00:09 Consult Physician Urgent Consulting Provider: Jose C Ramsey Consult Reason/Comments: PVD Do you want consulting provider notified?: Yes, Notify in am Primary care physician: Benji Hand MD Hospital Course: Discharge diagnoses; Left lower extremity muscle pain, "cramping radiating" to multiple areas of body, in a patient with severe bilateral PAD. History of Peripheral arterial disease, bilateral iliac artery occlusion, fem- fem bypass 09/28/2020, Hstory of iliac artery stent Diabetes mellitus type 2 Hypertension Hyperlipidemia Chronic back pain COPD Chronic hypoxic respiratory failure, wears 2 to 3 L nasal cannula as needed History of nicotine dependence, quit 1 year ago Anxiety, depression ADD Occasional marijuana use, possible mild gastroparesis Hospital course; This is a 53-year-old gentleman with past medical history significant for Peripheral vascular disease, bilateral iliac artery occlusion, fem-fem bypass with Dr. Sims, diabetes mellitus2, chronic back pain and multiple other medical issues admitted with significant left lower extremity muscle cramping- reports "worst ever" over the last 2 days, at times radiating to left lower abdominal quadrant-nontender to palpation, to shoulders and back. Reports inner thigh/hamstring tender, travels down to his toes. patient does not smoke, quit 1 year ago but exposed daily to secondhand smoke as he lives with an active smoker. Patient reports he was compliant taking his Plavix but had run out of aspirin.Heparin drip initiated in the ER. Denies chest pain, palpitations or shortness of breath. 08/20. Patient seen and examined. Patient had CT angiogram with runoff done, was reviewed by vascular surgery, recommended keep patient aspirin Plavix, recommended outpatient follow-up, no need for any acute surgical intervention at this time, recommend outpatient follow-up at which time they will schedule patient for aortobifemoral bypass PHYSICAL EXAMINATION: GENERAL: The patient is alert and oriented x3, not in any acute distress. Well developed, well nourished. HEENT: Pupils are round and equally reacting to light. EOMI. No scleral icterus. No conjunctival pallor. Normocephalic, atraumatic. No pharyngeal erythema. No thyromegaly. CARDIOVASCULAR: S1 and S2 present. No murmurs, rubs, or gallops. PULMONARY: Chest is clear to auscultation, no wheezing or crackles. ABDOMEN: Soft, nontender, nondistended, normoactive bowel sounds. No palpable organomegaly. MUSCULOSKELETAL: No joint swelling or deformity. EXTREMITIES: No cyanosis, clubbing, or pedal edema. NEUROLOGICAL: Gross neurological examination did not reveal any focal deficits. SKIN: No rashes. Dictation was produced using [employer] dictation software. please excuse any grammatical, word or spelling errors. Patient Condition at Discharge: Fair Plan - Discharge Summary Discharge Rx Participant: No New Discharge Prescriptions: New Aspirin EC [Ecotrin Low Dose] 81 mg PO DAILY #90 tab Omeprazole 20 mg PO DAILY #30 cap Atorvastatin [Lipitor] 80 mg PO DAILY #30 tab HYDROcodone/APAP 5-325MG [Magnolia 5-325] 1 tab PO Q6HR PRN 3 Days #12 tab PRN Reason: Pain Continue metFORMIN HCL 500 mg PO DAILY Clopidogrel Bisulfate [Plavix] 75 mg PO DAILY lisinopriL [Zestril] 10 mg PO DAILY OLANZapine [ZyPREXA] 5 mg PO HS minoxidiL 2.5 mg PO DAILY amLODIPine [Norvasc] 5 mg PO DAILY Semaglutide [Ozempic] 0.5 mg SQ FR Sildenafil Citrate 100 mg PO DAILY PRN PRN Reason: E.D. Meloxicam [Mobic] 15 mg PO DAILY Metoprolol Succinate (ER) [Toprol XL] 25 mg PO DAILY Discontinued Atorvastatin Calcium [Lipitor] 40 mg PO HS Discharge Medication List Clopidogrel Bisulfate [Plavix] 75 mg PO DAILY 03/13/20 [History] metFORMIN HCL 500 mg PO DAILY 03/13/20 [History] lisinopriL [Zestril] 10 mg PO DAILY 04/29/20 [History] Aspirin EC [Ecotrin Low Dose] 81 mg PO DAILY #90 tab 08/20/23 [Rx] Atorvastatin [Lipitor] 80 mg PO DAILY #30 tab 08/20/23 [Rx] Meloxicam [Mobic] 15 mg PO DAILY 08/20/23 [History] Metoprolol Succinate (ER) [Toprol XL] 25 mg PO DAILY 08/20/23 [History] OLANZapine [ZyPREXA] 5 mg PO HS 08/20/23 [History] Omeprazole 20 mg PO DAILY #30 cap 08/20/23 [Rx] Semaglutide [Ozempic] 0.5 mg SQ FR 08/20/23 [History] Sildenafil Citrate 100 mg PO DAILY PRN 08/20/23 [History] amLODIPine [Norvasc] 5 mg PO DAILY 08/20/23 [History] minoxidiL 2.5 mg PO DAILY 08/20/23 [History] HYDROcodone/APAP 5-325MG [Magnolia 5-325] 1 tab PO Q6HR PRN 3 Days #12 tab 08/21/23 [Rx] Follow up Appointment(s)/Referral(s): Benji Hand MD [Primary Care Provider] - 1 Week Jose C Ramsey DO [Doctor of Osteopathic Medicine] - 1 Week Activity/Diet/Wound Care/Special Instructions: Recommend small frequent meals. Discharge Disposition: HOME SELF-CARE
[2023-08-21 14:18] VITALS: BP 111/66; PULSE 58; TEMP 97.7
== END 2023-08-21 15:35 | disposition home or self-care (01) ==
LOC: EC 19:14 → 6NMEDSUR 08-20 00:11
PROVIDERS: ADMIT Family Medicine; ATTEND Family Medicine
DX: E11.51 Type 2 diabetes mellitus with diabetic peripheral angiopathy without gangrene (principal); I70.0 Atherosclerosis of aorta; I74.5 Embolism and thrombosis of iliac artery; J44.9 Chronic obstructive pulmonary disease, unspecified; K21.9 Gastro-esophageal reflux disease without esophagitis; E78.5 Hyperlipidemia, unspecified; I10 Essential (primary) hypertension; G89.29 Other chronic pain; M54.50 Low back pain, unspecified; J96.11 Chronic respiratory failure with hypoxia; F32.A Depression, unspecified; F41.9 Anxiety disorder, unspecified; F90.9 Attention-deficit hyperactivity disorder, unspecified type; F12.90 Cannabis use, unspecified, uncomplicated; Z77.22 Contact with and (suspected) exposure to environmental tobacco smoke (acute) (chronic); Z87.891 Personal history of nicotine dependence; Z95.820 Peripheral vascular angioplasty status with implants and grafts; Z99.81 Dependence on supplemental oxygen; Z79.1 Long term (current) use of non-steroidal anti-inflammatories (NSAID); Z79.02 Long term (current) use of antithrombotics/antiplatelets; Z79.82 Long term (current) use of aspirin; Z79.84 Long term (current) use of oral hypoglycemic drugs; Z79.899 Other long term (current) drug therapy; Z88.5 Allergy status to narcotic agent
CPT/HCPCS: 96376 ×4; 96365; 96366 ×2; 96361; 96375; 99285; 36415; 80048; 83605; 83735; 85025; 85610; 85730 ×2; 83036; 93923; 75635; G0378 ×2; J2360; J1644 ×4; J1170 ×3; J1885; Q9967

== ENCOUNTER 2023-10-11 10:41 | Emergency (ER) | payer MEDICARE, OTHER ==
--- NOTE | 2023-10-11 10:51 | ED ---
Extremity Problem HPI - General Source: patient, RN notes reviewed Mode of arrival: ambulatory Limitations: no limitations <Zoie Rudd - Last Filed: 10/11/23 10:50> <Pancho Nicholson - Last Filed: 10/11/23 15:43> - General Stated complaint: Dr referral-Numbness in L leg Time Seen by Provider: 10/11/23 10:50 - History of Present Illness Initial comments: Quick note: 53-year-old male presenting to the ER with a chief complaint of left leg pain. Patient has known arterial blockages and follows up with Dr. Sims. He states the pain in his left leg has been increasing all weekend. He denies any injuries or traumas. Patient is ambulatory and states his left leg and foot feel numb. (Zoie Rudd) This is a 53-year-old male who presents to the emergency department stating that he has a left iliac artery occlusion. Patient states he was told by Dr. Sims that he needed surgery. Patient comes in today because over the weekend the pain is gone through the roof and needs almost unbearable to stop on he does not know what to do at this point in time. Patient states he has decreased sensation of foot but is very painful to touch. Patient denies any fever or chills. Patient denies any abdominal pain patient denies any back pain. Patient has any difficulty breathing shortness of breath (Pancho Nicholson) - Related Data Home Medications Medication Instructions Recorded Confirmed Clopidogrel Bisulfate [Plavix] 75 mg PO DAILY 03/13/20 10/11/23 Metoprolol Succinate (ER) [Toprol 25 mg PO DAILY 08/20/23 10/11/23 XL] Semaglutide [Ozempic] 0.25 mg SQ FR 08/20/23 10/11/23 Atorvastatin [Lipitor] 40 mg PO HS 10/11/23 10/11/23 Previous Rx's Medication Instructions Recorded Aspirin EC [Ecotrin Low Dose] 81 mg PO DAILY #90 tab 08/20/23 Omeprazole 20 mg PO DAILY #30 cap 08/20/23 Allergies Allergy/AdvReac Type Severity Reaction Status Date / Time benztropine mesylate AdvReac muscle Verified 10/11/23 13:58 [From Vipul] spasms morphine AdvReac Nausea & Verified 10/11/23 13:58 Vomiting Review of Systems ROS Other: All systems not noted in ROS Statement are negative. <Zoie Rudd - Last Filed: 10/11/23 10:50> ROS Other: All systems not noted in ROS Statement are negative. <Pancho Nicholson - Last Filed: 10/11/23 15:43> ROS Statement: Those systems with pertinent positive or pertinent negative responses have been documented in the HPI. Past Medical History Past Medical History: COPD, Diabetes Mellitus, GERD/Reflux, Hyperlipidemia, Hypertension, Osteoarthritis (OA), Vascular Disorder Additional Past Medical History / Comment(s): hx. diverticulitis, bad circulation to legs, chronic back pain with known herniated disks, uses oxygen at 2-3L NC as needed, seasonal allergies. History of Any Multi-Drug Resistant Organisms: None Reported Past Surgical History: Bowel Resection, Hernia Repair, Orthopedic Surgery Additional Past Surgical History / Comment(s): temp. colostomy then reversal, knee surg., thumb surg., femoral bypass Past Anesthesia/Blood Transfusion Reactions: No Reported Reaction Past Psychological History: ADD/ADHD, Anxiety, Depression Smoking Status: Former smoker, Second hand smoke exposure Past Alcohol Use History: None Reported Past Drug Use History: Marijuana - Past Family History Mother Family Medical History: Cancer Father Family Medical History: Osteoarthritis (OA), Respiratory Disorder <Zoie Rudd - Last Filed: 10/11/23 10:50> General Exam <Zoie Rudd - Last Filed: 10/11/23 10:50> <Pancho Nicholson - Last Filed: 10/11/23 15:43> - General Exam Comments Initial Comments: Visual Physical Exam Vital signs reviewed General: Well-appearing, nontoxic, no acute distress. Head: Normocephalic, atraumatic Eyes: PERRLA, EOMI ENT: Airway patent Chest: Nonlabored breathing Skin: No visual rash, normal skin tone Neuro: Alert and oriented 3 Musculoskeletal: No gross abnormalities (Zoie Rudd) GENERAL: Patient is well-developed and well-nourished. Patient is nontoxic and well-hydrated and is in mild distress. ENT: Neck is soft and supple. No significant lymphadenopathy is noted. Oropharynx is clear. Moist mucous membranes. Neck has full range of motion without eliciting any pain. EYES: The sclera were anicteric and conjunctiva were pink and moist. Extraocular movements were intact and pupils were equal round and reactive to light. Eyelids were unremarkable. PULMONARY: Unlabored respirations. Good breath sounds bilaterally. No audible rales rhonchi or wheezing was noted. CARDIOVASCULAR: There is a regular rate and rhythm without any murmurs gallops or rubs. ABDOMEN: Soft and nontender with normal bowel sounds. SKIN: Skin is clear with no lesions or rashes and otherwise unremarkable. NEUROLOGIC: Patient is alert and oriented x3. Cranial nerves II through XII are grossly intact. Motor and sensory are also intact. Normal speech, volume and content. Symmetrical smile. MUSCULOSKELETAL: Normal extremities with adequate strength and full range of motion. I could not feel any DP or posterior tibial pulse. Patient does have a cap refill of about 4-second LYMPHATICS: No significant lymphadenopathy is noted PSYCHIATRIC: Normal psychiatric evaluation. (Pancho Nicholson) Course Vital Signs 10/11/23 10/11/23 10/11/23 10:51 13:54 14:57 Temperature 97.8 F Pulse Rate 84 66 Respiratory 20 16 Rate Blood Pressure 136/77 135/83 O2 Sat by Pulse 99 96 Oximetry Medical Decision Making <Zoie Rudd - Last Filed: 10/11/23 10:50> - Lab Data Result diagrams: 10/11/23 13:47 10/11/23 13:47 <Pancho Nicholson - Last Filed: 10/11/23 15:43> - Medical Decision Making I performed the quick note portion of this chart. Electronically signed by Zoie Rudd PA-C (Zoie Rudd) Was pt. sent in by a medical professional or institution ([facility], [employer], urgent care, hospital, or half-way...) When possible be specific @ -No Did you speak to anyone other than the patient for history (EMS, parent, family, police, friend...)? What history was obtained from this source @ -No Did you review nursing and triage notes (agree or disagree)? Why? @ -I reviewed and agree with nursing and triage notes Were old charts reviewed (outside hosp., previous admission, EMS record, old EKG, old radiological studies, urgent care reports/EKG's, half-way records)? Report findings @ -I reviewed the patient's prior CAT scan a couple months ago and patient had severe occlusion of his arterial system particularly on the left Differential Diagnosis (chest pain, altered mental status, abdominal pain women, abdominal pain men, vaginal bleeding, weakness, fever, dyspnea, syncope, headache, dizziness, GI bleed, back pain, seizure, CVA, palpatations, mental health, musculoskeletal)? @ -Arterial occlusion, chronic pain, DVT this is not an all-inclusive list EKG interpreted by me (3pts min.). @ -As above X-rays interpreted by me (1pt min.). @ -None done CT interpreted by me (1pt min.). @ -None done U/S interpreted by me (1pt. min.). @ -None done What testing was considered but not performed or refused? (CT, X-rays, U/S, labs)? Why? @ -None What meds were considered but not given or refused? Why? @ -None Did you discuss the management of the patient with other professionals (professionals i.e. , PA, [employer], lab, RT, psych nurse, perinatal social worker, compression molding machine setter, teacher, airfield services officer, case finishing machine adjuster)? Give summary @ -I spoke with Dr. Sims and his nurse practitioner and they felt the ultrasound was stable and that the patient could follow-up as an outpatient Was smoking cessation discussed for >3mins.? @ -No Was critical care preformed (if so, how long)? @ -No Were there social determinants of health that impacted care today? How? (Homelessness, low income, unemployed, alcoholism, drug addiction, transportation, low edu. Level, literacy, decrease access to med. care, shelter, rehab)? @ -No Was there de-escalation of care discussed even if they declined (Discuss DNR or withdrawal of care, Hospice)? DNR status @ -No What co-morbidities impacted this encounter? (DM, HTN, Smoking, COPD, CAD, C ancer, CVA, ARF, Chemo, Hep., AIDS, mental health diagnosis, sleep apnea, morbid obesity)? @ -None Was patient admitted / discharged? Hospital course, mention meds given and route, prescriptions, significant lab abnormalities, going to OR and other pertinent info. @ -Ultrasound showed no further advancement of patient's occlusion per vascular surgery Undiagnosed new problem with uncertain prognosis? @ -No Drug Therapy requiring intensive monitoring for toxicity (Heparin, Nitro, Insulin, Cardizem)? @ -No Were any procedures done? @ -No Diagnosis/symptom? @ -Arterial occlusion Acute, or Chronic, or Acute on Chronic? @ -Acute on chronic Uncomplicated (without systemic symptoms) or Complicated (systemic symptoms)? @ -Complicated Side effects of treatment? @ -No Exacerbation, Progression, or Severe Exacerbation? @ -No Poses a threat to life or bodily function? How? (Chest pain, [place], [place], pneumonia, PE, COPD, DKA, ARF, appy, cholecystitis, CVA, Diverticulitis, Homicidal, Suicidal, threat to staff... and all critical care pts) @ -No (Pancho Nicholson) - Lab Data Lab Results 10/11/23 10/11/23 10/11/23 Range/Units 13:47 13:47 13:47 WBC 10.0 (3.8-10.6) k/uL RBC 5.01 (4.30-5.90) m/uL Hgb 15.9 (13.0-17.5) gm/dL Hct 48.4 (39.0-53.0) % MCV 96.6 (80.0-100.0) fL MCH 31.7 (25.0-35.0) pg MCHC 32.8 (31.0-37.0) g/dL RDW 12.9 (11.5-15.5) % Plt Count 368 (150-450) k/uL MPV 7.1 Neutrophils % 63 % Lymphocytes % 23 % Monocytes % 8 % Eosinophils % 2 % Basophils % 1 % Neutrophils # 6.3 (1.3-7.7) k/uL Lymphocytes # 2.3 (1.0-4.8) k/uL Monocytes # 0.8 (0-1.0) k/uL Eosinophils # 0.2 (0-0.7) k/uL Basophils # 0.1 (0-0.2) k/uL Sodium 139 (137-145) mmol/L Potassium 4.4 (3.5-5.1) mmol/L Chloride 106 (98-107) mmol/L Carbon Dioxide 24 (22-30) mmol/L Anion Gap 9 mmol/L BUN 16 (9-20) mg/dL Creatinine 0.59 L (0.66-1.25) mg/dL Est GFR (CKD-EPI)AfAm >90 (>60 ml/min/1.73 sqM) Est GFR (CKD-EPI)NonAf >90 (>60 ml/min/1.73 sqM) Glucose 85 (74-99) mg/dL Plasma Lactic Acid Yoni 0.8 (0.7-2.0) mmol/L Calcium 9.9 (8.4-10.2) mg/dL Total Bilirubin 0.5 (0.2-1.3) mg/dL AST 23 (17-59) U/L ALT 28 (4-49) U/L Alkaline Phosphatase 120 (38-126) U/L Total Protein 8.0 (6.3-8.2) g/dL Albumin 4.5 (3.5-5.0) g/dL Disposition <Zoie Rudd - Last Filed: 10/11/23 10:50> Is patient prescribed a controlled substance at d/c from ED?: No Time of Disposition: 15:43 <Pancho Nicholson - Last Filed: 10/11/23 15:43> Clinical Impression: Arterial occlusion Disposition: HOME SELF-CARE Condition: Good Additional Instructions: Patient is a follow-up as an outpatient with Dr. Sims. Patient is told to return if symptoms worsen in any way Referrals: Benji Hand MD [Primary Care Provider] - 1-2 days
[2023-10-11 11:19] VITALS: TEMP 97.8
[2023-10-11] MEDS: HYDROmorphone 0.5 MG/0.5 ML SYRINGE IVP STA ×2 (14:02→15:35)
[2023-10-11 14:10] LABS: Basophils # (A) 0.1 k/uL (0-0.2); Basophils % (A) 1 %; Eosinophils # (A) 0.2 k/uL (0-0.7); Eosinophils % (A) 2 %; HCT 48.4 % (39.0-53.0); HGB 15.9 gm/dL (13.0-17.5); Lymphocytes # (A) 2.3 k/uL (1.0-4.8); Lymphocytes % (A) 23 %; MCH 31.7 pg (25.0-35.0); MCHC 32.8 g/dL (31.0-37.0); MCV 96.6 fL (80.0-100.0); Mean Platelet Volume 7.1; Monocytes # (A) 0.8 k/uL (0-1.0); Monocytes % (A) 8 %; Neutrophils # (A) 6.3 k/uL (1.3-7.7); Neutrophils % (A) 63 %; Platelet Count 368 k/uL (150-450); RBC 5.01 m/uL (4.30-5.90); RDW 12.9 % (11.5-15.5)
[2023-10-11 14:22] LABS: ALT 28 U/L (4-49); AST 23 U/L (17-59); African American GFR (CKD) >90 (>60 ml/min/1.73 sqM); Albumin 4.5 g/dL (3.5-5.0); Alkaline Phosphatase 120 U/L (38-126); Anion Gap 9 mmol/L; Blood Urea Nitrogen 16 mg/dL (9-20); Calcium 9.9 mg/dL (8.4-10.2); Carbon Dioxide 24 mmol/L (22-30); Chloride 106 mmol/L (98-107); Glucose 85 mg/dL (74-99); Non-African American GFR(CKD) >90 (>60 ml/min/1.73 sqM); Potassium 4.4 mmol/L (3.5-5.1); Sodium 139 mmol/L (137-145); Total Bilirubin 0.5 mg/dL (0.2-1.3)
--- NOTE | 2023-10-11 15:05 | P.GSCN ---
History of Present Illness Consult date: 10/11/23 Reason for Consult: Left leg pain Requesting physician: Pancho Nicholson History of present illness: This is a 53-year-old male with known peripheral arterial disease and aorto iliac disease who follows with Dr. Sims and was just seen in the office last week . Patient is to be scheduled for an aortobifem bypass as an outpatient. He states that over the weekend he felt like he was having increased pain. He had pain that shot all the way down his leg and up his back. That is now resolved. Also states that his foot had some numbness and tingling and felt cold. 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 Previous YASMEEN 08/20/2023 right 0.44 left 0.32. Patient states he is concerned because he lives with 6 people who smoke, he states he is a former smoker. Currently lower extremities are both warm to touch. States he feels that he is having some increased pain with walking and distances are becoming shorter. Past Medical History Past Medical History: COPD, Diabetes Mellitus, GERD/Reflux, Hyperlipidemia, Hypertension, Osteoarthritis (OA), Vascular Disorder Additional Past Medical History / Comment(s): hx. diverticulitis, bad circulation to legs, chronic back pain with known herniated disks, uses oxygen at 2-3L [place] as needed, seasonal allergies. History of Any Multi-Drug Resistant Organisms: None Reported Past Surgical History: Bowel Resection, Hernia Repair, Orthopedic Surgery Additional Past Surgical History / Comment(s): temp. colostomy then reversal, knee surg., thumb surg., femoral bypass Past Anesthesia/Blood Transfusion Reactions: No Reported Reaction Past Psychological History: ADD/ADHD, Anxiety, Depression Smoking Status: Former smoker, Second hand smoke exposure Past Alcohol Use History: None Reported Past Drug Use History: Marijuana - Past Family History Mother Family Medical History: Cancer Father Family Medical History: Osteoarthritis (OA), Respiratory Disorder Medications and Allergies Home Medications Medication Instructions Recorded Confirmed Type Clopidogrel Bisulfate [Plavix] 75 mg PO DAILY 03/13/20 10/11/23 History Aspirin EC [Ecotrin Low Dose] 81 mg PO DAILY #90 tab 08/20/23 10/11/23 Rx Metoprolol Succinate (ER) [Toprol 25 mg PO DAILY 08/20/23 10/11/23 History XL] Omeprazole 20 mg PO DAILY #30 cap 08/20/23 10/11/23 Rx Semaglutide [Ozempic] 0.25 mg SQ FR 08/20/23 10/11/23 History Atorvastatin [Lipitor] 40 mg PO HS 10/11/23 10/11/23 History Allergies Allergy/AdvReac Type Severity Reaction Status Date / Time benztropine mesylate AdvReac muscle Verified 10/11/23 13:58 [From Cogentin] spasms morphine AdvReac Nausea & Verified 10/11/23 13:58 Vomiting Surgical - Exam Vital Signs Temp Pulse Resp BP Pulse Ox 97.8 F 84 20 136/77 99 10/11/23 10:51 10/11/23 10:51 10/11/23 10:51 10/11/23 10:51 10/11/23 10:51 General appearance: The patient is alert, oriented, appears in no acute distress. HET: Head is normocephalic and atraumatic. Pupils are equal and reactive. Neck: Supple. Heart: Regular. Lungs: Equal expansion, normal respiratory effort. Abdomen: Soft, nontender, nondistended. Extremities: Normal skin color and turgor. Bilateral lower extremities warm to the touch. Left toes are tender to touch. Good cap refill. Sensorimotor intact with good mobility. Neurological: No focal deficits. Strength and sensation are grossly intact. Results - Labs 10/11/23 13:47 10/11/23 13:47 Abnormal Lab Results - Last 24 Hours (Table) 10/11/23 Range/Units 13:47 Creatinine 0.59 L (0.66-1.25) mg/dL Diabetes panel 10/11/23 Range/Units 13:47 Sodium 139 (137-145) mmol/L Potassium 4.4 (3.5-5.1) mmol/L Chloride 106 (98-107) mmol/L Carbon Dioxide 24 (22-30) mmol/L BUN 16 (9-20) mg/dL Creatinine 0.59 L (0.66-1.25) mg/dL Glucose 85 (74-99) mg/dL Calcium 9.9 (8.4-10.2) mg/dL AST 23 (17-59) U/L ALT 28 (4-49) U/L Alkaline Phosphatase 120 (38-126) U/L Total Protein 8.0 (6.3-8.2) g/dL Albumin 4.5 (3.5-5.0) g/dL Calcium panel 10/11/23 Range/Units 13:47 Calcium 9.9 (8.4-10.2) mg/dL Albumin 4.5 (3.5-5.0) g/dL Pituitary panel 10/11/23 Range/Units 13:47 Sodium 139 (137-145) mmol/L Potassium 4.4 (3.5-5.1) mmol/L Chloride 106 (98-107) mmol/L Carbon Dioxide 24 (22-30) mmol/L BUN 16 (9-20) mg/dL Creatinine 0.59 L (0.66-1.25) mg/dL Glucose 85 (74-99) mg/dL Calcium 9.9 (8.4-10.2) mg/dL Adrenal panel 10/11/23 Range/Units 13:47 Sodium 139 (137-145) mmol/L Potassium 4.4 (3.5-5.1) mmol/L Chloride 106 (98-107) mmol/L Carbon Dioxide 24 (22-30) mmol/L BUN 16 (9-20) mg/dL Creatinine 0.59 L (0.66-1.25) mg/dL Glucose 85 (74-99) mg/dL Calcium 9.9 (8.4-10.2) mg/dL Total Bilirubin 0.5 (0.2-1.3) mg/dL AST 23 (17-59) U/L ALT 28 (4-49) U/L Alkaline Phosphatase 120 (38-126) U/L Total Protein 8.0 (6.3-8.2) g/dL Albumin 4.5 (3.5-5.0) g/dL Assessment and Plan Assessment: 1. Aortobiiliac artery occlusion 2. Left lower extremity pain 3. Known occluded femorofemoral bypass 4. Former smoker 5. COPD 6. Diabetes mellitus Plan: 1. Obtain lower extremity arterial ultrasound 2. Continue aspirin, Lipitor, and Plavix 3. ABIs reviewed, and are actually reported as improved. Patient is surgically stable from a vascular standpoint and can follow-up as scheduled for outpatient aortobifem bypass Thank you for this consultation. Patient is cleared from vascular surgery for discharge. The impression and plan of care has been dictated as directed. I performed a history and examination of this patient, discussed the same with the dictator. I agree with the dictator's note ,documented as a scribe. Any additional findings or plans will be noted.
--- NOTE | 2023-10-11 15:20 | US ---
EXAMINATION TYPE: US arterial LE multi level DATE OF EXAM: 10/11/2023 3:10 PM CLINICAL INDICATION: Male, 53 years old with history of Biiliac disease, left foot pain; Biiliac dise ase left foot pain History of: Smoker: Previous Hypertension: yes Diabetic: yes Hyperlipidemia: yes TIA/CVA: no Previous Vascular Surgery: no CAD: yes OH: no Vascular Ulcers: no Claudication: yes Gangrene: no Doppler Waveforms: Right: Monophasic Left: Monophasic Ankle-Brachial Indices: Right: 0.46 Left: 0.46 (Vessel hardening > 1.4; Normal 0.9 - 1.4, Moderate 0.7 - 0.9, Severe 0.5-0.7) Toe Brachial Indices: Right: 0.28 Left: 0.19 IMPRESSION: Severe bilateral peripheral vascular disease.
[2023-10-11 17:04] VITALS: BP 132/78; PULSE 86; RESP 20
== END 2023-10-11 16:32 | disposition home or self-care (01) ==
LOC: EC 10:41
DX: I70.8 Atherosclerosis of other arteries (principal); I25.10 Atherosclerotic heart disease of native coronary artery without angina pectoris; F12.90 Cannabis use, unspecified, uncomplicated; Z88.8 Allergy status to other drugs, medicaments and biological substances; Z88.5 Allergy status to narcotic agent; Z77.22 Contact with and (suspected) exposure to environmental tobacco smoke (acute) (chronic); Z87.891 Personal history of nicotine dependence
CPT/HCPCS: 99285; 96374; 96376; 36415; 80053; 83605; 85025; 93923; J1170

== ENCOUNTER 2023-10-14 12:31 | Emergency (ER) | payer MEDICARE ==
--- NOTE | 2023-10-14 13:21 | ED ---
General Adult HPI - General Chief complaint: Back Pain/Injury Stated complaint: Back pain, blood in stool Time Seen by Provider: 10/14/23 12:50 Source: patient, RN notes reviewed Mode of arrival: ambulatory Limitations: no limitations - History of Present Illness Initial comments: This is a 53-year-old male with a past medical history of severe peripheral vascular disease who presents emergency department chief complaint of left lower extremity pain that radiates into his back. Patient was seen in the emergency department on 10/10 with similar complaints where he was seen by vascular specialist which recommended outpatient follow-up for surgical consultation. States that his left leg pain has worsened since he was seen here last with pain radiating into his back with associated paresthesias. He denies bladder or bowel incontinence, saddle anesthesias. Denies fevers, chest pain or pressure, palpitations, dizziness, lightheadedness or fatigue. Patient follows with Dr. Ramsey. - Related Data Home Medications Medication Instructions Recorded Confirmed Clopidogrel Bisulfate [Plavix] 75 mg PO DAILY 03/13/20 10/11/23 Metoprolol Succinate (ER) [Toprol 25 mg PO DAILY 08/20/23 10/11/23 XL] Semaglutide [Ozempic] 0.25 mg SQ FR 08/20/23 10/11/23 Atorvastatin [Lipitor] 40 mg PO HS 10/11/23 10/11/23 Previous Rx's Medication Instructions Recorded Aspirin EC [Ecotrin Low Dose] 81 mg PO DAILY #90 tab 08/20/23 Omeprazole 20 mg PO DAILY #30 cap 08/20/23 Allergies Allergy/AdvReac Type Severity Reaction Status Date / Time benztropine mesylate AdvReac muscle Verified 10/14/23 12:39 [From Cogentin] spasms morphine AdvReac Nausea & Verified 10/14/23 12:39 Vomiting Review of Systems ROS Statement: Those systems with pertinent positive or pertinent negative responses have been documented in the HPI. ROS Other: All systems not noted in ROS Statement are negative. Past Medical History Past Medical History: COPD, Diabetes Mellitus, GERD/Reflux, Hyperlipidemia, Hypertension, Osteoarthritis (OA), Vascular Disorder Additional Past Medical History / Comment(s): hx. diverticulitis, bad circulation to legs, chronic back pain with known herniated disks, uses oxygen at 2-3L [place] as needed, seasonal allergies. History of Any Multi-Drug Resistant Organisms: None Reported Past Surgical History: Bowel Resection, Hernia Repair, Orthopedic Surgery Additional Past Surgical History / Comment(s): temp. colostomy then reversal, knee surg., thumb surg., femoral bypass Past Anesthesia/Blood Transfusion Reactions: No Reported Reaction Past Psychological History: ADD/ADHD, Anxiety, Depression Smoking Status: Former smoker, Second hand smoke exposure Past Alcohol Use History: None Reported Past Drug Use History: Marijuana - Past Family History Mother Family Medical History: Cancer Father Family Medical History: Osteoarthritis (OA), Respiratory Disorder General Exam Limitations: no limitations General appearance: alert, in no apparent distress Head exam: Present: atraumatic, normocephalic, normal inspection Eye exam: Present: normal appearance, PERRL, EOMI. Absent: scleral icterus, conjunctival injection, periorbital swelling ENT exam: Present: normal exam, mucous membranes moist Neck exam: Present: normal inspection. Absent: tenderness, meningismus, lymphadenopathy Respiratory exam: Present: normal lung sounds bilaterally. Absent: respiratory distress, wheezes, rales, rhonchi, stridor Cardiovascular Exam: Present: regular rate, normal rhythm, normal heart sounds. Absent: systolic murmur, diastolic murmur, rubs, gallop, clicks GI/Abdominal exam: Present: soft, normal bowel sounds. Absent: distended, tenderness, guarding, rebound, rigid Left Lower Leg exam: Present: ecchymosis (Patient has severe pain of the left lower extremity, varicosities noted on the distal medial ankle.) Back exam: Present: normal inspection, tenderness (Medial back) Neurological exam: Present: alert, oriented X3, CN II-XII intact Psychiatric exam: Present: normal affect, normal mood Skin exam: Present: warm, dry, intact, normal color, other (Above description for left lower extremity). Absent: rash Course Vital Signs 10/14/23 10/14/23 12:37 15:09 Temperature 98.3 F 98.1 F Pulse Rate 102 H 85 Respiratory 18 18 Rate Blood Pressure 116/68 124/73 O2 Sat by Pulse 98 98 Oximetry Medical Decision Making - Medical Decision Making Was pt. sent in by a medical professional or institution (, PA, HAND STRIPPER, urgent care, hospital, or [facility]...) When possible be specific @ -No Did you speak to anyone other than the patient for history (EMS, parent, family, police, friend...)? What history was obtained from this source @ -No Did you review nursing and triage notes (agree or disagree)? Why? @ -I reviewed and agree with nursing and triage notes Were old charts reviewed (outside hosp., previous admission, EMS record, old EKG, old radiological studies, urgent care reports/EKG's, [facility] records)? Report findings @ -I reviewed patient's previous chart from 10/10 where ultrasound completed and vascular was consulted. Recommend the patient follows up outpatient for surgical consultation. Differential Diagnosis (chest pain, altered mental status, abdominal pain women, abdominal pain men, vaginal bleeding, weakness, fever, dyspnea, syncope, headache, dizziness, GI bleed, back pain, seizure, CVA, palpatations, mental health, musculoskeletal)? @ -peripheral vascular disease, lower extremity pain, DVT, this list is not all inclusive. EKG interpreted by me (3pts min.). @ -None X-rays interpreted by me (1pt min.). @ -None done CT interpreted by me (1pt min.). @ -None done U/S interpreted by me (1pt. min.). @ -None done What testing was considered but not performed or refused? (CT, X-rays, U/S, labs)? Why? @ -None What meds were considered but not given or refused? Why? @ -None Did you discuss the management of the patient with other professionals (professionals i.e. , PA, HAND STRIPPER, lab, RT, psych nurse, group social worker, associate professor of surgery, teacher, chief communications officer, cyanide case hardener)? Give summary @ -Spoke with vascular Dr. Ramsey, but stated they have been attempting to schedule the patient for surgery at [facility] but there is not available over time. Surgeon recommends transfer to [facility] for further evaluation where he will be the admitting physician. States that there is no n eed for preoperative labs and they will be collected at [facility]. Patient will be transferred. Was smoking cessation discussed for >3mins.? @ -No Was critical care preformed (if so, how long)? @ -No Were there social determinants of health that impacted care today? How? (Homelessness, low income, unemployed, alcoholism, drug addiction, transportation, low edu. Level, literacy, decrease access to med. care, [facility]ci, rehab)? @ -No Was there de-escalation of care discussed even if they declined (Discuss DNR or withdrawal of care, Hospice)? DNR status @ -No What co-morbidities impacted this encounter? (DM, HTN, Smoking, COPD, CAD, Cancer, CVA, ARF, Chemo, Hep., AIDS, mental health diagnosis, sleep apnea, morbid obesity)? @ -None Was patient admitted / discharged? Hospital course, mention meds given and route, prescriptions, significant lab abnormalities, going to OR and other pertinent info. @ -Transferred. 53-year-old male with lower extremity left pain. On examination patient noted to have medial distal swelling of the left lower extremity with noted paresthesias and pain rating into his back. Consult vascular which recommend transfer to [facility] for surgical intervention. Patient's pain has subsided with pain medication. Undiagnosed new problem with uncertain prognosis? @ -No Drug Therapy requiring intensive monitoring for toxicity (Heparin, Nitro, Insulin, Cardizem)? @ -No Were any procedures done? @ -No Diagnosis/symptom? @ -Peripheral vascular disease Acute, or Chronic, or Acute on Chronic? @ -Acute Uncomplicated (without systemic symptoms) or Complicated (systemic symptoms)? @ -Complicated Side effects of treatment? @ -No Exacerbation, Progression, or Severe Exacerbation? @ -No Poses a threat to life or bodily function? How? (Chest pain, [place], [place], pneumonia, PE, COPD, DKA, ARF, appy, cholecystitis, CVA, Diverticulitis, Homicidal, Suicidal, threat to staff... and all critical care pts) @ -Yes, untreated severe peripheral vascular disease can lead to loss of oxygenation to the affected limb with possible necrosis and tissue . Disposition Clinical Impression: Peripheral vascular disease Disposition: OTHER INSTITUTION NOT DEFINED Condition: Good Referrals: Benji Hand MD [Primary Care Provider] - 1-2 days - Out of Hospital Transfer - Req. Specs Out of Hospital Transfer - Requested Specifics: Other Non-Acute ([facility] transfer for vascular surgery, admitting physician Dr. Ramsey)
[2023-10-14] MEDS: HYDROmorphone 1 MG/ML 1 ML SYRINGE IVP STA ×3 (14:30→20:30)
[2023-10-15] MEDS: HYDROmorphone 1 MG/ML 1 ML SYRINGE IVP PRN (00:05)
[2023-10-15 07:11] VITALS: RESP 18
[2023-10-15 09:05] VITALS: BP 142/78; PULSE 81; TEMP 98.1
== END 2023-10-15 10:10 | disposition other institution (70) ==
LOC: EC 12:31
DX: I73.9 Peripheral vascular disease, unspecified (principal); F12.90 Cannabis use, unspecified, uncomplicated; Z87.891 Personal history of nicotine dependence; Z77.22 Contact with and (suspected) exposure to environmental tobacco smoke (acute) (chronic); Z88.5 Allergy status to narcotic agent; Z88.8 Allergy status to other drugs, medicaments and biological substances
CPT/HCPCS: 99285; 96374; 96376 ×5; J1170 ×2

== ENCOUNTER 2023-11-03 11:09 | Inpatient (IN) | payer MEDICARE ==
--- NOTE | 2023-11-03 12:04 | ED ---
SOB HPI - General Source: patient, RN notes reviewed Mode of arrival: ambulatory Limitations: no limitations <Zoie Rudd - Last Filed: 11/03/23 12:03> <Pancho Nicholson - Last Filed: 11/03/23 15:06> - General Chief Complaint: Shortness of Breath Stated Complaint: REINA Time Seen by Provider: 11/03/23 12:03 - History of Present Illness Initial Comments: Quick note: 53-year-old male presented to the ER with a chief complaint shortness of breath. The patient reports a recent femoral graft at [facility] and was discharged 2 weeks ago. He states for the past couple of days he has been having increasing shortness of breath. He states when he starts walking he is "panting". He denies exertional dyspnea. Denies any peripheral edema, fevers, cough, congestion or chest pain. (Zoie Rudd) This is a 53-year-old male who presents to the emergency department complaining of shortness of breath. Patient states he had a recent femoral graft because he was not getting any blood flow to his legs. Patient states he was discharged [address] Sims. Patient states his shortness of breath over the last few days is getting progressively worse. Patient denies any chest pain patient denies any abdominal pain. Patient denies any back pain. Patient states he has no recent fever chills or cough. (Pancho Nicholson) - Related Data Home Medications Medication Instructions Recorded Confirmed Clopidogrel Bisulfate [Plavix] 75 mg PO DAILY 03/13/20 11/03/23 Metoprolol Succinate (ER) [Toprol 25 mg PO DAILY 08/20/23 11/03/23 XL] Semaglutide [Ozempic] 0.25 mg SQ FR 08/20/23 11/03/23 Atorvastatin [Lipitor] 80 mg PO HS 11/03/23 11/03/23 Ezetimibe [Zetia] 10 mg PO DAILY 11/03/23 11/03/23 Previous Rx's Medication Instructions Recorded Aspirin EC [Ecotrin Low Dose] 81 mg PO DAILY #90 tab 08/20/23 Omeprazole 20 mg PO DAILY #30 cap 08/20/23 Allergies Allergy/AdvReac Type Severity Reaction Status Date / Time benztropine mesylate AdvReac muscle Verified 11/03/23 13:32 [From Cogbob] spasms morphine AdvReac Nausea & Verified 11/03/23 13:32 Vomiting Review of Systems ROS Other: All systems not noted in ROS Statement are negative. <Zoie Rudd - Last Filed: 11/03/23 12:03> ROS Other: All systems not noted in ROS Statement are negative. <Pancho Nicholson - Last Filed: 11/03/23 15:06> ROS Statement: Those systems with pertinent positive or pertinent negative responses have been documented in the HPI. Past Medical History Past Medical History: COPD, Diabetes Mellitus, GERD/Reflux, Hyperlipidemia, Hypertension, Osteoarthritis (OA), Vascular Disorder Additional Past Medical History / Comment(s): hx. diverticulitis, bad circulation to legs, chronic back pain with known herniated disks, uses oxygen at 2-3L NC as needed, seasonal allergies. History of Any Multi-Drug Resistant Organisms: None Reported Past Surgical History: Bowel Resection, Hernia Repair, Orthopedic Surgery Additional Past Surgical History / Comment(s): temp. colostomy then reversal, knee surg., thumb surg., femoral bypass Past Anesthesia/Blood Transfusion Reactions: No Reported Reaction Past Psychological History: ADD/ADHD, Anxiety, Depression Smoking Status: Former smoker, Second hand smoke exposure Past Alcohol Use History: None Reported Past Drug Use History: Marijuana - Past Family History Mother Family Medical History: Cancer Father Family Medical History: Osteoarthritis (OA), Respiratory Disorder <Zoie Rudd - Last Filed: 11/03/23 12:03> General Exam Limitations: no limitations <Zoie Rudd - Last Filed: 11/03/23 12:03> <Pancho Nicholson - Last Filed: 11/03/23 15:06> - General Exam Comments Initial Comments: Visual Physical Exam Vital signs reviewed General: Well-appearing, nontoxic, no acute distress. Head: Normocephalic, atraumatic Eyes: PERRLA, EOMI ENT: Airway patent Chest: Nonlabored breathing Skin: No visual rash, normal skin tone Neuro: Alert and oriented 3 Musculoskeletal: No gross abnormalities (Zoie Rudd) GENERAL: Patient is well-developed and well-nourished. Patient is nontoxic and well- hydrated and is in mild distress. ENT: Neck is soft and supple. No significant lymphadenopathy is noted. Oropharynx is clear. Moist mucous membranes. Neck has full range of motion without eliciting any pain. EYES: The sclera were anicteric and conjunctiva is pale. Extraocular movements were intact and pupils were equal round and reactive to light. Eyelids were unremarkable. PULMONARY: Unlabored respirations. Good breath sounds bilaterally. No audible rales rhonchi or wheezing was noted. CARDIOVASCULAR: There is a regular rate and rhythm without any murmurs gallops or rubs. ABDOMEN: Soft and nontender with normal bowel sounds. SKIN: Skin is pale NEUROLOGIC: Patient is alert and oriented x3. Cranial nerves II through XII are grossly intact. Motor and sensory are also intact. Normal speech, volume and content. Symmetrical smile. MUSCULOSKELETAL: Normal extremities with adequate strength and full range of motion. LYMPHATICS: No significant lymphadenopathy is noted PSYCHIATRIC: Normal psychiatric evaluation. (Pancho Nicholson) Course Vital Signs 11/03/23 11/03/23 11:28 13:40 Temperature 98 F Pulse Rate 98 105 H Respiratory 18 18 Rate Blood Pressure 101/67 110/72 O2 Sat by Pulse 100 100 Oximetry Medical Decision Making <Zoie Rudd - Last Filed: 11/03/23 12:03> - Lab Data Result diagrams: 11/03/23 11:43 11/03/23 11:43 <Pancho Nicholson - Last Filed: 11/03/23 15:06> - Medical Decision Making I performed the quick note portion of this chart. Electronically signed by Zoie Rudd PA-C (Zoie Rudd) EKG is interpreted by myself read EKG shows sinus tachycardia at 105 bpm ME interval 139 QRS is 80 QT interval is 322 QTc is 383. Patient's EKG shows no ST segment elevation or depression. Was pt. sent in by a medical professional or institution (JEFF Javier, TIP CUTTER, urgent care, hospital, or retirement...) When possible be specific @ -No Did you speak to anyone other than the patient for history (EMS, parent, family, police, friend...)? What history was obtained from this source @ -No Did you review nursing and triage notes (agree or disagree)? Why? @ -I reviewed and agree with nursing and triage notes Were old charts reviewed (outside hosp., previous admission, EMS record, old EKG, old radiological studies, urgent care reports/EKG's, retirement records)? Report findings @ -I reviewed chart some prior admissions on this patient. I also had lab work sent to me from [facility] and reviewed and compared to today's results. Differential Diagnosis (chest pain, altered mental status, abdominal pain women, abdominal pain men, vaginal bleeding, weakness, fever, dyspnea, syncope, headache, dizziness, GI bleed, back pain, seizure, CVA, palpatations, mental health, musculoskeletal)? @ -Differential Dyspnea: Coronary syndrome, arrhythmia, tamponade, asthma, COPD, pulmonary embolism, pneumonia, pneumothorax, pulmonary effusion, anaphylaxis, diabetic ketoacidosis, flailed chest, pulmonary contusion, diaphragmatic rupture, anemia, ne uromuscular, this is not meant to be an all-inclusive list. EKG interpreted by me (3pts min.). @ -As above X-rays interpreted by me (1pt min.). @ -None done CT interpreted by me (1pt min.). @ -None done U/S interpreted by me (1pt. min.). @ -None done What testing was considered but not performed or refused? (CT, X-rays, U/S, labs)? Why? @ -None What meds were considered but not given or refused? Why? @ -None Did you discuss the management of the patient with other professionals (professionals i.e. , PA, TIP CUTTER, lab, RT, psych nurse, social media campaign manager, tin tie machine operator automatic, teacher, crime prevention police officer, child welfare caseworker)? Give summary @ -I spoke with Dr. Fishman and he had no need for any angiogram at this time. I spoke with Dr. Brunner and he agreed to admit the patient admit the patient wrote admitting orders Was smoking cessation discussed for >3mins.? @ -No Was critical care preformed (if so, how long)? @ -No Were there social determinants of health that impacted care today? How? (Homelessness, low income, unemployed, alcoholism, drug addiction, transportation, low edu. Level, literacy, decrease access to med. care, skilled nursing, rehab)? @ -No Was there de-escalation of care discussed even if they declined (Discuss DNR or withdrawal of care, Hospice)? DNR status @ -No What co-morbidities impacted this encounter? (DM, HTN, Smoking, COPD, CAD, Cancer, CVA, ARF, Chemo, Hep., AIDS, mental health diagnosis, sleep apnea, morbid obesity)? @ -None Was patient admitted / discharged? Hospital course, mention meds given and route, prescriptions, significant lab abnormalities, going to OR and other pertinent info. @ -Patient's hemoglobin was 8.6 which is considerably lower than it was when he was in the hospital 2 weeks ago. Patient states has been getting progressively more short of breath. [facility] Un[facility]osed new problem with uncertain prognosis? @ -No Drug Therapy requiring intensive monitoring for toxicity (Heparin, Nitro, Insulin, Cardizem)? @ -No Were any procedures done? @ -No Diagnosis/symptom? @ -Anemia Acute, or Chronic, or Acute on Chronic? @ -Acute Uncomplicated (without systemic symptoms) or Complicated (systemic symptoms)? @ -Complicated Side effects of treatment? @ -No Exacerbation, Progression, or Severe Exacerbation? @ -No Poses a threat to life or bodily function? How? (Chest pain, USA, NV, pneumonia, PE, COPD, DKA, ARF, appy, cholecystitis, CVA, Diverticulitis, Homicidal, Suicidal, threat to staff... and all critical care pts) @ -Yes patient could become hypoxic and have poor endorgan dysfunction secondary to perfusion (Pancho Nicholson) - Lab Data Lab Results 11/03/23 11/03/23 11/03/23 Range/Units 11:43 11:43 11:43 WBC 11.4 H (3.8-10.6) k/uL RBC 2.69 L (4.30-5.90) m/uL Hgb 8.6 L D (13.0-17.5) gm/dL Hct 26.3 L (39.0-53.0) % MCV 97.6 (80.0-100.0) fL MCH 32.0 (25.0-35.0) pg MCHC 32.8 (31.0-37.0) g/dL RDW 13.7 (11.5-15.5) % Plt Count 582 H (150-450) k/uL MPV 7.2 Neutrophils % 69 % Lymphocytes % 20 % Monocytes % 6 % Eosinophils % 3 % Basophils % 1 % Neutrophils # 7.8 H (1.3-7.7) k/uL Lymphocytes # 2.3 (1.0-4.8) k/uL Monocytes # 0.7 (0-1.0) k/uL Eosinophils # 0.4 (0-0.7) k/uL Basophils # 0.1 (0-0.2) k/uL PT 10.8 (10.0-12.5) sec INR 1.0 (<1.2) APTT 23.5 (22.0-30.0) sec Sodium 136 L (137-145) mmol/L Potassium 4.1 (3.5-5.1) mmol/L Chloride 109 H (98-107) mmol/L Carbon Dioxide 18 L (22-30) mmol/L Anion Gap 9 mmol/L BUN 45 H (9-20) mg/dL Creatinine 0.62 L (0.66-1.25) mg/dL Est GFR (CKD-EPI)AfAm >90 (>60 ml/min/1.73 sqM) Est GFR (CKD-EPI)NonAf >90 (>60 ml/min/1.73 sqM) Glucose 168 H (74-99) mg/dL Calcium 8.5 (8.4-10.2) mg/dL Total Bilirubin 0.4 (0.2-1.3) mg/dL AST 21 (17-59) U/L ALT 27 (4-49) U/L Alkaline Phosphatase 83 (38-126) U/L Troponin I (0.000-0.034) ng/mL Total Protein 6.5 (6.3-8.2) g/dL Albumin 3.7 (3.5-5.0) g/dL 11/03/23 Range/Units 11:43 WBC (3.8-10.6) k/uL RBC (4.30-5.90) m/uL Hgb (13.0-17.5) gm/dL Hct (39.0-53.0) % MCV (80.0-100.0) fL MCH (25.0-35.0) pg MCHC (31.0-37.0) g/dL RDW (11.5-15.5) % Plt Count (150-450) k/uL MPV Neutrophils % % Lymphocytes % % Monocytes % % Eosinophils % % Basophils % % Neutrophils # (1.3-7.7) k/uL Lymphocytes # (1.0-4.8) k/uL Monocytes # (0-1.0) k/uL Eosinophils # (0-0.7) k/uL Basophils # (0-0.2) k/uL PT (10.0-12.5) sec INR (<1.2) APTT (22.0-30.0) sec Sodium (137-145) mmol/L Potassium (3.5-5.1) mmol/L Chloride (98-107) mmol/L Carbon Dioxide (22-30) mmol/L Anion Gap mmol/L BUN (9-20) mg/dL Creatinine (0.66-1.25) mg/dL Est GFR (CKD-EPI)AfAm (>60 ml/min/1.73 sqM) Est GFR (CKD-EPI)NonAf (>60 ml/min/1.73 sqM) Glucose (74-99) mg/dL Calcium (8.4-10.2) mg/dL Total Bilirubin (0.2-1.3) mg/dL AST (17-59) U/L ALT (4-49) U/L Alkaline Phosphatase (38-126) U/L Troponin I <0.012 (0.000-0.034) ng/mL Total Protein (6.3-8.2) g/dL Albumin (3.5-5.0) g/dL Disposition <Zoie Rudd - Last Filed: 11/03/23 12:03> Time of Disposition: 15:06 <Pancho Nicholson - Last Filed: 11/03/23 15:06> Clinical Impression: Anemia, Dyspnea Disposition: ADMITTED IP TO THIS HOSP Referrals: Benji Hand MD [Primary Care Provider] - 1-2 days
[2023-11-03 12:06] LABS: Basophils # (A) 0.1 k/uL (0-0.2); Basophils % (A) 1 %; Eosinophils # (A) 0.4 k/uL (0-0.7); Eosinophils % (A) 3 %; HCT 26.3 % (39.0-53.0); Lymphocytes # (A) 2.3 k/uL (1.0-4.8); Lymphocytes % (A) 20 %; MCHC 32.8 g/dL (31.0-37.0); MCV 97.6 fL (80.0-100.0); Mean Platelet Volume 7.2; Monocytes # (A) 0.7 k/uL (0-1.0); Monocytes % (A) 6 %; Neutrophils # (A) 7.8 k/uL (1.3-7.7); Neutrophils % (A) 69 %; Platelet Count 582 k/uL (150-450); RBC 2.69 m/uL (4.30-5.90); RDW 13.7 % (11.5-15.5); WBC 11.4 k/uL (3.8-10.6)
[2023-11-03 12:11] LABS: HGB 8.6 gm/dL (13.0-17.5)
[2023-11-03 12:18] LABS: Partial Thromboplastin Time 23.5 sec (22.0-30.0); Prothrombin Time 10.8 sec (10.0-12.5)
--- NOTE | 2023-11-03 12:58 | XR ---
EXAMINATION TYPE: XR chest 2V DATE OF EXAM: 11/03/2023 COMPARISON: 08/17/2020 TECHNIQUE: PA and lateral views submitted. HISTORY: Shortness of breath FINDINGS: The lungs are clear and there is no pneumothorax, pleural effusion, or focal pneumonia. Heart size normal and no overt failure. Osseous structures demonstrate hypertrophic and degenerative changes of the spine. Chronic deformity of the upper left rib cage suggesting prior trauma stable. Nodular densi ty overlying the right upper lobe is stable likely related to the anterior margin of the first rib. H yperinflation suggestive of COPD. IMPRESSION: 1. No acute process. 2. Correlate for COPD.
[2023-11-03 13:02] LABS: ALT 27 U/L (4-49); AST 21 U/L (17-59); African American GFR (CKD) >90 (>60 ml/min/1.73 sqM); Albumin 3.7 g/dL (3.5-5.0); Alkaline Phosphatase 83 U/L (38-126); Anion Gap 9 mmol/L; Blood Urea Nitrogen 45 mg/dL (9-20); Calcium 8.5 mg/dL (8.4-10.2); Carbon Dioxide 18 mmol/L (22-30); Chloride 109 mmol/L (98-107); Glucose 168 mg/dL (74-99); Non-African American GFR(CKD) >90 (>60 ml/min/1.73 sqM); Potassium 4.1 mmol/L (3.5-5.1); Sodium 136 mmol/L (137-145); Total Bilirubin 0.4 mg/dL (0.2-1.3); Total Protein 6.5 g/dL (6.3-8.2)
[2023-11-03] MEDS: SODIUM CHLORIDE 0.9% 1,000 ML IV ONE (15:44)
[2023-11-03 17:48] LABS: Basophils # (A) 0.1 k/uL (0-0.2); Basophils % (A) 1 %; Eosinophils # (A) 0.4 k/uL (0-0.7); Eosinophils % (A) 4 %; HCT 21.8 % (39.0-53.0); HGB 7.2 gm/dL (13.0-17.5); Lymphocytes # (A) 1.9 k/uL (1.0-4.8); Lymphocytes % (A) 18 %; MCH 32.2 pg (25.0-35.0); MCHC 33.1 g/dL (31.0-37.0); MCV 97.3 fL (80.0-100.0); Mean Platelet Volume 7.3; Monocytes # (A) 0.6 k/uL (0-1.0); Monocytes % (A) 5 %; Neutrophils % (A) 72 %; Platelet Count 494 k/uL (150-450); RBC 2.24 m/uL (4.30-5.90); RDW 13.8 % (11.5-15.5); WBC 11.1 k/uL (3.8-10.6)
[2023-11-03] MEDS: ATORVASTATIN 80 MG TAB PO SCH (21:35)
[2023-11-03] MEDS: ACETAMINOPHEN TAB 325 MG TAB PO PRN (21:36)
[2023-11-03] MEDS: PANTOPRAZOLE 40 MG/10 ML VIAL IVP SCH (21:46)
[2023-11-03 21:50] LABS: Basophils # (A) 0.1 k/uL (0-0.2); Basophils % (A) 1 %; Eosinophils # (A) 0.3 k/uL (0-0.7); Eosinophils % (A) 3 %; HCT 21.3 % (39.0-53.0); Lymphocytes # (A) 2.1 k/uL (1.0-4.8); Lymphocytes % (A) 22 %; MCH 32.3 pg (25.0-35.0); MCHC 33.1 g/dL (31.0-37.0); MCV 97.4 fL (80.0-100.0); Mean Platelet Volume 7.2; Monocytes # (A) 0.6 k/uL (0-1.0); Monocytes % (A) 7 %; Neutrophils % (A) 65 %; Platelet Count 510 k/uL (150-450); RBC 2.18 m/uL (4.30-5.90); RDW 13.8 % (11.5-15.5); WBC 9.3 k/uL (3.8-10.6)
--- NOTE | 2023-11-04 00:29 | P.HPIM ---
History of Present Illness H&P Date: 11/03/23 Chief Complaint: Weakness Patient is an 53-year-old male with a known history of severe bilateral PAD, bilateral iliac artery occlusion femorofemoral bypass on 09/28/2020, history of iliac stent placement, recent Aorto femoral bypass, hypertension, diabetes type 2, chronic back pain, COPD, chronic hypoxic spectra failure on 2 to 3 L via nasal cannula. Anxiety/depression ADD and occasional marijuana use. Patient presents to ER with complaints of shortness of breath. He was also having generalized weakness and dizziness when getting up. Patient states that he was at [facility] neuro discharged 2 weeks ago. Has been having increased shortness of breath. States that when he walks he is panting. Denies any leg swelling. No fever no chills. No cough or sputum production. No chest pain. Patient states that he did have darker stools this morning. Patient was discharged from the hospital on 08/21/2023. [facility] hospital due to significant left lower extremity muscle cramping. CT angiogram with runoff was done. Patient was recommended to continue aspirin Plavix as per vascular surgery recommendations. .Chest x-ray showed no acute process. Correlate for COPD. EKG showed sinus tachycardia. Laboratory test showed WBC 11.4 hemoglobin 8.6 and platelets 582 Sodium 136 potassium 4.1 chloride 109 bicarb is 18 BUN 45 creatinine 0.62 and blood sugar 168. Laboratory is a not elevated. Troponin x 1 negative. Review of Systems Constitutional: Patient denies any fever or chills . Generalized weakness and fatigue. Abdomen: Patient denied nausea vomiting and diarrhea and abdominal pain. Cardiovascular: Patient denies any chest pain or short of breath no palpitations. Respiratory: patient denied any cough or sputum production. No shortness of breath Neurologic: Patient denied any numbness or tingling. no headache. Patient does have lightheadedness Musculoskeletal: Patient denies any complaints of joint swelling or deformity. Skin: Negative Psychiatric: Negative Endocrine: No heat or cold intolerance. No recent weight gain. Genitourinary: No dysuria or hematuria. All other 14 point ROS negative except the above Past Medical History Past Medical History: COPD, Diabetes Mellitus, GERD/Reflux, Hyperlipidemia, Hypertension, Osteoarthritis (OA), Vascular Disorder Additional Past Medical History / Comment(s): hx. diverticulitis, bad circulat ion to legs, chronic back pain with known herniated disks, uses oxygen at 2-3L NC as needed, seasonal allergies. History of Any Multi-Drug Resistant Organisms: None Reported Past Surgical History: Bowel Resection, Hernia Repair, Orthopedic Surgery Additional Past Surgical History / Comment(s): temp. colostomy then reversal, knee surg., thumb surg., femoral bypass Past Anesthesia/Blood Transfusion Reactions: No Reported Reaction Past Psychological History: ADD/ADHD, Anxiety, Depression Smoking Status: Former smoker, Second hand smoke exposure Past Alcohol Use History: None Reported Past Drug Use History: Marijuana - Past Family History Mother Family Medical History: Cancer Father Family Medical History: Osteoarthritis (OA), Respiratory Disorder Medications and Allergies Home Medications Medication Instructions Recorded Confirmed Type Clopidogrel Bisulfate [Plavix] 75 mg PO DAILY 03/13/20 11/03/23 History Aspirin EC [Ecotrin Low Dose] 81 mg PO DAILY #90 tab 08/20/23 11/03/23 Rx Metoprolol Succinate (ER) [Toprol 25 mg PO DAILY 08/20/23 11/03/23 History XL] Omeprazole 20 mg PO DAILY #30 cap 08/20/23 11/03/23 Rx Semaglutide [Ozempic] 0.25 mg SQ FR 08/20/23 11/03/23 History Atorvastatin [Lipitor] 80 mg PO HS 11/03/23 11/03/23 History Ezetimibe [Zetia] 10 mg PO DAILY 11/03/23 11/03/23 History Allergies Allergy/AdvReac Type Severity Reaction Status Date / Time benztropine mesylate AdvReac muscle Verified 11/03/23 13:32 [From Cogentin] spasms morphine AdvReac Nausea & Verified 11/03/23 13:32 Vomiting Physical Exam Vitals: Vital Signs Temp Pulse Resp BP Pulse Ox 11/03/23 19:59 98 16 131/73 100 11/03/23 16:53 96 16 112/74 99 11/03/23 15:48 100 16 99/69 99 11/03/23 13:40 105 H 18 110/72 100 11/03/23 11:28 98 F 98 18 101/67 100 Intake and Output 11/03/23 11/03/23 11/03/23 06:59 14:59 22:59 Other: Weight 85.275 kg PHYSICAL EXAMINATION: Patient is lying in the bed comfortably, no acute distress, awake alert and oriented.. HEENT: Normocephalic. Neck is supple. Pupils reactive. Nostrils clear. Oral cavity is moist. Neck reveals no JVD, carotid bruits, or thyromegaly. CHEST EXAMINATION: Trachea is central. Symmetrical expansion. Lung freire clear to auscultation and percussion. CARDIAC: Normal S1, S2 with no gallops. No murmurs ABDOMEN: Soft. Bowel sounds normal. No organomegaly. No abdominal bruits. Extremities: reveal no edema. No clubbing or cyanosis Neurologically awake, alert, oriented x3 with well-coordinated movements. No focal deficits noted Skin: No rash or skin lesions. Psychiatric: Coperative. Nonsuicidal Musculoskeletal: No joint swelling or deformity. Normal range of motion. Results CBC & Chem 7: 11/05/23 09:18 11/05/23 09:18 Labs: Abnormal Lab Results - Last 24 Hours (Table) 11/03/23 11/03/23 11/03/23 Range/Units 11:43 11:43 17:42 WBC 11.4 H 11.1 H (3.8-10.6) k/uL RBC 2.69 L 2.24 L (4.30-5.90) m/uL Hgb 8.6 L D 7.2 L (13.0-17.5) gm/dL Hct 26.3 L 21.8 L (39.0-53.0) % Plt Count 582 H 494 H (150-450) k/uL Neutrophils # 7.8 H 8.0 H (1.3-7.7) k/uL Sodium 136 L (137-145) mmol/L Chloride 109 H (98-107) mmol/L Carbon Dioxide 18 L (22-30) mmol/L BUN 45 H (9-20) mg/dL Creatinine 0.62 L (0.66-1.25) mg/dL Glucose 168 H (74-99) mg/dL Thrombosis Risk Factor Assmnt - DVT/VTE Prophylaxis DVT/VTE Prophylaxis: Mechanical Prophylaxis ordered Assessment and Plan Assessment: Symptomatic anemia Acute blood loss anemia likely due to GI bleed. Hemoglobin 8.6 on admission. Hemoglobin on most recent admission was 15.9. Recent aortofem bypass Severe peripheral vascular disease and prior history of femorofemoral bypass and iliac artery stent placement. Diabetes type 2 [id number] Hypertension Hyperlipidemia Chronic back pain COPD on home oxygen and chronic hypoxic respiratory failure Prior history of smoking Anxiety/depression ADD/ADHD Occasional marijuana use and possible mild gastroparesis DVT prophylax with SCDs Plan: Patient will be continued on IV hydration with normal saline. Continue to monitor H&H closely. Transfuse if hemoglobin less than 7. Next FOBT was ordered. Started on Protonix 40 mg IV twice daily. Aspirin Plavix on hold. General surgery was consulted for evaluation. Continue to follow closely. Time with Patient: Greater than 30
[2023-11-04 08:58] LABS: Anisocytosis Slight; HCT 22.9 % (39.0-53.0); HGB 7.4 gm/dL (13.0-17.5); MCH 30.8 pg (25.0-35.0); MCHC 32.2 g/dL (31.0-37.0); MCV 95.7 fL (80.0-100.0); Mean Platelet Volume 7.2; Platelet Count 433 k/uL (150-450); RBC 2.39 m/uL (4.30-5.90); WBC 10.8 k/uL (3.8-10.6)
[2023-11-04] MEDS: EZETIMIBE 10 MG TAB PO SCH (09:08)
[2023-11-04] MEDS: METOPROLOL SUCCINATE (ER) 25 MG TAB.ER.24H PO SCH (09:08)
[2023-11-04 11:36] LABS: Glucose,Whole Blood 198 mg/dL (70-110)
--- NOTE | 2023-11-04 12:30 | P.GSCN ---
History of Present Illness Consult date: 11/04/23 Reason for Consult: Recent aortobifemoral bypass Requesting physician: Binta Ruano History of present illness: This is a pleasant 53-year-old male who presented to the emergency department yesterday afternoon with complaints of shortness of breath and dyspnea on exertion. His past medical history includes severe peripheral arterial disease with previous revascularization and most recently aortobifemoral bypass for bilateral iliac occlusion done at [facility] about 2 1/2 weeks ago, diabetes mellitus, hypertension, hyperlipidemia, chronic back pain, COPD on home oxygen previous history of smoking, anxiety and depression. He had blood work as part of his workup and was found to be anemic with a admitting hemoglobin of 8.6 with a drop to 7.0 yesterday evening. He was given 1 unit of blood with a repeat today of 7.4. He is on Plavix 75 mg daily as well as 81 mg aspirin. He states that he has seen some dark stools. Patient was admitted to the hospital for anemia to rule out GI bleed. Patient was supposed to follow-up with Dr. Ramsey today in the office, vascular surgery was consulted for aortobifem bypass follow-up. Patient states lower extremity pain is improved. He states his left lower extremity and foot still feels a little different with some numbness and tingling. He has been able to ambulate with less pain. He denies any bleeding from surgical incision. Abdominal incision with falguni and groins with incision with falguni well-approximated. He denies any abdominal pain, nausea or vomiting. He is resting comfortably at this time with no shortness of breath or chest pain. Review of Systems A 14 point review systems was completed all pertinent positives and negatives as stated in the HPI. Past Medical History Past Medical History: COPD, Diabetes Mellitus, GERD/Reflux, Hyperlipidemia, Hypertension, Osteoarthritis (OA), Vascular Disorder Additional Past Medical History / Comment(s): hx. diverticulitis, bad circulation to legs, chronic back pain with known herniated disks, uses oxygen at 2-3L [place] as needed, seasonal allergies. History of Any Multi-Drug Resistant Organisms: None Reported Past Surgical History: Bowel Resection, Hernia Repair, Orthopedic Surgery Additional Past Surgical History / Comment(s): temp. colostomy then reversal, knee surg., thumb surg., femoral bypass Past Anesthesia/Blood Transfusion Reactions: No Reported Reaction Past Psychological History: ADD/ADHD, Anxiety, Depression Smoking Status: Former smoker, Second hand smoke exposure Past Alcohol Use History: None Reported Past Drug Use History: Marijuana - Past Family History Mother Family Medical History: Cancer Father Family Medical History: Osteoarthritis (OA), Respiratory Disorder Medications and Allergies Home Medications Medication Instructions Recorded Confirmed Type Clopidogrel Bisulfate [Plavix] 75 mg PO DAILY 03/13/20 11/03/23 History Aspirin EC [Ecotrin Low Dose] 81 mg PO DAILY #90 tab 08/20/23 11/03/23 Rx Metoprolol Succinate (ER) [Toprol 25 mg PO DAILY 08/20/23 11/03/23 History XL] Omeprazole 20 mg PO DAILY #30 cap 08/20/23 11/03/23 Rx Semaglutide [Ozempic] 0.25 mg SQ FR 08/20/23 11/03/23 History Atorvastatin [Lipitor] 80 mg PO HS 11/03/23 11/03/23 History Ezetimibe [Zetia] 10 mg PO DAILY 11/03/23 11/03/23 History Allergies Allergy/AdvReac Type Severity Reaction Status Date / Time benztropine mesylate AdvReac muscle Verified 11/03/23 13:32 [From Cogentin] spasms morphine AdvReac Nausea & Verified 11/03/23 13:32 Vomiting Surgical - Exam Vital Signs Temp Pulse Resp BP Pulse Ox 98 F 98 18 101/67 100 11/03/23 11:28 11/03/23 11:28 11/03/23 11:28 11/03/23 11:28 11/03/23 11:28 General appearance: The patient is alert, oriented, appears in no acute distress. HET: Head is normocephalic and atraumatic. Neck: Supple. Heart: Regular. Lungs: Equal expansion, normal respiratory effort. Abdomen: Soft, nontender, nondistended. Abdominal incision with falguni, clean, dry, and well-approximated without any drainage. Extremities: Normal skin color and turgor. Bilateral groin incisions with falguni well-approximated, without any redness or drainage. Palpable right DP pulse. Bilateral lower extremities warm to the touch with good capillary refill and sensorimotor intact. Left foot second toe with noninfected diabetic ulcer. Neurological: No focal deficits. Strength and sensation are grossly intact. Results - Labs 11/04/23 08:39 11/03/23 11:43 Abnormal Lab Results - Last 24 Hours (Table) 11/03/23 11/03/23 11/03/23 Range/Units 11:43 11:43 15:41 WBC 11.4 H (3.8-10.6) k/uL RBC 2.69 L (4.30-5.90) m/uL Hgb 8.6 L D (13.0-17.5) gm/dL Hct 26.3 L (39.0-53.0) % RDW (11.5-15.5) % Plt Count 582 H (150-450) k/uL Neutrophils # 7.8 H (1.3-7.7) k/uL Sodium 136 L (137-145) mmol/L Chloride 109 H (98-107) mmol/L Carbon Dioxide 18 L (22-30) mmol/L BUN 45 H (9-20) mg/dL Creatinine 0.62 L (0.66-1.25) mg/dL Glucose 168 H (74-99) mg/dL Crossmatch See Detail 11/03/23 11/03/23 11/04/23 Range/Units 17:42 21:36 08:39 WBC 11.1 H 10.8 H (3.8-10.6) k/uL RBC 2.24 L 2.18 L 2.39 L (4.30-5.90) m/uL Hgb 7.2 L 7.0 L 7.4 L (13.0-17.5) gm/dL Hct 21.8 L 21.3 L 22.9 L (39.0-53.0) % RDW 17.0 H (11.5-15.5) % Plt Count 494 H 510 H (150-450) k/uL Neutrophils # 8.0 H (1.3-7.7) k/uL Sodium (137-145) mmol/L Chloride (98-107) mmol/L Carbon Dioxide (22-30) mmol/L BUN (9-20) mg/dL Creatinine (0.66-1.25) mg/dL Glucose (74-99) mg/dL Crossmatch Diabetes panel 11/03/23 Range/Units 11:43 Sodium 136 L (137-145) mmol/L Potassium 4.1 (3.5-5.1) mmol/L Chloride 109 H (98-107) mmol/L Carbon Dioxide 18 L (22-30) mmol/L BUN 45 H (9-20) mg/dL Creatinine 0.62 L (0.66-1.25) mg/dL Glucose 168 H (74-99) mg/dL Calcium 8.5 (8.4-10.2) mg/dL AST 21 (17-59) U/L ALT 27 (4-49) U/L Alkaline Phosphatase 83 (38-126) U/L Total Protein 6.5 (6.3-8.2) g/dL Albumin 3.7 (3.5-5.0) g/dL Calcium panel 11/03/23 Range/Units 11:43 Calcium 8.5 (8.4-10.2) mg/dL Albumin 3.7 (3.5-5.0) g/dL Pituitary panel 11/03/23 Range/Units 11:43 Sodium 136 L (137-145) mmol/L Potassium 4.1 (3.5-5.1) mmol/L Chloride 109 H (98-107) mmol/L Carbon Dioxide 18 L (22-30) mmol/L BUN 45 H (9-20) mg/dL Creatinine 0.62 L (0.66-1.25) mg/dL Glucose 168 H (74-99) mg/dL Calcium 8.5 (8.4-10.2) mg/dL Adrenal panel 11/03/23 Range/Units 11:43 Sodium 136 L (137-145) mmol/L Potassium 4.1 (3.5-5.1) mmol/L Chloride 109 H (98-107) mmol/L Carbon Dioxide 18 L (22-30) mmol/L BUN 45 H (9-20) mg/dL Creatinine 0.62 L (0.66-1.25) mg/dL Glucose 168 H (74-99) mg/dL Calcium 8.5 (8.4-10.2) mg/dL Total Bilirubin 0.4 (0.2-1.3) mg/dL AST 21 (17-59) U/L ALT 27 (4-49) U/L Alkaline Phosphatase 83 (38-126) U/L Total Protein 6.5 (6.3-8.2) g/dL Albumin 3.7 (3.5-5.0) g/dL Assessment and Plan Assessment: 1. Recent aortobifem bypass 2. Acute anemia, possible GI bleed 3. Reported melena 4. History of peripheral arterial disease with previous revascularization 5. Diabetes mellitus 6. COPD 7. Hypertension 8. Hyperlipidemia 9. Former smoker Plan: 1. Abdominal sutures and bilateral groin falguni removed 2. There is no indication for any other vascular surgical intervention at this time. No evidence of bleeding from surgical sites/aorta bifemoral bypass 3. General surgery on consultation for possible GI bleed 4. Rest of medical management per primary medical team Thank you for this consultation, we will sign off at this time. Patient to follow-up with Dr. Ramsey next week . The impression and plan of care has been dictated as directed. Dr. العلي I performed a history and examination of this patient, discussed the same with the dictator. I agree with the dictator's note ,documented as a scribe. Any additional findings or plans will be noted.
--- NOTE | 2023-11-04 13:41 | P.GSCN ---
History of Present Illness Consult date: 11/04/23 History of present illness: CHIEF COMPLAINT: Shortness of breath HISTORY OF PRESENT ILLNESS: This is a 53-year-old male who presented to the hospital with complaints of shortness of breath. Patient also reports having black stools. Patient is a poor historian is unclear of exactly when the black stool started. He states that they started recently. He did have a black stool today. He reports right-sided abdominal pain. Denies any nausea or vomiting. Patient has never had a EGD. Last colonoscopy 2 years ago he reports is unremarkable. Patient is on Plavix. Last dose was yesterday and November 02. Hemoglobin on admission 8.6 down to 7. Stool for occult blood positive. Patient with history of a recent femoral graft at [facility] [address] Sims. PAST MEDICAL HISTORY: COPD, Diabetes Mellitus, GERD/Reflux, Hyperlipidemia, Hypertension, Osteoarthritis (OA), Vascular Disorder, diverticulitis PAST SURGICAL HISTORY: Diverticulitis with bowel resection and colostomy placement with colostomy reversal in 2014, femoral bypass, hernia repair MEDICATIONS: See below ALLERGIES: See below SOCIAL HISTORY: No illicit drug use. REVIEW OF SYSTEMS: CONSTITUTIONAL: Denies fever or chills. HEENT: Denies blurred vision, vision changes, or eye pain. Denies hemoptysis CARDIOVASCULAR: Denies chest pain or pressure. RESPIRATORY: No shortness of breath. GASTROINTESTINAL: See HPI for pertinent findings HEMATOLOGIC: Denies bleeding disorders. GENITOURINARY: Denies any blood in urine or increased urinary frequency. SKIN: Denies pruitis. Denies rash. PHYSICAL EXAM: VITAL SIGNS: Reviewed GENERAL: Well-developed in no acute distress. HEENT: No sclera icterus. Extraocular movements grossly intact. Moist buccal mucosa. Head is atraumatic, normocephalic. No nasal drainage. ABDOMEN: Soft. Nondistended. Mild tenderness at incision site. Midline incision clean dry and intact falguni present. NEUROLOGIC: Alert and oriented. Cranial nerves II through XII grossly intact. LABORATORY DATA: WBC 10.8 Hgb 8.6 down to 7.0. Now 7.4. Hemoglobin 15.9 on 10/11/2023 Platelets 433 Sodium is 136 potassium 4.1 creatinine 0.62 Stool for occult blood positive IMAGING: Chest x-ray no acute process. Correlate for COPD. ASSESSMENT: 1. Acute GI bleed with melanotic stools 2. Symptomatic anemia PLAN: -Patient scheduled for EGD on 11/08/[address] Sepulveda -Start regular diet today -Continue IV Protonix twice a day -Continue to monitor for any signs or symptoms of bleeding -Continue to monitor hemoglobin Physician Cane Flume Feeding Machine Operator note has been reviewed by physician. Signing provider agrees with the documented findings, assessment, and plan of care. Past Medical History Past Medical History: COPD, Diabetes Mellitus, GERD/Reflux, Hyperlipidemia, Hypertension, Osteoarthritis (OA), Vascular Disorder Additional Past Medical History / Comment(s): hx. diverticulitis, bad circulation to legs, chronic back pain with known herniated disks, uses oxygen at 2-3L [place] as needed, seasonal allergies. History of Any Multi-Drug Resistant Organisms: None Reported Past Surgical History: Bowel Resection, Hernia Repair, Orthopedic Surgery Additional Past Surgical History / Comment(s): temp. colostomy then reversal, knee surg., thumb surg., femoral bypass Past Anesthesia/Blood Transfusion Reactions: No Reported Reaction Past Psychological History: ADD/ADHD, Anxiety, Depression Smoking Status: Former smoker, Second hand smoke exposure Past Alcohol Use History: None Reported Past Drug Use History: Marijuana - Past Family History Mother Family Medical History: Cancer Father Family Medical History: Osteoarthritis (OA), Respiratory Disorder Medications and Allergies Home Medications Medication Instructions Recorded Confirmed Type Clopidogrel Bisulfate [Plavix] 75 mg PO DAILY 03/13/20 11/03/23 History Aspirin EC [Ecotrin Low Dose] 81 mg PO DAILY #90 tab 08/20/23 11/03/23 Rx Metoprolol Succinate (ER) [Toprol 25 mg PO DAILY 08/20/23 11/03/23 History XL] Omeprazole 20 mg PO DAILY #30 cap 08/20/23 11/03/23 Rx Semaglutide [Ozempic] 0.25 mg SQ FR 08/20/23 11/03/23 History Atorvastatin [Lipitor] 80 mg PO HS 11/03/23 11/03/23 History Ezetimibe [Zetia] 10 mg PO DAILY 11/03/23 11/03/23 History Allergies Allergy/AdvReac Type Severity Reaction Status Date / Time benztropine mesylate AdvReac muscle Verified 11/03/23 13:32 [From Cogentin] spasms morphine AdvReac Nausea & Verified 11/03/23 13:32 Vomiting Surgical - Exam Vital Signs Temp Pulse Resp BP Pulse Ox 98 F 98 18 101/67 100 11/03/23 11:28 11/03/23 11:28 11/03/23 11:28 11/03/23 11:28 11/03/23 11:28 Results - Labs 11/04/23 08:39 11/03/23 11:43 Abnormal Lab Results - Last 24 Hours (Table) 11/03/23 11/03/23 11/03/23 Range/Units 11:43 11:43 15:41 WBC 11.4 H (3.8-10.6) k/uL RBC 2.69 L (4.30-5.90) m/uL Hgb 8.6 L D (13.0-17.5) gm/dL Hct 26.3 L (39.0-53.0) % RDW (11.5-15.5) % Plt Count 582 H (150-450) k/uL Neutrophils # 7.8 H (1.3-7.7) k/uL Sodium 136 L (137-145) mmol/L Chloride 109 H (98-107) mmol/L Carbon Dioxide 18 L (22-30) mmol/L BUN 45 H (9-20) mg/dL Creatinine 0.62 L (0.66-1.25) mg/dL Glucose 168 H (74-99) mg/dL Crossmatch See Detail 11/03/23 11/03/23 11/04/23 Range/Units 17:42 21:36 08:39 WBC 11.1 H 10.8 H (3.8-10.6) k/uL RBC 2.24 L 2.18 L 2.39 L (4.30-5.90) m/uL Hgb 7.2 L 7.0 L 7.4 L (13.0-17.5) gm/dL Hct 21.8 L 21.3 L 22.9 L (39.0-53.0) % RDW 17.0 H (11.5-15.5) % Plt Count 494 H 510 H (150-450) k/uL Neutrophils # 8.0 H (1.3-7.7) k/uL Sodium (137-145) mmol/L Chloride (98-107) mmol/L Carbon Dioxide (22-30) mmol/L BUN (9-20) mg/dL Creatinine (0.66-1.25) mg/dL Glucose (74-99) mg/dL Crossmatch Diabetes panel 11/03/23 Range/Units 11:43 Sodium 136 L (137-145) mmol/L Potassium 4.1 (3.5-5.1) mmol/L Chloride 109 H (98-107) mmol/L Carbon Dioxide 18 L (22-30) mmol/L BUN 45 H (9-20) mg/dL Creatinine 0.62 L (0.66-1.25) mg/dL Glucose 168 H (74-99) mg/dL Calcium 8.5 (8.4-10.2) mg/dL AST 21 (17-59) U/L ALT 27 (4-49) U/L Alkaline Phosphatase 83 (38-126) U/L Total Protein 6.5 (6.3-8.2) g/dL Albumin 3.7 (3.5-5.0) g/dL Calcium panel 11/03/23 Range/Units 11:43 Calcium 8.5 (8.4-10.2) mg/dL Albumin 3.7 (3.5-5.0) g/dL Pituitary panel 11/03/23 Range/Units 11:43 Sodium 136 L (137-145) mmol/L Potassium 4.1 (3.5-5.1) mmol/L Chloride 109 H (98-107) mmol/L Carbon Dioxide 18 L (22-30) mmol/L BUN 45 H (9-20) mg/dL Creatinine 0.62 L (0.66-1.25) mg/dL Glucose 168 H (74-99) mg/dL Calcium 8.5 (8.4-10.2) mg/dL Adrenal panel 11/03/23 Range/Units 11:43 Sodium 136 L (137-145) mmol/L Potassium 4.1 (3.5-5.1) mmol/L Chloride 109 H (98-107) mmol/L Carbon Dioxide 18 L (22-30) mmol/L BUN 45 H (9-20) mg/dL Creatinine 0.62 L (0.66-1.25) mg/dL Glucose 168 H (74-99) mg/dL Calcium 8.5 (8.4-10.2) mg/dL Total Bilirubin 0.4 (0.2-1.3) mg/dL AST 21 (17-59) U/L ALT 27 (4-49) U/L Alkaline Phosphatase 83 (38-126) U/L Total Protein 6.5 (6.3-8.2) g/dL Albumin 3.7 (3.5-5.0) g/dL
[2023-11-04 16:38] LABS: Glucose,Whole Blood 176 mg/dL (70-110)
[2023-11-04 20:12] LABS: Glucose,Whole Blood 204 mg/dL (70-110)
[2023-11-04] MEDS ORDERED: DEXTROSE 50% SYRINGE 50 ML IVP PRN ×2 (22:49)
[2023-11-05 00:02] LABS: Anisocytosis Slight; Basophils # (A) 0.1 k/uL (0-0.2); Basophils % (A) 1 %; Eosinophils # (A) 0.4 k/uL (0-0.7); Eosinophils % (A) 4 %; HCT 21.4 % (39.0-53.0); Lymphocytes # (A) 2.1 k/uL (1.0-4.8); Lymphocytes % (A) 20 %; MCH 30.8 pg (25.0-35.0); MCHC 32.8 g/dL (31.0-37.0); MCV 94.2 fL (80.0-100.0); Mean Platelet Volume 7.4; Monocytes # (A) 0.7 k/uL (0-1.0); Monocytes % (A) 7 %; Neutrophils # (A) 6.9 k/uL (1.3-7.7); Neutrophils % (A) 66 %; Platelet Count 397 k/uL (150-450); RBC 2.27 m/uL (4.30-5.90); RDW 17.4 % (11.5-15.5); WBC 10.3 k/uL (3.8-10.6)
[2023-11-05 05:47] LABS: Glucose,Whole Blood 186 mg/dL (70-110)
[2023-11-05] MEDS: INSULIN ASPART (NovoLOG) 100 UNIT/ML VIAL SQ SCH (06:31)
[2023-11-05] MEDS: NON FORMULARY DRUG (Semaglutide [Ozempic] 0.25 MG/0.368 ML Pen.Injctr) SQ SCH (08:05)
[2023-11-05 10:35] LABS: Anisocytosis Slight; Basophils # (A) 0.1 k/uL (0-0.2); Basophils % (A) 1 %; Eosinophils # (A) 0.3 k/uL (0-0.7); Eosinophils % (A) 4 %; HCT 23.3 % (39.0-53.0); HGB 7.7 gm/dL (13.0-17.5); Lymphocytes # (A) 1.4 k/uL (1.0-4.8); Lymphocytes % (A) 16 %; MCH 31.3 pg (25.0-35.0); MCHC 33.1 g/dL (31.0-37.0); MCV 94.4 fL (80.0-100.0); Mean Platelet Volume 7.5; Monocytes # (A) 0.7 k/uL (0-1.0); Monocytes % (A) 7 %; Neutrophils # (A) 6.5 k/uL (1.3-7.7); Neutrophils % (A) 71 %; Platelet Count 359 k/uL (150-450); RBC 2.47 m/uL (4.30-5.90); RDW 16.9 % (11.5-15.5); WBC 9.1 k/uL (3.8-10.6)
[2023-11-05 10:54] LABS: African American GFR (CKD) >90 (>60 ml/min/1.73 sqM); Anion Gap 7 mmol/L; Blood Urea Nitrogen 14 mg/dL (9-20); Calcium 8.5 mg/dL (8.4-10.2); Carbon Dioxide 21 mmol/L (22-30); Chloride 109 mmol/L (98-107); Glucose 202 mg/dL (74-99); Non-African American GFR(CKD) >90 (>60 ml/min/1.73 sqM); Sodium 137 mmol/L (137-145)
[2023-11-05 10:56] LABS: Potassium 4.2 mmol/L (3.5-5.1)
--- NOTE | 2023-11-05 11:10 | P.PN ---
Subjective Progress Note Date: 11/05/23 CHIEF COMPLAINT: Melanotic stools HISTORY OF PRESENT ILLNESS: Patient admitted with possible GI bleed and melanotic stools. Patient continues to have black stools. Hemoglobin from 7.0- 7.7 after 2 units of bloody. Afebrile. No tachycardia. BP 109/66 Patient seen and examined with Dr. Sepulveda PHYSICAL EXAM: VITAL SIGNS: Reviewed. GENERAL: no acute distress. ABDOMEN: Soft. Nondistended. Nontender. ASSESSMENT: 1. Acute GI bleed with melanotic stools 2. Acute blood loss anemia secondary to GI bleed PLAN: -Patient scheduled for EGD on 11/08/[address] Sepulveda -Continue IV Protonix twice a day -Continue to monitor for any signs or symptoms of bleeding -Continue to monitor hemoglobin Physician Glass Blowing Instructor note has been reviewed by physician. Signing provider agrees with the documented findings, assessment, and plan of care. Objective - Vital Signs Vital signs: Vital Signs Temp 98.1 F 11/05/23 08:09 Pulse 75 11/05/23 08:09 Resp 17 11/05/23 08:09 BP 109/66 11/05/23 08:09 Pulse Ox 99 11/05/23 08:09 FiO2 Intake & Output 11/04/23 11/05/23 11/05/23 18:59 06:59 18:59 Intake Total 716 550 358 Output Total 250 200 Balance 466 350 358 Intake: Oral 716 240 358 Blood Product 310 Rc As-1 Unit 310 [id number] Output: Urine 250 200 Other: Voiding Method Toilet Toilet Toilet Urinal Urinal Urinal # Voids 1 1 # Bowel Movements 1 - Labs CBC & Chem 7: 11/05/23 09:18 11/05/23 09:18 Labs: Abnormal Lab Results - Last 24 Hours (Table) 11/03/23 11/04/23 11/04/23 Range/Units 15:41 11:22 16:36 RBC (4.30-5.90) m/uL Hgb (13.0-17.5) gm/dL Hct (39.0-53.0) % RDW (11.5-15.5) % Chloride (98-107) mmol/L Carbon Dioxide (22-30) mmol/L Glucose (74-99) mg/dL POC Glucose (mg/dL) 198 H 176 H (70-110) mg/dL Crossmatch See Detail 11/04/23 11/04/23 11/05/23 Range/Units 20:10 23:41 05:45 RBC 2.27 L (4.30-5.90) m/uL Hgb 7.0 L (13.0-17.5) gm/dL Hct 21.4 L (39.0-53.0) % RDW 17.4 H (11.5-15.5) % Chloride (98-107) mmol/L Carbon Dioxide (22-30) mmol/L Glucose (74-99) mg/dL POC Glucose (mg/dL) 204 H 186 H (70-110) mg/dL Crossmatch 11/05/23 11/05/23 Range/Units 09:18 09:18 RBC 2.47 L (4.30-5.90) m/uL Hgb 7.7 L (13.0-17.5) gm/dL Hct 23.3 L (39.0-53.0) % RDW 16.9 H (11.5-15.5) % Chloride 109 H (98-107) mmol/L Carbon Dioxide 21 L (22-30) mmol/L Glucose 202 H (74-99) mg/dL POC Glucose (mg/dL) (70-110) mg/dL Crossmatch
[2023-11-05 12:07] LABS: Glucose,Whole Blood 146 mg/dL (70-110)
--- NOTE | 2023-11-05 13:04 | P.PN ---
Subjective Progress Note Date: 11/05/23 Principal diagnosis: Previous aortobifem bypass Patient seen and examined today as a follow-up. He had a repeat hemoglobin yesterday after receiving 1 unit of blood that came back at 7.0. He received a second unit through the night. He is still reporting black stool. Denies any abdominal pain, nausea or vomiting. He does report history of alcoholism and was a heavy drinker in the past however has not drink in about 10 years. Abdominal incision and bilateral groin incisions well-approximated. Objective - Vital Signs Vital signs: Vital Signs Temp 97.8 F 11/05/23 11:23 Pulse 78 11/05/23 11:23 Resp 17 11/05/23 11:23 BP 112/66 11/05/23 11:23 Pulse Ox 99 11/05/23 11:23 FiO2 Intake & Output 11/04/23 11/05/23 11/05/23 18:59 06:59 18:59 Intake Total 716 550 358 Output Total 250 200 Balance 466 350 358 Intake: Oral 716 240 358 Blood Product 310 Rc As-1 Unit 310 [id number] Output: Urine 250 200 Other: Voiding Method Toilet Toilet Toilet Urinal Urinal Urinal # Voids 1 1 # Bowel Movements 1 - Exam General appearance: The patient is alert, oriented, appears in no acute distress. HET: Head is normocephalic and atraumatic. Pupils are equal and reactive. Neck: Supple. Heart: Regular. Lungs: Equal expansion, normal respiratory effort. Abdomen: Soft, nontender, nondistended. Abdominal incision well-approximated, no drainage or surrounding erythema. Bilateral groin incisions well- approximated, without any drainage or erythema. Warm to the touch with good capillary refill. Extremities: Normal skin color and turgor. Neurological: No focal deficits. Strength and sensation are grossly intact. - Labs CBC & Chem 7: 11/05/23 09:18 11/05/23 09:18 Labs: Abnormal Lab Results - Last 24 Hours (Table) 11/03/23 11/04/23 11/04/23 Range/Units 15:41 16:36 20:10 RBC (4.30-5.90) m/uL Hgb (13.0-17.5) gm/dL Hct (39.0-53.0) % RDW (11.5-15.5) % Chloride (98-107) mmol/L Carbon Dioxide (22-30) mmol/L Glucose (74-99) mg/dL POC Glucose (mg/dL) 176 H 204 H (70-110) mg/dL Crossmatch See Detail 11/04/23 11/05/23 11/05/23 Range/Units 23:41 05:45 09:18 RBC 2.27 L 2.47 L (4.30-5.90) m/uL Hgb 7.0 L 7.7 L (13.0-17.5) gm/dL Hct 21.4 L 23.3 L (39.0-53.0) % RDW 17.4 H 16.9 H (11.5-15.5) % Chloride (98-107) mmol/L Carbon Dioxide (22-30) mmol/L Glucose (74-99) mg/dL POC Glucose (mg/dL) 186 H (70-110) mg/dL Crossmatch 11/05/23 11/05/23 Range/Units 09:18 12:05 RBC (4.30-5.90) m/uL Hgb (13.0-17.5) gm/dL Hct (39.0-53.0) % RDW (11.5-15.5) % Chloride 109 H (98-107) mmol/L Carbon Dioxide 21 L (22-30) mmol/L Glucose 202 H (74-99) mg/dL POC Glucose (mg/dL) 146 H (70-110) mg/dL Crossmatch Assessment and Plan Assessment: 1. Recent aortobifem bypass 2. Acute anemia, possible GI bleed 3. Reported melena 4. History of peripheral arterial disease with previous revascularization 5. Diabetes mellitus 6. COPD 7. Hypertension 8. Hyperlipidemia 9. Former smoker Plan: 1. Abdominal sutures and bilateral groin falguni removed 2. There is no indication for any other vascular surgical intervention at this time. No evidence of bleeding from surgical sites/aorta bifemoral bypass 3. General surgery on consultation for possible GI bleed 4. Rest of medical management per primary medical team Thank you for this consultation, we will sign off at this time. Patient to follow-up with Dr. Ramsey next week . The impression and plan of care has been dictated as directed. Dr. Ramsey I performed a history and examination of this patient, discussed the same with the dictator. I agree with the dictator's note ,documented as a scribe. Any additional findings or plans will be noted.
[2023-11-05 13:17] VITALS: BMI 30.3
--- NOTE | 2023-11-05 14:14 | P.PN ---
Subjective Progress Note Date: 11/04/23 Patient is an 53-year-old male with a known history of severe bilateral PAD, bilateral iliac artery occlusion femorofemoral bypass on 09/28/2020, history of iliac stent placement, recent Aorto femoral bypass, hypertension, diabetes type 2, chronic back pain, COPD, chronic hypoxic spectra failure on 2 to 3 L via nasal cannula. Anxiety/depression ADD and occasional marijuana use. Patient presents to ER with complaints of shortness of breath. He was also having generalized weakness and dizziness when getting up. Patient states that he was at [facility] neuro discharged 2 weeks ago. Has been having increased shortness of breath. States that when he walks he is panting. Denies any leg swelling. No fever no chills. No cough or sputum production. No chest pain. Patient states that he did have darker stools this morning. Patient was discharged from the hospital on 08/21/2023. Epidural hospital due to significant left lower extremity muscle cramping. CT angiogram with runoff was done. Patient was recommended to continue aspirin Plavix as per vascular surgery recommendations. .Chest x-ray showed no acute process. Correlate for COPD. EKG showed sinus tachycardia. Laboratory test showed WBC 11.4 hemoglobin 8.6 and platelets 582 Sodium 136 potassium 4.1 chloride 109 bicarb is 18 BUN 45 creatinine 0.62 and blood sugar 168. Laboratory is a not elevated. Troponin x 1 negative. 11/04/2023 Patient is currently lying in the bed. Awake alert and oriented x 3. Still complains of lightheadedness and generalized weakness. Hemoglobin dropped to 7.0 today. Patient did have bowel movement with dark stools again. No nausea or vomiting. No complaints of abdominal pain. No chest pain or shortness of breath. Patient is being continued on IV Protonix and general surgery is planning for EGD on Wednesday. Plavix and aspirin is on hold. Other laboratory data reviewed. Current medications reviewed. Objective - Vital Signs Vital signs: Vital Signs Temp 97.9 F 11/04/23 08:00 Pulse 80 11/04/23 08:00 Resp 18 11/04/23 08:00 BP 115/63 11/04/23 08:00 Pulse Ox 99 11/04/23 08:00 FiO2 Intake & Output 06/12/24 06/13/24 06/13/24 18:59 06:59 18:59 Intake Total 276 120 Output Total 300 250 Balance -24 -130 Weight 85.275 kg 85.275 kg Intake: Oral 120 Blood Product 276 Rc Pheresis As-3 Unit 276 [id number] Output: Urine 300 250 Other: # Voids 1 # Bowel Movements 1 1 - Exam PHYSICAL EXAMINATION: Patient is lying in the bed comfortably, no acute distress, awake alert and oriented.. HEENT: Normocephalic. Neck is supple. Pupils reactive. Nostrils clear. Oral cavity is moist. Neck reveals no JVD, carotid bruits, or thyromegaly. CHEST EXAMINATION: Trachea is central. Symmetrical expansion. Lung freire clear to auscultation and percussion. CARDIAC: Normal S1, S2 with no gallops. No murmurs ABDOMEN: Soft. Bowel sounds normal. No organomegaly. No abdominal bruits. Extremities: reveal no edema. No clubbing or cyanosis Neurologically awake, alert, oriented x3 with well-coordinated movements. No focal deficits noted Skin: No rash or skin lesions. Psychiatric: Coperative. Nonsuicidal Musculoskeletal: No joint swelling or deformity. Normal range of motion. - Labs CBC & Chem 7: 11/07/23 06:36 11/07/23 06:36 Labs: Abnormal Lab Results - Last 24 Hours (Table) 11/03/23 11/03/23 11/03/23 Range/Units 11:43 11:43 15:41 WBC 11.4 H (3.8-10.6) k/uL RBC 2.69 L (4.30-5.90) m/uL Hgb 8.6 L D (13.0-17.5) gm/dL Hct 26.3 L (39.0-53.0) % RDW (11.5-15.5) % Plt Count 582 H (150-450) k/uL Neutrophils # 7.8 H (1.3-7.7) k/uL Sodium 136 L (137-145) mmol/L Chloride 109 H (98-107) mmol/L Carbon Dioxide 18 L (22-30) mmol/L BUN 45 H (9-20) mg/dL Creatinine 0.62 L (0.66-1.25) mg/dL Glucose 168 H (74-99) mg/dL Crossmatch See Detail 11/03/23 11/03/23 11/04/23 Range/Units 17:42 21:36 08:39 WBC 11.1 H 10.8 H (3.8-10.6) k/uL RBC 2.24 L 2.18 L 2.39 L (4.30-5.90) m/uL Hgb 7.2 L 7.0 L 7.4 L (13.0-17.5) gm/dL Hct 21.8 L 21.3 L 22.9 L (39.0-53.0) % RDW 17.0 H (11.5-15.5) % Plt Count 494 H 510 H (150-450) k/uL Neutrophils # 8.0 H (1.3-7.7) k/uL Sodium (137-145) mmol/L Chloride (98-107) mmol/L Carbon Dioxide (22-30) mmol/L BUN (9-20) mg/dL Creatinine (0.66-1.25) mg/dL Glucose (74-99) mg/dL Crossmatch Assessment and Plan Assessment: Symptomatic anemia Acute blood loss anemia likely due to GI bleed. Hemoglobin 8.6 on admission. Hemoglobin on most recent admission was 15.9. Recent aortofem bypass Severe peripheral vascular disease and prior history of femorofemoral bypass and iliac artery stent placement. Diabetes type 2 [id number] Hypertension Hyperlipidemia Chronic back pain COPD on home oxygen and chronic hypoxic respiratory failure Prior history of smoking Anxiety/depression ADD/ADHD Occasional marijuana use and possible mild gastroparesis DVT prophylax with SCDs Plan: Patient will be continued on IV hydration with normal saline. Continue to monitor H&H closely. Transfuse if hemoglobin less than 7. FOBT positive. Continue Protonix 40 mg IV twice daily. Aspirin and Plavix on hold. Vascular surgery and general surgery is on board and planning for EGD on Wednesday. Continue to follow closely. Time with Patient: Greater than 30
[2023-11-05 16:50] LABS: Glucose,Whole Blood 174 mg/dL (70-110)
[2023-11-05 20:00] LABS: Glucose,Whole Blood 159 mg/dL (70-110)
[2023-11-05] MEDS: HYDROcodone/APAP 5-325MG 1 EACH TAB PO PRN (20:15)
[2023-11-06 06:14] LABS: Glucose,Whole Blood 150 mg/dL (70-110)
--- NOTE | 2023-11-06 07:58 | P.PN ---
Progress Note - Text Progress Note Date: 11/06/23 CHIEF COMPLAINT: Melanotic stools HISTORY OF PRESENT ILLNESS: Patient admitted with possible GI bleed and melanotic stools. Patient continues to have black stools. PHYSICAL EXAM: VITAL SIGNS: Reviewed. GENERAL: no acute distress. ABDOMEN: Soft. Nondistended. Nontender. ASSESSMENT: 1. Acute GI bleed with melanotic stools 2. Acute blood loss anemia secondary to GI bleed PLAN: -Patient scheduled for EGD on 11/08/[address] Sepulveda -Continue IV Protonix twice a day -Continue to monitor for any signs or symptoms of bleeding -Continue to monitor hemoglobin
[2023-11-06 11:40] LABS: Anisocytosis Slight; Basophils # (A) 0.1 k/uL (0-0.2); Basophils % (A) 1 %; Eosinophils # (A) 0.4 k/uL (0-0.7); Eosinophils % (A) 5 %; HCT 25.6 % (39.0-53.0); HGB 8.4 gm/dL (13.0-17.5); Lymphocytes # (A) 1.7 k/uL (1.0-4.8); Lymphocytes % (A) 18 %; MCH 30.7 pg (25.0-35.0); MCHC 32.6 g/dL (31.0-37.0); MCV 94.2 fL (80.0-100.0); Macrocytosis Slight; Mean Platelet Volume 7.6; Monocytes # (A) 0.9 k/uL (0-1.0); Monocytes % (A) 9 %; Neutrophils # (A) 6.1 k/uL (1.3-7.7); Neutrophils % (A) 65 %; Platelet Count 355 k/uL (150-450); RBC 2.72 m/uL (4.30-5.90); RDW 17.9 % (11.5-15.5); WBC 9.3 k/uL (3.8-10.6)
[2023-11-06 11:44] LABS: Glucose,Whole Blood 198 mg/dL (70-110)
[2023-11-06] MEDS: HYDROmorphone 0.5 MG/0.5 ML SYRINGE IM STA (15:50)
[2023-11-06] MEDS: HYDROmorphone 0.5 MG/0.5 ML SYRINGE IVP STA ×2 (15:52→20:35)
[2023-11-06 16:54] LABS: Glucose,Whole Blood 170 mg/dL (70-110)
[2023-11-06 20:08] LABS: Glucose,Whole Blood 163 mg/dL (70-110)
[2023-11-07 06:08] LABS: Glucose,Whole Blood 140 mg/dL (70-110)
[2023-11-07 06:56] LABS: Anisocytosis Slight; Basophils # (A) 0.1 k/uL (0-0.2); Basophils % (A) 1 %; Eosinophils # (A) 0.7 k/uL (0-0.7); Eosinophils % (A) 7 %; HCT 26.7 % (39.0-53.0); HGB 8.7 gm/dL (13.0-17.5); Lymphocytes # (A) 1.7 k/uL (1.0-4.8); Lymphocytes % (A) 18 %; MCHC 32.6 g/dL (31.0-37.0); MCV 95.2 fL (80.0-100.0); Macrocytosis Slight; Mean Platelet Volume 7.7; Monocytes # (A) 0.8 k/uL (0-1.0); Monocytes % (A) 8 %; Neutrophils # (A) 6.3 k/uL (1.3-7.7); Neutrophils % (A) 64 %; Platelet Count 333 k/uL (150-450); RDW 17.7 % (11.5-15.5); WBC 9.8 k/uL (3.8-10.6)
[2023-11-07 07:15] LABS: African American GFR (CKD) >90 (>60 ml/min/1.73 sqM); Anion Gap 4 mmol/L; Blood Urea Nitrogen 17 mg/dL (9-20); Carbon Dioxide 28 mmol/L (22-30); Chloride 105 mmol/L (98-107); Glucose 139 mg/dL (74-99); Non-African American GFR(CKD) >90 (>60 ml/min/1.73 sqM); Potassium 4.1 mmol/L (3.5-5.1); Sodium 137 mmol/L (137-145)
[2023-11-07 11:42] LABS: Glucose,Whole Blood 187 mg/dL (70-110)
--- NOTE | 2023-11-07 15:19 | P.PN ---
Subjective Progress Note Date: 11/07/23 CHIEF COMPLAINT: GI bleed HISTORY OF PRESENT ILLNESS: The patient is a 53-year-old male who presented with acute blood loss anemia. He is status post 2 units of blood transfusions. He is tolerating diet. No reports of hematemesis yesterday. He is resting comfortably. ROS: No reports of nausea and vomiting. No fevers or chills. No new chest pain. No productive sputum PHYSICAL EXAM: VITAL SIGNS: Reviewed CONSTITUTIONAL: Well developed and in no acute distress. EYES: Conjuctivae without sclera icterus. Extraocular movements grossly intact. HEAD, EARS, NOSE, THROAT: Moist buccal mucosa. Head is atraumatic, normocephalic. Hears conversational speech. No nasal drainage. RESPIRATORY: Non-labored respirations and equal bilateral excursions. CARDIOVASCULAR: Palpable 2+ radial pulses. ABDOMEN: Nontender. MUSCULOSKELETAL: No gross deformity of the lower extremities noted. No clubb ing. No cyanosis. SKIN: Good skin turgor. Well perfused. NEUROLOGIC: Cranial nerves II through XII grossly intact. No focal or lateralizing signs. PSYCH: Appropriate affect. CLINICAL LABS: Reviewed. WBC normal. Hemoglobin 8.7 up from 8.4, anemia ASSESSMENT: 1. GI bleed 2. Acute blood loss anemia PLAN: 1. Patient scheduled for upper endoscopy tomorrow. 2. Monitor for signs of bleeding. Objective - Vital Signs Vital signs: Vital Signs Temp 97.6 F 11/07/23 08:00 Pulse 72 11/07/23 12:00 Resp 16 11/07/23 12:00 BP 117/64 11/07/23 12:00 Pulse Ox 100 11/07/23 12:00 FiO2 Intake & Output 11/06/23 11/07/23 11/07/23 18:59 06:59 18:59 Intake Total 944 20 374 Balance 944 20 374 Intake: IV 20 20 20 Invasive Line 1 20 20 20 Oral 924 354 Other: Voiding Method Toilet Toilet Toilet Urinal Urinal Urinal # Voids 1 # Bowel Movements 1 - Labs CBC & Chem 7: 11/07/23 06:36 11/07/23 06:36 Labs: Abnormal Lab Results - Last 24 Hours (Table) 11/06/23 11/06/23 11/07/23 Range/Units 16:53 20:07 06:07 RBC (4.30-5.90) m/uL Hgb (13.0-17.5) gm/dL Hct (39.0-53.0) % RDW (11.5-15.5) % Glucose (74-99) mg/dL POC Glucose (mg/dL) 170 H 163 H 140 H (70-110) mg/dL 11/07/23 11/07/23 11/07/23 Range/Units 06:36 06:36 11:40 RBC 2.80 L (4.30-5.90) m/uL Hgb 8.7 L (13.0-17.5) gm/dL Hct 26.7 L (39.0-53.0) % RDW 17.7 H (11.5-15.5) % Glucose 139 H (74-99) mg/dL POC Glucose (mg/dL) 187 H (70-110) mg/dL
[2023-11-07 16:18] LABS: Glucose,Whole Blood 131 mg/dL (70-110)
[2023-11-07 19:59] LABS: Glucose,Whole Blood 139 mg/dL (70-110)
--- NOTE | 2023-11-07 23:58 | P.PN ---
Subjective Progress Note Date: 11/05/23 Patient is an 53-year-old male with a known history of severe bilateral PAD, bilateral iliac artery occlusion femorofemoral bypass on 09/28/2020, history of iliac stent placement, recent Aorto femoral bypass, hypertension, diabetes type 2, chronic back pain, COPD, chronic hypoxic spectra failure on 2 to 3 L via nasal cannula. Anxiety/depression ADD and occasional marijuana use. Patient presents to ER with complaints of shortness of breath. He was also having generalized weakness and dizziness when getting up. Patient states that he was at [facility] neuro discharged 2 weeks ago. Has been having increased shortness of breath. States that when he walks he is panting. Denies any leg swelling. No fever no chills. No cough or sputum production. No chest pain. Patient states that he did have darker stools this morning. Patient was discharged from the hospital on 08/21/2023. Epidural hospital due to significant left lower extremity muscle cramping. CT angiogram with runoff was done. Patient was recommended to continue aspirin Plavix as per vascular surgery recommendations. .Chest x-ray showed no acute process. Correlate for COPD. EKG showed sinus tachycardia. Laboratory test showed WBC 11.4 hemoglobin 8.6 and platelets 582 Sodium 136 potassium 4.1 chloride 109 bicarb is 18 BUN 45 creatinine 0.62 and blood sugar 168. Laboratory is a not elevated. Troponin x 1 negative. 11/04/2023 Patient is currently lying in the bed. Awake alert and oriented x 3. Still complains of lightheadedness and generalized weakness. Hemoglobin dropped to 7.0 today. Patient did have bowel movement with dark stools again. No nausea or vomiting. No complaints of abdominal pain. No chest pain or shortness of breath. Patient is being continued on IV Protonix and general surgery is planning for EGD on Wednesday. Plavix and aspirin is on hold. Other laboratory data reviewed. 11/05/2023 Patient is currently lying in the bed. Awake alert and oriented x 3. Complains of metallic taste in the mouth and also feels dizzy when he walks to the bathroom. No complaints of chest pain or shortness of breath. No leg swelling. No nausea vomiting vomiting or abdominal pain. Abdominal and groin sutures were removed by vascular surgery. Otherwise hemoglobin level 7.7 today. Patient would like to be transferred to [facility]. I did discuss with patient transfer team from [facility] who is willing to accept the patient for GI evaluation. Otherwise patient is being continued on IV PPI and general surgery is planning for EGD on Wednesday today. Other laboratory data showed WBC 9.1 hemoglobin 7.7 and platelets 359 sodium 137 potassium 4.2 chloride 109 bicarb is 21 BUN 14 and creatinine 0.66 and blood sugar is 202 A1c 5 point 0.9. Calcium 8.5. Current medications reviewed. Objective - Vital Signs Vital signs: Vital Signs Temp 97.8 F 11/05/23 11:23 Pulse 78 11/05/23 13:00 Resp 17 11/05/23 11:23 BP 112/66 11/05/23 11:23 Pulse Ox 99 11/05/23 11:23 FiO2 Intake & Output 11/04/23 11/05/23 11/05/23 18:59 06:59 18:59 Intake Total 716 550 358 Output Total 250 200 Balance 466 350 358 Weight 85.275 kg Intake: Oral 716 240 358 Blood Product 310 Rc As-1 Unit 310 [id number] Output: Urine 250 200 Other: Voiding Method Toilet Toilet Toilet Urinal Urinal Urinal # Voids 1 1 # Bowel Movements 1 - Exam PHYSICAL EXAMINATION: Patient is lying in the bed comfortably, no acute distress, awake alert and oriented.. HEENT: Normocephalic. Neck is supple. Pupils reactive. Nostrils clear. Oral cavity is moist. Neck reveals no JVD, carotid bruits, or thyromegaly. CHEST EXAMINATION: Trachea is central. Symmetrical expansion. Lung freire clear to auscultation and percussion. CARDIAC: Normal S1, S2 with no gallops. No murmurs ABDOMEN: Soft. Bowel sounds normal. No organomegaly. No abdominal bruits. Extremities: reveal no edema. No clubbing or cyanosis Neurologically awake, alert, oriented x3 with well-coordinated movements. No focal deficits noted Skin: No rash or skin lesions. Psychiatric: Coperative. Nonsuicidal Musculoskeletal: No joint swelling or deformity. Normal range of motion. - Labs CBC & Chem 7: 11/07/23 06:36 11/07/23 06:36 Labs: Abnormal Lab Results - Last 24 Hours (Table) 11/03/23 11/04/23 11/04/23 Range/Units 15:41 16:36 20:10 RBC (4.30-5.90) m/uL Hgb (13.0-17.5) gm/dL Hct (39.0-53.0) % RDW (11.5-15.5) % Chloride (98-107) mmol/L Carbon Dioxide (22-30) mmol/L Glucose (74-99) mg/dL POC Glucose (mg/dL) 176 H 204 H (70-110) mg/dL Crossmatch See Detail 11/04/23 11/05/23 11/05/23 Range/Units 23:41 05:45 09:18 RBC 2.27 L 2.47 L (4.30-5.90) m/uL Hgb 7.0 L 7.7 L (13.0-17.5) gm/dL Hct 21.4 L 23.3 L (39.0-53.0) % RDW 17.4 H 16.9 H (11.5-15.5) % Chloride (98-107) mmol/L Carbon Dioxide (22-30) mmol/L Glucose (74-99) mg/dL POC Glucose (mg/dL) 186 H (70-110) mg/dL Crossmatch 11/05/23 11/05/23 Range/Units 09:18 12:05 RBC (4.30-5.90) m/uL Hgb (13.0-17.5) gm/dL Hct (39.0-53.0) % RDW (11.5-15.5) % Chloride 109 H (98-107) mmol/L Carbon Dioxide 21 L (22-30) mmol/L Glucose 202 H (74-99) mg/dL POC Glucose (mg/dL) 146 H (70-110) mg/dL Crossmatch Assessment and Plan Assessment: Symptomatic anemia Acute blood loss anemia likely due to GI bleed. Hemoglobin 8.6 on admission. Hemoglobin on most recent admission was 15.9. Recent aortofem bypass Severe peripheral vascular disease and prior history of femorofemoral bypass and iliac artery stent placement. Diabetes type 2 [id number] Hypertension Hyperlipidemia Chronic back pain COPD on home oxygen and chronic hypoxic respiratory failure Prior history of smoking Anxiety/depression ADD/ADHD Occasional marijuana use and possible mild gastroparesis DVT prophylax with SCDs Plan: Patient will be continued on IV hydration with normal saline. Continue to monitor H&H closely. Hemoglobin 7.7 today. Transfuse if hemoglobin less than 7. FOBT positive. Continue Protonix 40 mg IV twice daily. Aspirin and Plavix on hold. Vascular surgery and general surgery is on board and planning for EGD on Wednesday. Discussed with [facility] transfer team and patient is accepted for further GI evaluation and GI evaluation. Pending bed availability for transfer.. Time with Patient: Greater than 30
--- NOTE | 2023-11-08 00:01 | P.PN ---
Subjective Progress Note Date: 11/06/23 Patient is an 53-year-old male with a known history of severe bilateral PAD, bilateral iliac artery occlusion femorofemoral bypass on 09/28/2020, history of iliac stent placement, recent Aorto femoral bypass, hypertension, diabetes type 2, chronic back pain, COPD, chronic hypoxic spectra failure on 2 to 3 L via nasal cannula. Anxiety/depression ADD and occasional marijuana use. Patient presents to ER with complaints of shortness of breath. He was also having generalized weakness and dizziness when getting up. Patient states that he was at [facility] neuro discharged 2 weeks ago. Has been having increased shortness of breath. States that when he walks he is panting. Denies any leg swelling. No fever no chills. No cough or sputum production. No chest pain. Patient states that he did have darker stools this morning. Patient was discharged from the hospital on 08/21/2023. Epidural hospital due to significant left lower extremity muscle cramping. CT angiogram with runoff was done. Patient was recommended to continue aspirin Plavix as per vascular surgery recommendations. .Chest x-ray showed no acute process. Correlate for COPD. EKG showed sinus tachycardia. Laboratory test showed WBC 11.4 hemoglobin 8.6 and platelets 582 Sodium 136 potassium 4.1 chloride 109 bicarb is 18 BUN 45 creatinine 0.62 and blood sugar 168. Laboratory is a not elevated. Troponin x 1 negative. 11/04/2023 Patient is currently lying in the bed. Awake alert and oriented x 3. Still complains of lightheadedness and generalized weakness. Hemoglobin dropped to 7.0 today. Patient did have bowel movement with dark stools again. No nausea or vomiting. No complaints of abdominal pain. No chest pain or shortness of breath. Patient is being continued on IV Protonix and general surgery is planning for EGD on Wednesday. Plavix and aspirin is on hold. Other laboratory data reviewed. 11/05/2023 Patient is currently lying in the bed. Awake alert and oriented x 3. Complains of metallic taste in the mouth and also feels dizzy when he walks to the bathroom. No complaints of chest pain or shortness of breath. No leg swelling. No nausea vomiting vomiting or abdominal pain. Abdominal and groin sutures were removed by vascular surgery. Otherwise hemoglobin level 7.7 today. Patient would like to be transferred to [facility]. I did discuss with patient transfer team from [facility] who is willing to accept the patient for GI evaluation. Otherwise patient is being continued on IV PPI and general surgery is planning for EGD on Wednesday today. Other laboratory data showed WBC 9.1 hemoglobin 7.7 and platelets 359 sodium 137 potassium 4.2 chloride 109 bicarb is 21 BUN 14 and creatinine 0.66 and blood sugar is 202 A1c 5 point 0.9. Calcium 8.5. 11/06/2023 Patient is resting in the bed. Awake alert and oriented x 3. Still complains of metallic taste in the mouth. No nausea. Able to tolerate oral diet. No episodes of vomiting. Hemoglobin is fairly stable with 8.4 today. No complaints of abdominal pain. No chest pain or shortness of breath. Patient is pending to be transferred to [facility]. Otherwise continued on Protonix IV twice daily.. Other laboratory data reviewed. Current medications reviewed. Objective - Vital Signs Vital signs: Vital Signs Temp 98.1 F 11/06/23 19:43 Pulse 78 11/06/23 19:43 Resp 14 11/06/23 19:43 BP 94/55 11/06/23 19:43 Pulse Ox 98 11/06/23 19:43 FiO2 Intake & Output 11/06/23 11/06/23 11/07/23 06:59 18:59 06:59 Intake Total 20 944 Balance 20 944 Intake: IV 20 20 Invasive Line 1 20 20 Oral 924 Other: Voiding Method Toilet Toilet Urinal Urinal # Voids 1 # Bowel Movements 1 - Exam PHYSICAL EXAMINATION: Patient is lying in the bed comfortably, no acute distress, awake alert and oriented.. HEENT: Normocephalic. Neck is supple. Pupils reactive. Nostrils clear. Oral cavity is moist. Neck reveals no JVD, carotid bruits, or thyromegaly. CHEST EXAMINATION: Trachea is central. Symmetrical expansion. Lung freire clear to auscultation and percussion. CARDIAC: Normal S1, S2 with no gallops. No murmurs ABDOMEN: Soft. Bowel sounds normal. No organomegaly. No abdominal bruits. Extremities: reveal no edema. No clubbing or cyanosis Neurologically awake, alert, oriented x3 with well-coordinated movements. No focal deficits noted Skin: No rash or skin lesions. Psychiatric: Coperative. Nonsuicidal Musculoskeletal: No joint swelling or deformity. Normal range of motion. - Labs CBC & Chem 7: 11/07/23 06:36 11/07/23 06:36 Labs: Abnormal Lab Results - Last 24 Hours (Table) 11/06/23 11/06/23 11/06/23 Range/Units 06:13 11:18 11:42 RBC 2.72 L (4.30-5.90) m/uL Hgb 8.4 L (13.0-17.5) gm/dL Hct 25.6 L (39.0-53.0) % RDW 17.9 H (11.5-15.5) % POC Glucose (mg/dL) 150 H 198 H (70-110) mg/dL 11/06/23 11/06/23 Range/Units 16:53 20:07 RBC (4.30-5.90) m/uL Hgb (13.0-17.5) gm/dL Hct (39.0-53.0) % RDW (11.5-15.5) % POC Glucose (mg/dL) 170 H 163 H (70-110) mg/dL Assessment and Plan Assessment: Symptomatic anemia Acute blood loss anemia likely due to GI bleed. Hemoglobin 8.6 on admission. Hemoglobin on most recent admission was 15.9. Recent aortofem bypass Severe peripheral vascular disease and prior history of femorofemoral bypass and iliac artery stent placement. Diabetes type 2 [id number] Hypertension Hyperlipidemia Chronic back pain COPD on home oxygen and chronic hypoxic respiratory failure Prior history of smoking Anxiety/depression ADD/ADHD Occasional marijuana use and possible mild gastroparesis DVT prophylax with SCDs Plan: Patient will be continued on IV hydration with normal saline. Continue to monitor H&H closely. Hemoglobin 7.7--8.4 today. Transfuse if hemoglobin less than 7. FOBT positive. Continue Protonix 40 mg IV twice daily. Aspirin and Plavix on hold. Vascular surgery and general surgery is on board and planning for EGD on Wednesday. Discussed with [facility] transfer team and patient is accepted for further GI evaluation and GI evaluation. Pending bed availability for transfer.. Time with Patient: Greater than 30
--- NOTE | 2023-11-08 00:02 | P.PN ---
Subjective Progress Note Date: 11/07/23 Patient is an 53-year-old male with a known history of severe bilateral PAD, bilateral iliac artery occlusion femorofemoral bypass on 09/28/2020, history of iliac stent placement, recent Aorto femoral bypass, hypertension, diabetes type 2, chronic back pain, COPD, chronic hypoxic spectra failure on 2 to 3 L via nasal cannula. Anxiety/depression ADD and occasional marijuana use. Patient presents to ER with complaints of shortness of breath. He was also having generalized weakness and dizziness when getting up. Patient states that he was at [facility] neuro discharged 2 weeks ago. Has been having increased shortness of breath. States that when he walks he is panting. Denies any leg swelling. No fever no chills. No cough or sputum production. No chest pain. Patient states that he did have darker stools this morning. Patient was discharged from the hospital on 08/21/2023. Epidural hospital due to significant left lower extremity muscle cramping. CT angiogram with runoff was done. Patient was recommended to continue aspirin Plavix as per vascular surgery recommendations. .Chest x-ray showed no acute process. Correlate for COPD. EKG showed sinus tachycardia. Laboratory test showed WBC 11.4 hemoglobin 8.6 and platelets 582 Sodium 136 potassium 4.1 chloride 109 bicarb is 18 BUN 45 creatinine 0.62 and blood sugar 168. Laboratory is a not elevated. Troponin x 1 negative. 11/04/2023 Patient is currently lying in the bed. Awake alert and oriented x 3. Still complains of lightheadedness and generalized weakness. Hemoglobin dropped to 7.0 today. Patient did have bowel movement with dark stools again. No nausea or vomiting. No complaints of abdominal pain. No chest pain or shortness of breath. Patient is being continued on IV Protonix and general surgery is planning for EGD on Wednesday. Plavix and aspirin is on hold. Other laboratory data reviewed. 11/05/2023 Patient is currently lying in the bed. Awake alert and oriented x 3. Complains of metallic taste in the mouth and also feels dizzy when he walks to the bathroom. No complaints of chest pain or shortness of breath. No leg swelling. No nausea vomiting vomiting or abdominal pain. Abdominal and groin sutures were removed by vascular surgery. Otherwise hemoglobin level 7.7 today. Patient would like to be transferred to [facility]. I did discuss with patient transfer team from [facility] who is willing to accept the patient for GI evaluation. Otherwise patient is being continued on IV PPI and general surgery is planning for EGD on Wednesday today. Other laboratory data showed WBC 9.1 hemoglobin 7.7 and platelets 359 sodium 137 potassium 4.2 chloride 109 bicarb is 21 BUN 14 and creatinine 0.66 and blood sugar is 202 A1c 5 point 0.9. Calcium 8.5. 11/06/2023 Patient is resting in the bed. Awake alert and oriented x 3. Still complains of metallic taste in the mouth. No nausea. Able to tolerate oral diet. No episodes of vomiting. Hemoglobin is fairly stable with 8.4 today. No complaints of abdominal pain. No chest pain or shortness of breath. Patient is pending to be transferred to [facility]. Otherwise continued on Protonix IV twice daily.. Other laboratory data reviewed. 11/07/2023 Patient is lying in the bed. Awake alert and oriented x 3. Feels better today. No complaints of chest pain or shortness of breath. No nausea vomiting. Tolerating oral diet. Otherwise hemoglobin improved to 8.7. Patient remains on Protonix IV twice daily and general surgery is planning for EGD tomorrow. Current medications reviewed. Objective - Vital Signs Vital signs: Vital Signs Temp 97.6 F 11/07/23 08:00 Pulse 77 11/07/23 08:00 Resp 16 11/07/23 08:00 BP 118/76 11/07/23 08:00 Pulse Ox 98 11/07/23 08:00 FiO2 Intake & Output 11/06/23 11/07/23 11/07/23 18:59 06:59 18:59 Intake Total 944 20 364 Balance 944 20 364 Intake: IV 20 20 10 Invasive Line 1 20 20 10 Oral 924 354 Other: Voiding Method Toilet Toilet Toilet Urinal Urinal Urinal # Voids 1 # Bowel Movements 1 - Exam PHYSICAL EXAMINATION: Patient is lying in the bed comfortably, no acute distress, awake alert and oriented.. HEENT: Normocephalic. Neck is supple. Pupils reactive. Nostrils clear. Oral cavity is moist. Neck reveals no JVD, carotid bruits, or thyromegaly. CHEST EXAMINATION: Trachea is central. Symmetrical expansion. Lung freire clear to auscultation and percussion. CARDIAC: Normal S1, S2 with no gallops. No murmurs ABDOMEN: Soft. Bowel sounds normal. No organomegaly. No abdominal bruits. Extremities: reveal no edema. No clubbing or cyanosis Neurologically awake, alert, oriented x3 with well-coordinated movements. No focal deficits noted Skin: No rash or skin lesions. Psychiatric: Coperative. Nonsuicidal Musculoskeletal: No joint swelling or deformity. Normal range of motion. - Labs CBC & Chem 7: 11/07/23 06:36 11/07/23 06:36 Labs: Abnormal Lab Results - Last 24 Hours (Table) 11/06/23 11/06/23 11/06/23 Range/Units 11:18 11:42 16:53 RBC 2.72 L (4.30-5.90) m/uL Hgb 8.4 L (13.0-17.5) gm/dL Hct 25.6 L (39.0-53.0) % RDW 17.9 H (11.5-15.5) % Glucose (74-99) mg/dL POC Glucose (mg/dL) 198 H 170 H (70-110) mg/dL 11/06/23 11/07/23 11/07/23 Range/Units 20:07 06:07 06:36 RBC 2.80 L (4.30-5.90) m/uL Hgb 8.7 L (13.0-17.5) gm/dL Hct 26.7 L (39.0-53.0) % RDW 17.7 H (11.5-15.5) % Glucose (74-99) mg/dL POC Glucose (mg/dL) 163 H 140 H (70-110) mg/dL 11/07/23 Range/Units 06:36 RBC (4.30-5.90) m/uL Hgb (13.0-17.5) gm/dL Hct (39.0-53.0) % RDW (11.5-15.5) % Glucose 139 H (74-99) mg/dL POC Glucose (mg/dL) (70-110) mg/dL Assessment and Plan Assessment: Symptomatic anemia Acute blood loss anemia likely due to GI bleed. Hemoglobin 8.6 on admission. Hemoglobin on most recent admission was 15.9. Recent aortofem bypass Severe peripheral vascular disease and prior history of femorofemoral bypass and iliac artery stent placement. Diabetes type 2 [id number] Hypertension Hyperlipidemia Chronic back pain COPD on home oxygen and chronic hypoxic respiratory failure Prior history of smoking Anxiety/depression ADD/ADHD Occasional marijuana use and possible mild gastroparesis DVT prophylax with SCDs Plan: Patient will be continued on IV hydration with normal saline. Continue to monitor H&H closely. Hemoglobin 7.7--8.4--8.7 today. Transfuse if hemoglobin less than 7. FOBT positive. Continue Protonix 40 mg IV twice daily. Aspirin and Plavix on hold. Discussed with [facility] transfer team and patient is accepted for further GI evaluation and GI evaluation. Pending bed availability for transfer.. Vascular surgery recommends no intervention. And general surgery is on board and planning for EGD on Wednesday.
[2023-11-08 06:11] LABS: Glucose,Whole Blood 187 mg/dL (70-110)
[2023-11-08 07:30] LABS: Anisocytosis Slight; HGB 8.9 gm/dL (13.0-17.5); MCH 31.6 pg (25.0-35.0); MCV 95.6 fL (80.0-100.0); Macrocytosis Slight; Mean Platelet Volume 7.7; Platelet Count 357 k/uL (150-450); RBC 2.83 m/uL (4.30-5.90); RDW 17.3 % (11.5-15.5); WBC 9.7 k/uL (3.8-10.6)
[2023-11-08 07:42] LABS: African American GFR (CKD) >90 (>60 ml/min/1.73 sqM); Anion Gap 7 mmol/L; Blood Urea Nitrogen 22 mg/dL (9-20); Calcium 8.9 mg/dL (8.4-10.2); Carbon Dioxide 26 mmol/L (22-30); Chloride 102 mmol/L (98-107); Glucose 114 mg/dL (74-99); Non-African American GFR(CKD) >90 (>60 ml/min/1.73 sqM); Potassium 4.2 mmol/L (3.5-5.1); Sodium 135 mmol/L (137-145)
[2023-11-08 11:35] LABS: Glucose,Whole Blood 120 mg/dL (70-110)
[2023-11-08] MEDS: IV FLUID CONTINUATION 1,000 ML IV ONE (13:53)
[2023-11-08] MEDS ORDERED: PROPOFOL 10 MG/ML 20 ML VIAL IV ONE (13:54)
--- NOTE | 2023-11-08 14:21 | P.PN ---
Subjective Progress Note Date: 11/08/23 11/03/2023 patient is an 53-year-old male with a known history of severe bilateral PAD, bilateral iliac artery occlusion femorofemoral bypass on 09/28/2020, history of iliac stent placement, recent Aorto femoral bypass, hypertension, diabetes type 2, chronic back pain, COPD, chronic hypoxic spectra failure on 2 to 3 L via nasal cannula. Anxiety/depression ADD and occasional marijuana use. Patient presents to ER with complaints of shortness of breath. He was also having generalized weakness and dizziness when getting up. Patient states that he was at [facility] neuro discharged 2 weeks a go. Has been having increased shortness of breath. States that when he walks he is panting. Denies any leg swelling. No fever no chills. No cough or sputum production. No chest pain. Patient states that he did have darker stools this morning. Patient was discharged from the hospital on 08/21/2023. Epidural hospital due to significant left lower extremity muscle cramping. CT angiogram with runoff was done. Patient was recommended to continue aspirin Plavix as per vascular surgery recommendations. .Chest x-ray showed no acute process. Correlate for COPD. EKG showed sinus tachycardia. Laboratory test showed WBC 11.4 hemoglobin 8.6 and platelets 582 Sodium 136 potassium 4.1 chloride 109 bicarb is 18 BUN 45 creatinine 0.62 and blood sugar 168. Laboratory is a not elevated. Troponin x 1 negative. 11/08/2023 aspirin and Plavix remain on hold, n.p.o. for EGD, hemoglobin 8.9. Maintained on PPI twice daily. Denies chest pain, palpitations or shortness of breath. Maintaining O2 sats in the high 90s to 100% on room air. Denies lightheadedness, dizziness or focal deficits. Objective - Vital Signs Vital signs: Vital Signs Temp 98.1 F 11/08/23 11:21 Pulse 64 11/08/23 11:21 Resp 20 11/08/23 11:21 BP 108/56 11/08/23 11:21 Pulse Ox 100 11/08/23 11:21 FiO2 Intake & Output 11/07/23 11/08/23 11/08/23 18:59 06:59 18:59 Intake Total 374 500 Output Total 400 Balance 374 100 Intake: IV 20 20 Invasive Line 1 20 20 Oral 354 480 Output: Urine 400 Other: Voiding Method Toilet Toilet Urinal Urinal # Voids 2 - Exam PHYSICAL EXAMINATION: GEN: Alert and oriented x 3, sitting up in bed, no acute distress. HEENT: Normocephalic. Neck is supple. Pupils reactive. MMM. Neck: Supple, no JVD. CHEST EXAMINATION: Unlabored, equal air entry , CTA. CARDIAC: Normal S1, S2 with no gallops. No murmurs ABDOMEN: Soft. Nontender, nondistended, no guarding, no rigidity, positive bowel sounds. Extremities: no edema. No clubbing or cyanosis Neurological: Cranial nerves II through XII grossly intact .no focal deficits noted Skin: Warm and dry, no rash noted. - Labs CBC & Chem 7: 11/08/23 07:06 11/08/23 07:06 Labs: Abnormal Lab Results - Last 24 Hours (Table) 11/07/23 11/07/23 11/07/23 Range/Units 11:40 16:16 19:57 RBC (4.30-5.90) m/uL Hgb (13.0-17.5) gm/dL Hct (39.0-53.0) % RDW (11.5-15.5) % Sodium (137-145) mmol/L BUN (9-20) mg/dL Glucose (74-99) mg/dL POC Glucose (mg/dL) 187 H 131 H 139 H (70-110) mg/dL 11/08/23 11/08/23 11/08/23 Range/Units 06:08 07:06 07:06 RBC 2.83 L (4.30-5.90) m/uL Hgb 8.9 L (13.0-17.5) gm/dL Hct 27.0 L (39.0-53.0) % RDW 17.3 H (11.5-15.5) % Sodium 135 L (137-145) mmol/L BUN 22 H (9-20) mg/dL Glucose 114 H (74-99) mg/dL POC Glucose (mg/dL) 187 H (70-110) mg/dL 11/08/23 Range/Units 11:32 RBC (4.30-5.90) m/uL Hgb (13.0-17.5) gm/dL Hct (39.0-53.0) % RDW (11.5-15.5) % Sodium (137-145) mmol/L BUN (9-20) mg/dL Glucose (74-99) mg/dL POC Glucose (mg/dL) 120 H (70-110) mg/dL Assessment and Plan Assessment: Symptomatic anemia Acute blood loss anemia, possible acute GI bleed. Hemoglobin 8.6 on admission. Hemoglobin on most recent admission was 15.9. Status post 2 unit packed RBCs Exertional dyspnea secondary to the above Recent aortobifem bypass Severe peripheral vascular disease and previous revascularization history Diabetes type 2 [id number] Hypertension Hyperlipidemia Chronic back pain COPD on home oxygen and chronic hypoxic respiratory failure Prior history of smoking Anxiety/depression ADD/ADHD Occasional marijuana use and possible mild gastroparesis Plan: Continue on current medication regimen ,monitoring and symptomatic treatm ent. NPO, EGD pending.Cardiology consulted. Cleared by vascular surgery for discharge. discharge planning in progress pending EGD, final DC recommendations and clearance per general surgery and Cardiology. Patient will be provided the [employer] quit line information at the time of discharge. The impression and plan of care has been dictated as directed. : I performed a history and examination of this patient, discussed the same with the dictator. I agree with the dictator's note ,documented as a scribe. Any additional findings or plans will be noted.
--- NOTE | 2023-11-08 14:55 | P.CRDCN ---
History of Present Illness Consult date: 11/08/23 History of present illness: This is a 53-year-old male patient previously seen in the office by Dr. Funmi Gusman in 2019 with past medical history of peripheral vascular disease, hyperlipidemia, gastroesophageal reflux disease. Patient underwent recent aorto by femoral graft done by Dr. Sims at [facility] for severe PAD. Patient states he has had shortness of breath with dyspnea on exertion ever since he left the hospital. We have been asked to evaluate the patient for CAD, angina, anemia. Patient presented to the hospital on 11/02. He was found to be anemic and has had a transfusion total of 2 units packed RBCs 1 on 11/03 and 1 on 11/04. Stool for occult blood was positive. Plavix and aspirin are currently on hold. Patient is scheduled for EGD today. Patient states that ever since he left [facility] he has had dyspnea on exertion. He states he can walk better since his surgery was done. He has mild edema to the left lower extremity. He does complain of pain all over his chest and abdomen. He states he has dark blood in his stool along with nausea and dizziness with near syncope episode. He states his is breathing is better after transfusion. He denies any dysuria. No blood in his urine. No history of stroke or seizure. Patient is an active smoker currently at 1 pack/day and cutting back. EKG: Sinus rhythm with no acute ST-T wave changes. Chest x-ray: No acute process. COPD. Laboratory studies: Hemoglobin currently 8.9. BUN 22 creatinine 0.72. Home cardiac medications: Aspirin 81 mg daily, atorvastatin 80 mg at bedtime, Plavix 75 mg daily, Zetia 10 mg daily, Toprol-XL 25 mg daily. Cardiac catheterization performed December 2019 revealed calcifications of the proximal LAD and mild nonobstructive plaque in the mid LAD approximately 10 to 20%, circumflex artery and RCA were normal with no evidence of obstructive disea se. Echocardiogram performed 2019 revealed EF of 55 to 60%. Review Of Systems: At the time of my exam: CONSTITUTIONAL: Denies fever or chills. HEENT: Denies blurred vision, vision changes, or eye pain. Denies hemoptysis CARDIOVASCULAR: Denies chest pain. Denies orthopnea. Denies PND. Denies palpit ations RESPIRATORY: Denies shortness of breath. Reports dyspnea on exertion GASTROINTESTINAL: + abdominal pain. Denies nausea or vomiting. HEMATOLOGIC: + bleeding disorders. GENITOURINARY: Denies any blood in urine. SKIN: Denies puritis. Denies rash. Physical examination: Gen: This is a 53-year-old male in no acute distress VS: reviewed HEENT: Head is atraumatic, normocephalic. Pupils equal, round. Sclerae is anicteric. NECK: Supple. No JVD. LUNGS: Decreased air exchange bilaterally. No intercostal retractions. HEART: Regular rate and rhythm. No murmur. ABDOMEN: Soft No tenderness. EXTREMITIES: No pedal edema. No calf tenderness. Decreased lower extremity pulses. NEUROLOGICAL: Patient is awake, alert and oriented x3. Assessment: Acute GI bleed with acute blood loss anemia status post transfusion of 2 units of packed RBCs Dyspnea on exertion secondary to anemia Severe peripheral arterial disease with recent aorto by femoral graft Hyperlipidemia Gastroesophageal reflux disease Tobacco use and dependence Plan: Resume patient's home cardiac medications Obtain 2-D echocardiogram and Doppler study to assess cardiac structure and function Smoking cessation. Patient will be provided the [employer] quit line information at the time of discharge Further recommendations to follow based upon clinical course Thank you kindly for this consultation. Nurse practitioner note has been reviewed, I agree with documented findings and plan of care. Patient was seen and examined. Past Medical History Past Medical History: COPD, Diabetes Mellitus, GERD/Reflux, Hyperlipidemia, Hypertension, Osteoarthritis (OA), Vascular Disorder Additional Past Medical History / Comment(s): hx. diverticulitis, bad circulation to legs, chronic back pain with known herniated disks, uses oxygen at 2-3L [place] as needed, seasonal allergies. History of Any Multi-Drug Resistant Organisms: None Reported Past Surgical History: Bowel Resection, Hernia Repair, Orthopedic Surgery Additional Past Surgical History / Comment(s): temp. colostomy then reversal, knee surg., thumb surg., femoral bypass Past Anesthesia/Blood Transfusion Reactions: No Reported Reaction Past Psychological History: ADD/ADHD, Anxiety, Depression Smoking Status: Former smoker, Second hand smoke exposure Past Alcohol Use History: None Reported Past Drug Use History: Marijuana - Past Family History Mother Family Medical History: Cancer Father Family Medical History: Osteoarthritis (OA), Respiratory Disorder Medications and Allergies Home Medications Medication Instructions Recorded Confirmed Type Clopidogrel Bisulfate [Plavix] 75 mg PO DAILY 03/13/20 11/03/23 History Aspirin EC [Ecotrin Low Dose] 81 mg PO DAILY #90 tab 08/20/23 11/03/23 Rx Metoprolol Succinate (ER) [Toprol 25 mg PO DAILY 08/20/23 11/03/23 History XL] Omeprazole 20 mg PO DAILY #30 cap 08/20/23 11/03/23 Rx Semaglutide [Ozempic] 0.25 mg SQ FR 08/20/23 11/03/23 History Atorvastatin [Lipitor] 80 mg PO HS 11/03/23 11/03/23 History Ezetimibe [Zetia] 10 mg PO DAILY 11/03/23 11/03/23 History Allergies Allergy/AdvReac Type Severity Reaction Status Date / Time benztropine mesylate AdvReac muscle Verified 11/03/23 13:32 [From Cogentin] spasms morphine AdvReac Nausea & Verified 11/03/23 13:32 Vomiting Physical Exam Vitals: Vital Signs Temp Pulse Resp BP Pulse Ox 11/08/23 11:21 98.1 F 64 20 108/56 100 11/08/23 09:35 98.1 F 71 20 111/77 99 11/08/23 08:00 98.1 F 71 20 111/77 99 11/08/23 04:00 97.7 F 79 16 106/60 99 11/08/23 00:00 84 16 108/62 99 11/07/23 20:00 97.9 F 76 16 112/66 98 11/07/23 16:00 65 16 115/67 100 Intake and Output 11/07/23 11/08/23 11/08/23 22:59 06:59 14:59 Intake Total 490 10 Output Total 400 Balance 90 10 Intake: IV 10 10 Invasive Line 1 10 10 Oral 480 Output: Urine 400 Other: Voiding Method Toilet Toilet Urinal Urinal # Voids 2 Results 11/08/23 07:06 11/08/23 07:06 CBC 11/08/23 Range/Units 07:06 WBC 9.7 (3.8-10.6) k/uL RBC 2.83 L (4.30-5.90) m/uL Hgb 8.9 L (13.0-17.5) gm/dL Hct 27.0 L (39.0-53.0) % Plt Count 357 (150-450) k/uL Comprehensive Metabolic Panel 11/08/23 Range/Units 07:06 Sodium 135 L (137-145) mmol/L Potassium 4.2 (3.5-5.1) mmol/L Chloride 102 (98-107) mmol/L Carbon Dioxide 26 (22-30) mmol/L BUN 22 H (9-20) mg/dL Creatinine 0.72 (0.66-1.25) mg/dL Glucose 114 H (74-99) mg/dL Calcium 8.9 (8.4-10.2) mg/dL Current Medications Generic Name Dose Route Start Last Admin Trade Name Freq PRN Reason Stop Dose Admin Acetaminophen 650 mg 11/03/23 21:28 11/05/23 06:31 Acetaminophen Tab 325 Mg Tab PO 650 mg Q6HR PRN Administration Fever and/ or Pain Hydrocodone Bitart/Acetaminophen 1 each 11/05/23 19:56 11/08/23 06:27 Hydrocodone/Apap 5-325mg 1 Each Tab PO 1 each Q6HR PRN Administration Pain Atorvastatin Calcium 80 mg 11/03/23 21:00 11/07/23 20:45 Atorvastatin 80 Mg Tab PO 80 mg HS AMERICA Administration Dextrose/Water 25 ml 11/04/23 22:49 Dextrose 50% Syringe 50 Ml IVP PER PROTOCOL PRN Hypoglycemia Protocol Dextrose/Water 50 ml 11/04/23 22:49 Dextrose 50% Syringe 50 Ml IVP PER PROTOCOL PRN Hypoglycemia Protocol Ezetimibe 10 mg 11/04/23 09:00 11/07/23 08:52 Ezetimibe 10 Mg Tab PO 10 mg DAILY AMERICA Administration Insulin Aspart 0 unit 11/05/23 07:30 11/08/23 11:44 Insulin Aspart (Novolog) 100 Unit/Ml Vial SQ Not Given ACHS AMERICA Protocol Metoprolol Succinate 25 mg 11/04/23 09:00 11/07/23 08:52 Metoprolol Succinate (Er) 25 Mg Tab.Er.24h PO 25 mg DAILY AMERICA Administration Non-Formulary Medication 0.25 mg 11/05/23 09:00 11/05/23 08:05 Semaglutide [Ozempic] SQ Not Given FR AMERICA Pantoprazole Sodium 40 mg 11/03/23 21:00 11/08/23 08:07 Pantoprazole 40 Mg/10 Ml Vial IVP 40 mg BID AMERICA Administration Intake and Output 11/07/23 11/08/23 11/08/23 22:59 06:59 14:59 Intake Total 490 10 Output Total 400 Balance 90 10 Intake: IV 10 10 Invasive Line 1 10 10 Oral 480 Output: Urine 400 Other: Voiding Method Toilet Toilet Urinal Urinal # Voids 2 11/08/23 07:06 11/08/23 07:06
--- NOTE | 2023-11-08 15:28 | P.PN ---
Subjective Progress Note Date: 11/08/23 CHIEF COMPLAINT: Melanotic stools HISTORY OF PRESENT ILLNESS: Patient admitted with possible GI bleed and melanotic stools. Patient continues to have melena stools. Hemoglobin stable at 8.9. Vital stable Patient seen and examined with Dr. Sepulveda PHYSICAL EXAM: VITAL SIGNS: Reviewed. GENERAL: no acute distress. ABDOMEN: Soft. Nondistended. Nontender. ASSESSMENT: 1. Acute GI bleed with melanotic stools 2. Acute blood loss anemia secondary to GI bleed PLAN: -Patient scheduled for EGD today with Dr. Sepulveda -Continue IV Protonix twice a day [employer]ician [employer] note has been reviewed by physician. Signing provider agrees with the documented findings, assessment, and plan of care. Objective - Vital Signs Vital signs: Vital Signs Temp 98.1 F 11/08/23 11:21 Pulse 64 11/08/23 11:21 Resp 20 11/08/23 11:21 BP 108/56 11/08/23 11:21 Pulse Ox 100 11/08/23 11:21 FiO2 Intake & Output 11/07/23 11/08/23 11/08/23 18:59 06:59 18:59 Intake Total 374 500 100 Output Total 400 Balance 374 100 100 Intake: IV 20 20 100 Invasive Line 1 20 20 Oral 354 480 Output: Urine 400 Other: Voiding Method Toilet Toilet Urinal Urinal # Voids 2 - Labs CBC & Chem 7: 11/08/23 07:06 11/08/23 07:06 Labs: Abnormal Lab Results - Last 24 Hours (Table) 11/07/23 11/07/23 11/08/23 Range/Units 16:16 19:57 06:08 RBC (4.30-5.90) m/uL Hgb (13.0-17.5) gm/dL Hct (39.0-53.0) % RDW (11.5-15.5) % Sodium (137-145) mmol/L BUN (9-20) mg/dL Glucose (74-99) mg/dL POC Glucose (mg/dL) 131 H 139 H 187 H (70-110) mg/dL 11/08/23 11/08/23 11/08/23 Range/Units 07:06 07:06 11:32 RBC 2.83 L (4.30-5.90) m/uL Hgb 8.9 L (13.0-17.5) gm/dL Hct 27.0 L (39.0-53.0) % RDW 17.3 H (11.5-15.5) % Sodium 135 L (137-145) mmol/L BUN 22 H (9-20) mg/dL Glucose 114 H (74-99) mg/dL POC Glucose (mg/dL) 120 H (70-110) mg/dL
[2023-11-08 16:42] LABS: Glucose,Whole Blood 210 mg/dL (70-110)
[2023-11-08 20:21] LABS: Glucose,Whole Blood 173 mg/dL (70-110)
[2023-11-09] MEDS: HYDROmorphone 0.5 MG/0.5 ML SYRINGE IVP STA (05:07)
[2023-11-09 05:59] LABS: Glucose,Whole Blood 173 mg/dL (70-110)
[2023-11-09] MEDS: ESCITALOPRAM 10 MG TAB PO SCH (08:26)
[2023-11-09 09:26] LABS: Anisocytosis Slight; HCT 28.4 % (39.0-53.0); Hypochromasia Slight; MCH 30.7 pg (25.0-35.0); MCHC 31.6 g/dL (31.0-37.0); MCV 97.1 fL (80.0-100.0); Macrocytosis Slight; Mean Platelet Volume 7.3; Platelet Count 371 k/uL (150-450); RBC 2.93 m/uL (4.30-5.90); RDW 16.9 % (11.5-15.5); WBC 7.5 k/uL (3.8-10.6)
--- NOTE | 2023-11-09 10:03 | US ---
EXAMINATION TYPE: US carotid duplex BILAT DATE OF EXAM: 11/09/2023 Exam done portable COMPARISON: NONE CLINICAL INDICATION: Male, 53 years old with history of dizziness; TECHNIQUE: Carotid duplex ultrasound examination. Indirect Doppler criteria was utilized. FINDINGS: EXAM MEASUREMENTS: RIGHT: Peak Systolic Velocity (PSV) cm/sec ----- Right CCA: 128.6 ----- Right ICA: 106.3 ----- Right ECA: 103.8 ICA/CCA ratio: 0.8 RIGHT: End Diastole cm/sec ----- Right CCA: 26.8 ----- Right ICA: 29.7 ----- Right ECA: 8.3 LEFT: Peak Systolic Velocity (PSV) cm/sec ----- Left CCA: 123.3 ----- Left ICA: 144.0 ----- Left ECA: 107.4 ICA/CCA ratio: 1.2 LEFT: End Diastole cm/sec ----- Left CCA: 28.8 ----- Left ICA: 51.3 ----- Left ECA: 9.2 VERTEBRALS (direction of flow): Right Vertebral: Antegrade Left Vertebral: Antegrade Rhythm: Normal No significant stenosis IMPRESSION: 1. 50-69% stenosis of the left carotid bifurcation. 2. Less than 50% stenosis of the right carotid bifurcation Criteria for Assigning % of Stenosis / Diameter reduction (Estimation based on the indirect measurements of the internal carotid artery velocities (ICA PSV). 1. Normal (no stenosis)=ICA PSV < 125 cm/s: ratio < 2.0: ICA EDV<40 cm/s. 2. Less than 50% stenosis=ICA PSV < 125 cm/s: ratio < 2.0: ICA EDV<40 cm/s. 3. 50 to 69% stenosis=ICA PSV of 125 to 230 cm/s: ration 2.0 ? 4.0: ICA EDV 40-100 cm/s. 4. Greater than 70% stenosis to near occlusion= ICA PSV > 230 cm/s: ratio > 4.0: ICA EDV > 100 cm/s. 5. Near occlusion= ICA PSV velocities may be low or undetectable: variable ratio and ICA EDV. 6. Total occlusion=unable to detect flow.
--- NOTE | 2023-11-09 10:36 | P.DS ---
Providers Date of admission: 11/03/23 15:09 Expected date of discharge: 11/09/23 Attending physician: Benji Hand MD Consults: 11/03/23 20:48 Consult Physician Routine Consulting Provider: Jose Juan Sepulveda Consult Reason/Comments: anemia / GIB Do you want consulting provider notified?: Yes 11/04/23 09:02 Consult Physician Routine Consulting Provider: Jose C Ramsey Consult Reason/Comments: recent fem-fem bypass Do you want consulting provider notified?: Yes 11/08/23 09:45 Consult Physician Routine Consulting Provider: Kurt Garcia Consult Reason/Comments: CAd,angina,anemia Do you want consulting provider notified?: Yes Primary care physician: Benji Hand MD Hospital Course: Final Diagnoses: Symptomatic anemia. Acute blood loss anemia, possible acute GI bleed. Hemoglobin 8.6 on admission. Hemoglobin on most recent admission was 15.9. Status post 2 unit packed RBCs. Status post EGD, results pending. Exertional dyspnea secondary to the above Recent aortobifem bypass 50 to 69% stenosis of left carotid bifurcation, further follow-up outpatient with vascular surgery on November [address] Sims Severe peripheral vascular disease and previous revascularization history Diabetes type 2 [id number] Hypertension Hyperlipidemia Chronic back pain COPD on home oxygen and chronic hypoxic respiratory failure Prior history of smoking Anxiety/depression ADD/ADHD Occasional marijuana use and possible mild gastroparesis Anxiety, Lexapro initiated Hospital course: This patient is an 53-year-old male with a known history of severe bilateral PAD, bilateral iliac artery occlusion femorofemoral bypass on 09/28/2020, history of iliac stent placement, recent Aorto femoral bypass, hypertension, diabetes type 2, chronic back pain, COPD, chronic hypoxic spectra failure on 2 to 3 L via nasal cannula. Anxiety/depression ADD and occasional marijuana use. Patient presents to ER with complaints of shortness of breath. He was also havi ng generalized weakness and dizziness when getting up. Patient states that he was at [facility] neuro discharged 2 weeks ago. Has been having increased shortness of breath. States that when he walks he is panting. Denies any leg swelling. No fever no chills. No cough or sputum production. No chest pain. Patient states that he did have darker stools this morning. Patient was discharged from the hospital on 08/21/2023. [facility] hospital due to significant left lower extremity muscle cramping. CT angiogram with runoff was done. Patient was recommended to continue aspirin Plavix as per vascular surgery recommendations. .Chest x-ray showed no acute process. Correlate for COPD. EKG showed sinus tachycardia. Laboratory test showed WBC 11.4 hemoglobin 8.6 and platelets 582 Sodium 136 potassium 4.1 chloride 109 bicarb is 18 BUN 45 creatinine 0.62 and blood sugar 168. Laboratory is a not elevated. Troponin x 1 negative. 11/08/2023 aspirin and Plavix remain on hold, n.p.o. for EGD, hemoglobin 8.9. Maintained on PPI twice daily. Denies chest pain, palpitations or shortness of breath. Maintaining O2 sats in the high 90s to 100% on room air. Denies lightheadedness, dizziness or focal deficits. 11/09/2023 EGD completed yesterday, results pending. Hemoglobin stable, 9. Lexapro initiated for anxiety. Patient reports he still has episodes of dizziness. Orthostatic vitals negative.Echo pending.Carotid Doppler reported no significant stenosis, 50 to 69% stenosis of left carotid bifurcation, less than 50% stenosis of the right carotid bifurcation-further follow-up with vascular surgery. Patient has an appointment on November [address] Sims.Patient will be discharged home today in a stable condition with guarded prognosis pending echo completed, final DC recommendations and clearance as per cardiology and general surgery. The impression and plan of care has been dictated as directed. : I performed a history and examination of this patient, discussed the same with the dictator. I agree with the dictator's note ,documented as a scribe. Any additional findings or plans will be noted. Patient Condition at Discharge: Stable Plan - Discharge Summary New Discharge Prescriptions: New Escitalopram [Lexapro] 10 mg PO DAILY #30 tab No Action Clopidogrel Bisulfate [Plavix] 75 mg PO DAILY Semaglutide [Ozempic] 0.25 mg SQ FR Aspirin EC [Ecotrin Low Dose] 81 mg PO DAILY #90 tab Omeprazole 20 mg PO DAILY #30 cap Ezetimibe [Zetia] 10 mg PO DAILY Atorvastatin [Lipitor] 80 mg PO HS Metoprolol Succinate (ER) [Toprol XL] 25 mg PO DAILY Discharge Medication List Clopidogrel Bisulfate [Plavix] 75 mg PO DAILY 03/13/20 [History] Aspirin EC [Ecotrin Low Dose] 81 mg PO DAILY #90 tab 08/20/23 [Rx] Metoprolol Succinate (ER) [Toprol XL] 25 mg PO DAILY 08/20/23 [History] Omeprazole 20 mg PO DAILY #30 cap 08/20/23 [Rx] Semaglutide [Ozempic] 0.25 mg SQ FR 08/20/23 [History] Atorvastatin [Lipitor] 80 mg PO HS 11/03/23 [History] Ezetimibe [Zetia] 10 mg PO DAILY 11/03/23 [History] Escitalopram [Lexapro] 10 mg PO DAILY #30 tab 11/09/23 [Rx] Follow up Appointment(s)/Referral(s): Benji Hand MD [Primary Care Provider] - 3 Days Jose C Ramsey DO [Doctor of Osteopathic Medicine] - 11/11/23 9:15 am Activity/Diet/Wound Care/Special Instructions: No smoking
[2023-11-09 11:22] LABS: Glucose,Whole Blood 142 mg/dL (70-110)
--- NOTE | 2023-11-09 12:29 | P.PN ---
Subjective Progress Note Date: 11/09/23 CHIEF COMPLAINT: Melanotic stools HISTORY OF PRESENT ILLNESS: Patient admitted with possible GI bleed and melanotic stools. Patient status post EGD reporting hiatal hernia and gastritis. Patient denies any abdominal pain. He is tolerating diet. His stools are now brown. Hemoglobin stable at 9.0. PHYSICAL EXAM: VITAL SIGNS: Reviewed. GENERAL: no acute distress. ABDOMEN: Soft. Nondistended. Nontender. ASSESSMENT: 1. Acute GI bleed with melanotic stools status post EGD revealing hiatal hernia and gastritis 2. Acute blood loss anemia secondary to GI bleed PLAN: -Patient can be discharged from surgical standpoint when medically cleared -Continue omeprazole Physician Hot Packer note has been reviewed by physician. Signing provider agrees with the documented findings, assessment, and plan of care. Objective - Vital Signs Vital signs: Vital Signs Temp 97.7 F 11/09/23 08:00 Pulse 66 11/09/23 08:00 Resp 18 11/09/23 08:00 BP 122/74 11/09/23 08:00 Pulse Ox 100 11/09/23 08:00 FiO2 Intake & Output 11/08/23 11/09/23 11/09/23 18:59 06:59 18:59 Intake Total 440 480 118 Output Total 100 Balance 440 380 118 Intake: IV 100 Intake, IV Titration 100 Amount IV Fluid Continuation 1, 100 000 ml @ 0 mls/hr IV .BABADU -MED ONE Rx#:[id number] Oral 240 480 118 Output: Urine 100 Other: Voiding Method Toilet Toilet Urinal Urinal # Voids 2 1 - Labs CBC & Chem 7: 11/09/23 09:07 11/08/23 07:06 Labs: Abnormal Lab Results - Last 24 Hours (Table) 11/08/23 11/08/23 11/09/23 Range/Units 16:41 20:19 05:57 RBC (4.30-5.90) m/uL Hgb (13.0-17.5) gm/dL Hct (39.0-53.0) % RDW (11.5-15.5) % POC Glucose (mg/dL) 210 H 173 H 173 H (70-110) mg/dL 11/09/23 11/09/23 Range/Units 09:07 11:20 RBC 2.93 L (4.30-5.90) m/uL Hgb 9.0 L (13.0-17.5) gm/dL Hct 28.4 L (39.0-53.0) % RDW 16.9 H (11.5-15.5) % POC Glucose (mg/dL) 142 H (70-110) mg/dL
--- NOTE | 2023-11-09 12:39 | P.PN ---
Subjective Progress Note Date: 11/09/23 This is a 53-year-old male patient previously seen in the office by Dr. Funmi Gusman in 2019 with past medical history of peripheral vascular disease, hyperlipidemia, gastroesophageal reflux disease. Patient underwent recent aorto by femoral graft done by Dr. Sims at [facility] for severe PAD. Patient states he has had shortness of breath with dyspnea on exertion ever since he left the hospital. We have been asked to evaluate the patient for CAD, angina, anemia. Patient presented to the hospital on 11/02. He was found to be anemic and has had a transfusion total of 2 units packed RBCs 1 on 11/03 and 1 on 11/04. Stool for occult blood was positive. Plavix and aspirin are currently on hold. Patient is scheduled for EGD today. Patient states that ever since he left [facility] he has had dyspnea on exertion. He states he can walk better since his surgery was done. He has mild edema to the left lower extremity. He does complain of pain all over his chest and abdomen. He states he has dark blood in his stool along with nausea and dizziness with near syncope episode. He states his is breathing is better after transfusion. He denies any dysuria. No blood in his urine. No history of stroke or seizure. Patient is an active smoker currently at 1 pack/day and cutting back. EKG: Sinus rhythm with no acute ST-T wave changes. Chest x-ray: No acute process. COPD. Laboratory studies: Hemoglobin currently 8.9. BUN 22 creatinine 0.72. Home cardiac medications: Aspirin 81 mg daily, atorvastatin 80 mg at bedtime, Plavix 75 mg daily, Zetia 10 mg daily, Toprol-XL 25 mg daily. Cardiac catheterization performed December 2019 revealed calcifications of the proximal LAD and mild nonobstructive plaque in the mid LAD approximately 10 to 20%, circumflex artery and RCA were normal with no evidence of obstructive disease. Echocardiogram performed 2019 revealed EF of 55 to 60%. 11/08 Patient is seen today in follow-up. Patient underwent EGD yesterday reporting hiatal hernia and gastritis. Patient is being prepared for discharge home but he was complaining of dizziness for which a carotid ultrasound was ordered by attending. Carotid ultrasound revealed a 50 to 69% stenosis on the left carotid bifurcation and less than 50% on the right carotid bifurcation. Patient states he continues to have dizziness. No chest pain or shortness of breath. No palpitations. Echocardiogram is pending. Physical examination: Gen: This is a 53-year-old male in no acute distress VS: reviewed HEENT: Head is atraumatic, normocephalic. Pupils equal, round. Sclerae is anicteric. NECK: Supple. No JVD. LUNGS: Decreased air exchange bilaterally. No intercostal retractions. HEART: Regular rate and rhythm. No murmur. ABDOMEN: Soft No tenderness. EXTREMITIES: No pedal edema. No calf tenderness. Decreased lower extremity pulses. NEUROLOGICAL: Patient is awake, alert and oriented x3. Assessment: Acute GI bleed with acute blood loss anemia status post transfusion of 2 units of packed RBCs Dyspnea on exertion secondary to anemia Severe peripheral arterial disease with recent aorto by femoral graft Hyperlipidemia Gastroesophageal reflux disease Tobacco use and dependence Plan: Continue patient's home cardiac medications Obtain 2-D echocardiogram and Doppler study to assess cardiac structure and function Smoking cessation. Patient will be provided the [employer] quit line information at the time of discharge If echocardiogram is unremarkable, patient is cleared for discharge home. Nurse practitioner note has been reviewed, I agree with documented findings and plan of care. Patient was seen and examined. Objective - Vital Signs Vital signs: Vital Signs Temp 97.7 F 11/09/23 08:00 Pulse 66 11/09/23 08:00 Resp 18 11/09/23 08:00 BP 122/74 11/09/23 08:00 Pulse Ox 100 11/09/23 08:00 FiO2 Intake & Output 11/08/23 11/09/23 11/09/23 18:59 06:59 18:59 Intake Total 440 480 118 Output Total 100 Balance 440 380 118 Intake: IV 100 Intake, IV Titration 100 Amount IV Fluid Continuation 1, 100 000 ml @ 0 mls/hr IV .STK -MED ONE Rx#:[id number] Oral 240 480 118 Output: Urine 100 Other: Voiding Method Toilet Urinal # Voids 2 1 - Labs CBC & Chem 7: 11/09/23 09:07 11/08/23 07:06 Labs: Abnormal Lab Results - Last 24 Hours (Table) 11/08/23 11/08/23 11/08/23 Range/Units 11:32 16:41 20:19 RBC (4.30-5.90) m/uL Hgb (13.0-17.5) gm/dL Hct (39.0-53.0) % RDW (11.5-15.5) % POC Glucose (mg/dL) 120 H 210 H 173 H (70-110) mg/dL 11/09/23 11/09/23 Range/Units 05:57 09:07 RBC 2.93 L (4.30-5.90) m/uL Hgb 9.0 L (13.0-17.5) gm/dL Hct 28.4 L (39.0-53.0) % RDW 16.9 H (11.5-15.5) % POC Glucose (mg/dL) 173 H (70-110) mg/dL
[2023-11-09 16:26] LABS: Glucose,Whole Blood 160 mg/dL (70-110)
[2023-11-09 20:10] LABS: Glucose,Whole Blood 140 mg/dL (70-110)
[2023-11-10 06:10] LABS: Glucose,Whole Blood 137 mg/dL (70-110)
[2023-11-10 07:57] LABS: Anisocytosis Slight; Basophils # (A) 0.1 k/uL (0-0.2); Basophils % (A) 1 %; Eosinophils # (A) 0.6 k/uL (0-0.7); Eosinophils % (A) 7 %; HCT 28.1 % (39.0-53.0); Hypochromasia Slight; Lymphocytes # (A) 1.6 k/uL (1.0-4.8); Lymphocytes % (A) 20 %; MCH 30.8 pg (25.0-35.0); MCHC 31.9 g/dL (31.0-37.0); MCV 96.5 fL (80.0-100.0); Macrocytosis Slight; Mean Platelet Volume 7.9; Monocytes # (A) 0.8 k/uL (0-1.0); Monocytes % (A) 11 %; Neutrophils # (A) 4.6 k/uL (1.3-7.7); Neutrophils % (A) 59 %; Platelet Count 387 k/uL (150-450); Poikilocytosis Slight; RBC 2.92 m/uL (4.30-5.90); RDW 16.7 % (11.5-15.5); WBC 7.9 k/uL (3.8-10.6)
--- NOTE | 2023-11-10 08:00 | CA ---
Transthoracic Echo Report Name: Jamey Johnston Age: 53 Gender: M : 1970 Exam Date: 11/09/2023 14:22 Exam Location: [place] [facility] Ht (in): 66 Wt (lb): 188 Ordering Physician: Sasha Chung Attending/Referring Phys: Cattle Trader Gloria Machuca RDCS Procedure CPT: Indications: LV function Cardiac Hx: Technical Quality: Fair Contrast 1: Total Dose (mL): Contrast 2: Total Dose (mL): MEASUREMENTS (Male / Female) Normal Values 2D ECHO LV Diastolic Diameter PLAX 4.8 cm 4.2 - 5.9 / 3.9 - 5.3 cm LV Systolic Diameter PLAX 3.4 cm IVS Diastolic Thickness 0.9 cm 0.6 - 1.0 / 0.6 - 0.9 cm LVPW Diastolic Thickness 1.2 cm 0.6 - 1.0 / 0.6 - 0.9 cm LV Relative Wall Thickness 0.4 RV Internal Dim ED PLAX 3.0 cm LVOT Diameter 2.0 cm LV Diastolic Volume MOD BP 138.3 cm??? 67 - 155 / 56 - 104 cm??? LV Systolic Volume MOD BP 47.7 cm??? 22 - 58 / 19 - 49 cm??? LV Ejection Fraction MOD BP 65.5 % >= 55 % LV Cardiac Index MOD BP 3051.3 cm???/min???m??? LV Diastolic Volume MOD 4C 140.4 cm??? LV Systolic Volume MOD 4C 49.7 cm??? LV Ejection Fraction MOD 4C 64.6 % LV Cardiac Index MOD 4C 3054.3 cm???/min???m??? LV Diastolic Length 4C 9.0 cm LV Systolic Length 4C 7.0 cm LV Diastolic Volume MOD 2C 133.4 cm??? LV Systolic Volume MOD 2C 43.7 cm??? LV Ejection Fraction MOD 2C 67.3 % LV Cardiac Index MOD 2C 3022.6 cm???/min???m??? LV Diastolic Length 2C 8.8 cm LV Systolic Length 2C 6.7 cm LA Volume 62.4 cm??? 18 - 58 / 22 - 52 cm??? LA Volume Index 30.9 cm???/m??? 16 - 28 cm???/m??? Ascending Aorta Diameter 2.7 cm DOPPLER AV Peak Velocity 148.7 cm/s AV Peak Gradient 8.8 mmHg AV Mean Velocity 100.1 cm/s AV Mean Gradient 4.6 mmHg AV Velocity Time Integral 32.1 cm LVOT Peak Velocity 119.6 cm/s LVOT Peak Gradient 5.7 mmHg LVOT Velocity Time Integral 27.0 cm LVOT Stroke Volume 87.7 cm??? LVOT Stroke Volume Index 45.0 ml/m??? LVOT Cardiac Index 2954.5 cm???/min???m??? AV Area Cont Eq vti 2.7 cm??? AV Area Cont Eq pk 2.6 cm??? MV Area PHT 4.9 cm??? Mitral E Point Velocity 126.7 cm/s Mitral A Point Velocity 85.7 cm/s Mitral E to A Ratio 1.5 MV Deceleration Time 156.3 ms TR Peak Velocity 292.3 cm/s TR Peak Gradient 34.2 mmHg PV Peak Velocity 100.8 cm/s PV Peak Gradient 4.1 mmHg FINDINGS Left Ventricle Left ventricular ejection fraction is estimated at 60-65 %. Left ventricular cavity size normal. Left ventricular wall thickness normal. No obvious regional wall motion abnormalities. Right Ventricle Normal right ventricular size and function. Right Atrium Normal right atrial size. Left Atrium Mildly increased left atrial volume. Mitral Valve Mitral valve thickened. No evidence for mitral valve prolapse. No mitral stenosis. Moderate mitral regurgitation. Aortic Valve Trileaflet aortic valve. No aortic valve stenosis or regurgitation. Tricuspid Valve Structurally normal tricuspid valve. No tricuspid stenosis. Mild tricuspid regurgitation. Pulmonic Valve Structurally normal pulmonic valve. No pulmonic stenosis. Trace pulmonic regurgitation. Pericardium No pericardial effusion. Aorta Normal size aortic root and proximal ascending aorta. CONCLUSIONS Normal biventricular dimension and systolic function. The ejection fraction is 60 to 65% Moderate mitral regurgitation Previewed by: Dr. Kurt Garcia MD (Electronically Signed) Final Date: 10 November 2023 07:59
[2023-11-10 08:15] VITALS: BP 116/57; PULSE 75; RESP 16; TEMP 98.2
--- NOTE | 2023-11-10 13:23 | P.PN ---
Subjective Progress Note Date: 11/10/23 CHIEF COMPLAINT: Melanotic stools HISTORY OF PRESENT ILLNESS: Patient admitted with possible GI bleed and melanotic stools. Patient status post EGD reporting hiatal hernia and gastritis. Patient denies any abdominal pain. Stools have been brown. He is tolerating diet. Vital stable. Hgb stable at 9.0. PHYSICAL EXAM: VITAL SIGNS: Reviewed. GENERAL: no acute distress. ABDOMEN: Soft. Nondistended. Nontender. ASSESSMENT: 1. Acute GI bleed with melanotic stools status post EGD revealing hiatal hernia and gastritis 2. Acute blood loss anemia secondary to GI bleed PLAN: -Patient can be discharged from surgical standpoint when medically cleared -Continue omeprazole Physician Pouch Making Machine Operator note has been reviewed by physician. Signing provider agrees with the documented findings, assessment, and plan of care. Objective - Vital Signs Vital signs: Vital Signs Temp 98.2 F 11/10/23 08:00 Pulse 75 11/10/23 08:00 Resp 16 11/10/23 08:00 BP 116/57 11/10/23 08:00 Pulse Ox 98 11/10/23 08:00 FiO2 Intake & Output 11/09/23 11/10/23 11/10/23 18:59 06:59 18:59 Intake Total 236 222 Balance 236 222 Weight 85.275 kg Intake: Oral 236 222 Other: Voiding Method Toilet Toilet Toilet Urinal Urinal Urinal # Voids 3 2 1 # Bowel Movements 1 - Labs CBC & Chem 7: 11/10/23 07:31 11/08/23 07:06 Labs: Abnormal Lab Results - Last 24 Hours (Table) 11/09/23 11/09/23 11/10/23 Range/Units 16:24 20:08 06:07 RBC (4.30-5.90) m/uL Hgb (13.0-17.5) gm/dL Hct (39.0-53.0) % RDW (11.5-15.5) % POC Glucose (mg/dL) 160 H 140 H 137 H (70-110) mg/dL 11/10/23 Range/Units 07:31 RBC 2.92 L (4.30-5.90) m/uL Hgb 9.0 L (13.0-17.5) gm/dL Hct 28.1 L (39.0-53.0) % RDW 16.7 H (11.5-15.5) % POC Glucose (mg/dL) (70-110) mg/dL
--- NOTE | 2023-12-09 15:01 | P.OP ---
Date of Procedure: 11/08/23 Preoperative Diagnosis: Anemia Gastritis Postoperative Diagnosis: Antral gastritis Hiatal hernia Procedure(s) Performed: EGD Anesthesia: MAC Surgeon: Jose Juan Sepulveda Pathology: other (Antrum) Condition: stable Disposition: PACU Description of Procedure: The patient was placed on the endoscopy table in the lateral position. He received IV sedation. The gastro was placed oropharynx passed in the esophagus and the stomach. Scope was then placed through the pylorus. The first and second portion of the duodenum appeared normal. The scope was then brought back to the antrum was mildly inflamed. A biopsy performed. The scope was then retroflexed and the Mainer of the stomach appeared normal. The patient had a hiatal hernia. The GE junction was at 38 cm. The distal esophagus appeared normal. The proximal esophagus provokers scope withdrawn the patient.
== END 2023-11-10 09:55 | disposition home or self-care (01) | DRG 378 ==
LOC: EC 11:09 → 6NMEDSUR 15:08 → OBSVTOIN 15:09 → 6NMEDSUR 16:00 → 3SCARD 11-04 00:54
PROVIDERS: ADMIT Family Medicine; ATTEND Family Medicine
PROC: 30233N1 Transfusion of Nonautologous Red Blood Cells into Peripheral Vein, Percutaneous Approach (ICD-10-PCS; 2023-11-04)
PROC: 0DB78ZX Excision of Stomach, Pylorus, Via Natural or Artificial Opening Endoscopic, Diagnostic (ICD-10-PCS; principal; 2023-11-08 13:30)
DX: K29.71 Gastritis, unspecified, with bleeding (principal); D62 Acute posthemorrhagic anemia; J96.11 Chronic respiratory failure with hypoxia; E11.51 Type 2 diabetes mellitus with diabetic peripheral angiopathy without gangrene; I10 Essential (primary) hypertension; E78.5 Hyperlipidemia, unspecified; G89.29 Other chronic pain; M54.9 Dorsalgia, unspecified; I25.119 Atherosclerotic heart disease of native coronary artery with unspecified angina pectoris; F32.A Depression, unspecified; F41.9 Anxiety disorder, unspecified; Z99.81 Dependence on supplemental oxygen; J44.9 Chronic obstructive pulmonary disease, unspecified; K44.9 Diaphragmatic hernia without obstruction or gangrene; K21.9 Gastro-esophageal reflux disease without esophagitis; I08.1 Rheumatic disorders of both mitral and tricuspid valves; R00.0 Tachycardia, unspecified; F90.9 Attention-deficit hyperactivity disorder, unspecified type; M19.90 Unspecified osteoarthritis, unspecified site; Z88.8 Allergy status to other drugs, medicaments and biological substances; Z88.5 Allergy status to narcotic agent; Z71.6 Tobacco abuse counseling; Z95.820 Peripheral vascular angioplasty status with implants and grafts; Z79.02 Long term (current) use of antithrombotics/antiplatelets; Z79.82 Long term (current) use of aspirin; Z79.899 Other long term (current) drug therapy; Z90.49 Acquired absence of other specified parts of digestive tract; Z87.19 Personal history of other diseases of the digestive system; Z87.891 Personal history of nicotine dependence; F10.20 Alcohol dependence, uncomplicated
CPT/HCPCS: 36415; 36430; 43239; 71046; 80048; 80053; 82272; 83036; 84484; 85025; 85027; 85610; 85730; 86850; 86900; 86901; 86920; 88305; 93005; 93306; 93880; 96374; 96376; 99285

== ENCOUNTER 2023-12-22 07:46 | Emergency (ER) | payer MEDICARE, OTHER ==
[2023-12-22 07:52] VITALS: RESP 18
[2023-12-22] MEDS: HYDROcodone/APAP 7.5-325MG 1 EACH TAB PO ONE (08:12)
[2023-12-22] MEDS: ORPHENADRINE 30 MG/ML 2 ML VIAL IM STA (08:12)
[2023-12-22] MEDS: KETOROLAC 15 MG/ML 1 ML VIAL IM STA (08:12)
--- NOTE | 2023-12-22 08:59 | XR ---
EXAMINATION TYPE: XR lumbar spine 2 or 3V DATE OF EXAM: 12/22/2023 8:56 AM CLINICAL INDICATION:Male, 53 years old with history of pain; PH[facility] COMPARISON: None TECHNIQUE: XR lumbar spine 2 or 3V - Frontal, lateral and coned in L5-S1 lateral views of the spine. FINDINGS: No evidence of any acute osseous pathology. No evidence of loss of vertebral body height i s seen. There is normal alignment of the lumbar vertebral bodies. Scattered disc space narrowing. Mul tilevel marginal osteophyte formation throughout the visualized spine. There is facet joint arthropat hy throughout the spine. Scattered at least mild neural foraminal stenosis. Vascular stent grafts pre sent. IMPRESSION: 1. No acute fracture. 2. Mild multilevel disc degeneration.
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
--- NOTE | 2023-12-22 09:22 | XR ---
EXAMINATION TYPE: XR knee complete RT DATE OF EXAM: 12/22/2023 9:14 AM CLINICAL INDICATION:Male, 53 years old with history of pain; [facility] COMPARISON: None. TECHNIQUE: XR knee complete RT; examined in Frontal, lateral and oblique projections. FINDINGS: No evidence of any acute osseous pathology, soft tissue swelling, or joint effusion is no anita. Tricompartmental osteophyte formation involving the femoral condyles, tibial plateau and patella . Mild joint space narrowing. Atherosclerosis of the arterial vasculature. Ossifications along the qu adriceps insertion into the patella and patellar ligament. IMPRESSION: 1. No acute osseous pathology. 2. Mild tricompartmental osteoarthritic changes.
[2023-12-22 10:36] VITALS: BP 107/70; PULSE 66; TEMP 97.9
== END 2023-12-22 10:37 | disposition home or self-care (01) ==
LOC: EC 07:46
DX: S39.012A Strain of muscle, fascia and tendon of lower back, initial encounter (principal); S80.01XA Contusion of right knee, initial encounter; S09.90XA Unspecified injury of head, initial encounter; Z88.5 Allergy status to narcotic agent; Z88.8 Allergy status to other drugs, medicaments and biological substances; Z77.22 Contact with and (suspected) exposure to environmental tobacco smoke (acute) (chronic); V89.2XXA Person injured in unspecified motor-vehicle accident, traffic, initial encounter; Y92.411 Interstate highway as the place of occurrence of the external cause
CPT/HCPCS: 72100; 73562; 72125; 70450; 99284; 96372 ×2; J2360; J1885

== ENCOUNTER 2024-07-19 17:27 | Inpatient (IN) | payer MEDICARE, OTHER ==
--- NOTE | 2024-07-19 17:55 | ED ---
Abdominal Pain HPI - General Chief Complaint: Abdominal Pain Stated Complaint: abd pain Time Seen by Provider: 07/19/24 17:45 Source: patient, RN notes reviewed Mode of arrival: ambulatory Limitations: no limitations - History of Present Illness Initial Comments: This is a 54-year-old male who presents to the emergency department for abdominal pain. States that this has been worsening over the last month. He has a history of diverticulitis, hernias, and other problems with his bowels. States that today he started to have nausea and vomiting again, and his PCP has been advising him over the last couple of days to come to the hospital for further evaluation and potential admission. MD Complaint: abdominal pain - Related Data Home Medications Medication Instructions Recorded Confirmed Clopidogrel Bisulfate [Plavix] 75 mg PO DAILY 03/13/20 11/03/23 Metoprolol Succinate (ER) [Toprol 25 mg PO DAILY 08/20/23 11/03/23 XL] Semaglutide [Ozempic] 0.25 mg SQ FR 08/20/23 11/03/23 Atorvastatin [Lipitor] 80 mg PO HS 11/03/23 11/03/23 Ezetimibe [Zetia] 10 mg PO DAILY 11/03/23 11/03/23 Previous Rx's Medication Instructions Recorded Aspirin EC [Ecotrin Low Dose] 81 mg PO DAILY #90 tab 08/20/23 Omeprazole 20 mg PO DAILY #30 cap 08/20/23 Escitalopram [Lexapro] 10 mg PO DAILY #30 tab 11/09/23 Cyclobenzaprine [Flexeril] 10 mg PO TID PRN #15 tab 12/22/23 Ibuprofen [Motrin] 600 mg PO Q8HR PRN #20 tab 12/22/23 Allergies Allergy/AdvReac Type Severity Reaction Status Date / Time benztropine mesylate AdvReac muscle Verified 07/19/24 18:11 [From Cogentin] spasms morphine AdvReac Nausea & Verified 07/19/24 18:11 Vomiting Review of Systems ROS Statement: Those systems with pertinent positive or pertinent negative responses have been documented in the HPI. ROS Other: All systems not noted in ROS Statement are negative. Past Medical History Past Medical History: COPD, Diabetes Mellitus, GERD/Reflux, Hyperlipidemia, Hypertension, Osteoarthritis (OA), Vascular Disorder Additional Past Medical History / Comment(s): hx. diverticulitis, bad circulation to legs, chronic back pain with known herniated disks, uses oxygen at 2-3L [place] as needed, seasonal allergies. History of Any Multi-Drug Resistant Organisms: None Reported Past Surgical History: Bowel Resection, Hernia Repair, Orthopedic Surgery Additional Past Surgical History / Comment(s): temp. colostomy then reversal, knee surg., thumb surg., femoral bypass Past Anesthesia/Blood Transfusion Reactions: No Reported Reaction Past Psychological History: ADD/ADHD, Anxiety, Depression Smoking Status: Former smoker, Second hand smoke exposure Past Alcohol Use History: None Reported Past Drug Use History: Marijuana - Past Family History Mother Family Medical History: Cancer Father Family Medical History: Osteoarthritis (OA), Respiratory Disorder General Exam Limitations: no limitations General appearance: alert, in no apparent distress Head exam: Present: atraumatic, normocephalic, normal inspection Respiratory exam: Present: normal lung sounds bilaterally. Absent: respiratory distress, wheezes, rales, rhonchi, stridor Cardiovascular Exam: Present: regular rate, normal rhythm GI/Abdominal exam: Present: soft, tenderness (diffuse). Absent: distended Neurological exam: Present: alert, oriented X3, CN II-XII intact Psychiatric exam: Present: normal affect, normal mood Skin exam: Present: warm, dry, intact, normal color. Absent: rash Course Vital Signs 07/19/24 18:08 Temperature 98.1 F Pulse Rate 96 Respiratory 18 Rate Blood Pressure 151/87 O2 Sat by Pulse 99 Oximetry Medical Decision Making - Medical Decision Making This is a 54 year old male who presents to the emergency department for abdominal pain. Was pt. sent in by a medical professional or institution? @ -No Did you speak to anyone other than the patient for history? @ -No Did you review nursing and triage notes? @ -Yes, and I agree, it is accurate with regards to the patient's symptoms. Were old charts reviewed? @ -No Differential Diagnosis? @ -Differential Abdominal Pain Men: Appendicitis, cholecystitis, diverticulosis, ischemic bowel, pancreatitis, hepatitis, UTI, gastroenteritis, AAA, incarcerated hernia, bowel obstruction, constipation, inflammatory bowel, hepatitis, peptic ulcer disease, splenic infarction, perforated viscus, testicular torsion, this is not meant to be an all-inclusive list EKG interpreted by me (3pts min.)? @ -EKG interpreted by me demonstrating the following: Sinus rhythm. Ventricular rate 93 bpm, AR interval 150 ms, QRS duration 74 ms, QTc 401 ms. X-rays interpreted by me (1pt min.)? @ -Not obtained CT interpreted by me (1pt min.)? @ -CT scan of the abdomen and pelvis obtained. My interpretation identifies dilation of the small bowel loops. U/S interpreted by me (1pt. min.)? @ -Not obtained What testing was considered but not performed? (CT, X-rays, U/S, labs)? Why? @ -None What meds were considered but not given? Why? @ -None Did you discuss the management of the patient with other professionals? @ -Yes, Dr. Claros, who accepts the patient for admission Did you reconcile home meds? @ -No Was smoking cessation discussed for >3mins.? @ -No Was critical care preformed (if so, how long)? @ -No Were there social determinants of health that impacted care today? How? (Homelessness, low income, unemployed, alcoholism, drug addiction, transportation, low edu. Level, literacy, decrease access to med. care, senior care, r ehab)? @ -No Was there de-escalation of care discussed even if they declined? (Discuss DNR or withdrawal of care, Hospice)? @ -No What co-morbidities impacted this encounter? (DM, HTN, Smoking, COPD, CAD, Cancer, CVA, Hep., AIDS, mental health diagnosis, sleep apnea, morbid obesity)? @ -DM, hernias Was patient admitted / discharged? @ -Admitted. Lab work demonstrates leukocytosis with a white blood cell count of 13.0 and is otherwise unremarkable. CT scan of the abdomen and pelvis demonstrates a mid to distal small bowel obstruction secondary to bowel containing right lower abdominal ventral wall hernia. NG tube was ordered and hooked up to intermittent low wall suction. Blood culture obtained as well and he was started on Zosyn as well as maintenance IV fluids. Patient admitted to medicine for small bowel obstruction. He was kept n.p.o. and consult was placed for general surgery. Case discussed with ED attending Dr. Teixeira. Undiagnosed new problem with uncertain prognosis? @ -None Drug Therapy requiring intensive monitoring for toxicity (Heparin, Nitro, Insulin, Cardizem)? @ -None Were any procedures done? @ -None Diagnosis/symptom? @ -Small bowel obstruction, ventral wall hernia causing SBO Acute, or Chronic, or Acute on Chronic? @ -Acute Uncomplicated (without systemic symptoms) or Complicated (systemic symptoms)? @ -Complicated Side effects of treatment? @ -None Exacerbation, Progression, or Severe Exacerbation] @ -Not applicable Poses a threat to life or bodily function? @ -Yes, can lead to bowel perforation and life-threatening infection - Lab Data Result diagrams: 07/19/24 18:18 07/19/24 18:18 Lab Results 07/19/24 07/19/24 07/19/24 Range/Units 18:18 18:18 18:18 WBC 13.0 H (3.8-10.6) k/uL RBC 5.28 (4.30-5.90) m/uL Hgb 16.7 (13.0-17.5) gm/dL Hct 50.6 (39.0-53.0) % MCV 95.7 (80.0-100.0) fL MCH 31.7 (25.0-35.0) pg MCHC 33.1 (31.0-37.0) g/dL RDW 13.0 (11.5-15.5) % Plt Count 299 (150-450) k/uL MPV 6.8 Neutrophils % 74 % Lymphocytes % 16 % Monocytes % 8 % Eosinophils % 1 % Basophils % 0 % Neutrophils # 9.6 H (1.3-7.7) k/uL Lymphocytes # 2.0 (1.0-4.8) k/uL Monocytes # 1.1 H (0-1.0) k/uL Eosinophils # 0.2 (0-0.7) k/uL Basophils # 0.1 (0-0.2) k/uL Sodium 136 L (137-145) mmol/L Potassium 4.1 (3.5-5.1) mmol/L Chloride 97 L (98-107) mmol/L Carbon Dioxide 29 (22-30) mmol/L Anion Gap 10 mmol/L BUN 22 H (9-20) mg/dL Creatinine 0.96 (0.66-1.25) mg/dL Est GFR (CKD-EPI)AfAm >90 (>60 ml/min/1.73 sqM) Est GFR (CKD-EPI)NonAf >90 (>60 ml/min/1.73 sqM) Glucose 185 H (74-99) mg/dL Plasma Lactic Acid Yoni 1.9 (0.7-2.0) mmol/L Calcium 9.2 (8.4-10.2) mg/dL Total Bilirubin 1.6 H (0.2-1.3) mg/dL AST 19 (17-59) U/L ALT 19 (4-49) U/L Alkaline Phosphatase 123 (38-126) U/L Total Protein 7.0 (6.3-8.2) g/dL Albumin 4.2 (3.5-5.0) g/dL Amylase 42 (30-110) U/L Lipase 49 (23-300) U/L Urine Color Urine Appearance (Clear) Urine pH (5.0-8.0) Ur Specific [place] (1.001-1.035) Urine Protein (Negative) Urine Glucose (UA) (Negative) Urine Ketones (Negative) Urine Blood (Negative) Urine Nitrite (Negative) Urine Bilirubin (Negative) Urine Urobilinogen (<2.0) mg/dL Ur Leukocyte Esterase (Negative) Urine RBC (0-5) /hpf Urine WBC (0-5) /hpf Ur Squamous Epith Cells (0-4) /hpf Urine Mucus (None) /hpf 07/19/24 Range/Units 20:29 WBC (3.8-10.6) k/uL RBC (4.30-5.90) m/uL Hgb (13.0-17.5) gm/dL Hct (39.0-53.0) % MCV (80.0-100.0) fL MCH (25.0-35.0) pg MCHC (31.0-37.0) g/dL RDW (11.5-15.5) % Plt Count (150-450) k/uL MPV Neutrophils % % Lymphocytes % % Monocytes % % Eosinophils % % Basophils % % Neutrophils # (1.3-7.7) k/uL Lymphocytes # (1.0-4.8) k/uL Monocytes # (0-1.0) k/uL Eosinophils # (0-0.7) k/uL Basophils # (0-0.2) k/uL Sodium (137-145) mmol/L Potassium (3.5-5.1) mmol/L Chloride (98-107) mmol/L Carbon Dioxide (22-30) mmol/L Anion Gap mmol/L BUN (9-20) mg/dL Creatinine (0.66-1.25) mg/dL Est GFR (CKD-EPI)AfAm (>60 ml/min/1.73 sqM) Est GFR (CKD-EPI)NonAf (>60 ml/min/1.73 sqM) Glucose (74-99) mg/dL Plasma Lactic Acid Yoni (0.7-2.0) mmol/L Calcium (8.4-10.2) mg/dL Total Bilirubin (0.2-1.3) mg/dL AST (17-59) U/L ALT (4-49) U/L Alkaline Phosphatase (38-126) U/L Total Protein (6.3-8.2) g/dL Albumin (3.5-5.0) g/dL Amylase (30-110) U/L Lipase (23-300) U/L Urine Color Yellow Urine Appearance Clear (Clear) Urine pH 5.5 (5.0-8.0) Ur Specific [place] >1.050 H (1.001-1.035) Urine Protein 1+ H (Negative) Urine Glucose (UA) Negative (Negative) Urine Ketones Negative (Negative) Urine Blood Trace H (Negative) Urine Nitrite Negative (Negative) Urine Bilirubin Negative (Negative) Urine Urobilinogen 2.0 (<2.0) mg/dL Ur Leukocyte Esterase Small H (Negative) Urine RBC 3 (0-5) /hpf Urine WBC 9 H (0-5) /hpf Ur Squamous Epith Cells 12 H (0-4) /hpf Urine Mucus Occasional H (None) /hpf - Radiology Data Radiology results: report reviewed, image reviewed Disposition Clinical Impression: Small bowel obstruction, Ventral hernia with bowel obstruction Disposition: ADMITTED IP TO THIS HOSP
[2024-07-19 18:38] LABS: Basophils # (A) 0.1 k/uL (0-0.2); Basophils % (A) 0 %; Eosinophils # (A) 0.2 k/uL (0-0.7); Eosinophils % (A) 1 %; HCT 50.6 % (39.0-53.0); HGB 16.7 gm/dL (13.0-17.5); Lymphocytes % (A) 16 %; MCH 31.7 pg (25.0-35.0); MCHC 33.1 g/dL (31.0-37.0); MCV 95.7 fL (80.0-100.0); Mean Platelet Volume 6.8; Monocytes # (A) 1.1 k/uL (0-1.0); Monocytes % (A) 8 %; Neutrophils # (A) 9.6 k/uL (1.3-7.7); Neutrophils % (A) 74 %; Platelet Count 299 k/uL (150-450); RBC 5.28 m/uL (4.30-5.90)
[2024-07-19 18:45] LABS: ALT 19 U/L (4-49); AST 19 U/L (17-59); African American GFR (CKD) >90 (>60 ml/min/1.73 sqM); Albumin 4.2 g/dL (3.5-5.0); Alkaline Phosphatase 123 U/L (38-126); Amylase 42 U/L (30-110); Anion Gap 10 mmol/L; Blood Urea Nitrogen 22 mg/dL (9-20); Calcium 9.2 mg/dL (8.4-10.2); Carbon Dioxide 29 mmol/L (22-30); Chloride 97 mmol/L (98-107); Glucose 185 mg/dL (74-99); Lipase 49 U/L (23-300); Non-African American GFR(CKD) >90 (>60 ml/min/1.73 sqM); Potassium 4.1 mmol/L (3.5-5.1); Sodium 136 mmol/L (137-145); Total Bilirubin 1.6 mg/dL (0.2-1.3)
--- NOTE | 2024-07-19 20:48 | CT ---
EXAMINATION TYPE: CT abdomen pelvis w con DATE OF EXAM: 07/19/2024 COMPARISON: Prior CT 16 days ago. CLINICAL INDICATION: Male, 54 years old with history of abdominal pain, acute, nonlocalized; [facility], Abd ominal pain, acute, nonlocalized. TECHNIQUE: Performed without Oral Contrast and with IV Contrast, patient injected with 100ml mL of Isovue 300. CT DLP: 1119.3 mGycm Automated exposure control for dose reduction was used. FINDINGS: LUNG BASES: New central 1.4 cm focus of groundglass opacity right lower lobe axial image 2. LIVER/GB: Contracted gallbladder on current study. PANCREAS: No significant abnormality is seen. SPLEEN: No significant abnormality is seen. ADRENALS: No significant abnormality is seen. KIDNEYS: Symmetric cortical medullary uptake and excretion without hydronephrosis seen bilaterally cu rrently. There is subcentimeter low dense lesion medially in the left kidney delayed axial image 30 t hat is too small to further characterize but most likely benign. FREE AIR: No free air is visualized. RETROPERITONEAL ADENOPATHY: None visualized REPRODUCTIVE ORGANS: Suboptimal evaluation due to hip arthroplasty URINARY BLADDER: No significant abnormality is seen. Suboptimal evaluation. PELVIC ADENOPATHY: Suboptimally evaluated. OSSEOUS STRUCTURES: Metallic artifact from bilateral hip arthroplasty is redemonstrated causing stre ak artifact limiting evaluation of pelvic structures. Moderate to severe disc space narrowing at the lumbosacral junction redemonstrated. Bowel: Surgical changes sigmoid rectal colon in the pelvis is redemonstrated. There are now more prom inent and dilated small bowel loops in the mid to lower abdomen extending into the pelvis with severa l scattered air-fluid levels. Small bowel loops dilated up to 3.5 cm anterior pelvis axial image 66. There is additional dilated 4.5 cm small bowel loop with air-fluid level in the right mid abdomen lars ge 41. This extends into herniation just right of midline axial image 49. Nondilated distal small bow el loop extending from this hernia is present. Debris and mildly distended stomach. No significant di latation of duodenal sweep. No free air. Surgical changes from appendectomy at base of cecum are note d. OTHER: There is stent graft in the left common iliac artery redemonstrated. There is an abandoned bif emoral stent graft in the anterior lower pelvis. Surgical change in the anterior abdominal wall is re demonstrated. There are multiple small fat-containing ventral wall hernias again seen. Surgical felton es bilateral groin region redemonstrated. IMPRESSION: FINDINGS ARE CONSISTENT WITH MID TO DISTAL SMALL BOWEL OBSTRUCTION SECONDARY TO BOWEL CONTAINING RIGH T LOWER ABDOMINAL VENTRAL WALL HERNIA. ADVISED SURGICAL EVALUATION. [facility], , 07/19/2024 8:45 PM
[2024-07-19] MEDS ORDERED: NALOXONE 0.4 MG/ML 1 ML VIAL IV PRN (21:21)
[2024-07-19] MEDS ORDERED: ACETAMINOPHEN TAB 325 MG TAB PO PRN (21:21)
[2024-07-19] MEDS ORDERED: KETOROLAC 15 MG/ML 1 ML VIAL IVP PRN (21:21)
[2024-07-19 21:27] LABS: Appearance,Urine Clear (Clear); Bilirubin,Urine Negative (Negative); Blood,Urine Trace (Negative); Color,Urine Yellow; Glucose,Urine (UA) Negative (Negative); Ketones,Urine Negative (Negative); Leukocyte Esterase,Urine Small (Negative); Mucus,Urine Occasional /hpf; Nitrite,Urine Negative (Negative); PH, Urine 5.5 (5.0-8.0); Protein,Urine 1+ (Negative); RBC,Urine 3 /hpf (0-5); Squamous Epithelial Cell,Urine 12 /hpf (0-4); WBC,Urine 9 /hpf (0-5)
[2024-07-19 21:32] LABS: Specific Gravity,Urine >1.050 (1.001-1.035)
[2024-07-19] MEDS: HYDROmorphone 1 MG/ML 1 ML SYRINGE IVP STA (21:44)
[2024-07-19] MEDS: ONDANSETRON 4 MG/2 ML VIAL IVP STA (21:48)
[2024-07-19] MEDS: SODIUM CHLORIDE 0.9% 1,000 ML IV STA (21:48)
[2024-07-19] MEDS: SODIUM CHLORIDE 0.9% 2,000 ML IV STA (21:51)
[2024-07-19] MEDS: PIPERACILLIN-TAZOBACTAM 3.375 GM in SODIUM CHLORIDE 0.9% 100 ML IVPB STA (21:54)
[2024-07-20] MEDS: HYDROmorphone 1 MG/ML 1 ML SYRINGE IVP PRN ×2 (00:07→18:35)
--- NOTE | 2024-07-20 01:53 | XR ---
EXAM: XR Chest, 1 View CLINICAL HISTORY: ITS.REASON XR Reason: check for placement of NG tube TECHNIQUE: Frontal view of the chest. COMPARISON: 11/03/23 FINDINGS: Lungs: Right basilar opacities, favored atelectasis. Pleural space: No pleural effusion or pneumothorax. Heart: No cardiomegaly or pulmonary vascular congestion. Bones/joints: No acute fracture. No dislocation. Tubes, lines and devices: Enteric tube extends to the stomach. IMPRESSION: 1. Right basilar opacities, favored atelectasis. 2. Enteric tube extends to the stomach.
[2024-07-20] MEDS: PIPERACILLIN-TAZOBACTAM 3.375 GM in SODIUM CHLORIDE 0.9% 100 ML IVPB SCH (04:32)
[2024-07-20] MEDS: HYDROmorphone 0.5 MG/0.5 ML SYRINGE IVP PRN (05:04)
[2024-07-20] MEDS: PANTOPRAZOLE 40 MG/10 ML VIAL IV SCH (08:29)
[2024-07-20] MEDS ORDERED: DEXTROSE 50% SYRINGE 50 ML IVP PRN ×2 (09:56)
--- NOTE | 2024-07-20 09:57 | P.HPIM ---
History of Present Illness This is a pleasant 54 years old male with past medical history of multiple medical problems as below Who presents because of abdominal pain about 1 month ago, he follow-up with his PCP Dr. Hand who gave him stomach pills and referred him to the hospital. However patient here to the hospital emergency room is busy so he just took the pills and waited in his home. Till 2 days ago his abdominal pain got more severe as it comes and goes and he vomited 3 times so he decided to come to emergency room after he called his PCP Dr. Hand again. His pain is in the middle of the abdomen, nonradiating severe felt like colicky associated with vomiting as above and constipation. Last bowel movement was yesterday morning but he is passing gas. He denies urinary complaint. No chest pain dyspnea. No headache dizziness weakness or numbness Patient used to smoke and he quit at the beginning of the year. No alcohol or illicit drugs. He has also history of left lower extremity ischemia and he is on aspirin and Plavix for this reason. He is taking this medication more than a year and his vascular surgeon is Dr. Sims Patient hemodynamically stable and afebrile. Labs showing leukocytosis about 13,000, rest of CBC, BMP, LFTs unremarkable urine analysis showing concentrated sample amylase and lipase were negative CT of the abdomen and pelvis showing stent in the left common iliac artery. Mid to distal small bowel obstruction secondary to bowel containing to the right lower abdominal ventral wall hernia EKG showing sinus rhythm at [address]-T changes Chest x-ray showing right basilar opacity favoring atelectasis. Review of Systems Review of systems CONSTITUTIONAL: No fever, no malaise, no fatigue. HEENT: No recent visual problems or hearing problems. Denied any sore throat. CARDIOVASCULAR: No orthopnea, PND, no palpitations, no syncope. PULMONARY: No shortness of breath, no cough, no hemoptysis. GASTROINTESTINAL: No diarrhea, no nausea, no vomiting, no abdominal pain. Normoactive bowel sounds. NEUROLOGICAL: No headaches, no weakness, no numbness. HEMATOLOGICAL: Denies any bleeding or petechiae. GENITOURINARY: Denies any burning micturition, frequency, or urgency. MUSCULOSKELETAL/RHEUMATOLOGICAL: Denies any joint pain, swelling, or any muscle pain. ENDOCRINE: Denies any polyuria or polydipsia. Past Medical History Past Medical History: COPD, Diabetes Mellitus, GERD/Reflux, Hyperlipidemia, Hypertension, Osteoarthritis (OA), Vascular Disorder Additional Past Medical History / Comment(s): hx. diverticulitis, bad circulation to legs, chronic back pain with known herniated disks, uses oxygen at 2-3L [place] as needed, seasonal allergies. History of Any Multi-Drug Resistant Organisms: None Reported Past Surgical History: Bowel Resection, Hernia Repair, Orthopedic Surgery Additional Past Surgical History / Comment(s): temp. colostomy then reversal, knee surg., thumb surg., femoral bypass Past Anesthesia/Blood Transfusion Reactions: No Reported Reaction Past Psychological History: ADD/ADHD, Anxiety, Depression Smoking Status: Former smoker, Second hand smoke exposure Past Alcohol Use History: None Reported Past Drug Use History: Marijuana - Past Family History Mother Family Medical History: Cancer Father Family Medical History: Osteoarthritis (OA), Respiratory Disorder Medications and Allergies Home Medications Medication Instructions Recorded Confirmed Type Clopidogrel Bisulfate [Plavix] 75 mg PO DAILY 03/13/20 11/03/23 History Aspirin EC [Ecotrin Low Dose] 81 mg PO DAILY #90 tab 08/20/23 11/03/23 Rx Metoprolol Succinate (ER) [Toprol 25 mg PO DAILY 08/20/23 11/03/23 History XL] Omeprazole 20 mg PO DAILY #30 cap 08/20/23 11/03/23 Rx Semaglutide [Ozempic] 0.25 mg SQ FR 08/20/23 11/03/23 History Atorvastatin [Lipitor] 80 mg PO HS 11/03/23 11/03/23 History Ezetimibe [Zetia] 10 mg PO DAILY 11/03/23 11/03/23 History Escitalopram [Lexapro] 10 mg PO DAILY #30 tab 11/09/23 Rx Cyclobenzaprine [Flexeril] 10 mg PO TID PRN #15 tab 12/22/23 Rx Ibuprofen [Motrin] 600 mg PO Q8HR PRN #20 tab 12/22/23 Rx Allergies Allergy/AdvReac Type Severity Reaction Status Date / Time benztropine mesylate AdvReac muscle Verified 07/19/24 18:11 [From Cogentin] spasms morphine AdvReac Nausea & Verified 07/19/24 18:11 Vomiting Physical Exam Vitals: Vital Signs Temp Pulse Pulse Resp BP BP Pulse Ox 07/20/24 08:31 70 18 118/68 95 07/20/24 08:00 73 18 07/20/24 04:36 68 18 122/74 94 L 07/20/24 00:01 82 18 102/60 07/19/24 18:08 98.1 F 96 18 151/87 99 Intake and Output 07/19/24 07/20/24 07/20/24 22:59 06:59 14:59 Other: Voiding Method Toilet Weight 87.09 kg GENERAL: The patient is alert and oriented x3, not in any acute distress. Well developed, well nourished. HEENT: Pupils are round and equally reacting to light. EOMI. No scleral icterus. No conjunctival pallor. Normocephalic, atraumatic. No pharyngeal erythema. No thyromegaly. CARDIOVASCULAR: S1 and S2 present. No murmurs, rubs, or gallops. PULMONARY: Chest is clear to auscultation, no wheezing , no crackles. -ABDOMEN: Soft, periumbilical tenderness, distended, normoactive bowel sounds. No palpable organomegaly. NG tube in place MUSCULOSKELETAL: No joint swelling or deformity. EXTREMITIES: No cyanosis, clubbing, or pedal edema. NEUROLOGICAL: Gross neurological examination did not reveal any focal deficits. SKIN: No rashes. no petechiae. Results CBC & Chem 7: 07/19/24 18:18 07/19/24 18:18 Labs: Abnormal Lab Results - Last 24 Hours (Table) 07/19/24 07/19/24 07/19/24 Range/Units 18:18 18:18 20:29 WBC 13.0 H (3.8-10.6) k/uL Neutrophils # 9.6 H (1.3-7.7) k/uL Monocytes # 1.1 H (0-1.0) k/uL Sodium 136 L (137-145) mmol/L Chloride 97 L (98-107) mmol/L BUN 22 H (9-20) mg/dL Glucose 185 H (74-99) mg/dL Total Bilirubin 1.6 H (0.2-1.3) mg/dL Ur Specific [place] >1.050 H (1.001-1.035) Urine Protein 1+ H (Negative) Urine Blood Trace H (Negative) Ur Leukocyte Esterase Small H (Negative) Urine WBC 9 H (0-5) /hpf Ur Squamous Epith Cells 12 H (0-4) /hpf Urine Mucus Occasional H (None) /hpf Assessment and Plan Assessment: Small bowel obstruction left lower extremity ischemia on aspirin and Plavix at home Right lower lobe opacity favor atelectasis Diabetes mellitus Hypertension Hyperlipidemia History of osteoarthritis Plan: N.p.o. Continue with NG tube Pain medication Surgical team consult Continue with IV fluid Continue with Zosyn Insulin sliding scale Hold Plavix continue aspirin Incentive spirometry Monitor for signs of ischemia of the lower extremity Labs and medication were reviewed.. Continue same treatment. Continue with symptomatic treatment. Resume home medication if possible. Monitor lytes and vitals. DVT and GI prophylaxis. Further recommendations depends on the clinical course of the patient DVT prophylaxis: Subcutaneous heparin GI Prophylaxis: Pepcid Prognosis is guarded
[2024-07-20] MEDS: ASPIRIN 300 MG SUPP RECTAL SCH (10:24)
[2024-07-20 11:34] LABS: Glucose,Whole Blood 110 mg/dL (70-110)
[2024-07-20] MEDS: INSULIN LISPRO (HumaLOG) 100 UNIT/ML 10 mL VL SQ SCH (11:48)
--- NOTE | 2024-07-20 13:15 | P.GSCN ---
History of Present Illness Consult date: 07/20/24 History of present illness: CHIEF COMPLAINT: Abdominal pain HISTORY OF PRESENT ILLNESS: This is a 54-year-old male who presented to the hospital with complaints of abdominal pain. Patient reports that he has been having pain for about a month. Symptoms worsened yesterday. He started to have nausea and vomiting. He does report having a small bowel movement yesterday morning. He has had some flatus. He had NG tube placed in the ER after CAT scan reported a small bowel obstruction secondary to a ventral hernia. Patient has had some improvement in his abdominal pain. Patient has known history of peripheral vascular disease and has had vascular surgery with Dr. Sims in June 2023. Patient reports his last dose of Plavix was yesterday morning. Surgical service has been consulted for small bowel obstruction secondary to ventral hernia. Patient's abdominal surgical history does include abdominal hernia repairs. He does have a history of diverticulitis with bowel resection with colostomy placement and then colostomy reversal in 2014. Patient denies any prior history of bowel obstruction. PAST MEDICAL HISTORY: COPD, Diabetes Mellitus, GERD/Reflux, Hyperlipidemia, Hypertension, Osteoarthritis (OA), Vascular Disorder,hx. diverticulitis, bad circulation to legs, chronic back pain with known herniated disks, uses oxygen at 2-3L [place] as needed, seasonal allergies. PAST SURGICAL HISTORY: Bowel Resection, Hernia Repair, Orthopedic Surgery, colostomy then reversal, knee surg., thumb surg., femoral bypass MEDICATIONS: See below ALLERGIES: See below SOCIAL HISTORY: No illicit drug use. REVIEW OF SYSTEMS: CONSTITUTIONAL: Denies fever or chills. HEENT: Denies blurred vision, vision changes, or eye pain. Denies hemoptysis CARDIOVASCULAR: Denies chest pain or pressure. RESPIRATORY: No shortness of breath. GASTROINTESTINAL: See HPI for pertinent findings HEMATOLOGIC: Denies bleeding disorders. GENITOURINARY: Denies any blood in urine or increased urinary frequency. SKIN: Denies pruitis. Denies rash. PHYSICAL EXAM: VITAL SIGNS: Reviewed GENERAL: Well-developed in no acute distress. HEENT: No sclera icterus. Extraocular movements grossly intact. Moist buccal mucosa. Head is atraumatic, normocephalic. No nasal drainage. ABDOMEN: Soft. Nondistended. Hernia currently reduced abdomen is soft. Old midline scar noted. NEUROLOGIC: Alert and oriented. Cranial nerves II through XII grossly intact. LABORATORY DATA: WBC is 13 Hgb 16.7 platelets 299 Sodium is 136 potassium 4.1 creatinine 0.96 Lactic acid 1.9 IMAGING: CT scan abdomen pelvis reports findings are consistent with mid to distal small bowel obstruction secondary to bowel containing right lower abdominal ventral wall hernia. ASSESSMENT: 1. Small bowel obstruction secondary to ventral hernia. Ventral hernia is containing bowel noted on CT PLAN: -Patient scheduled for repair of incarcerated ventral hernia today with Dr. Sepulveda -Continue NG tube for decompression -Keep patient n.p.o.-continue to hold Plavix Physician Milk Hauler note has been reviewed by physician. Signing provider agrees with the documented findings, assessment, and plan of care. Past Medical History Past Medical History: COPD, Diabetes Mellitus, GERD/Reflux, Hyperlipidemia, Hypertension, Osteoarthritis (OA), Vascular Disorder Additional Past Medical History / Comment(s): hx. diverticulitis, bad circu lation to legs, chronic back pain with known herniated disks, uses oxygen at 2- 3L [place] as needed, seasonal allergies. History of Any Multi-Drug Resistant Organisms: None Reported Past Surgical History: Bowel Resection, Hernia Repair, Orthopedic Surgery Additional Past Surgical History / Comment(s): temp. colostomy then reversal, knee surg., thumb surg., femoral bypass Past Anesthesia/Blood Transfusion Reactions: No Reported Reaction Past Psychological History: ADD/ADHD, Anxiety, Depression Smoking Status: Former smoker, Second hand smoke exposure Past Alcohol Use History: None Reported Past Drug Use History: Marijuana - Past Family History Mother Family Medical History: Cancer Father Family Medical History: Osteoarthritis (OA), Respiratory Disorder Medications and Allergies Home Medications Medication Instructions Recorded Confirmed Type Clopidogrel Bisulfate [Plavix] 75 mg PO DAILY 03/13/20 07/20/24 History Semaglutide [Ozempic] 0.25 mg SQ FR 08/20/23 07/20/24 History Atorvastatin [Lipitor] 80 mg PO HS 11/03/23 07/20/24 History Ezetimibe [Zetia] 10 mg PO DAILY 11/03/23 07/20/24 History Gabapentin 600 mg PO BID 07/20/24 07/20/24 History Omeprazole [PriLOSEC] 40 mg PO BID 07/20/24 07/20/24 History buPROPion XL [Wellbutrin XL] 150 mg PO DAILY 07/20/24 07/20/24 History Allergies Allergy/AdvReac Type Severity Reaction Status Date / Time benztropine mesylate AdvReac muscle Verified 07/20/24 10:54 [From Cogentin] spasms morphine AdvReac Nausea & Verified 07/20/24 10:54 Vomiting Surgical - Exam Vital Signs Temp Pulse Resp BP Pulse Ox 98.1 F 96 18 151/87 99 07/19/24 18:08 07/19/24 18:08 07/19/24 18:08 07/19/24 18:08 07/19/24 18:08 Results - Labs 07/19/24 18:18 07/19/24 18:18 Abnormal Lab Results - Last 24 Hours (Table) 07/19/24 07/19/24 07/19/24 Range/Units 18:18 18:18 20:29 WBC 13.0 H (3.8-10.6) k/uL Neutrophils # 9.6 H (1.3-7.7) k/uL Monocytes # 1.1 H (0-1.0) k/uL Sodium 136 L (137-145) mmol/L Chloride 97 L (98-107) mmol/L BUN 22 H (9-20) mg/dL Glucose 185 H (74-99) mg/dL Total Bilirubin 1.6 H (0.2-1.3) mg/dL Ur Specific [place] >1.050 H (1.001-1.035) Urine Protein 1+ H (Negative) Urine Blood Trace H (Negative) Ur Leukocyte Esterase Small H (Negative) Urine WBC 9 H (0-5) /hpf Ur Squamous Epith Cells 12 H (0-4) /hpf Urine Mucus Occasional H (None) /hpf Diabetes panel 07/19/24 Range/Units 18:18 Sodium 136 L (137-145) mmol/L Potassium 4.1 (3.5-5.1) mmol/L Chloride 97 L (98-107) mmol/L Carbon Dioxide 29 (22-30) mmol/L BUN 22 H (9-20) mg/dL Creatinine 0.96 (0.66-1.25) mg/dL Glucose 185 H (74-99) mg/dL Calcium 9.2 (8.4-10.2) mg/dL AST 19 (17-59) U/L ALT 19 (4-49) U/L Alkaline Phosphatase 123 (38-126) U/L Total Protein 7.0 (6.3-8.2) g/dL Albumin 4.2 (3.5-5.0) g/dL Calcium panel 07/19/24 Range/Units 18:18 Calcium 9.2 (8.4-10.2) mg/dL Albumin 4.2 (3.5-5.0) g/dL Pituitary panel 07/19/24 Range/Units 18:18 Sodium 136 L (137-145) mmol/L Potassium 4.1 (3.5-5.1) mmol/L Chloride 97 L (98-107) mmol/L Carbon Dioxide 29 (22-30) mmol/L BUN 22 H (9-20) mg/dL Creatinine 0.96 (0.66-1.25) mg/dL Glucose 185 H (74-99) mg/dL Calcium 9.2 (8.4-10.2) mg/dL Adrenal panel 07/19/24 Range/Units 18:18 Sodium 136 L (137-145) mmol/L Potassium 4.1 (3.5-5.1) mmol/L Chloride 97 L (98-107) mmol/L Carbon Dioxide 29 (22-30) mmol/L BUN 22 H (9-20) mg/dL Creatinine 0.96 (0.66-1.25) mg/dL Glucose 185 H (74-99) mg/dL Calcium 9.2 (8.4-10.2) mg/dL Total Bilirubin 1.6 H (0.2-1.3) mg/dL AST 19 (17-59) U/L ALT 19 (4-49) U/L Alkaline Phosphatase 123 (38-126) U/L Total Protein 7.0 (6.3-8.2) g/dL Albumin 4.2 (3.5-5.0) g/dL
[2024-07-20] MEDS: IV FLUID CONTINUATION 1,000 ML IV ONE ×2 (14:51→16:01)
[2024-07-20] MEDS: DEXAMETHASONE SOD PHOSPHATE 4 MG/ML 1 ML VIAL IVP STA (15:53)
[2024-07-20] MEDS: ONDANSETRON 4 MG/2 ML VIAL IVP PRN (15:53)
[2024-07-20] MEDS ORDERED: ePHEDrine 50 MG/ML 1 ML VIAL ONE (15:55)
[2024-07-20] MEDS ORDERED: fentaNYL (PF) 50 MCG/ML 2 ML AMP ONE (15:55)
[2024-07-20] MEDS ORDERED: MIDAZOLAM 2 MG/2 ML VIAL ONE (15:55)
[2024-07-20] MEDS ORDERED: GLYCOPYRROLATE 0.2 MG/ML 2 ML VIAL ONE (15:55)
[2024-07-20] MEDS ORDERED: SUCCINYLCHOLINE CHLORIDE 200 MG/10 ML VIAL IV ONE (15:55)
[2024-07-20] MEDS ORDERED: NEOSTIGMINE 1 MG/ML 10 ML VIAL ONE (15:55)
[2024-07-20] MEDS ORDERED: PROPOFOL 10 MG/ML 20 ML VIAL IV ONE (15:55)
[2024-07-20] MEDS ORDERED: PHENYLEPHRINE 10 MG/ML VIAL ONE (15:55)
[2024-07-20] MEDS ORDERED: LIDOCAINE 1% INJ 10MG/ML (20 ML MDV) ONE (15:55)
[2024-07-20] MEDS ORDERED: KETAMINE HCL IN 0.9 % NACL 50 MG/5 ML SYRINGE ONE (15:55)
[2024-07-20] MEDS ORDERED: ROCURONIUM 10 MG/ML (5 ML VIAL) IV ONE (15:55)
[2024-07-20] MEDS ORDERED: SUGAMMADEX SODIUM 100 MG/ML SYR IV ONE (15:55)
[2024-07-20] MEDS: SODIUM CHLORIDE 0.9% 100 ML with ceFAZolin 2 GM IV ONE (16:23)
--- NOTE | 2024-07-20 16:53 | P.OP ---
Date of Procedure: 07/20/24 Preoperative Diagnosis: Small bowel obstruction with incarcerated incisional hernia Postoperative Diagnosis: Same Procedure(s) Performed: Open repair of incarcerated incisional hernia Partial omentectomy Anesthesia: ANN Surgeon: Jose Juan Sepulveda Estimated Blood Loss (ml): 10 Pathology: other (Omentum) Condition: stable Disposition: PACU Operative Findings: 10 cm incarcerated central hernia Description of Procedure: Patient is placed on the operative table in the supine position. He received general G-tube anesthesia. Patient incarcerated incisional hernia located to the right of the umbilicus. The skin was incised in the midline. Then using b haseeb sharp/electrocautery the hernia sac was dissected free from the subcutaneous tissues. The hernia sac was opened and a piece of incarcerated mentum was transected and sent to pathology. 3 defect measured approxi-10 cm in size. The hernia defect was then closed with suture using #1 Ethibond and then buttressed with #1 STRATAFIX suture. There is no bleeding seen. Skin was low falguni. Patient tolerated well. He was sent to recovery room in stable condition.
[2024-07-20] MEDS ORDERED: HYDROmorphone 1 MG/ML 1 ML SYRINGE IVP PRN (16:54)
[2024-07-20] MEDS ORDERED: ONDANSETRON 4 MG/2 ML VIAL IVP PRN (16:54)
[2024-07-20 17:13] LABS: Glucose,Whole Blood 94 mg/dL (70-110)
[2024-07-20] MEDS: LACTATED RINGERS 1,000 ML IV SCH (18:16)
[2024-07-20] MEDS: HYDROcodone/APAP 7.5-325MG 1 EACH TAB PO PRN (20:03)
[2024-07-20] MEDS: HEPARIN SODIUM,PORCINE 5,000 UNIT/ML 1 ML VIAL SQ SCH (20:05)
[2024-07-20 20:07] LABS: Glucose,Whole Blood 288 mg/dL (70-110)
[2024-07-21 07:25] LABS: Glucose,Whole Blood 119 mg/dL (70-110)
[2024-07-21] MEDS: INSULIN LISPRO (HumaLOG) 100 UNIT/ML 10 mL VL SQ SCH (07:28)
[2024-07-21 08:00] VITALS: BP 108/65; PULSE 63; RESP 18; TEMP 98.6
[2024-07-21 08:04] LABS: Glucose,Whole Blood 104 mg/dL (70-110)
[2024-07-21 08:37] LABS: Basophils # (A) 0.03 X 10*3/uL (0.00-0.10); Basophils % (A) 0.3 %; Eosinophils # (A) 0.03 X 10*3/uL (0.04-0.35); Eosinophils % (A) 0.3 %; HCT 38.2 % (39.6-50.0); Lymphocytes # (A) 1.46 X 10*3/uL (0.90-5.00); Lymphocytes % (A) 12.4 %; MCH 32.3 pg (27.0-32.0); Mean Platelet Volume 9.6 FL (9.5-12.2); Monocytes # (A) 1.14 X 10*3/uL (0.20-1.00); Monocytes % (A) 9.7 %; NRBC Per 100 WBC 0 X 10*3/uL (0.00-0.01); Neutrophils # (A) 9.02 X 10*3/uL (1.80-7.70); Neutrophils % (A) 76.9 %; Platelet Count 256 X 10*3/uL (140-440); RBC 4.02 X 10*6/uL (4.40-5.60); RDW 12.8 % (11.5-14.5); WBC 11.73 X 10*3/uL (4.50-10.00)
[2024-07-21 08:44] LABS: Blood Urea Nitrogen 13.1 mg/dL (9.0-27.0); Calcium 8.4 mg/dL (8.7-10.3); Carbon Dioxide 25.8 mmol/L (21.6-31.8); Chloride 104 mmol/L (96-109); Glucose 152 mg/dL (70-110); Potassium 4.4 mmol/L (3.5-5.5); Sodium 138 mmol/L (135-145)
--- NOTE | 2024-07-21 10:37 | P.PN ---
Subjective Progress Note Date: 07/21/24 SURGICAL PROGRESS NOTE CHIEF COMPLAINT: Incarcerated incisional hernia HISTORY OF PRESENT ILLNESS: Patient is postop day #1 status post open repair of incarcerated incisional hernia with partial omentectomy for small bowel obstruction with incarcerated incisional hernia. Patient tolerated surgery well. Pain is controlled. He is tolerating regular diet. Afebrile. WBC is down from 13-11.73 Patient seen and examined with Dr. Sepulveda PHYSICAL EXAM: VITAL SIGNS: Reviewed. GENERAL: Well-developed in no acute distress. ABDOMEN: Soft. Nondistended. Nontender. NEUROLOGIC: Alert and oriented. Cranial nerves II through XII grossly intact. ASSESSMENT: 1. Small bowel obstruction with incarcerated incisional hernia PLAN: -Patient can be discharged from surgical standpoint -No antibiotics needed at discharge -Okay to resume Plavix tomorrow Physician Marine Engineer note has been reviewed by physician. Signing provider agrees with the documented findings, assessment, and plan of care. Objective - Vital Signs Vital signs: Vital Signs Temp 98.6 F 07/21/24 07:11 Pulse 63 07/21/24 07:11 Resp 18 07/21/24 07:11 BP 108/65 07/21/24 07:11 Pulse Ox 95 07/21/24 07:11 FiO2 Intake & Output 07/20/24 07/21/24 07/21/24 18:59 06:59 18:59 Intake Total 1180 1400 Output Total 575 Balance 1180 825 Weight 87.09 kg Intake: IV 700 Intake, IV Titration 1400 Amount Lactated Ringers 1,000 ml 1250 @ 125 mls/hr IV .Q8H [place] Rx#:[id number] Piperacillin-Tazobactam 3 150 .375 gm In Sodium Chloride 0.9% 100 ml @ 25 mls/hr IVPB Q8H [place] Rx#: [id number] Oral 480 Output: Urine 575 Other: Voiding Method Toilet Urinal # Voids 1 - Labs CBC & Chem 7: 07/21/24 04:13 07/21/24 04:13 Labs: Abnormal Lab Results - Last 24 Hours (Table) 07/20/24 07/21/24 07/21/24 Range/Units 20:03 04:13 04:13 WBC 11.73 H (4.50-10.00) X 10*3/uL RBC 4.02 L (4.40-5.60) X 10*6/uL Hct 38.2 L (39.6-50.0) % MCH 32.3 H (27.0-32.0) pg Immature Gran # 0.05 H (0.00-0.04) X 10*3/uL Neutrophils # 9.02 H (1.80-7.70) X 10*3/uL Monocytes # 1.14 H (0.20-1.00) X 10*3/uL Eosinophils # 0.03 L (0.04-0.35) X 10*3/uL Glucose (70-110) mg/dL POC Glucose (mg/dL) 288 H (70-110) mg/dL Hemoglobin A1c 7.6 H (<=6.0) % Calcium (8.7-10.3) mg/dL 07/21/24 07/21/24 Range/Units 04:13 07:16 WBC (4.50-10.00) X 10*3/uL RBC (4.40-5.60) X 10*6/uL Hct (39.6-50.0) % MCH (27.0-32.0) pg Immature Gran # (0.00-0.04) X 10*3/uL Neutrophils # (1.80-7.70) X 10*3/uL Monocytes # (0.20-1.00) X 10*3/uL Eosinophils # (0.04-0.35) X 10*3/uL Glucose 152 H (70-110) mg/dL POC Glucose (mg/dL) 119 H (70-110) mg/dL Hemoglobin A1c (<=6.0) % Calcium 8.4 L (8.7-10.3) mg/dL Microbiology - Last 24 Hours (Table) 07/19/24 21:52 Blood Culture - Preliminary Blood
== END 2024-07-21 11:24 | disposition home or self-care (01) | DRG 355 ==
LOC: EC 17:27 → 5NMEDONC 21:23
PROVIDERS: ADMIT Internal Medicine; ATTEND Internal Medicine
PROC: 0DBU0ZZ Excision of Omentum, Open Approach (ICD-10-PCS; 2024-07-20)
PROC: 0WQF0ZZ Repair Abdominal Wall, Open Approach (ICD-10-PCS; principal; 2024-07-20 07:30)
DX: K43.0 Incisional hernia with obstruction, without gangrene (principal); E11.51 Type 2 diabetes mellitus with diabetic peripheral angiopathy without gangrene; J44.9 Chronic obstructive pulmonary disease, unspecified; F32.A Depression, unspecified; I10 Essential (primary) hypertension; Z93.3 Colostomy status; G89.29 Other chronic pain; M54.9 Dorsalgia, unspecified; M19.90 Unspecified osteoarthritis, unspecified site; F90.9 Attention-deficit hyperactivity disorder, unspecified type; F41.9 Anxiety disorder, unspecified; E78.5 Hyperlipidemia, unspecified; I99.8 Other disorder of circulatory system; Z77.22 Contact with and (suspected) exposure to environmental tobacco smoke (acute) (chronic); Z79.02 Long term (current) use of antithrombotics/antiplatelets; Z79.82 Long term (current) use of aspirin; Z79.899 Other long term (current) drug therapy; Z87.891 Personal history of nicotine dependence; Z88.5 Allergy status to narcotic agent; Z88.8 Allergy status to other drugs, medicaments and biological substances
CPT/HCPCS: 36415; 71045; 74177; 80048; 80053; 81001; 82150; 83036; 83605; 83690; 85025; 86850; 86900; 86901; 87040; 88305; 93005; 96361; 96365; 96366; 96367; 96375; 96376; 99285

== ENCOUNTER 2024-08-21 09:49 | Emergency (ER) | payer MEDICARE, OTHER ==
[2024-08-21 09:55] VITALS: RESP 18
--- NOTE | 2024-08-21 10:19 | XR ---
EXAMINATION TYPE: XR shoulder complete LT DATE OF EXAM: 08/21/2024 CLINICAL INDICATION: Male, 54 years old with history of pain, pain TECHNIQUE: Three views of the left shoulder are obtained. COMPARISON: None. FINDINGS: There is no acute fracture/dislocation evident in the left shoulder. The acromioclavicula r and glenohumeral joint spaces appear within normal limits. Old healed fracture left lateral third r ib. IMPRESSION: As above. [facility], , 08/21/2024 10:17 AM
--- NOTE | 2024-08-21 10:55 | ED ---
Upper Extremity HPI - General Chief Complaint: Extremity Injury, Upper Stated Complaint: Fall-L shoulder injury Time Seen by Provider: 08/21/24 09:50 Source: patient, RN notes reviewed Mode of arrival: ambulatory Limitations: no limitations - History of Present Illness Initial Comments: 54-year-old male presents emergency department complaint left shoulder pain. Patient states he slipped and fell. Patient complains of left shoulder pain. Patient had no head injury no loss conscious patient states he has pain with range of motion patient denies any other associate symptoms. - Related Data Home Medications Medication Instructions Recorded Confirmed Clopidogrel Bisulfate [Plavix] 75 mg PO DAILY 03/13/20 07/20/24 Semaglutide [Ozempic] 0.25 mg SQ FR 08/20/23 07/20/24 Atorvastatin [Lipitor] 80 mg PO HS 11/03/23 07/20/24 Ezetimibe [Zetia] 10 mg PO DAILY 11/03/23 07/20/24 Gabapentin 600 mg PO BID 07/20/24 07/20/24 Omeprazole [PriLOSEC] 40 mg PO BID 07/20/24 07/20/24 buPROPion XL [Wellbutrin XL] 150 mg PO DAILY 07/20/24 07/20/24 Previous Rx's Medication Instructions Recorded HYDROcodone/APAP 5-325MG [[place] 1 tab PO Q6HR PRN 3 Days #12 tab 07/21/24 5-325] Ibuprofen [Motrin] 600 mg PO Q8HR PRN #20 tab 08/21/24 Allergies Allergy/AdvReac Type Severity Reaction Status Date / Time benztropine mesylate AdvReac muscle Verified 08/21/24 09:55 [From Vipul] spasms morphine AdvReac Nausea & Verified 08/21/24 09:55 Vomiting Review of Systems ROS Statement: Those systems with pertinent positive or pertinent negative responses have been documented in the HPI. ROS Other: All systems not noted in ROS Statement are negative. Past Medical History Past Medical History: COPD, Diabetes Mellitus, GERD/Reflux, Hyperlipidemia, Hypertension, Osteoarthritis (OA), Vascular Disorder Additional Past Medical History / Comment(s): hx. diverticulitis, bad circulation to legs, chronic back pain with known herniated disks, uses oxygen at 2-3L [place] as needed, seasonal allergies. History of Any Multi-Drug Resistant Organisms: None Reported Past Surgical History: Bowel Resection, Hernia Repair, Orthopedic Surgery Additional Past Surgical History / Comment(s): temp. colostomy then reversal, knee surg., thumb surg., femoral bypass, 07/20/24 open ventral hernia repair by Dr. Sepulveda Past Anesthesia/Blood Transfusion Reactions: No Reported Reaction Past Psychological History: ADD/ADHD, Anxiety, Depression Smoking Status: Former smoker Past Alcohol Use History: None Reported Past Drug Use History: Marijuana - Past Family History Mother Family Medical History: Cancer Father Family Medical History: Osteoarthritis (OA), Respiratory Disorder General Exam Limitations: no limitations General appearance: alert, in no apparent distress Head exam: Present: atraumatic, normocephalic, normal inspection Eye exam: Present: normal appearance, PERRL, EOMI. Absent: scleral icterus, conjunctival injection, periorbital swelling Neck exam: Present: normal inspection, full ROM. Absent: tenderness, meningismus, lymphadenopathy Respiratory exam: Present: normal lung sounds bilaterally. Absent: respiratory distress, wheezes, rales, rhonchi, stridor Cardiovascular Exam: Present: regular rate, normal rhythm, normal heart sounds. Absent: systolic murmur, diastolic murmur, rubs, gallop, clicks Extremities exam: Present: other (Left shoulder limited range of motion pain with range tach no obvious deformity) Neurological exam: Present: alert, oriented X3, reflexes normal. Absent: motor sensory deficit Course Vital Signs 08/21/24 08/21/24 09:50 11:04 Temperature 97.6 F 98 F Pulse Rate 81 80 Respiratory 18 18 Rate Blood Pressure 139/84 131/79 O2 Sat by Pulse 99 99 Oximetry Medical Decision Making - Medical Decision Making Was pt. sent in by a medical professional or institution (, PA, RUBBER STAMP DIE INSPECTOR, urgent care, hospital, or senior care...) When possible be specific @ -No Did you speak to anyone other than the patient for history (EMS, parent, family, police, friend...)? What history was obtained from this source @ -No Did you review nursing and triage notes (agree or disagree)? Why? @ -I reviewed and agree with nursing and triage notes Were old charts reviewed (outside hosp., previous admission, EMS record, old EKG, old radiological studies, urgent care reports/EKG's, senior care records)? Report findings @ -No old charts were reviewed Differential Diagnosis (chest pain, altered mental status, abdominal pain women, abdominal pain men, vaginal bleeding, weakness, fever, dyspnea, syncope, headache, dizziness, GI bleed, back pain, seizure, CVA, palpatations, mental health, musculoskeletal)? @ -Shoulder dislocation,sprain, strain, EKG interpreted by me (3pts min.). @ -[None X-rays interpreted by me (1pt min.). @ -X-ray left shoulder shows no obvious acute deformity, old injuries noted CT interpreted by me (1pt min.). @ -[None done U/S interpreted by me (1pt. min.). @ -None done What testing was considered but not performed or refused? (CT, X-rays, U/S, labs)? Why? @ -None What meds were considered but not given or refused? Why? @ -None Did you discuss the management of the patient with other professionals (professionals i.e. , PA, RUBBER STAMP DIE INSPECTOR, lab, RT, psych nurse, social security assessor, pharmacy care coordinator, teacher, eeo officer, case preparer and liner)? Give summary @ -No Was smoking cessation discussed for >3mins.? @ -No Was critical care preformed (if so, how long)? @ -No Were there social determinants of health that impacted care today? How? (Homelessness, low income, unemployed, alcoholism, drug addiction, transportation, low edu. Level, literacy, decrease access to med. care, nursing home, rehab)? @ -No Was there de-escalation of care discussed even if they declined (Discuss DNR or withdrawal of care, Hospice)? DNR status @ -No What co-morbidities impacted this encounter? (DM, HTN, Smoking, COPD, CAD, Cancer, CVA, ARF, Chemo, Hep., AIDS, mental health diagnosis, sleep apnea, morbid obesity)? @ -None Was patient admitted / discharged? Hospital course, mention meds given and route, prescriptions, significant lab abnormalities, going to OR and other pertinent info. @ -Discharge patient has left shoulder strain patient has no dislocation patient discharged in stable condition with follow-up with orthopedics. Undiagnosed new problem with uncertain prognosis? @ -No Drug Therapy requiring intensive monitoring for toxicity (Heparin, Nitro, Insulin, Cardizem)? @ -No Were any procedures done? @ -No Diagnosis/symptom? @ -Shoulder strain left Acute, or Chronic, or Acute on Chronic? @ -Acute Uncomplicated (without systemic symptoms) or Complicated (systemic symptoms)? @ -Uncomplicated Side effects of treatment? @ -No Exacerbation, Progression, or Severe Exacerbation? @ -No Poses a threat to life or bodily function? How? (Chest pain, [place], [place], pneumonia, PE, COPD, DKA, ARF, appy, cholecystitis, CVA, Diverticulitis, Homicidal, Suicid al, threat to staff... and all critical care pts) @ -No Disposition Clinical Impression: Left shoulder strain Disposition: HOME SELF-CARE Condition: Stable Instructions (If sedation given, give patient instructions): Shoulder Sprain (ED) Additional Instructions: Please return to the Emergency Department if symptoms worsen or any other concerns. Prescriptions: Ibuprofen [Motrin] 600 mg PO Q8HR PRN #20 tab PRN Reason: Pain Is patient prescribed a controlled substance at d/c from ED?: No Referrals: Benji Hand MD [Primary Care Provider] - 1-2 days Gretel Johnson [Doctor of Osteopathic Medicine] - 1-2 days Time of Disposition: 10:54
[2024-08-21] MEDS: ACET/COD 300 MG/30 MG STARTER PACK 6 TAB BTL PO STA (10:59)
[2024-08-21 11:08] VITALS: BP 131/79; PULSE 80; TEMP 98
== END 2024-08-21 11:04 | disposition home or self-care (01) ==
LOC: EC 09:49
DX: S46.912A Strain of unspecified muscle, fascia and tendon at shoulder and upper arm level, left arm, initial encounter (principal); Z87.891 Personal history of nicotine dependence; Z88.5 Allergy status to narcotic agent; Z88.8 Allergy status to other drugs, medicaments and biological substances; W01.0XXA Fall on same level from slipping, tripping and stumbling without subsequent striking against object, initial encounter
CPT/HCPCS: 99283

== ENCOUNTER → 2024-09-05 | Outpatient (CLI) | payer MEDICARE, OTHER ==
--- NOTE | 2024-09-05 10:07 | MR ---
INDICATION: Patient age:Male; 54 years old; Reason for study: M549 DORSALGIA, UNSPECIFIED; M48.07 SPINAL STENOSI; [facility]. COMPARISONS: CT abdomen and pelvis 07/19/2024, lumbar spine radiographs 12/22/2023, MRI lumbar spine . TECHNIQUE: Multi planar, multi sequence imaging was performed utilizing: T1-weighted, T2-weighted, a nd turbo inversion recovery imaging of the lumbar spine. The patient was not given contrast. FINDINGS: The lumbar vertebral bodies do have preserved heights and alignment. Multilevel disc stefani ccation is present. Significant disc height loss at L5-S1. Anterior osteophytosis at L5-S1. Type II Modic changes involving the endplates around the L5-S1 disc. The conus medullaris and the distal spin al cord do appear unremarkable with regards to their signal intensity and morphology. T12-L1: Broad-based disc bulge with mild effacement of the anterior thecal sac. Minimal central canal stenosis. No neural foraminal stenosis. L1-L2: No significant disc pathology is identified. The spinal canal and neural foramen are patent. L2-L3: No significant disc pathology is identified. The spinal canal and neural foramen are patent. L3-L4: No significant disc pathology is identified. The spinal canal and neural foramen are patent. L4-L5: A disc bulge is identified with associated enlargement of the facet joints. The spinal canal remains patent. Neural canals are mildly narrowed bilaterally. L5-S1: Small central disc protrusion without significant effacement of the anterior thecal sac. Bilat eral facet arthropathy. Mild bilateral neuroforaminal stenosis. Other significant findings: Bifemoral stent graft. IMPRESSION: Overall stable exam from prior MRI 03/14/2021 with mild multilevel degenerative disc disease and face t arthropathy. Similar small central disc protrusion at L5-S1 without significant spinal canal stenos is. [facility], , 09/05/2024 10:05 AM
== END | disposition home or self-care (01) ==
LOC: RADMRIMAIN 08:48
PROVIDERS: ATTEND Neurological Surgery
DX: M48.07 Spinal stenosis, lumbosacral region (principal); M51.360 Other intervertebral disc degeneration, lumbar region with discogenic back pain only; M47.816 Spondylosis without myelopathy or radiculopathy, lumbar region; M51.27 Other intervertebral disc displacement, lumbosacral region
CPT/HCPCS: 72148